=== PATIENT | female | born 1960 | race Caucasian/White ===

== ENCOUNTER 2020-07-13 11:40 | Outpatient (REF) | payer MEDICARE, MEDICAID, SELFPAY | END 2020-07-13 11:41 | disposition home or self-care (01) | LOC: HO.WFDLDS 11:40 | PROVIDERS: Visit Provider Internal Medicine | DX: Z20.828 Contact with and (suspected) exposure to other viral communicable diseases (principal) | CPT/HCPCS: C9803; U0003 ==

== ENCOUNTER → 2020-12-04 12:58 | Outpatient (BNVA) | payer MEDICARE, MEDICAID, SELFPAY | PROVIDERS: PCP Internal Medicine; Visit Provider Physician Assistant ==

== ENCOUNTER → 2020-12-05 08:09 | Outpatient (BNVA) | payer OTHER, SELFPAY | PROVIDERS: PCP Internal Medicine; Visit Provider Surgery | DX: K21.9 Gastro-esophageal reflux disease without esophagitis (principal); E03.9 Hypothyroidism, unspecified; E66.01 Morbid (severe) obesity due to excess calories; Z68.42 Body mass index [BMI] 45.0-49.9, adult; G47.30 Sleep apnea, unspecified; I10 Essential (primary) hypertension; Z71.3 Dietary counseling and surveillance; Z79.899 Other long term (current) drug therapy; Z87.891 Personal history of nicotine dependence | CPT/HCPCS: Q3014 ==

== ENCOUNTER 2020-12-07 08:09 | Outpatient (REF) | payer OTHER, SELFPAY ==
--- NOTE | ~2020-12-07 | XR_ITS ---
EXAMINATION: XR CHEST CLINICAL INFORMATION: Obesity COMPARISON: None TECHNIQUE: 2 views of the chest were obtained. FINDINGS: The cardiac and mediastinal contours are normal. The lungs are clear. There is no pleural effusion or pneumothorax. There are degenerative changes of the spine. XR/XR chest 2V IMPRESSION: No evidence for acute disease in the chest.
--- NOTE | 2020-12-07 08:37 | ECG_ITS ---
Test Reason : MORBID OBESITY Blood Pressure : / mmHG Vent. Rate : 079 BPM Atrial Rate : 079 BPM P-R Int : 164 ms QRS Dur : 082 ms QT Int : 396 ms P-R-T Axes : 053 034 065 degrees QTc Int : 454 ms Normal sinus rhythm Normal ECG No previous ECGs available Referred By: Syed Jane Electronically Signed By:NADEEN TORREZ
[2020-12-07 08:57] LABS: MANUAL DIFF FLAG NO
[2020-12-07 09:06] LABS: Basophils Percent Auto 0.4 % (0-2); Eosinophils Absolute Auto 0.4 X10*3/uL (0.0-0.4); Hematocrit 34.3 % (37-47); Hemoglobin 10.8 g/dl (12.0-16.0); Imm Gran Abs Auto 0.03 X10*3/uL (0.00-0.03); Imm Gran Pct Auto 0.3 % (0.0-0.4); Lymphocytes Absolute Auto 2.8 X10*3/uL (1.2-4.9); Lymphocytes Percent Auto 29.5 % (20-40); Mean Corpuscular HGB Conc 31.5 g/dl (31.0-35.0); Mean Corpuscular Hemoglobin 26.2 pg (27.0-33.0); Mean Corpuscular Volume 83.1 fL (80-98); Monocytes Absolute Auto 0.6 X10*3/uL (0.1-1.2); Monocytes Percent Auto 6.8 % (2-11); Neutrophils Absolute Auto 5.6 X10*3/uL (2.0-8.3); Platelet Count 621 X10*3/uL (160-400); Red Blood Count 4.13 X10*6/uL (4.20-5.50); Red Cell Distribution Width 15.1 % (11.0-16.0); White Blood Count 9.4 X10*3/uL (4.8-10.8)
[2020-12-07 09:32] LABS: Estimated Average Glucose 186 mg/dL; Hemoglobin A1c % 8.1 %
[2020-12-07 09:33] LABS: Alanine Aminotransferase 17 U/L (0-31); Alkaline Phosphatase 66 U/L (39-117); Anion Gap 16 (12-20); Aspartate Amino Transferase 19 U/L (5-31); Bilirubin Total < 0.2 mg/dL (0.0-1.0); Blood Urea Nitrogen 22 mg/dL (9-16); C Reactive Protein 2.03 mg/dL (< or = 0.50); Calcium 9.8 mg/dL (8.4-10.2); Carbon Dioxide 28 mmol/L (22-29); Chloride 100 mmol/L (96-108); Cholesterol 248 mg/dL; Estimated Glomerular Filt Rate 59; Glucose Random 244 mg/dL (60-115); HDL Cholesterol 44 mg/dL; LDL Cholesterol Calculated 162 mg/dl; Potassium 5.5 mmol/L (3.3-5.1); Sodium 138 mmol/L (135-145); Total Protein 7.4 g/dL (6.5-8.0); Triglycerides 210 mg/dL
[2020-12-07 09:55] LABS: Ferritin 69 ng/mL (10-250); Vitamin D 25-OH Total 15.6 ng/mL (>30)
[2020-12-07 10:11] LABS: Folate 18.9 ng/mL (> or = 4.0); Vitamin B12 656 pg/mL (200-900)
[2020-12-08 09:52] LABS: Insulin Level Total 15.3 uIU/mL
[2020-12-08 12:16] LABS: H Pylori Breath Test NOT DETECTED (NOT DETECTED)
[2020-12-10 13:43] LABS: Calcium (PTHI) 9.8 mg/dL (8.6-10.4); PTHI 32 pg/mL (14-64)
[2020-12-11 03:11] LABS: Zinc 72 mcg/dL (60-130)
[2020-12-11 09:56] LABS: Vitamin B1 19 nmol/L (8-30)
[2020-12-11 21:36] LABS: Vitamin A 64 mcg/dL (38-98)
== END 2020-12-07 08:10 | disposition home or self-care (01) ==
LOC: HO.LAB 08:09
PROVIDERS: Physician Assistant; Visit Provider Surgery
DX: E66.01 Morbid (severe) obesity due to excess calories (principal); E03.9 Hypothyroidism, unspecified; G47.30 Sleep apnea, unspecified; I10 Essential (primary) hypertension; K21.9 Gastro-esophageal reflux disease without esophagitis; E11.9 Type 2 diabetes mellitus without complications
CPT/HCPCS: 36415; 71046; 80053; 80061; 82306; 82607; 82728; 82746; 83013; 83036; 83525; 83970; 84425; 84443; 84590; 84630; 85025; 86140; 93005; 99211

== ENCOUNTER → 2020-12-11 09:58 | Outpatient (BNVA) | payer OTHER, SELFPAY | PROVIDERS: Visit Provider Physician Assistant ==

== ENCOUNTER 2020-12-24 08:02 | Outpatient (REF) | payer OTHER, SELFPAY ==
--- NOTE | ~2020-12-24 | FL_ITS ---
EXAMINATION: XR GI SERIES CLINICAL INFORMATION: Obesity. COMPARISON: None TECHNIQUE: Upper GI performed with air, thick and thin barium. FINDINGS: Normal esophageal motility and distention. No mass or mucosal lesions of the esophagus. There was quick transit of the barium through the stomach into the proximal bowel. The stomach is suboptimally distended, with associated limitation of evaluation. There is apparent rugal prominence in the fundus and body of the stomach, which could be related to lack of distention. No space-occupying mass lesion is identified. No reflux is seen. No evidence of hiatal hernia. The visualized proximal small bowel appears unremarkable. FLUOROSCOPY TIME: 1.3 minutes DOSE AREA PRODUCT: 48.9 uGy-m2 (microgray-meter squared) TOTAL IMAGES: 27 FL/FL upper GI series IMPRESSION: 1. Prompt passage of the barium and gas through the stomach to the proximal small bowel. There is suboptimal distention of the stomach, therefore limiting evaluation. Apparent rugal prominence of the stomach fundus/body, which could be related to lack of distention. A follow-up upper GI study could be attempted for further evaluation as clinically warranted. Endoscopy could be considered as clinically warranted. 2. No evidence of hiatal hernia. 3. No reflux is seen.
--- NOTE | ~2020-12-24 | US_ITS ---
EXAMINATION: US COMPLETE ABDOMEN WITH LIVER ELASTOGRAPHY CLINICAL INFORMATION: Obesity. COMPARISON: None. TECHNIQUE: Real-time imaging of the abdominal viscera. Noninvasive ultrasound liver fibrosis assessment is performed using Rashad ElastPQ point quantification shear wave elastography (pSWE) with a C5-2 MHz transducer. Multiple elastography samples are obtained. FINDINGS: PANCREAS: Normal. The visualized pancreatic head and body are normal in appearance. The remainder of the pancreas is obscured from visualization by the overlying bowel gas. ABDOMINAL AORTA: The proximal, middle, and distal aortic segments are normal in caliber. INFERIOR VENA CAVA: Visualized portions are normal. LIVER: Diffuse increased parenchymal echogenicity. No focal lesion or intrahepatic biliary duct dilatation. The right lobe measures 14.2 cm in length. The left lobe measures 14 cm in length. Portal flow is hepatopedal. Shear wave liver elastography median stiffness is 2.2 m/s (reference: normal median stiffness is 1.3 m/s or less). IQR/median stiffness to assess sampling precision is 0.24. (reference: good quality data set is IQR/median stiffness of 0.15 or less). GALLBLADDER: Normal. The gallbladder is physiologically distended without evidence of stones, sludge, polyps, wall thickening or pericholecystic fluid. COMMON BILE DUCT: Normal in caliber measuring 0.5 cm in diameter. RIGHT KIDNEY: Normal. No hydronephrosis. No renal calculi or focal parenchymal lesions. The kidney measures 12 cm in maximum dimension. LEFT KIDNEY: Normal. No hydronephrosis. No renal calculi or focal parenchymal lesions. The kidney measures 12.3 cm in maximum dimension. SPLEEN: Normal. The spleen measures 10.2 cm in maximum dimension. FREE FLUID: None. US/US abdomen comp w elastography IMPRESSION: 1. There is generalized increase in hepatic echotexture, consistent with fatty infiltration or hepatocellular disease. Please correlate clinically. No focal hepatic mass or intrahepatic biliary duct dilatation is seen. 2. Liver elastography: Median stiffness is 2.2 m/s. Please note, the sampling precision is suboptimal, as detailed above. Consider followup ultrasound for reassessment. Today's measurements, as per the attached guidelines, would be suggestive of compensated advanced chronic liver disease but need further test for confirmation. REFERENCE: Society of Radiologists in Ultrasound Liver Stiffness Thresholds (2020): LIVER STIFFNESS THRESHOLDS: *Liver Stiffness equal or less than 1.3 m/s: High probability of being normal. *Liver Stiffness less than 1.7 m/s: In the absence of other known clinical signs, rules out compensated advanced chronic liver disease. *Liver Stiffness 1.7-2.1 m/s: Suggestive of compensated advanced chronic liver disease but need further test for confirmation. *Liver Stiffness over 2.1 m/s: Rules in compensated advanced chronic liver disease. *Liver Stiffness over 2.4 m/s: Suggestive of clinically significant portal hypertension. QUALITY OF DATA SET: *IQR/Median value equal or less than 0.15 implies a quality data set. *IQR/Median value over 0.15 implies a poor quality data set. SIGNIFICANT CHANGE FROM PRIOR EXAM: Significant change if liver stiffness measurement is 10% or greater from prior exam. OTHER CONSIDERATIONS: The stage of liver fibrosis may be overestimated in the setting of acute hepatitis, liver inflammation, elevated liver function tests, hepatic vascular congestion, obstructive cholestasis, non-fasting state, and infiltrative diseases such as amyloidosis and lymphoma. In some patients with NAFLD, the liver stiffness thresholds for compensated advanced chronic liver disease may be lower. In causes other than viral hepatitis and NAFLD, liver stiffness thresholds are not well established.
== END 2020-12-24 08:03 | disposition home or self-care (01) ==
LOC: HO.US 08:02
PROVIDERS: Visit Provider Surgery
DX: Z01.818 Encounter for other preprocedural examination (principal); E66.01 Morbid (severe) obesity due to excess calories; K21.9 Gastro-esophageal reflux disease without esophagitis; E03.9 Hypothyroidism, unspecified; G47.30 Sleep apnea, unspecified; I10 Essential (primary) hypertension
CPT/HCPCS: 74240; 76705; 76981

== ENCOUNTER → 2020-12-26 08:39 | Outpatient (BNVA) | payer OTHER, SELFPAY | PROVIDERS: Visit Provider Surgery | DX: E66.01 Morbid (severe) obesity due to excess calories (principal); G47.30 Sleep apnea, unspecified; I10 Essential (primary) hypertension; Z68.42 Body mass index [BMI] 45.0-49.9, adult | CPT/HCPCS: Q3014 ==

== ENCOUNTER → 2021-01-02 08:17 | Outpatient (BNVA) | payer OTHER, SELFPAY | PROVIDERS: PCP Internal Medicine; Visit Provider Dietitian, Registered | DX: E66.01 Morbid (severe) obesity due to excess calories (principal); Z68.42 Body mass index [BMI] 45.0-49.9, adult | CPT/HCPCS: 97802 ==

== ENCOUNTER → 2021-01-10 09:57 | Outpatient (REF) | payer OTHER, SELFPAY ==
--- NOTE | ~2021-01-10 | NM_ITS ---
Myocardial perfusion study Indication: Abnormal EKG to evaluate for myocardial ischemia Technique: The patient was brought in for a Lexiscan perfusion study on 01/10/2021. Patient performed low-level exercise and was injected 0.4 mg of Lexiscan intravenously. Within a minute of injection, 45 mCi of sestamibi was given intravenously. Images were obtained using the SPECT gamma camera interlaced with the gating device. Images were obtained in supine position. Resting perfusion study was performed on 01/11/2021. Patient was administered 45 mCi of sestamibi intravenously at rest. Images were then obtained in supine position. Images obtained with and without CT attenuation. Total DLP 197 mGy-cm. Images were processed with the software and compared side to side in short axis, horizontal long axis and vertical long axis views. Findings: The stress perfusion study showed non attenuated images show severely reduced uptake in the anterior and anterolateral wall of the LV myocardium. Remainder of the LV myocardium normally perfused. Attenuation corrected images show mildly to moderately reduced uptake in the mid and distal anterior and apical of the LV myocardium. Is also mildly reduced uptake in the distal septum of the LV myocardium.. The gated study shows normal LV systolic function with calculated LVEF of 73%. LV cavity is normal in size. The gated study shows normal systolic wall thickening and contraction of segments. Resting study shows non attenuated images show minimal thinning of the distal anterior and apex of the LV myocardium. Attenuation corrected images show minimal thinning of the distal anterior wall of the LV myocardium.. Gating at rest reveals normal systolic wall motion with visually estimated ejection fraction at greater than 70 %. The findings are consistent with nontender images show large area of severe intensity reversible defect of the anterior anterolateral wall suggestive of malignancy territory ischemia. Attenuation corrected images show also reversible defect of mild to moderate intensity in the LAD territory. There is suggestion of possible breast attenuation artifact .. NM/NM george perf SPECT rest & str Impression: 1. Myocardial perfusion imaging study shows anterior wall ischemia in LAD territory 2. Gated LVEF is greater than 70% 3. Transient ischemic dilatation not present EKG is nondiagnostic for ischemia
--- NOTE | 2021-01-10 10:00 | CA_ITS ---
Acquisition Time: 2021-01-10 10:07:38 Total Exercise Time: 00:02:00 Test Indications: Abnormal ECG Medications: Protocol: LEXISCAN Max HR: 102 BPM 67% of Pred: 151 BPM Max BP: 132/084 mmHG Max Work Load: 1.0 METS Pharmacological stress test using Lexiscan while sitting and kicking her feet. Pt tolerated well, denies any anginal sx. EKG with no arrhythmias, non-diagnostic for ischemia. Nuclear images to follow, Normotensive response to test. Test reviewed with Dr. Covarrubias. Referred By: Syed Jane Overread By: Tahira Cordova NP
== END ==
LOC: HO.CARD 09:57
PROVIDERS: Visit Provider Surgery
DX: Z01.818 Encounter for other preprocedural examination (principal); I10 Essential (primary) hypertension; E66.01 Morbid (severe) obesity due to excess calories; G47.30 Sleep apnea, unspecified
CPT/HCPCS: 78452; 93016; 93017; 93018; A9500; J2785

== ENCOUNTER → 2021-01-18 07:53 | Outpatient (BNVA) | payer OTHER, SELFPAY | PROVIDERS: PCP Internal Medicine; Visit Provider Surgery | DX: E66.01 Morbid (severe) obesity due to excess calories (principal); Z68.42 Body mass index [BMI] 45.0-49.9, adult | CPT/HCPCS: 99212 ==

== ENCOUNTER → 2021-01-23 08:19 | Outpatient (BNVA) | payer OTHER, SELFPAY | PROVIDERS: PCP Internal Medicine; Visit Provider Internal Medicine Cardiovascular Disease | DX: Z01.810 Encounter for preprocedural cardiovascular examination (principal); I77.9 Disorder of arteries and arterioles, unspecified; R94.39 Abnormal result of other cardiovascular function study | CPT/HCPCS: 99202 ==

== ENCOUNTER 2021-01-25 14:57 | Outpatient (REF) | payer OTHER, SELFPAY ==
[2021-01-25 16:07] LABS: Anion Gap 18 (12-20); Blood Urea Nitrogen 23 mg/dL (9-16); Carbon Dioxide 25 mmol/L (22-29); Chloride 99 mmol/L (96-108); Cholesterol 242 mg/dL; Estimated Glomerular Filt Rate > 60; Glucose Random 102 mg/dL (60-115); HDL Cholesterol 44 mg/dL; LDL Cholesterol Calculated 160 mg/dl; Potassium 4.5 mmol/L (3.3-5.1); Sodium 137 mmol/L (135-145); Triglycerides 190 mg/dL
== END 2021-01-25 14:58 | disposition home or self-care (01) ==
LOC: HO.LAB 14:57
PROVIDERS: Absent Provider Internal Medicine Cardiovascular Disease; PCP Internal Medicine; Visit Provider Surgery
DX: R94.39 Abnormal result of other cardiovascular function study (principal); I25.10 Atherosclerotic heart disease of native coronary artery without angina pectoris; I77.9 Disorder of arteries and arterioles, unspecified
CPT/HCPCS: 36415; 80048; 80061

== ENCOUNTER → 2021-02-18 09:39 | Outpatient (REF) | payer OTHER, SELFPAY ==
--- NOTE | 2021-02-18 09:42 | CA_ITS ---
Transthoracic Echocardiogram Patient (Last, First, Middle): Helen hWeatley, Gender: Female Date of : 1960 Age: 60 Procedure Date: 02/18/2021 Procedure Type: Transthoracic Echocardiogram Location: OP Height: 162.56 cm Weight: 122.47 kg BSA: 2.22 m2 Heart Rate: bpm BP: 128 / 70 mmHg Collar Setter Overlock: Referring MD: Syed Jane MD Symptoms: E66.01 - Morbid (severe) obesity due to excess calories Study Quality: Fair ECG Rhythm: Sinus Conclusions: - The left ventricular systolic function is normal. The visually estimated ejection fraction is between 65-70%. - Evidence suggests grade I (mild) diastolic dysfunction. - There is mild aortic valve stenosis. - Mild to moderate mitral annular calcification. Findings Procedure Information Contrast agent, definity, is being given per protocol without apparent complications. Left Ventricle Normal left ventricular cavity size. There is mildly increased left ventricular wall thickness. The left ventricular systolic function is normal. The visually estimated ejection fraction is between 65-70%. There is no evidence of regional wall motion abnormalities. E/E prime ratio is between 8 and 15 consistent with indeterminate filling pressures. Evidence suggests grade I (mild) diastolic dysfunction. Right Ventricle Normal right ventricular cavity size and systolic function. Atria Both atria are normal in size. Aortic Valve There is mild calcification of the aortic valve. There is mild aortic valve stenosis. The peak aortic velocity is 2.51 m/s with a calculated peak gradient of 25 mmHg. The mean gradient is 15 mmHg. The aortic valve area is 1.55 cm2. There is no aortic valve regurgitation. Mitral Valve There is trace mitral valve regurgitation. There is no mitral valve stenosis. Mild to moderate mitral annular calcification. Pulmonic Valve The pulmonic valve was not well visualized. Tricuspid Valve There is trace tricuspid valve regurgitation. The pulmonary artery systolic pressure is normal. Great Vessels The aortic annulus, sinuses of valsalva, and asc aorta are normal in size. Venous The inferior vena cava is normal in size and collapses greater than 50% with inspiration. Pericardium/Pleural There is no evidence of pericardial effusion. Prior Study Comparison No prior study available for comparison. Measurements 2D Linear Measurements IVSd: 1.36 0.6-0.9/0.6-1.0 cm LVIDd: 4.51 3.9-5.3/4.2-5.9 cm LVIDd Index: 2.03 2.4-3.2/2.2-3.1 cm/m2 LVIDs: 2.80 2.0-3.6 cm LVPWd: 1.33 0.7-1.1 cm Ao Root: 3.10 2.1-3.5 cm LA Diam: 4.90 2.7-3.8/3.0-4.0 cm LAIDs Index: 2.21 1.5-2.3 cm/m2 LV Mass: 292.77 67-162/88-224 g LV Mass Index: 131.88 43-95/49-115 g/m2 LVOT Diam: 2.00 3.0+(-)1.3 cm Mitral Valve MV VTI: 0.36 MV Pk Raghu: 1.08 MV Mn Raghu: 0.71 MV Pk Grad: 5.00 MV Mn Grad: 2.00 MV Pk E: 0.64 MV PK A: 0.88 MV Decel Time: 244.00 E/A: 0.70 E'Lateral: 3.59 E'Medial: 4.90 E/E' Med: 13.10 E/E' Lat: 17.90 PHT: 71.00 MVA PHT: 3.10 MVA Continuity: 2.18 Decel [place]: 2.64 Aortic Valve AoV Pk Raghu: 2.51 AoV Mn Raghu: 1.81 AoV VTI: 0.50 AoV Pk Grad: 25.00 Aov Mn Grad: 15.00 RYLAN Cont.VTI: 1.55 LVOT LVOT Pk Raghu: 1.16 LVOT Mn Raghu: 0.84 LVOT VTI: 0.25 LVOT Pk Grad: 5.00 LVOT Mn Grad: 3.00 LVOT Diam: 2.00 LVOT Area: 3.14 Diastolic Function MV Pk E: 0.64 MV Pk A: 0.88 E/A: 0.70 E'Medial: 4.90 E/E' Med: 13.10 E' Laterial: 3.59 E/E' Lat: 17.90 Tricuspid Valve TR Pk Raghu: 2.10 TR Pk Grad: 18.00 RA Press: 3.00 RVSP: 21.00 Great Vessels Aorta Ao Root-2D: 3.10 2.0-3.7 cm Ao Asc: 3.50 2.1-3.4 cm Pulmonary Valve PV Pk Raghu: 1.13 Peak PV Grad: 5.00 Updated in Other Vendor System with Status of Final Jerod Covarrubias MD electronically signed on 02/18/2021 12:31:08 PM with status of Final
== END ==
LOC: HO.CARD 09:39
PROVIDERS: PCP Internal Medicine; Visit Provider Surgery
DX: Z01.818 Encounter for other preprocedural examination (principal); I10 Essential (primary) hypertension; E66.01 Morbid (severe) obesity due to excess calories; G47.30 Sleep apnea, unspecified
CPT/HCPCS: 93306; Q9957

== ENCOUNTER → 2021-02-22 11:34 | Outpatient (BNVA) | payer OTHER, SELFPAY | PROVIDERS: PCP Internal Medicine; Referring Provider Internal Medicine; Visit Provider Internal Medicine Cardiovascular Disease | DX: I25.10 Atherosclerotic heart disease of native coronary artery without angina pectoris (principal); I10 Essential (primary) hypertension | CPT/HCPCS: 99212 ==

== ENCOUNTER 2021-02-25 13:51 | Outpatient (REF) | payer OTHER, SELFPAY ==
[2021-02-25 14:50] LABS: Hematocrit 35.4 % (37-47); Mean Corpuscular HGB Conc 31.1 g/dl (31.0-35.0); Mean Corpuscular Hemoglobin 24.9 pg (27.0-33.0); Mean Corpuscular Volume 80.3 fL (80-98); Mean Platelet Volume 9.6 fL (9.4-12.3); Platelet Count 640 X10*3/uL (160-400); Red Blood Count 4.41 X10*6/uL (4.20-5.50); Red Cell Distribution Width 14.4 % (11.0-16.0); White Blood Count 13.4 X10*3/uL (4.8-10.8)
[2021-02-25 15:01] LABS: Prothrombin Time 11.6 SEC (10.8-13.0)
[2021-02-25 15:15] LABS: Anion Gap 13 (12-20); Blood Urea Nitrogen 27 mg/dL (9-16); Calcium 10.5 mg/dL (8.4-10.2); Carbon Dioxide 28 mmol/L (22-29); Chloride 96 mmol/L (96-108); Estimated Glomerular Filt Rate > 60; Glucose Random 160 mg/dL (60-115); Potassium 5.4 mmol/L (3.3-5.1); Sodium 132 mmol/L (135-145)
== END 2021-02-25 13:52 | disposition home or self-care (01) ==
LOC: HO.LAB 13:51
PROVIDERS: PCP Pediatrics Adolescent Medicine; Visit Provider Internal Medicine Cardiovascular Disease
DX: I25.10 Atherosclerotic heart disease of native coronary artery without angina pectoris (principal)
CPT/HCPCS: 36415; 80048; 85027; 85610

== ENCOUNTER → 2021-03-06 07:25 | Outpatient (BNVA) | payer OTHER, SELFPAY | PROVIDERS: PCP Pediatrics Adolescent Medicine; Visit Provider Surgery | DX: E66.01 Morbid (severe) obesity due to excess calories (principal); Z68.42 Body mass index [BMI] 45.0-49.9, adult | CPT/HCPCS: Q3014 ==

== ENCOUNTER → 2021-03-07 14:19 | Outpatient (BNVA) | payer OTHER, SELFPAY | PROVIDERS: PCP Pediatrics Adolescent Medicine; Visit Provider Nurse Practitioner Family | DX: Z01.810 Encounter for preprocedural cardiovascular examination (principal); I25.10 Atherosclerotic heart disease of native coronary artery without angina pectoris; I77.9 Disorder of arteries and arterioles, unspecified; I10 Essential (primary) hypertension; E66.01 Morbid (severe) obesity due to excess calories; Z98.890 Other specified postprocedural states | CPT/HCPCS: 99212 ==

== ENCOUNTER → 2021-03-29 07:02 | Outpatient (BNVA) | payer OTHER, SELFPAY | PROVIDERS: PCP Internal Medicine; Visit Provider Surgery | CPT/HCPCS: Q3014 ==

== ENCOUNTER → 2021-05-07 11:08 | Outpatient (BNVA) | payer OTHER, SELFPAY | PROVIDERS: PCP Internal Medicine; Visit Provider Physician Assistant ==

== ENCOUNTER → 2021-05-10 11:50 | Outpatient (BNVA) | payer OTHER, SELFPAY | PROVIDERS: PCP Internal Medicine; Visit Provider Surgery | DX: E66.01 Morbid (severe) obesity due to excess calories (principal); E03.9 Hypothyroidism, unspecified; E55.9 Vitamin D deficiency, unspecified; I10 Essential (primary) hypertension; K21.9 Gastro-esophageal reflux disease without esophagitis | CPT/HCPCS: 99212 ==

== ENCOUNTER → 2021-05-24 13:27 | Outpatient (BNVA) | payer OTHER, SELFPAY | PROVIDERS: PCP Pediatrics Adolescent Medicine; Visit Provider Physician Assistant ==

== ENCOUNTER 2021-05-28 08:29 | Inpatient (IN) | payer OTHER, SELFPAY ==
[2021-05-20 11:24] VITALS: BMI 44.2
[2021-05-21 12:52] LABS: MANUAL DIFF FLAG NO
[2021-05-21 12:56] LABS: Basophils Percent Auto 0.4 % (0-2); Eosinophils Absolute Auto 0.2 X10*3/uL (0.0-0.4); Eosinophils Percent Auto 2.5 % (0-4); Hematocrit 33.6 % (37-47); Hemoglobin 10.8 g/dl (12.0-16.0); Imm Gran Abs Auto 0.03 X10*3/uL (0.00-0.03); Imm Gran Pct Auto 0.3 % (0.0-0.4); Lymphocytes Absolute Auto 2.1 X10*3/uL (1.2-4.9); Lymphocytes Percent Auto 23.6 % (20-40); Mean Corpuscular HGB Conc 32.1 g/dl (31.0-35.0); Mean Corpuscular Hemoglobin 25.9 pg (27.0-33.0); Mean Corpuscular Volume 80.6 fL (80-98); Mean Platelet Volume 9.8 fL (9.4-12.3); Monocytes Absolute Auto 0.7 X10*3/uL (0.1-1.2); Monocytes Percent Auto 7.6 % (2-11); Neutrophils Absolute Auto 5.9 X10*3/uL (2.0-8.3); Neutrophils Percent Auto 65.6 % (45-73); Platelet Count 663 X10*3/uL (160-400); Red Blood Count 4.17 X10*6/uL (4.20-5.50); Red Cell Distribution Width 15.2 % (11.0-16.0); White Blood Count 9.1 X10*3/uL (4.8-10.8)
[2021-05-21 13:06] LABS: Estimated Average Glucose 177 mg/dL; Hemoglobin A1c % 7.8 %
[2021-05-21 13:07] LABS: Prothrombin Time 11.2 SEC (9.9-13.0)
[2021-05-21 13:09] LABS: Partial Thromboplastin Time 40.3 SEC (24.1-38.0)
[2021-05-21 13:25] LABS: Alanine Aminotransferase 13 U/L (0-31); Albumin Level 4.5 g/dL (3.5-5.0); Alkaline Phosphatase 65 U/L (39-117); Anion Gap 14 (12-20); Aspartate Amino Transferase 12 U/L (5-31); Bilirubin Total 0.4 mg/dL (0.0-1.0); Blood Urea Nitrogen 34 mg/dL (9-16); C Reactive Protein 1.73 mg/dL (< or = 0.50); Calcium 10.8 mg/dL (8.4-10.2); Carbon Dioxide 24 mmol/L (22-29); Chloride 104 mmol/L (96-108); Cholesterol 163 mg/dL; Creatinine Clr Calc Pharmacy 79.3; Estimated Glomerular Filt Rate 59; Glucose Random 186 mg/dL (60-115); HDL Cholesterol 45 mg/dL; LDL Cholesterol Calculated 95 mg/dl; Potassium 5.8 mmol/L (3.3-5.1); Sodium 136 mmol/L (135-145); Total Protein 7.8 g/dL (6.5-8.0); Triglycerides 116 mg/dL
[2021-05-21 13:49] LABS: TSH reflex Free T4 0.08 uIU/mL (0.32-4.0)
[2021-05-21 14:29] LABS: Free T4 (Free Thyroxine) 1.68 ng/dL (0.71-1.85)
[2021-05-23 09:37] LABS: Insulin Level Total 26.7 uIU/mL
[2021-05-24 14:29] LABS: Anion Gap 13 (12-20); Blood Urea Nitrogen 27 mg/dL (9-16); Calcium 10.9 mg/dL (8.4-10.2); Carbon Dioxide 26 mmol/L (22-29); Chloride 104 mmol/L (96-108); Cholesterol 176 mg/dL; Creatinine Clr Calc Pharmacy 84.6; Estimated Glomerular Filt Rate > 60; Glucose Random 167 mg/dL (60-115); HDL Cholesterol 50 mg/dL; LDL Cholesterol Calculated 97 mg/dl; Potassium 5.5 mmol/L (3.3-5.1); Sodium 137 mmol/L (135-145); Triglycerides 147 mg/dL
--- NOTE | 2021-05-26 20:58 | MHC.SHP ---
Pre-Procedural Eval Section A Date of Service: 05/26/21 The patient is an INPATIENT: Yes The History & Physical has been completed within 30 days and I have reviewed it.: Yes Section B Chief Complaint: morbid obesity Relevant Family History (Specify if Yes): No Relevant Social History: None Present Medications: see Short Stay Collaborative assessment Medical History: No relevant PMH History of Previous Operations: Relevant previous surgery/procedure and date(s) Allergies: Allergies Allergy/AdvReac Type Severity Reaction Status Date / Time codeine Allergy Severe nausea Verified 05/20/21 11:14 gabapentin Allergy Severe nausea and Verified 05/20/21 11:14 vomiting glyburide Allergy Severe headache Verified 05/20/21 11:14 ibuprofen Allergy Severe headache Verified 05/20/21 11:14 metformin Allergy Severe Anaphylaxis Verified 05/20/21 11:14 tramadol Allergy Severe nausea and Verified 05/20/21 11:14 vomiting Review of Systems Sugical H&P ROS: Negative: Constitution, Cardiovascular, Respiratory, Neurological, Psychiatric, Hem-Onc, Allergic/Immunologic, Gastrointestinal, Genitourinary, Musculoskeletal, Integumentary, Endocrine and Eyes/Ears/Nose/Throat Exam Surgical H&P Exam: Normal: HEENT, Normal: Heart, Normal: Lungs, Normal: Extremities, Normal: Abdomen, Normal: Skin and Normal: Neurological Plan Diagnosis/Plan: Unchanged I have reviewed the history and physical and performed a pertinent physical examination on my patient. No changes have occurred unless specified.
--- NOTE | 2021-05-27 08:41 | HO.ANESPROP2 ---
Documented by User: Rhoda Gale NP 05/27/21 08:47 HPI - Anesthesia Eval Consult details Narrative: 60yo F for Gastrectomy Sleeve,EGD,poss diaphragmatic hernia,poss ventral hernia,poss open Cardiac cleared at intermediate risk *Multiple med allergies* K=5.5, Reviewed with Dr Jackson. OK to proceed [facility] Active Problems Active Problems: All Active Problems (Updated 05/22/21 @ 12:51 by Syed Jane MD) Hyperkalemia (Acute) Vitamin D deficiency (Acute) Adjustment disorder, unspecified (Acute) Abnormal stress test (Acute) Preoperative cardiovascular examination (Acute) S/P cardiac cath (Acute) CAD (coronary artery disease) (Acute) Carotid artery disease (Acute) GERD (gastroesophageal reflux disease) (Acute) Hypertension (Acute) Back pain (Acute) Hypothyroidism (Acute) Insulin dependent diabetes mellitus (Acute) Sleep apnea (Acute) Morbid obesity (Acute) Past Medical History Medical History Back pain CAD (coronary artery disease) Carotid artery disease COVID-19 vaccine series completed Elevated cholesterol GERD (gastroesophageal reflux disease) Hx of difficult intubation Hypertension Hypothyroidism Insulin dependent diabetes mellitus Iron deficiency anemia Liver disease Morbid obesity On beta maranda at home Peripheral neuropathy Seasonal allergies Sleep apnea Stroke Family History Family History Mother No problems noted. Father No problems noted. Surgical History Surgical History History of appendectomy History of eye surgery History of tonsillectomy and adenoidectomy Hx of endarterectomy S/P cardiac cath Social History Social History Are you a primary neurocritical care physician to a significant other at home: No Do you presently have visiting nurse or other home services: Yes (Home Health Aid) Alcohol intake: current Alcohol intake frequency: holidays/special occasions only Patient Tobacco Use Status: Never used Tobacco Use of substances other than those prescribed or required for medical reasons: No Have you been hit, kicked, punched, or otherwise hurt by someone within the past year? If so, by whom?: No Are you DNR?: No Advance Directives: No Advance Directives Information Provided: No Advance Directives on File: No Recently lost weight without trying: No How much weight loss: 24-33 pounds Eating poorly because of decreased appetite: No Nutrition screen score: 3 Nutrition Risks: No Nutritional Risk Patient : No Meds Allergies Allergy/AdvReac Type Severity Reaction Status Date / Time codeine Allergy Severe nausea Verified 05/28/21 08:34 gabapentin Allergy Severe nausea and Verified 05/28/21 08:34 vomiting glyburide Allergy Severe headache Verified 05/28/21 08:34 ibuprofen Allergy Severe headache Verified 05/28/21 08:34 metformin Allergy Severe Anaphylaxis Verified 05/28/21 08:34 tramadol Allergy Severe nausea and Verified 05/28/21 08:34 vomiting metoprolol [From Toprol XL] AdvReac Severe Drop in Verified 05/28/21 08:34 blood pressure Home Medications Medication Instructions Recorded Confirmed Last Taken Type ammonium lactate 12 % lotion appl TOPICAL 12/05/20 05/10/21 Unknown History aspirin 81 mg tablet,delayed 81 mg PO DAILY 12/05/20 05/20/21 05/10/21 History release (Adult Low Dose Aspirin) biotin 5 mg capsule 5 mg PO DAILY 12/05/20 05/20/21 05/10/21 History blood sugar diagnostic #10 ea 12/05/20 05/10/21 Unknown History blood-glucose meter #1 ea 12/05/20 05/10/21 Unknown History insulin NPH isoph U-100 human 100 50 unit SUBCUT BID 12/05/20 05/20/21 Unknown History unit/mL subcutaneous suspension insulin syringe-needle U-100 1 mL #10 ea 12/05/20 05/10/21 Unknown History 31 gauge x 5/16 lancets 28 gauge #100 ea 12/05/20 05/10/21 Unknown History levothyroxine 175 mcg tablet 175 mcg PO DAILY 12/05/20 05/20/21 Unknown History lidocaine 5 % topical patch 0 patch TOPICAL 12/05/20 05/10/21 Unknown History lisinopril 5 mg tablet 5 mg PO DAILY 12/05/20 05/20/21 Unknown History loratadine 10 mg tablet 10 mg PO DAILY 12/05/20 05/20/21 Unknown History lorazepam 1 mg tablet 1 mg PO TID 12/05/20 05/20/21 Unknown History morphine 10 mg/5 mL oral solution mg PO 12/05/20 05/10/21 Unknown History mupirocin 2 % topical ointment 1 appl TOPICAL TID 12/05/20 05/20/21 Unknown History Exam Exam Date and Time: May 27, 2021 0841 Height,Weight and Vital Signs: Height 5 ft 4 in Weight 117.027 kg Pertinent Lab Results Pertinent Lab Results: Laboratory Tests 05/21/21 05/21/21 05/21/21 12:10 12:10 12:10 WBC 9.1 RBC 4.17 L Hgb 10.8 L Hct 33.6 L MCV 80.6 MCH 25.9 L MCHC 32.1 RDW 15.2 Plt Count 663 H MPV 9.8 Immature Gran % (Auto) 0.3 Neut % (Auto) 65.6 Lymph % (Auto) 23.6 [place] % (Auto) 7.6 Eos % (Auto) 2.5 Baso % (Auto) 0.4 Lymph # (Auto) 2.1 [place] # (Auto) 0.7 Eos # (Auto) 0.2 Baso # (Auto) 0.0 Abs Immat Gran (auto) 0.03 Absolute Neuts (auto) 5.9 Absolute Nucleated RBC 0.000 Nucleated RBC % (auto) 0.0 PT 11.2 INR 1.0 APTT 40.3 H Sodium 136 Potassium 5.8 H Chloride 104 Carbon Dioxide 24 Anion Gap 14 BUN 34 H Creatinine 0.96 Estim Creat Clear Calc 79.3 Estimated GFR 59 Random Glucose 186 H Estimat Average Glucose Hemoglobin A1c % Total Insulin Calcium 10.8 H Total Bilirubin 0.4 AST 12 ALT 13 Alkaline Phosphatase 65 C-Reactive Protein 1.73 H Total Protein 7.8 Albumin 4.5 Triglycerides 116 Cholesterol 163 D LDL Cholesterol, Calc 95 HDL Cholesterol 45 TSH 0.08 L Free T4 1.68 Blood Type Antibody Screen 05/21/21 05/21/21 05/21/21 12:10 12:10 12:10 WBC RBC Hgb Hct MCV MCH MCHC RDW Plt Count MPV Immature Gran % (Auto) Neut % (Auto) Lymph % (Auto) [place] % (Auto) Eos % (Auto) Baso % (Auto) Lymph # (Auto) [place] # (Auto) Eos # (Auto) Baso # (Auto) Abs Immat Gran (auto) Absolute Neuts (auto) Absolute Nucleated RBC Nucleated RBC % (auto) PT INR APTT Sodium Potassium Chloride Carbon Dioxide Anion Gap BUN Creatinine Estim Creat Clear Calc Estimated GFR Random Glucose Estimat Average Glucose 177 Hemoglobin A1c % 7.8 Total Insulin 26.7 H Calcium Total Bilirubin AST ALT Alkaline Phosphatase C-Reactive Protein Total Protein Albumin Triglycerides Cholesterol LDL Cholesterol, Calc HDL Cholesterol TSH Free T4 Blood Type A Positive Antibody Screen NEGATIVE 05/24/21 13:11 WBC RBC Hgb Hct MCV MCH MCHC RDW Plt Count MPV Immature Gran % (Auto) Neut % (Auto) Lymph % (Auto) [place] % (Auto) Eos % (Auto) Baso % (Auto) Lymph # (Auto) [place] # (Auto) Eos # (Auto) Baso # (Auto) Abs Immat Gran (auto) Absolute Neuts (auto) Absolute Nucleated RBC Nucleated RBC % (auto) PT INR APTT Sodium 137 Potassium 5.5 H Chloride 104 Carbon Dioxide 26 Anion Gap 13 BUN 27 H Creatinine 0.90 Estim Creat Clear Calc 84.6 Estimated GFR > 60 Random Glucose 167 H Estimat Average Glucose Hemoglobin A1c % Total Insulin Calcium 10.9 H Total Bilirubin AST ALT Alkaline Phosphatase C-Reactive Protein Total Protein Albumin Triglycerides 147 Cholesterol 176 LDL Cholesterol, Calc 97 HDL Cholesterol 50 TSH Free T4 Blood Type Antibody Screen Narrative Narrative: EKG 11/2020 Vent. Rate : 079 BPM ? ? Atrial Rate : 079 BPM ?? P-R Int : 164 ms? QRS Dur : 082 ms ? ? QT Int : 396 ms ? ? ? P-R-T Axes : 053 034 065 degrees ?? QTc Int : 454 ms ? Normal sinus rhythm Normal ECG No previous ECGs available ECHO 01/2021 Conclusions: - The left ventricular systolic function is normal.? The visually estimated ejection fraction is between 65-70%. ? - Evidence suggests grade I (mild) diastolic dysfunction.? - There is mild aortic valve stenosis. ? - Mild to moderate mitral annular calcification. ?? NM george perf SPECT rest & str 12/2020 Impression: ? 1.? Myocardial perfusion imaging study shows anterior wall ischemia in LAD territory 2.? Gated LVEF is greater than 70% 3. Transient ischemic dilatation not present ? EKG is nondiagnostic for ischemia Cardiac Cath 02/27/21 LM normal, LAD proximal and distal 70% stenosis, heavily calcified, RYLIE III flow, LCx is OM 60% stenosis, RCA with mild irregularities < 30% stenosis. Assessment and Plan Assessment Anesthesia Assessment: Chart Reviewed Documented by User: Denise Apple MD 05/28/21 13:31 [facility] Past Medical History Medical History Back pain CAD (coronary artery disease) Carotid artery disease COVID-19 vaccine series completed Elevated cholesterol GERD (gastroesophageal reflux disease) Hx of difficult intubation Hypertension Hypothyroidism Insulin dependent diabetes mellitus Iron deficiency anemia Liver disease Morbid obesity On beta maranda at home Peripheral neuropathy Seasonal allergies Sleep apnea Stroke Family History Family History Mother No problems noted. Father No problems noted. Family history of problems with anesthesia: No Surgical History Surgical History History of appendectomy History of eye surgery History of tonsillectomy and adenoidectomy Hx of endarterectomy S/P cardiac cath History of Problems with Anesthesia: Yes (H/o difficulty with awake fiberoptic intubation in 2016 for CEA.No difficulty with intubation prior. No surgeries since.) Social History Social History Are you a primary neurocritical care physician to a significant other at home: No Do you presently have visiting nurse or other home services: Yes (Home Health Aid) Alcohol intake: current Alcohol intake frequency: holidays/special occasions only Patient Tobacco Use Status: Never used Tobacco Use of substances other than those prescribed or required for medical reasons: No Have you been hit, kicked, punched, or otherwise hurt by someone within the past year? If so, by whom?: No Are you DNR?: No Advance Directives: No Advance Directives Information Provided: No Advance Directives on File: No Recently lost weight without trying: No How much weight loss: 24-33 pounds Eating poorly because of decreased appetite: No Nutrition screen score: 3 Nutrition Risks: No Nutritional Risk Patient : No Meds Allergies Allergy/AdvReac Type Severity Reaction Status Date / Time codeine Allergy Severe nausea Verified 05/28/21 08:34 gabapentin Allergy Severe nausea and Verified 05/28/21 08:34 vomiting glyburide Allergy Severe headache Verified 05/28/21 08:34 ibuprofen Allergy Severe headache Verified 05/28/21 08:34 metformin Allergy Severe Anaphylaxis Verified 05/28/21 08:34 tramadol Allergy Severe nausea and Verified 05/28/21 08:34 vomiting metoprolol [From Toprol XL] AdvReac Severe Drop in Verified 05/28/21 08:34 blood pressure Home Medications Medication Instructions Recorded Confirmed Last Taken Type ammonium lactate 12 % lotion appl TOPICAL 12/05/20 05/10/21 Unknown History aspirin 81 mg tablet,delayed 81 mg PO DAILY 12/05/20 05/20/21 05/10/21 History release (Adult Low Dose Aspirin) biotin 5 mg capsule 5 mg PO DAILY 12/05/20 05/20/21 05/10/21 History blood sugar diagnostic #10 ea 12/05/20 05/10/21 Unknown History blood-glucose meter #1 ea 12/05/20 05/10/21 Unknown History insulin NPH isoph U-100 human 100 50 unit SUBCUT BID 12/05/20 05/20/21 Unknown History unit/mL subcutaneous suspension insulin syringe-needle U-100 1 mL #10 ea 12/05/20 05/10/21 Unknown History 31 gauge x 5/16 lancets 28 gauge #100 ea 12/05/20 05/10/21 Unknown History levothyroxine 175 mcg tablet 175 mcg PO DAILY 12/05/20 05/20/21 Unknown History lidocaine 5 % topical patch 0 patch TOPICAL 12/05/20 05/10/21 Unknown History lisinopril 5 mg tablet 5 mg PO DAILY 12/05/20 05/20/21 Unknown History loratadine 10 mg tablet 10 mg PO DAILY 12/05/20 05/20/21 Unknown History lorazepam 1 mg tablet 1 mg PO TID 12/05/20 05/20/21 Unknown History morphine 10 mg/5 mL oral solution mg PO 12/05/20 05/10/21 Unknown History mupirocin 2 % topical ointment 1 appl TOPICAL TID 12/05/20 05/20/21 Unknown History Exam Height,Weight and Vital Signs: Height 5 ft 4 in Weight 117.027 kg Vital Signs Temp Pulse Resp BP Pulse Ox 05/28/21 08:43 98.0 F 83 18 153/74 H 99 Pertinent Lab Results Pertinent Lab Results: Laboratory Tests 05/21/21 05/21/21 05/21/21 12:10 12:10 12:10 WBC 9.1 RBC 4.17 L Hgb 10.8 L Hct 33.6 L MCV 80.6 MCH 25.9 L MCHC 32.1 RDW 15.2 Plt Count 663 H MPV 9.8 Immature Gran % (Auto) 0.3 Neut % (Auto) 65.6 Lymph % (Auto) 23.6 [place] % (Auto) 7.6 Eos % (Auto) 2.5 Baso % (Auto) 0.4 Lymph # (Auto) 2.1 [place] # (Auto) 0.7 Eos # (Auto) 0.2 Baso # (Auto) 0.0 Abs Immat Gran (auto) 0.03 Absolute Neuts (auto) 5.9 Absolute Nucleated RBC 0.000 Nucleated RBC % (auto) 0.0 PT 11.2 INR 1.0 APTT 40.3 H Sodium 136 Potassium 5.8 H Chloride 104 Carbon Dioxide 24 Anion Gap 14 BUN 34 H Creatinine 0.96 Estim Creat Clear Calc 79.3 Estimated GFR 59 Random Glucose 186 H Estimat Average Glucose Hemoglobin A1c % Total Insulin Calcium 10.8 H Total Bilirubin 0.4 AST 12 ALT 13 Alkaline Phosphatase 65 C-Reactive Protein 1.73 H Total Protein 7.8 Albumin 4.5 Triglycerides 116 Cholesterol 163 D LDL Cholesterol, Calc 95 HDL Cholesterol 45 TSH 0.08 L Free T4 1.68 Blood Type Antibody Screen 05/21/21 05/21/21 05/21/21 12:10 12:10 12:10 WBC RBC Hgb Hct MCV MCH MCHC RDW Plt Count MPV Immature Gran % (Auto) Neut % (Auto) Lymph % (Auto) [place] % (Auto) Eos % (Auto) Baso % (Auto) Lymph # (Auto) [place] # (Auto) Eos # (Auto) Baso # (Auto) Abs Immat Gran (auto) Absolute Neuts (auto) Absolute Nucleated RBC Nucleated RBC % (auto) PT INR APTT Sodium Potassium Chloride Carbon Dioxide Anion Gap BUN Creatinine Estim Creat Clear Calc Estimated GFR Random Glucose Estimat Average Glucose 177 Hemoglobin A1c % 7.8 Total Insulin 26.7 H Calcium Total Bilirubin AST ALT Alkaline Phosphatase C-Reactive Protein Total Protein Albumin Triglycerides Cholesterol LDL Cholesterol, Calc HDL Cholesterol TSH Free T4 Blood Type A Positive Antibody Screen NEGATIVE 05/24/21 13:11 WBC RBC Hgb Hct MCV MCH MCHC RDW Plt Count MPV Immature Gran % (Auto) Neut % (Auto) Lymph % (Auto) [place] % (Auto) Eos % (Auto) Baso % (Auto) Lymph # (Auto) [place] # (Auto) Eos # (Auto) Baso # (Auto) Abs Immat Gran (auto) Absolute Neuts (auto) Absolute Nucleated RBC Nucleated RBC % (auto) PT INR APTT Sodium 137 Potassium 5.5 H Chloride 104 Carbon Dioxide 26 Anion Gap 13 BUN 27 H Creatinine 0.90 Estim Creat Clear Calc 84.6 Estimated GFR > 60 Random Glucose 167 H Estimat Average Glucose Hemoglobin A1c % Total Insulin Calcium 10.9 H Total Bilirubin AST ALT Alkaline Phosphatase C-Reactive Protein Total Protein Albumin Triglycerides 147 Cholesterol 176 LDL Cholesterol, Calc 97 HDL Cholesterol 50 TSH Free T4 Blood Type Antibody Screen Laboratory Results - last 24 hr 05/28/21 05/28/21 05/28/21 08:40 08:46 08:50 POC Hgb (Calc) POC Hct POC Std Base Excess POC O2 Sat (Calc) POC ABG pO2 POC ABG Total CO2 POC Capillary pH POC Capillary pCO2 POC Cap HCO3 (Calc) POC Sodium POC Potassium Anion Gap Cancelled Estim Creat Clear Calc Cancelled Estimated GFR Cancelled POC Glucose 161 H Random Glucose Cancelled Calcium Cancelled COVID-19 ([place]) Negative COVID-19 Clin Com See Note 05/28/21 05/28/21 09:33 13:12 POC Hgb (Calc) 10.9 L 10.5 L POC Hct 32 L 31 L POC Std Base Excess 3 -2 POC O2 Sat (Calc) TNP 85 POC ABG pO2 57 L POC ABG Total CO2 29 26 POC Capillary pH 7.39 7.29 L POC Capillary pCO2 45 51 H POC Cap HCO3 (Calc) 28 H 24 POC Sodium 130 L 128 L POC Potassium 5.0 4.8 Anion Gap Estim Creat Clear Calc Estimated GFR POC Glucose 177 H 228 H Random Glucose Calcium COVID-19 ([place]) COVID-19 Clin Com Airway Mallampati Class: III TM Dist: >3cm Neck ROM: Full Heart: RRR Lungs: CTAB Assessment and Plan Assessment Anesthesia Assessment: Anesthesia Plan Discussed Final Anesthetic Review Family History of Problems with Anesthesia: No History of Problems with Anesthesia: Yes (H/o difficulty with awake fiberoptic intubation in 2016 for CEA.No difficulty with intubation prior. No surgeries since.) NPO: Yes ASA Class: III Final Preanesthetic Review: No Changes in Pt Med Stat, Meds/Allgs Chart Reviewed, Consent Obtained/Reviewed and Anes Risks/Benef Reviewed Patient Risk: Intermediate Procedure Risk: Intermediate Assessment/Block/Sedation in SS: Assess/Block/Sedation-SS Anesthetic Plan Anesthetic Plan: GA Disposition: Standard PACU and Inp. Admit - Standard Bed
[2021-05-27 11:02] LABS: Anion Gap 14 (12-20); Blood Urea Nitrogen 32 mg/dL (9-16); Calcium 10.1 mg/dL (8.4-10.2); Carbon Dioxide 23 mmol/L (22-29); Chloride 96 mmol/L (96-108); Cholesterol 151 mg/dL; Creatinine Clr Calc Pharmacy 74.6; Estimated Glomerular Filt Rate 55; Glucose Random 166 mg/dL (60-115); HDL Cholesterol 40 mg/dL; LDL Cholesterol Calculated 83 mg/dl; Sodium 128 mmol/L (135-145); Triglycerides 144 mg/dL
[2021-05-28] VITALS (12 sets, daily range): BP systolic 124–156; BP diastolic 37–74; PULSE 83–96; RESP 16–22; TEMP 36.1–36.7; O2SAT 94–100
[2021-05-28] MEDS: 0.9 % Sodium Chloride 500 ML IV ×2 (08:00→09:45)
[2021-05-28 08:58] LABS: Glucose, Whole Blood 161 mg/dL (60-115)
[2021-05-28 09:22] LABS: COVID-19 Test Negative (Negative)
[2021-05-28 12:20] LABS: Base Excess Bedside Calculated 3 mmol/L (-3-3); Glucose, i-STAT 177 mg/dL (60-115); HCO3 Bedside Calculated 28 mmol/L (22-26); Hematocrit Bedside 32 %PCV (37-47); Hemoglobin Bedside 10.9 g/dL (12.0-16.0); Sodium Bedside 130 mmol/L (135-145); TCO2 Bedside 29 mmol/L (24-29); pCO2 Bedside 45 mmhg (35-48); pH Bedside 7.39 (7.35-7.45)
[2021-05-28 13:16] LABS: Base Excess Bedside Calculated -2 mmol/L (-3-3); Glucose, i-STAT 228 mg/dL (60-115); HCO3 Bedside Calculated 24 mmol/L (22-26); Hematocrit Bedside 31 %PCV (37-47); Hemoglobin Bedside 10.5 g/dL (12.0-16.0); Potassium Bedside 4.8 mmol/L (3.3-5.1); SO2 Bedside Calculated 85 %; Sodium Bedside 128 mmol/L (135-145); TCO2 Bedside 26 mmol/L (24-29); pCO2 Bedside 51 mmhg (35-48); pH Bedside 7.29 (7.35-7.45); pO2 Bedside 57 mmhg (83-108)
--- NOTE | 2021-05-28 13:58 | P.BOP_ITS ---
Brief Operative Note Date of Service: 05/28/21 Pre-op diagnosis: Morbid obesity with comorbidities (see below) Post-op diagnosis: same (severe hepatomegaly) Procedure: INITIAL PATIENT BMI ON PRESENTATION AT OUR OFFICE: 49.8 kg/m2 LAST BMI BEFORE SURGERY: 43.8 kg/m2 COMORBIDITIES: insulin dependent diabetes, severe hepatomegaly, hypothyroidism, hypertension, GERD, anxiety, liver steatosis, liver fibrosis, aortic valve stenosis, diastolic dysfunction grade I, back pain The patient participated in an intensive weekly lifestyle ?intervention and exercise program during which the patient ?has lost between the initial office visit and the last preoperative visit 35 lbs, or 12.06% of initial actual body weight. The patient met the BMI-criteria for bariatric surgery based on the BMI on initial presentation. The patient should not be penalized for achieving such weight loss because ?it is not sustainable long-term without surgical intervention and it was achieved in preparation for bariatric surgery ?under my direction and based on my published research ([email or web address] and? [email or web address] ) ?that a 10% preoperative weight loss improves long-term weight loss after surgery and reduces perioperative complications.? Insurance carriers such as [facility] have endorsed my recommendations ?and have included in their policies criteria to include a 10% preoperative weight loss requirement. PROCEDURE: Esophago-gastroscopy, laparoscopic sleeve gastrectomy and laparoscopic gastropexy INDICATIONS: This is a 60 year-old female who was electively scheduled for laparoscopic, possibly open sleeve gastrectomy. The risks and complications of the procedure were discussed with the patient in advance, particularly the possibility of ; pulmonary embolism; staple line leak; bleeding; GERD; cardiac, pulmonary, or renal complications; as well as long-term problems such as insufficient weight loss, vitamin deficiency, strictures, or ulcers. The patient understood all the risks, and was in agreement to proceed with surgery. DESCRIPTION OF PROCEDURE: After informed consent was obtained from the patient, the patient was given pr eoperative antibiotics, and was transferred to the operating room. After successful induction of general anesthesia, pneumatic compressive devices were placed on both lower extremities. An upper endoscopy was performed next. The oropharynx and esophagus appeared to be within normal limits. There was a diaphragmatic hernia present of moderate size consistent with the findings of the preoperative upper GI. The stomach was entered. Then after all fluid and air were suctioned and the stomach was fully decompressed, the scope was withdrawn and secured in the mid esophagus. The patient was then prepped and draped in the usual sterile manner, and abdominal access was established at the right upper quadrant with the Henrique technique. A 12 mm blunt port was inserted, and the abdomen was insufflated with CO2 to a pressure of 15 mmHg. Under direct visualization, additional ports were placed, specifically two 5 mm Versi-step ports to the left upper quadrant, and a 5 mm Versi-Step port to the right upper quadrant. 1% lidocaine plain was used to infiltrate all port sites as well as all fascia defects. Following that, the patient was placed in a steep reverse Trendelenburg position. An additional 5 mm port was placed to the right flank for the Mediflex retractor that was used to retract the left lobe of the liver. There was severe hepatomegaly which made exposure at the hiatal area as well as manipulation of our instruments very challenging prolonging the time of surgery significantly. The gastro-esophageal fat pad was opened with the ultrasonic device (Thunderbeat, Olympus) and the anterior esophagus and hiatus were exposed. The angle of His was opened with the ultrasonic device the fundus of the stomach from any diaphragmatic and splenic attachments. I then opened the gastrocolic ligament between the transverse colon and the greater curvature of the stomach with the ultrasonic device to enter the lesser sac and facilitate the ligation of the short gastric vessels. I started at a mid-point along the greater curvature and using the Thunderbeat, all short gastric vessels were divided all the way to the angle of His until the left cornelius was completely dissected at its entirety. I then divided the gastro-colic ligament distally to a distance of about 3-4 cm proximal to the esophagus. The stomach was then divided transversely with one Endo LANDON-45 purple, two LANDON- 60 purple loads, two 45-LANDON orange loads and two LANDON-60 articulating orange loads. Every effort was made that the gastric sleeve had a tubular shape and an even caliber throughout. Once the sleeve resection was completed, the staple line of the gastric sleeve was reinforced with Hemoclips. The resected stomach was retrieved without difficulty from the Henrique port. A gastropexy was then performed in order to prevent postoperative GERD and partial gastric volvulus. Several interrupted 2.0 Surgidac sutures were placed between the sleeve's staple line and the previously divided greater omentum and gastro-colic ligament using the Endo-Stitch device. ?An upper endoscopy was performed. There was no narrowing at the GE junction. The scope was easily advanced all the way to the pylorus which was clearly visualized. There was no narrowing anywhere and the sleeve's caliber was even throughout. The sleeve's staple line was inspected and there was no evidence of ischemia, bleeding or dehiscence. At that point the gastroscope was withdrawn from the patient?s mouth while we were decompressing the bowel and the stomach from any remaining air. I looked into the lesser sac to see how the sleeve was situating and it was situating well. There was no bleeding from the staple line, spleen, or short gastric vessels. The Mediflex retractor was removed, and the undersurface of the liver was inspected and there was no bleeding. The patient was placed in supine position. I closed the fascial defect of the 12 mm port site with a figure of eight #1 Polysorb suture. Then 100 cc 0.25 % Marcaine plain with 10 mg of Dexamethasone were used to infiltrate the fascial closure as well as all skin incisions. At this point, the abdomen was deflated, all ports were removed under direct vision, and no bleeding was noted from any of the port sites. The skin incisions were irrigated with saline and were closed with 4-0 absorbable monofilament sutures. Steri-Strips and OpSites were used to cover all incisions. The patient was extubated and was transferred in stable condition to the recovery room for further care. I was present and performed all jacinto parts of the procedure. Joel was the assistant education director. There were no residents to assist with this case. Aman Jane MD, PhD, FACS Surgeon: Syed Jane MD Anesthesia: GETA, local and other (TAP block) Was an Trade [employer] Official used for this Procedure?: No Trade Union Official: Raeann Maldonado Estimated blood loss (mL): 10 IV fluids (mL): 2,200 Urine output (mL): 0 (No Faith to record) Pathology: other (Stomach) Condition: stable Disposition: PACU
--- NOTE | 2021-05-28 14:02 | P.DS_ITS ---
DS: Providers Provider Date of Service: 05/29/21 Date of admission: 05/28/21 08:29 Primary care physician: Claudette Samayoa MD DS: Summary Hospital Course Hospital Course: ADMITTING DIAGNOSIS: morbid obesity, CAD, HTN,GERD, Hypoth,IDDM, NEAL, CVA history DISCHARGE DIAGNOSIS: same, s/p laparoscopic sleeve gastrectomy PAST SURGICAL HISTORY: appendectomy, cardiac cathetization, endarterectomy PROCEDURE: upper endoscopy, laparoscopic sleeve gastrectomy DISCHARGE SUMMARY: History of Present Illness: The patient is a 60 year-old woman with a BMI of 49.8 kg/m2 and associated co- morbidities as described above. The patient had extensive work-up,lost 29.5 lbs preoperatively and was electively scheduled for laparoscopic, possible open sleeve gastrectomy and gastropexy. Risks and complications of the surgery were discussed with the patient in advance, particularly the possibility of , pulmonary embolism, anastomotic leak, bleeding, bowel injury, GERD, cardiac, renal or pulmonary complications. The patient understood all the risks and was in agreement with the surgical plan. Hospital Course: The patient underwent an uneventful laparoscopic sleeve gastrectomy with gastropexy on the day of admission. Postoperatively, the patient was transferred to the surgical floor. The patient received IV Acetaminophen and IV dilaudid for pain control. Patient was started on bariatric phase 1 diet POD #0. On postoperative day one, the patient was feeling well without nausea, vomiting, fevers, or tachycardia. The patient had some mild incisional pain and the abdomen was soft. On the morning of postoperative day one, the patient was continued on 1 ounce of water or ice every half hour. During the day, the patient did fairly well, having some incisional pain, but able to ambulate adequately and to tolerate liquids well. Since the patient is doing well, we decided that the patient was ready to be discharged. The patient was given instructions to follow-up with me next week and to call my office for any fever over 101, persistent abdominal pain, nausea, vomiting, GERD, symptoms of DVT such as calf tenderness, or leg swelling, or pulmonary embolism such as chest pain or shortness of breath. The patient was also instructed to drink 40-60 ounces of liquids per day using the 1-ounce cups. The patient had been given prescriptions for Tylenol for pain, Zofran prn for nausea, and pantoprazole and carafate previously. The patient was encouraged to ambulate and use the incentive spirometer. The patient was allowed to shower, but no baths, and encouraged to stay active at home. All of these instructions were given to the patient personally. All questions were answered and the patient understood all instructions, the instructions were also given to the patient in print. Time Spent with Patient Time attestation: Total time spent providing and/or coordinating discharge services: Discharge coordination time: Less than 30 minutes Quality: Stroke Does the patient have a stroke diagnosis?: No Physical Exam Vital Signs: Vital Signs: Last Vital Signs Temp 97.5 F 05/28/21 13:50 Pulse 92 05/28/21 14:00 Resp 19 05/28/21 14:00 BP 143/59 H 05/28/21 14:00 Pulse Ox 100 05/28/21 14:00 Body Mass Index 44.2 DS: Data Data Completed and Pending Pending studies at discharge: Pending at discharge 05/28/21 13:01 Surgical [PTH] Routine Labs on day of discharge: Laboratory Results - last 24 hr 05/28/21 05/28/21 05/28/21 08:40 08:46 08:50 POC Hgb (Calc) POC Hct POC Std Base Excess POC O2 Sat (Calc) POC ABG pO2 POC ABG Total CO2 POC Capillary pH POC Capillary pCO2 POC Cap HCO3 (Calc) POC Sodium Sodium Cancelled POC Potassium Potassium Cancelled Chloride Cancelled Carbon Dioxide Cancelled Anion Gap Cancelled BUN Cancelled Creatinine Cancelled Estim Creat Clear Calc Cancelled Estimated GFR Cancelled POC Glucose 161 H Random Glucose Cancelled Calcium Cancelled COVID-19 ([place]) Negative COVID-19 Clin Com See Note 05/28/21 05/28/21 09:33 13:12 POC Hgb (Calc) 10.9 L 10.5 L POC Hct 32 L 31 L POC Std Base Excess 3 -2 POC O2 Sat (Calc) TNP 85 POC ABG pO2 57 L POC ABG Total CO2 29 26 POC Capillary pH 7.39 7.29 L POC Capillary pCO2 45 51 H POC Cap HCO3 (Calc) 28 H 24 POC Sodium 130 L 128 L Sodium POC Potassium 5.0 4.8 Potassium Chloride Carbon Dioxide Anion Gap BUN Creatinine Estim Creat Clear Calc Estimated GFR POC Glucose 177 H 228 H Random Glucose Calcium COVID-19 ([place]) COVID-19 Clin Com Discharge Plan Discharge Anticipated Discharge Date/Time: 05/28/21 12:57 Patient Disposition: Home Health Service Discharge Diagnosis: s/p sleeve gastrectomy Referrals: Claudette Samayoa MD [Primary Care Provider] - 1 Week Discharge Medications: Continued pantoprazole 40 mg tablet,delayed release (DR/EC) 40 mg PO DAILY Qty: 30 RF: 2 sucralfate 100 mg/mL suspension 10 ml PO BID Qty: 400 RF: 2 ondansetron HCl [Zofran] 4 mg tablet 4 mg PO Q12H Qty: 20 RF: 0 (DME) insulin syringe-needle U-100 1 mL 31 gauge x 5/16 syringe See Rx Instructions ea .ROUTE .MEDSUPPLY Qty: 10 RF: 0 (DME) lancets 28 gauge misc See Rx Instructions ea topical .MEDSUPPLY Qty: 100 RF: 0 (DME) blood-glucose meter Kit See Rx Instructions ea .ROUTE .MEDSUPPLY Qty: 1 RF: 0 (DME) blood sugar diagnostic Strip See Rx Instructions ea Not Applicable .MEDSUPPLY Qty: 10 RF: 0 lidocaine 5 % adhesive patch,medicated 0 patch topical RF: 0 ammonium lactate 12 % lotion topical RF: 0 lorazepam 1 mg tablet 1 mg PO TID RF: 0 loratadine 10 mg tablet 10 mg PO DAILY RF: 0 mupirocin 2 % ointment 1 appl topical TID RF: 0 Held insulin NPH isoph U-100 human 100 unit/mL suspension 50 unit subcut BID RF: 0 Hold Instructions: Discuss dosing with Dr Jane morphine 10 mg/5 mL solution PO RF: 0 Hold Instructions: Discuss restart with Dr Jane coenzyme Q10 100 mg capsule 100 mg PO DAILY Qty: 30 RF: 5 Hold Instructions: Resume on 06/06/21. rosuvastatin [Crestor] 20 mg tablet 20 mg PO DAILY Qty: 30 RF: 5 Hold Instructions: Resume on 06/06/21. Discontinued cholecalciferol (vitamin D3) 125 mcg (5,000 unit) capsule 125 mcg PO DAILY Qty: 30 RF: 2 hydrochlorothiazide 25 mg tablet 25 mg PO DAILY Qty: 30 RF: 0 polyethylene glycol 3350 [Miralax] 17 gram powder in packet 17 g PO DAILY Qty: 14 RF: 0 levothyroxine 175 mcg tablet 175 mcg PO DAILY RF: 0 lisinopril 5 mg tablet 5 mg PO DAILY RF: 0 biotin 5 mg capsule 5 mg PO DAILY RF: 0 aspirin [Adult Low Dose Aspirin] 81 mg tablet,delayed release (DR/EC) 81 mg PO DAILY RF: 0 No Action levothyroxine 150 mcg capsule 150 mcg PO DAILY Qty: 30 RF: 2 Discharge Orders: Discharge Order (Routine); Ordered 05/29/21 Ordered By: Syed Jane Diet: other Activity on Discharge: No heavy lifting Stand Alone Forms: Patient Portal Discharge page Care Plan Goals: weight loss Health Concerns: morbid obesity Plan of Treatment: No tub baths, sex or returning to work until discussed at first post op appointment. No exercise, alcohol, tobacco or illegal drug use. Continue to use incentive spirometer hourly while awake. Walk in home for 5- 10 minutes every 2 hours during the first week. Continue phase 1 diet today and start phase 2 diet tomorrow morning. Follow all instructions in the bariatric handbook and call with any questions. 1. Please call your doctor or come back to the emergency room should any new symptoms arise. 2. You will receive a courtesy call from [facility] [place] 24-48 hours after discharge. 3. Activity: abstain from alcohol, practice limited stair climbing, no bending, no driving, no exercise, no illicit substances, no lifting, no sex, no tub bath, no work. 4. Diet: continue as discussed with Dr. Jane. 5. Dressing Change/Wound Care: Your incision is covered by surgical glue. If the area is tender, you may apply an ice pack for short intervals (no more than 20 minutes on, followed by at least 20 minutes off). Do not apply heat. Do not use creams, lotions, or topical antibiotics unless instructed to do so by your surgeon. These can cause infection or allergic reaction. 6. Call your doctor if: - Your temperature exceeds 101.5 F - You experience excessive pain or swelling - You have an unexpected reaction to medication - You have excessive bleeding - You experience continued vomiting/nausea - Your incision begins to separate - Your incision shows signs of infection such as increased redness, swelling, excessive pain, heat, or drainage (light blood or clear fluid is normal) 7. General instructions: No lifting greater than 5 lbs for the next 4 weeks[address] driving within 24 hours of taking narcotic pain medications. If you do not move your bowels in the next 2 days, please take milk of magnesia over the counter. Please follow the post op diet and do not advance your diet until you are seen in the office in about 2 weeks. Please walk around your home every hour or two to prevent blood clots from forming in your legs. You do not need to wake from sleeping to walk. Please sleep in a bed or couch to prevent kinking at the hips and knees. Please take your incentive spirometer (your lung auctioneer art) home with you and use it for the next few days to prevent pneumonias. You may shower, no hot tubs, baths or swimming pools. Please call the office with any questions or concerns such as increasing abdominal pain, fever, chills, shortness of breath, chest pain, leg pain or swelling, or redness or drainage from your incisions. Please stay on stage 3 diet which includes sugar free clear liquids such as ice pops and jello and broth and crystal light. Avoid all carbonation. Please drink 3 protein shakes with at least 25-30 grams of protein daily or 3 of the Celebrate 4:1 shakes which can be purchased in our office. The Celebrate shakes have all of the bariatric vitamins you need if you consume these shakes. If you are drinking other protein shakes, you will need to purchase the Celebrate multivitamins and calcium that we provide in the office (they will provide all the vitamins you need). Please make sure you are consuming at least 40-60 ounces of water in addition to your 3 protein shakes daily. Do not hesitate to contact the office with any questions at . The patient's medical history has been reviewed and they are considered low risk for post op DVT and therefore DVT prophylaxis is not considered necessary. Travel after surgery was reviewed. The patient has not disclosed any travel plans during the first 30 days after surgery and they have been advised that within the first 30 days after surgery any bus, plane, train or car travel over 2 hours in duration is contraindicated due to the possibility of developing blood clots from immobility. Any travel, needs to include periods of ambulation of 10 minutes in duration every 2 hours. The patient was instructed to discuss any plans for travel during this period with their bariatric surgeon. Assessment: stable post op sleeve gastectomy
--- NOTE | 2021-05-28 14:05 | P.PNGS_ITS ---
Subjective Subjective Date of Service: 05/29/21 Interval history: Patient has mild incisional pain, but was able to ambulate and use the incentive spirometer. She is tolerating phase 1 bariatric diet Physical Exam Vital Signs: Vital Signs: Last Vital Signs Temp 97.5 F 05/28/21 13:50 Pulse 92 05/28/21 14:00 Resp 19 05/28/21 14:00 BP 143/59 H 05/28/21 14:00 Pulse Ox 100 05/28/21 14:00 Body Mass Index 44.2 GI: Inspection: Yes normal to inspection and Yes incision (clean, dry and intact) Extrem: Right lower extremity: normal to inspection (no calf tenderness) Left lower extremity: normal to inspection (no calf tenderness) Procedures Date of Service Date of Service: 05/29/21 Progress Note: A&P Assessment and plan (1) S/P laparoscopic sleeve gastrectomy: Status: Acute Assessment and Plan: s/p laparoscopic sleeve gastrectomy and gastropexy Doing well Check am labs. If OK, will discharge home? (2) Morbid obesity: Status: Acute (3) Sleep apnea: Status: Acute (4) Insulin dependent diabetes mellitus: Status: Acute (5) Hypothyroidism: Status: Acute (6) Back pain: Status: Acute (7) Hypertension: Status: Acute (8) GERD (gastroesophageal reflux disease): Status: Acute (9) Carotid artery disease: Status: Acute (10) CAD (coronary artery disease): Status: Acute (11) Diastolic dysfunction: Status: Acute (12) Aortic stenosis: Status: Acute (13) Hepatomegaly: Status: Acute (14) Steatosis, liver: Status: Acute (15) Liver fibrosis: Status: Acute Fall Risk Details Current Medications: Current Medications Fentanyl (Fentanyl Citrate/Pf 100 Mcg/2 Ml Vial) 25 mcg IVPUSH Q5M PRN; Protocol PRN Reason: Pain, Moderate (Pain Scale 4-6 Hydromorphone HCl (Hydromorphone Hcl 0.5 Mg/0.5 Ml Syringe) 0.25 mg IVPUSH Q5M PRN; Protocol PRN Reason: Pain, Severe (Pain Scale 7-10) Lactated Ringer's (Lr) 1,000 mls @ 100 mls/hr IVCONT .Q10H NICK Promethazine HCl 6.25 mg/ (Sodium Chloride) 50.25 mls @ 201 mls/hr IV ONCE PRN PRN Reason: Nausea and Vomiting Insulin Human Lispro (Insulin Lispro 100 Unit/Ml 3 Ml Vial) 0 unit SUBCUT Q4H NICK; Protocol Ondansetron HCl (Ondansetron Hcl 4 Mg/2 Ml Vial) 4 mg IVPUSH ONCE PRN PRN Reason: Nausea and Vomiting Time Spent With Patient Time: Total time spent is greater than 50% in coordination of care (as doc umented) at patient's floor/unit and/or counseling patient: Time with patient: less than 15 minutes Quality Stroke Does the patient have a stroke diagnosis?: No VTE Prior VTE?: No VTE Risk Level:: Surgical - moderate VTE Device Contraindication: N/A - Device Ordered VTE Drug Contraindication: Treatment Not Indicated
[2021-05-28 14:31] LABS: Hematocrit 35.6 % (37-47); Hemoglobin 11.7 g/dl (12.0-16.0)
[2021-05-28 14:43] LABS: Anion Gap 18 (12-20); Blood Urea Nitrogen 18 mg/dL (9-16); Calcium 9.5 mg/dL (8.4-10.2); Carbon Dioxide 15 mmol/L (22-29); Chloride 99 mmol/L (96-108); Creatinine Clr Calc Pharmacy 71.8; Estimated Glomerular Filt Rate 53; Glucose Random 251 mg/dL (60-115); Sodium 127 mmol/L (135-145)
[2021-05-28] MEDS: Famotidine/PF 20 MG/2 ML VIAL IVPUSH ×2 (14:46→19:41)
[2021-05-28 16:31] LABS: Glucose, Whole Blood 255 mg/dL (60-115)
[2021-05-28] MEDS: Insulin Lispro 100 UNIT/ML 3 ML VIAL SUBCUT ×3 (16:39→22:00)
[2021-05-28] MEDS: lisinopriL 5 MG TABLET PO (16:39)
[2021-05-28] MEDS: 0.9 % Sodium Chloride 1,000 ML 100 ML IV (16:40)
[2021-05-28] MEDS: ceFAZolin Sodium/Dextrose,Iso 2 GM/50 ML PIGGYBACK IV (17:26)
[2021-05-28 18:24] LABS: Glucose, Whole Blood 300 mg/dL (60-115)
[2021-05-28] MEDS: LORazepam 1 MG TABLET PO (19:41)
[2021-05-28 20:32] LABS: Anion Gap 16 (12-20); Blood Urea Nitrogen 17 mg/dL (9-16); Calcium 9.2 mg/dL (8.4-10.2); Carbon Dioxide 20 mmol/L (22-29); Chloride 96 mmol/L (96-108); Creatinine Clr Calc Pharmacy 69.2; Estimated Glomerular Filt Rate 51; Glucose Random 305 mg/dL (60-115); Potassium 4.6 mmol/L (3.3-5.1); Sodium 127 mmol/L (135-145)
[2021-05-28] MEDS: ondansetron HCL 4 MG/2 ML VIAL IVPUSH (21:24)
[2021-05-28 21:31] LABS: Glucose, Whole Blood 270 mg/dL (60-115)
[2021-05-29 00:58] LABS: Glucose, Whole Blood 208 mg/dL (60-115)
[2021-05-29] MEDS: 0.9 % Sodium Chloride 1,000 ML 100 ML IV (01:27)
[2021-05-29] MEDS: Insulin Lispro 100 UNIT/ML 3 ML VIAL SUBCUT ×2 (03:07→06:53)
[2021-05-29 04:00] VITALS: BP 114/58; PULSE 89; RESP 17; TEMP 36; O2SAT 96
[2021-05-29 05:05] LABS: Glucose, Whole Blood 216 mg/dL (60-115)
[2021-05-29 05:51] LABS: Basophils Percent Auto 0.1 % (0-2); Eosinophils Percent Auto 0.1 % (0-4); Hematocrit 32.1 % (37-47); Hemoglobin 10.6 g/dl (12.0-16.0); Imm Gran Abs Auto 0.08 X10*3/uL (0.00-0.03); Imm Gran Pct Auto 0.5 % (0.0-0.4); Lymphocytes Absolute Auto 0.7 X10*3/uL (1.2-4.9); Lymphocytes Percent Auto 4.3 % (20-40); MANUAL DIFF FLAG SCAN; Mean Corpuscular Hemoglobin 25.4 pg (27.0-33.0); Mean Corpuscular Volume 76.8 fL (80-98); Mean Platelet Volume 9.4 fL (9.4-12.3); Monocytes Absolute Auto 0.6 X10*3/uL (0.1-1.2); Monocytes Percent Auto 3.9 % (2-11); Neutrophils Absolute Auto 14.4 X10*3/uL (2.0-8.3); Neutrophils Percent Auto 91.1 % (45-73); Platelet Count 583 X10*3/uL (160-400); Red Blood Count 4.18 X10*6/uL (4.20-5.50); Red Cell Distribution Width 14.6 % (11.0-16.0); SCAN SMEAR FLAG 1; White Blood Count 15.7 X10*3/uL (4.8-10.8)
[2021-05-29 06:06] LABS: Anion Gap 15 (12-20); Blood Urea Nitrogen 15 mg/dL (9-16); Calcium 9.4 mg/dL (8.4-10.2); Carbon Dioxide 20 mmol/L (22-29); Chloride 99 mmol/L (96-108); Creatinine Clr Calc Pharmacy 81.9; Estimated Glomerular Filt Rate > 60; Glucose Random 227 mg/dL (60-115); Potassium 4.8 mmol/L (3.3-5.1); Sodium 129 mmol/L (135-145)
[2021-05-29 06:11] LABS: SLIDE REVIEW VERIFIED
[2021-05-29] MEDS: ondansetron HCL 4 MG/2 ML VIAL IVPUSH (06:54)
[2021-05-29 07:06] VITALS: BP 149/71; PULSE 84; RESP 18; TEMP 36.6; O2SAT 98
[2021-05-29 07:39] LABS: Glucose, Whole Blood 228 mg/dL (60-115)
[2021-05-29] MEDS: Famotidine/PF 20 MG/2 ML VIAL IVPUSH (07:55)
[2021-05-29] MEDS: lisinopriL 5 MG TABLET PO (07:56)
[2021-05-29] MEDS: LORazepam 1 MG TABLET PO (07:56)
--- NOTE | 2021-05-29 10:09 | MHC.CM.PN ---
Addendum entered by Janee Babin RN 05/30/21 12:19: 25 ADDITIONAL REFERRALS PLACED D/T PT LIVING IN [facility] AND [facility] COMFORT PLUS'S COVERED AREA. 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. Original Note: IMM 05/29/21, PT ADMITTED S/P LAP SLEEVE GASTRECTOMY, PT REPORTS SHE LIVES W/ROOMMATE, PT USES WALKING STICKS WHEN WALKING LONG DISTANCES AND OTHERWISE NO DME AND NO HOME SERVICES, PT VERIFIES PCP MAYRA CURTIS AND REPORTS SHE HAS A HCP WHICH IS HER ROOMMATE ANA ROSA MALAVE [phone], CELL [phone]. D/C PLAN: HOME TODAY SELF-CARE, ROOMMATE FOR TRANSPORT
--- NOTE | 2021-05-29 11:18 | HO.POSTANES ---
Post Anesthesia Evaluation Post Anesthesia Evaluation Vital Signs: Vital Signs Temp Pulse Resp BP Pulse Ox 05/29/21 07:06 97.9 F 84 18 149/71 H 98 05/29/21 04:00 96.8 F 89 17 114/58 L 96 05/28/21 23:25 97.0 F 88 17 124/37 L 97 Anesthesia: General Endotracheal-GETA Mental Status: Awake Pain Control: Satisfactory Nausea/Vomiting: None Hydration: Adequate Anesthesia-Related Issues: No Anes. Related Issues
--- NOTE | 2021-05-30 15:06 | MHC.CM.PN ---
CM CONTACTED CM DIRECTOR D/T HAVING OVER 25 REFERRALS DECLINE PT DUE TO FULL CAPACITY, STAFFING SHORTAGES, NOT COVERING [facility], NOT BEING CONTRACTED W/INSURANCE OR NOT BEING ABLE TO CONTRACT OUT. PER CM DIRECTOR SHE WILL CONTACT SENIOR WINDOWS ADMINISTRATOR AT DR SUMMERS'S OFFICE.
--- NOTE | 2021-05-31 13:12 | MHC.CM.PN ---
Addendum entered by Janee Babin RN 05/31/21 15:30: CM received message from Stanislav Mejia that pt does not need a VNA and it was an error on D/C summary/plan. [facility] [employer]. Addendum entered by Janee Babin RN 05/31/21 13:17: CM CONTACTED DR SUMMERS'S OFFICE TO LET THEM KNOW PT STILL DOES NOT HAVE A FACE TO FACE FOR SKILLED NSG, CM SPOKE W/CHANEL BUTT WHO REPORTS SHE WILL TALK TO PA WHO IS ON TODAY. Original Note: CM RECEIVED MESSAGE FROM [facility] AT 12:43PM TODAY, THEY REPORT THEY CAN PROVIDE JAIL FOR PT.
== END 2021-05-29 11:31 | disposition home health service (06) | DRG 621 ==
LOC: HO.SSSA 08:34 → HO.S3 14:01
PROVIDERS: Physician Assistant; Admitting Provider Surgery; PCP Pediatrics Adolescent Medicine; Visit Provider Surgery
PROC: 0DB64Z3 Excision of Stomach, Percutaneous Endoscopic Approach, Vertical (ICD-10-PCS; CPT 43845; principal; 2021-05-28 10:20)
DX: E66.01 Morbid (severe) obesity due to excess calories (principal); I25.10 Atherosclerotic heart disease of native coronary artery without angina pectoris; K21.9 Gastro-esophageal reflux disease without esophagitis; R06.81 Apnea, not elsewhere classified; E03.9 Hypothyroidism, unspecified; I11.9 Hypertensive heart disease without heart failure; Z68.41 Body mass index [BMI] 40.0-44.9, adult; E11.9 Type 2 diabetes mellitus without complications; F41.9 Anxiety disorder, unspecified; K76.0 Fatty (change of) liver, not elsewhere classified; G47.33 Obstructive sleep apnea (adult) (pediatric); Z86.73 Personal history of transient ischemic attack (TIA), and cerebral infarction without residual deficits; Z20.822 Contact with and (suspected) exposure to COVID-19; Z88.5 Allergy status to narcotic agent; Z88.6 Allergy status to analgesic agent; Z79.4 Long term (current) use of insulin; Z79.899 Other long term (current) drug therapy
CPT/HCPCS: 36415; 80048; 80053; 80061; 82947; 83036; 83525; 84439; 84443; 85014; 85018; 85025; 85610; 85730; 86140; 86850; 86900; 86901; 87635; 88307; 88342; 99024; A4649; J0131; J0690; J1100; J1170; J1200; J2250; J2370; J2405; J3010

== ENCOUNTER → 2021-06-03 08:55 | Outpatient (BNVA) | payer OTHER, SELFPAY | PROVIDERS: PCP Internal Medicine; Visit Provider Surgery | DX: E66.01 Morbid (severe) obesity due to excess calories (principal); Z68.41 Body mass index [BMI] 40.0-44.9, adult | CPT/HCPCS: 99212 ==

== ENCOUNTER → 2021-06-11 13:10 | Outpatient (BNVA) | payer OTHER, SELFPAY | PROVIDERS: PCP Internal Medicine; Visit Provider Physician Assistant Surgical ==

== ENCOUNTER → 2021-06-18 09:27 | Outpatient (BNVA) | payer OTHER, SELFPAY | PROVIDERS: Referring Provider Surgery; Visit Provider Dietitian, Registered | DX: E66.01 Morbid (severe) obesity due to excess calories (principal) | CPT/HCPCS: 97803 ==

== ENCOUNTER → 2021-06-28 08:58 | Outpatient (BNVA) | payer OTHER, SELFPAY | PROVIDERS: Visit Provider Physician Assistant | DX: E66.01 Morbid (severe) obesity due to excess calories (principal); Z98.84 Bariatric surgery status; Z68.41 Body mass index [BMI] 40.0-44.9, adult | CPT/HCPCS: 99212 ==

== ENCOUNTER → 2021-07-08 13:08 | Outpatient (BNVA) | payer OTHER, SELFPAY | PROVIDERS: Visit Provider Physician Assistant | DX: I25.10 Atherosclerotic heart disease of native coronary artery without angina pectoris (principal); I35.0 Nonrheumatic aortic (valve) stenosis; Z98.84 Bariatric surgery status; Z79.4 Long term (current) use of insulin | CPT/HCPCS: 99212 ==

== ENCOUNTER → 2021-07-15 15:53 | Outpatient (BNVA) | payer OTHER, SELFPAY | PROVIDERS: Visit Provider Dietitian, Registered | DX: E66.01 Morbid (severe) obesity due to excess calories (principal); Z68.41 Body mass index [BMI] 40.0-44.9, adult | CPT/HCPCS: 97803 ==

== ENCOUNTER → 2021-08-05 08:27 | Outpatient (BNVA) | payer OTHER, SELFPAY | PROVIDERS: PCP Internal Medicine; Visit Provider Physician Assistant | DX: E66.01 Morbid (severe) obesity due to excess calories (principal); G47.30 Sleep apnea, unspecified; Z98.84 Bariatric surgery status; Z68.41 Body mass index [BMI] 40.0-44.9, adult | CPT/HCPCS: 99212 ==

== ENCOUNTER → 2021-08-09 09:33 | Outpatient (BNVA) | payer OTHER, SELFPAY | PROVIDERS: PCP Internal Medicine; Visit Provider Physician Assistant | DX: Z98.84 Bariatric surgery status (principal); E11.9 Type 2 diabetes mellitus without complications | CPT/HCPCS: 99212 ==

== ENCOUNTER → 2021-08-16 15:08 | Outpatient (BNVA) | payer OTHER, SELFPAY | PROVIDERS: PCP Internal Medicine; Visit Provider Physician Assistant | DX: E66.01 Morbid (severe) obesity due to excess calories (principal); I35.0 Nonrheumatic aortic (valve) stenosis; I51.89 Other ill-defined heart diseases; Z98.84 Bariatric surgery status; Z68.41 Body mass index [BMI] 40.0-44.9, adult | CPT/HCPCS: 99212 ==

== ENCOUNTER → 2021-08-26 11:23 | Outpatient (BNVA) | payer OTHER, SELFPAY | PROVIDERS: PCP Internal Medicine; Visit Provider Physician Assistant ==

== ENCOUNTER → 2021-09-03 09:35 | Outpatient (BNVA) | payer OTHER, SELFPAY | PROVIDERS: PCP Internal Medicine; Visit Provider Physician Assistant ==

== ENCOUNTER → 2021-09-06 08:06 | Outpatient (BNVA) | payer OTHER, SELFPAY | PROVIDERS: PCP Internal Medicine; Visit Provider Physician Assistant | DX: Z98.84 Bariatric surgery status (principal); E66.01 Morbid (severe) obesity due to excess calories | CPT/HCPCS: Q3014 ==

== ENCOUNTER → 2021-09-12 09:37 | Outpatient (BNVA) | payer OTHER, SELFPAY | PROVIDERS: Visit Provider Physician Assistant Surgical ==

== ENCOUNTER → 2021-09-17 09:14 | Outpatient (BNVA) | payer OTHER, SELFPAY | PROVIDERS: Visit Provider Physician Assistant Surgical ==

== ENCOUNTER → 2021-09-30 10:15 | Outpatient (BNVA) | payer OTHER, SELFPAY | PROVIDERS: PCP Internal Medicine; Visit Provider Physician Assistant ==

== ENCOUNTER → 2021-10-07 10:03 | Outpatient (BNVA) | payer OTHER, SELFPAY | PROVIDERS: PCP Internal Medicine; Visit Provider Physician Assistant Surgical | DX: Z13.89 Encounter for screening for other disorder (principal) ==

== ENCOUNTER → 2021-10-14 10:35 | Outpatient (BNVA) | payer OTHER, SELFPAY | PROVIDERS: PCP Internal Medicine; Visit Provider Physician Assistant | DX: E66.01 Morbid (severe) obesity due to excess calories (principal); E11.9 Type 2 diabetes mellitus without complications; Z98.84 Bariatric surgery status; Z68.41 Body mass index [BMI] 40.0-44.9, adult; Z79.4 Long term (current) use of insulin | CPT/HCPCS: 99212 ==

== ENCOUNTER → 2021-10-28 11:50 | Outpatient (BNVA) | payer OTHER, SELFPAY | PROVIDERS: PCP Internal Medicine; Visit Provider Physician Assistant | DX: Z13.89 Encounter for screening for other disorder (principal) ==

== ENCOUNTER 2021-11-18 09:14 | Outpatient (REF) | payer OTHER, SELFPAY ==
[2021-11-18 10:51] LABS: MANUAL DIFF FLAG NO
[2021-11-18 11:52] LABS: Basophils Percent Auto 0.4 % (0-2); Eosinophils Absolute Auto 0.3 X10*3/uL (0.0-0.4); Eosinophils Percent Auto 4.5 % (0-4); Hematocrit 36.2 % (37.0-47.0); Hemoglobin 11.1 g/dl (12.0-16.0); Imm Gran Abs Auto 0.01 X10*3/uL (0.00-0.03); Imm Gran Pct Auto 0.1 % (0.0-0.4); Lymphocytes Absolute Auto 2.4 X10*3/uL (1.2-4.9); Lymphocytes Percent Auto 31.7 % (20-40); Mean Corpuscular HGB Conc 30.7 g/dl (31.0-35.0); Mean Corpuscular Hemoglobin 25.3 pg (27.0-33.0); Mean Corpuscular Volume 82.5 fL (80.0-98.0); Mean Platelet Volume 9.7 fL (9.4-12.3); Monocytes Absolute Auto 0.6 X10*3/uL (0.1-1.2); Monocytes Percent Auto 8.4 % (2-11); Neutrophils Absolute Auto 4.1 x10*3/uL (2.0-8.3); Neutrophils Percent Auto 54.9 % (45-73); Platelet Count 544 X10*3/uL (160-400); Red Blood Count 4.39 X10*6/uL (4.20-5.50); Red Cell Distribution Width 15.1 % (11.0-16.0); White Blood Count 7.5 X10*3/uL (4.8-10.8)
[2021-11-18 12:20] LABS: Estimated Average Glucose 180 mg/dL; Hemoglobin A1c % 7.9 %
[2021-11-18 12:39] LABS: Alanine Aminotransferase 57 U/L (0-31); Albumin Level 4.1 g/dL (3.5-5.0); Alkaline Phosphatase 74 U/L (39-117); Anion Gap 13 (12-20); Aspartate Amino Transferase 33 U/L (5-31); Bilirubin Total 0.3 mg/dL (0.0-1.0); Blood Urea Nitrogen 30 mg/dL (9-16); C Reactive Protein 0.44 mg/dL (< or = 0.50); Calcium 9.8 mg/dL (8.4-10.2); Carbon Dioxide 30 mmol/L (22-29); Chloride 100 mmol/L (96-108); Cholesterol 202 mg/dL; Estimated Glomerular Filt Rate > 60; Glucose Random 130 mg/dL (60-115); HDL Cholesterol 68 mg/dL; Iron 30 mcg/dL (30-160); LDL Cholesterol Calculated 116 mg/dl; Percent Iron Saturation 7 % (15-50); Potassium 4.8 mmol/L (3.3-5.1); Sodium 138 mmol/L (135-145); Total Iron Binding Capacity 407 mcg/dL (228-428); Total Protein 7.2 g/dL (6.5-8.0); Triglycerides 91 mg/dL; Unsaturated Iron Binding 377 ug/dL
[2021-11-18 12:46] LABS: Insulin 214 uU/mL (2-29); TSH reflex Free T4 3.21 uIU/mL (0.32-4.0); Vitamin D 25-OH Total 39.6 ng/mL (>30)
[2021-11-18 13:16] LABS: Folate > 20.0 ng/mL (> or = 4.0); Vitamin B12 1212 pg/mL (200-900)
[2021-11-18 13:19] LABS: Ferritin 62 ng/mL (10-250)
[2021-11-19 15:41] LABS: Calcium (PTHI) 9.7 mg/dL (8.6-10.4); PTHI 41 pg/mL (16-77)
[2021-11-22 06:27] LABS: Zinc 92 mcg/dL (60-130)
[2021-11-22 11:31] LABS: Vitamin B1 32 nmol/L (8-30)
[2021-11-26 12:23] LABS: Vitamin A 77 mcg/dL (38-98)
== END 2021-11-18 09:15 | disposition home or self-care (01) ==
LOC: HO.LAB 09:14
PROVIDERS: PCP Internal Medicine; Visit Provider Physician Assistant
DX: E66.01 Morbid (severe) obesity due to excess calories (principal); Z68.41 Body mass index [BMI] 40.0-44.9, adult; I77.9 Disorder of arteries and arterioles, unspecified; E03.9 Hypothyroidism, unspecified; E11.9 Type 2 diabetes mellitus without complications; Z79.4 Long term (current) use of insulin; Z98.84 Bariatric surgery status
CPT/HCPCS: 36415; 80053; 80061; 82306; 82607; 82728; 82746; 83036; 83525; 83540; 83970; 84425; 84443; 84590; 84630; 85025; 86140; 99212

== ENCOUNTER → 2022-01-20 10:14 | Outpatient (REF) | payer OTHER, SELFPAY ==
--- NOTE | 2022-01-20 10:17 | CA_ITS ---
Transthoracic Echocardiogram Patient (Last, First, Middle): Helen Wheatley, Gender: Female Date of : 1960 Age: 61 Procedure Date: 01/20/2022 Procedure Type: Transthoracic Echocardiogram Location: OP Height: 162.56 cm Weight: 113.4 kg BSA: 2.15 m2 Heart Rate: bpm BP: 130 / 82 mmHg Rotary Kiln Operator: FRANCISCO Referring MD: Bud Hong MD Symptoms: I35.0 - Nonrheumatic aortic (valve) stenosis Study Quality: Fair ECG Rhythm: Sinus Conclusions: - The left ventricular systolic function is normal. The calculated ejection fraction is 64% by biplane method. - Evidence suggests grade II (moderate) diastolic dysfunction. - Mildly increased right ventricular cavity size. - The left atrium is moderately dilated. - There is mild aortic valve stenosis. Cannot differentiate if trileaflet or bicuspid. - There is mild mitral valve regurgitation. Mean gradient across the mitral valve 5 mm Hg at 84/Min. Cannot exclude mild mitral stenosis. - Mild pulmonary hypertension is present. - Peak gradient of 18 mm Hg in the proximal descending thoracic aorta. Uncertain etiology. Cannot exclude mild coarctation. Findings Left Ventricle Normal left ventricular cavity size. There is mildly increased left ventricular wall thickness. The left ventricular systolic function is normal. The calculated ejection fraction is 64% by biplane method. There is no evidence of regional wall motion abnormalities. E/E prime ratio is >15, consistent with elevated filling pressures. Evidence suggests grade II (moderate) diastolic dysfunction. Right Ventricle Mildly increased right ventricular cavity size. There is normal right ventricular systolic function. Atria The left atrium is moderately dilated. The right atrium is normal in size. Aortic Valve There is moderate calcification of the aortic valve. There is mild aortic valve stenosis. The mean gradient is 18 mmHg. The aortic valve area is 1.42 cm2. There is no aortic valve regurgitation. Cannot differentiate if trileaflet or bicuspid. Dimensionless index 0.45. Mitral Valve There is mild mitral annular calcification. There is mild mitral valve regurgitation. Mean gradient across the mitral valve 5 mm Hg at 84/Min. Cannot exclude mild mitral stenosis. Pulmonic Valve The pulmonic valve is likely normal. Tricuspid Valve There is trace tricuspid valve regurgitation. The right ventricular systolic pressure is 43 mmHg. Mild pulmonary hypertension is present. Great Vessels The asc aorta and aortic arch are normal in size. Peak gradient of 18 mm Hg in the proximal descending thoracic aorta. Uncertain etiology. Cannot exclude mild coarctation. Venous The inferior vena cava is mildly dilated and collapses greater than 50% with inspiration. Pericardium/Pleural There is no evidence of pericardial effusion. Prior Study Comparison Changes noted compared to prior study dated: 02/18/2021. See comments on aorta. Measurements 2D Linear Measurements IVSd: 1.22 0.6-0.9/0.6-1.0 cm LVIDd: 5.15 3.9-5.3/4.2-5.9 cm LVIDd Index: 2.40 2.4-3.2/2.2-3.1 cm/m2 LVIDs: 3.65 2.0-3.6 cm LVPWd: 1.20 0.7-1.1 cm LA Diam: 5.00 2.7-3.8/3.0-4.0 cm LAIDs Index: 2.33 1.5-2.3 cm/m2 LV Mass: 309.10 67-162/88-224 g LV Mass Index: 143.77 43-95/49-115 g/m2 LVOT Diam: 2.00 3.0+(-)1.3 cm 2D Systolic Function EF 4C: 67.30 >55% EF 2C: 63.40 >55% EF BiP: 63.60 >55% Mitral Valve MV VTI: 0.41 MV Pk Raghu: 1.79 MV Mn Raghu: 1.05 MV Pk Grad: 13.00 MV Mn Grad: 5.00 MV Pk E: 1.69 MV PK A: 1.04 MV Decel Time: 244.00 E/A: 1.60 E'Lateral: 7.18 E'Medial: 7.07 E/E' Med: 23.90 E/E' Lat: 23.50 PHT: 84.00 MVA PHT: 2.62 MVA Continuity: 2.23 Decel [place]: 6.12 Aortic Valve AoV Pk Raghu: 2.74 AoV Mn Raghu: 2.04 AoV VTI: 0.64 AoV Pk Grad: 30.00 Aov Mn Grad: 18.00 RYLAN Cont.VTI: 1.42 LVOT LVOT Pk Raghu: 1.24 LVOT Mn Raghu: 0.94 LVOT VTI: 0.29 LVOT Pk Grad: 6.00 LVOT Mn Grad: 4.00 LVOT Diam: 2.00 LVOT Area: 3.14 Diastolic Function MV Pk E: 1.69 MV Pk A: 1.04 E/A: 1.60 E'Medial: 7.07 E/E' Med: 23.90 E' Laterial: 7.18 E/E' Lat: 23.50 Right Ventricle TAPSE (mm): 20.90 TVS' Raghu: 8.59 Tricuspid Valve TR Pk Raghu: 2.97 TR Pk Grad: 35.00 RA Press: 8.00 RVSP: 43.00 Great Vessels Aorta Sinus of Valsalva: 3.27 2.0-3.5 cm Ao Asc: 3.10 2.1-3.4 cm Ao Arch: 3.00 Updated in Other Vendor System with Status of Final Jerod Covarrubias MD electronically signed on 01/20/2022 1:41:22 PM with status of Final
== END ==
LOC: HO.CARD 10:14
PROVIDERS: Visit Provider Internal Medicine Cardiovascular Disease
DX: I35.0 Nonrheumatic aortic (valve) stenosis (principal); E66.01 Morbid (severe) obesity due to excess calories; Z98.84 Bariatric surgery status
CPT/HCPCS: 93306; 99212

== ENCOUNTER → 2022-02-04 09:14 | Outpatient (BNVA) | payer OTHER, SELFPAY | PROVIDERS: PCP Internal Medicine; Visit Provider Dietitian, Registered | DX: E66.01 Morbid (severe) obesity due to excess calories (principal); Z68.41 Body mass index [BMI] 40.0-44.9, adult; E11.9 Type 2 diabetes mellitus without complications; Z79.4 Long term (current) use of insulin; Z98.84 Bariatric surgery status; Z71.3 Dietary counseling and surveillance | CPT/HCPCS: 97803 ==

== ENCOUNTER → 2022-02-10 08:47 | Outpatient (BNVA) | payer OTHER, SELFPAY | PROVIDERS: PCP Internal Medicine; Visit Provider Internal Medicine Cardiovascular Disease | DX: I35.0 Nonrheumatic aortic (valve) stenosis (principal); I25.10 Atherosclerotic heart disease of native coronary artery without angina pectoris | CPT/HCPCS: 99212 ==

== ENCOUNTER → 2022-03-25 09:56 | Outpatient (BNVA) | payer OTHER, SELFPAY | PROVIDERS: PCP Internal Medicine; Visit Provider Physician Assistant | DX: E66.01 Morbid (severe) obesity due to excess calories (principal); I48.91 Unspecified atrial fibrillation; I35.0 Nonrheumatic aortic (valve) stenosis; I25.10 Atherosclerotic heart disease of native coronary artery without angina pectoris; I10 Essential (primary) hypertension; E03.9 Hypothyroidism, unspecified; G47.30 Sleep apnea, unspecified; Z98.84 Bariatric surgery status; Z68.41 Body mass index [BMI] 40.0-44.9, adult | CPT/HCPCS: 99212 ==

== ENCOUNTER → 2022-03-26 13:02 | Outpatient (BNVA) | payer OTHER, SELFPAY | PROVIDERS: PCP Internal Medicine; Visit Provider Internal Medicine Cardiovascular Disease | DX: I48.91 Unspecified atrial fibrillation (principal); Z79.01 Long term (current) use of anticoagulants | CPT/HCPCS: 93005; 99212 ==

== ENCOUNTER 2022-04-16 13:15 | Day surgery (SDC) | payer OTHER, SELFPAY ==
[2022-04-11 10:09] VITALS: BMI 45.3
--- NOTE | 2022-04-15 09:43 | P.CONAN_ITS ---
Documented by User: Rhoda Gale NP 04/29/22 08:15 HPI - Anesthesia Eval Consult details Narrative: 61yo F for Cardioversion Eliquis for new afib s/p gastric sleeve 05/2021 [facility] Active Problems Active Problems: All Active Problems (Updated 03/25/22 @ 10:36 by Raeann Maldonado PA-C) A-fib (Acute) S/P laparoscopic sleeve gastrectomy (Acute) Liver fibrosis (Acute) Steatosis, liver (Acute) Hepatomegaly (Acute) Aortic stenosis (Acute) Diastolic dysfunction (Acute) Hyponatremia (Acute) Hyperkalemia (Acute) Vitamin D deficiency (Acute) Adjustment disorder, unspecified (Acute) Abnormal stress test (Acute) Preoperative cardiovascular examination (Acute) S/P cardiac cath (Acute) CAD (coronary artery disease) (Acute) Carotid artery disease (Acute) GERD (gastroesophageal reflux disease) (Acute) Hypertension (Acute) Back pain (Acute) Hypothyroidism (Acute) Insulin dependent diabetes mellitus (Acute) Sleep apnea (Acute) Morbid obesity (Acute) Past Medical History Medical History Anemia PUD (peptic ulcer disease) Abnormal findings on cardiac catheterization Paroxysmal atrial fibrillation A-fib Liver fibrosis Steatosis, liver Hepatomegaly Aortic stenosis Diastolic dysfunction COVID-19 vaccine series completed Hx of difficult intubation Peripheral neuropathy Iron deficiency anemia Elevated cholesterol On beta maranda at home Liver disease Seasonal allergies CAD (coronary artery disease) Carotid artery disease GERD (gastroesophageal reflux disease) Hypertension Back pain Hypothyroidism Stroke Insulin dependent diabetes mellitus Sleep apnea Morbid obesity Family History Family History Mother No problems noted. Father No problems noted. Family history of problems with anesthesia: No Surgical History Surgical History S/P laparoscopic sleeve gastrectomy History of eye surgery S/P cardiac cath History of appendectomy Hx of endarterectomy History of tonsillectomy and adenoidectomy History of Problems with Anesthesia: Yes Social History Are you a primary daycare assistant to a significant other at home: No Do you presently have visiting nurse or other home services: Yes (Home Health Aid) Alcohol intake: former Patient Tobacco Use Status: Never used Tobacco service: No Current occupational status: disabled Meds Allergies Allergy/AdvReac Type Severity Reaction Status Date / Time codeine Allergy Severe nausea Verified 05/19/23 14:48 gabapentin Allergy Severe nausea and Verified 05/19/23 14:48 vomiting glyburide Allergy Severe headache Verified 05/19/23 14:48 ibuprofen Allergy Severe headache Verified 05/19/23 14:48 metformin Allergy Severe Anaphylaxis Verified 05/19/23 14:48 tramadol Allergy Severe nausea and Verified 05/19/23 14:48 vomiting metoprolol [From Toprol XL] AdvReac Severe Drop in Verified 05/19/23 14:48 blood pressure lactose AdvReac Intermediate Diarrhea Uncoded 05/19/23 14:48 Home Medications Medication Instructions Recorded Confirmed Last Taken Type lidocaine 5 % topical patch 0 patch topical 12/05/20 07/09/23 Unknown History loratadine 10 mg tablet 10 mg PO DAILY 12/05/20 07/09/23 Unknown History insulin regular human 100 unit/mL 1 sliding scale dose subcut 11/18/21 04/13/23 Unknown History (3 mL) subcutaneous pen USEASDIRECTD lorazepam 1 mg tablet 1 mg PO TID PRN 07/30/22 07/09/23 Unknown History insulin degludec 100 unit/mL 80 unit subcut BEDTIME 09/29/22 07/09/23 Unknown History subcutaneous solution (Tresiba U-100 Insulin) [id number] 45 mg-folic cap PO 04/13/23 07/09/23 Unknown History acid 800 mcg-vit K 120 mcg capsule (Bariatric Multivitamins) sucralfate 100 mg/mL oral 10 ml PO Q6H 05/19/23 07/09/23 Unknown History suspension clopidogrel 75 mg tablet (Plavix) 75 mg PO DAILY 07/17/23 Unknown History Exam Exam Date and Time: April 15, 2022 0943 Height,Weight and Vital Signs: Height 5 ft 4 in Weight 119.748 kg Pertinent Lab Results Pertinent Lab Results: Laboratory Tests 11/18/21 11/18/21 10:48 10:48 WBC 7.5 Hgb 11.1 L Hct 36.2 L Plt Count 544 H Sodium 138 Potassium 4.8 Chloride 100 Carbon Dioxide 30 H BUN 30 H Creatinine 0.83 Narrative Narrative: EKG 02/2022 atrial fibrillation at 80 beats per minute ECHO 12/2021 Conclusions: - The left ventricular systolic function is normal.? The ? calculated ejection fraction is 64% by biplane method. ? - Evidence suggests grade II (moderate) diastolic dysfunction. ? - Mildly increased right ventricular cavity size.? - The left atrium is moderately dilated. ? - There is mild aortic valve stenosis. ? Cannot differentiate if trileaflet or bicuspid.? - There is mild mitral valve regurgitation.? Mean gradient across the mitral valve 5 mm Hg at 84/Min.? Cannot exclude mild mitral? stenosis.? - Mild pulmonary hypertension is present.? - Peak gradient of 18 mm Hg in the proximal descending thoracic? aorta.? Uncertain etiology.? Cannot exclude mild coarctation.? ? Assessment and Plan Assessment Anesthesia Assessment: Chart Reviewed Final Anesthetic Review Family History of Problems with Anesthesia: No History of Problems with Anesthesia: Yes Documented by User: Lopez Duffy MD 07/23/23 23:51 [facility] Past Medical History Medical History Anemia PUD (peptic ulcer disease) Abnormal findings on cardiac catheterization Paroxysmal atrial fibrillation A-fib Liver fibrosis Steatosis, liver Hepatomegaly Aortic stenosis Diastolic dysfunction COVID-19 vaccine series completed Hx of difficult intubation Peripheral neuropathy Iron deficiency anemia Elevated cholesterol On beta maranda at home Liver disease Seasonal allergies CAD (coronary artery disease) Carotid artery disease GERD (gastroesophageal reflux disease) Hypertension Back pain Hypothyroidism Stroke Insulin dependent diabetes mellitus Sleep apnea Morbid obesity Functional capacity: independent ambulation Family History Family History Mother No problems noted. Father No problems noted. Surgical History Surgical History S/P laparoscopic sleeve gastrectomy History of eye surgery S/P cardiac cath History of appendectomy Hx of endarterectomy History of tonsillectomy and adenoidectomy Social History Are you a primary daycare assistant to a significant other at home: No Do you presently have visiting nurse or other home services: Yes (Home Health Aid) Alcohol intake: former Patient Tobacco Use Status: Never used Tobacco service: No Current occupational status: disabled Meds Allergies Allergy/AdvReac Type Severity Reaction Status Date / Time codeine Allergy Severe nausea Verified 05/19/23 14:48 gabapentin Allergy Severe nausea and Verified 05/19/23 14:48 vomiting glyburide Allergy Severe headache Verified 05/19/23 14:48 ibuprofen Allergy Severe headache Verified 05/19/23 14:48 metformin Allergy Severe Anaphylaxis Verified 05/19/23 14:48 tramadol Allergy Severe nausea and Verified 05/19/23 14:48 vomiting metoprolol [From Toprol XL] AdvReac Severe Drop in Verified 05/19/23 14:48 blood pressure lactose AdvReac Intermediate Diarrhea Uncoded 05/19/23 14:48 Home Medications Medication Instructions Recorded Confirmed Last Taken Type lidocaine 5 % topical patch 0 patch topical 12/05/20 07/09/23 Unknown History loratadine 10 mg tablet 10 mg PO DAILY 12/05/20 07/09/23 Unknown History insulin regular human 100 unit/mL 1 sliding scale dose subcut 11/18/21 04/13/23 Unknown History (3 mL) subcutaneous pen USEASDIRECTD lorazepam 1 mg tablet 1 mg PO TID PRN 07/30/22 07/09/23 Unknown History insulin degludec 100 unit/mL 80 unit subcut BEDTIME 09/29/22 07/09/23 Unknown History subcutaneous solution (Tresiba U-100 Insulin) [id number]-[id number] 45 mg-folic cap PO 04/13/23 07/09/23 Unknown History acid 800 mcg-vit K 120 mcg capsule (Bariatric Multivitamins) sucralfate 100 mg/mL oral 10 ml PO Q6H 05/19/23 07/09/23 Unknown History suspension clopidogrel 75 mg tablet (Plavix) 75 mg PO DAILY 07/17/23 Unknown History Exam Airway Mallampati Class: III Neck ROM: Full Loose/Missing/Broken Teeth: Yes (Multiple chipped ) Assessment and Plan Assessment Anesthesia Assessment: Anesthesia Plan Discussed Final Anesthetic Review NPO: Yes ASA Class: III (urgent) Final Preanesthetic Review: Meds/Allgs Chart Reviewed, Consent Obtained/Reviewed and Anes Risks/Benef Reviewed Patient Risk: High Procedure Risk: Intermediate Anesthetic Plan Anesthetic Plan: MAC: Disposition: Standard PACU
[2022-04-16] MEDS: Lactated Ringers 1,000 ML 100 ML IVCONT (13:10)
[2022-04-16 13:33] LABS: Glucose, Whole Blood 106 mg/dL (60-115)
[2022-04-16 13:43] VITALS: BP 130/61; PULSE 87; RESP 20; TEMP 36.6; O2SAT 98
--- NOTE | 2022-04-16 14:13 | PC.NURSE ---
dr moore and anesthesia aware of patient nose bleed lasted 2-4mins pressure applied no bleeding now. pt awaking procedure aware careplan ls clear pwd
--- NOTE | 2022-04-16 14:41 | PC.NURSE ---
report to leslie gage pacu
--- NOTE | 2022-04-16 15:04 | MHC.SHP ---
Pre-Procedural Eval Section A Date of Service: 04/16/22 The patient is an INPATIENT: No Changes since office visit: Yes Patient answered all questions; No Cold of Flu in the past 2 weeks, No New Medical Problems and No Changes in Medication The History & Physical has been completed within 30 days and I have reviewed it.: Yes Section B Chief Complaint: Other persistent atrial fibrillation Allergies: Allergies Allergy/AdvReac Type Severity Reaction Status Date / Time codeine Allergy Severe nausea Verified 03/25/22 09:59 gabapentin Allergy Severe nausea and Verified 03/25/22 09:59 vomiting glyburide Allergy Severe headache Verified 03/25/22 09:59 ibuprofen Allergy Severe headache Verified 03/25/22 09:59 metformin Allergy Severe Anaphylaxis Verified 03/25/22 09:59 tramadol Allergy Severe nausea and Verified 03/25/22 09:59 vomiting metoprolol [From Toprol XL] AdvReac Severe Drop in Verified 03/25/22 09:59 blood pressure Plan I have reviewed the history and physical and performed a pertinent physical examination on my patient. No changes have occurred unless specified.
--- NOTE | 2022-04-16 15:39 | ECG_ITS ---
Test Reason : s/p cardioversion Blood Pressure : / mmHG Vent. Rate : 075 BPM Atrial Rate : 075 BPM P-R Int : 166 ms QRS Dur : 082 ms QT Int : 402 ms P-R-T Axes : 040 016 042 degrees QTc Int : 448 ms Normal sinus rhythm Possible Left atrial enlargement Borderline ECG When compared with ECG of 07-DEC-2020 08:52, No significant change was found Referred By: Bud Hong Electronically Signed By:JADEN SELLERS
--- NOTE | 2022-04-16 15:39 | HO.CARDIVERS ---
Cardioversion Procedure Note Cardioversion Date of Procedure: Today Ordering Provider: Myself Performing Provider: Myself Indication for Procedure: Symptomatic persistent atrial fibrillation Pre-Op Diagnosis: Same Post-Op Diagnosis: Normal sinus rhythm Performed with Transesophageal Echo: No History: See my office note Consent: Verbal and Written consent was obtained from the patient before starting and after confirming oral anticoagulation use. The patient was made aware of the risk of synchronized cardioversion including benefits and alternatives Procedure: After consent obtained, cardioversion pads were attached in anteroposterior configuration and the patient was sedated by the anesthesia team. Once adequate sedation achieved, patient was delivered 200 joules of biphasic synchronized energy in anteroposterior configuration Complications: None Impression: Successful conversion to normal sinus rhythm Recommendations: 1. 12 lead EKG 2. Continue full oral anticoagulation Eliquis and Multaq 3. Follow up in the office after Holter monitor
[2022-04-16 15:43] VITALS: BP 127/69; PULSE 78; RESP 16; TEMP 36.7; O2SAT 98
[2022-04-16 15:48] VITALS: BP 131/58; PULSE 74; RESP 16; O2SAT 100
[2022-04-16 15:53] VITALS: BP 129/77; PULSE 76; RESP 16; O2SAT 100
[2022-04-16 15:58] VITALS: BP 106/48; PULSE 75; RESP 16; TEMP 36.3; O2SAT 94
[2022-04-16 16:13] VITALS: BP 131/53; PULSE 76; RESP 16; O2SAT 95
== END 2022-04-16 16:42 | disposition home or self-care (01) ==
PROVIDERS: PCP Internal Medicine; Visit Provider Internal Medicine Cardiovascular Disease
PROC: 5A2204Z Restoration of Cardiac Rhythm, Single (ICD-10-PCS; principal; 2022-04-16 15:00)
DX: I48.19 Other persistent atrial fibrillation (principal); Z79.01 Long term (current) use of anticoagulants; I10 Essential (primary) hypertension; E66.01 Morbid (severe) obesity due to excess calories; Z68.42 Body mass index [BMI] 45.0-49.9, adult; G47.33 Obstructive sleep apnea (adult) (pediatric); E11.9 Type 2 diabetes mellitus without complications; Z79.4 Long term (current) use of insulin; Z79.899 Other long term (current) drug therapy; Z88.8 Allergy status to other drugs, medicaments and biological substances; Z86.73 Personal history of transient ischemic attack (TIA), and cerebral infarction without residual deficits; Z98.84 Bariatric surgery status
CPT/HCPCS: 82947; 92960; 93005

== ENCOUNTER → 2022-04-23 09:05 | Outpatient (BNVA) | payer OTHER, SELFPAY | PROVIDERS: PCP Internal Medicine; Visit Provider Nurse Practitioner Family | DX: G47.33 Obstructive sleep apnea (adult) (pediatric) (principal); E66.01 Morbid (severe) obesity due to excess calories; Z68.42 Body mass index [BMI] 45.0-49.9, adult; I48.91 Unspecified atrial fibrillation | CPT/HCPCS: 99202 ==

== ENCOUNTER → 2022-04-25 10:55 | Outpatient (REF) | payer OTHER, SELFPAY ==
--- NOTE | 2022-04-25 10:58 | HM_ITS ---
* Total monitoring time 2 days and 22 hours. * Underlying rhythm is sinus. Average rate 67/Min. Range 58 to 90/Min. * About 19% of the time, in atrial fibrillation. Longest episode 13 hours. * While in atrial fibrillation, rate less than 100/Min. * Occasional PVCs with minimal burden. * Palpitations in patient diary correlates with rather sinus rhythm/PAC. MTDD
== END ==
LOC: HO.CARD 10:55
PROVIDERS: PCP Internal Medicine; Visit Provider Internal Medicine Cardiovascular Disease
DX: I48.91 Unspecified atrial fibrillation (principal)
CPT/HCPCS: 93242

== ENCOUNTER → 2022-04-28 09:24 | Outpatient (BNVA) | payer OTHER, SELFPAY | PROVIDERS: PCP Internal Medicine; Visit Provider Physician Assistant | DX: E66.01 Morbid (severe) obesity due to excess calories (principal); Z98.84 Bariatric surgery status; Z68.41 Body mass index [BMI] 40.0-44.9, adult; Z98.890 Other specified postprocedural states | CPT/HCPCS: 99212 ==

== ENCOUNTER → 2022-05-27 12:31 | Outpatient (BNVA) | payer OTHER, SELFPAY | PROVIDERS: PCP Internal Medicine; Visit Provider Internal Medicine Cardiovascular Disease | DX: I48.0 Paroxysmal atrial fibrillation (principal); I35.0 Nonrheumatic aortic (valve) stenosis; Z79.01 Long term (current) use of anticoagulants | CPT/HCPCS: 93005; 99212 ==

== ENCOUNTER → 2022-05-30 15:26 | Outpatient (BNVA) | payer OTHER, SELFPAY | PROVIDERS: PCP Internal Medicine; Visit Provider Physician Assistant Surgical | DX: E66.01 Morbid (severe) obesity due to excess calories (principal); Z68.41 Body mass index [BMI] 40.0-44.9, adult; Z98.84 Bariatric surgery status | CPT/HCPCS: 99212 ==

== ENCOUNTER 2022-06-04 11:20 | Outpatient (REF) | payer OTHER, SELFPAY ==
[2022-06-04 11:36] LABS: MANUAL DIFF FLAG NO
[2022-06-04 12:09] LABS: Basophils Percent Auto 0.5 % (0-2); Eosinophils Absolute Auto 0.4 X10*3/uL (0.0-0.4); Eosinophils Percent Auto 4.3 % (0-4); Hematocrit 37.6 % (37.0-47.0); Hemoglobin 11.8 g/dl (12.0-16.0); Imm Gran Abs Auto 0.02 X10*3/uL (0.00-0.03); Imm Gran Pct Auto 0.2 % (0.0-0.4); Lymphocytes Absolute Auto 1.9 X10*3/uL (1.2-4.9); Lymphocytes Percent Auto 23.1 % (20-40); Mean Corpuscular HGB Conc 31.4 g/dl (31.0-35.0); Mean Corpuscular Hemoglobin 25.4 pg (27.0-33.0); Mean Corpuscular Volume 80.9 fL (80.0-98.0); Mean Platelet Volume 9.8 fL (9.4-12.3); Monocytes Absolute Auto 0.7 X10*3/uL (0.1-1.2); Monocytes Percent Auto 8.6 % (2-11); Neutrophils Absolute Auto 5.3 x10*3/uL (2.0-8.3); Neutrophils Percent Auto 63.3 % (45-73); Platelet Count 487 X10*3/uL (160-400); Red Blood Count 4.65 X10*6/uL (4.20-5.50); Red Cell Distribution Width 14.8 % (11.0-16.0); White Blood Count 8.4 X10*3/uL (4.8-10.8)
[2022-06-04 12:31] LABS: Alanine Aminotransferase 25 U/L (0-31); Albumin Level 4.1 g/dL (3.5-5.0); Alkaline Phosphatase 77 U/L (39-117); Anion Gap 16 (12-20); Aspartate Amino Transferase 30 U/L (5-31); Bilirubin Total 0.3 mg/dL (0.0-1.0); Blood Urea Nitrogen 18 mg/dL (9-16); C Reactive Protein 0.75 mg/dL (< or = 0.50); Calcium 9.8 mg/dL (8.4-10.2); Carbon Dioxide 29 mmol/L (22-29); Chloride 104 mmol/L (96-108); Cholesterol 160 mg/dL; Estimated Glomerular Filt Rate > 60; Glucose Random 87 mg/dL (60-115); HDL Cholesterol 56 mg/dL; Iron 33 mcg/dL (30-160); LDL Cholesterol Calculated 87 mg/dl; Percent Iron Saturation 9 % (15-50); Potassium 4.9 mmol/L (3.3-5.1); Sodium 144 mmol/L (135-145); Total Iron Binding Capacity 381 mcg/dL (228-428); Total Protein 7.3 g/dL (6.5-8.0); Triglycerides 86 mg/dL; Unsaturated Iron Binding 348 ug/dL
[2022-06-04 12:48] LABS: Estimated Average Glucose 206 mg/dL; Hemoglobin A1c % 8.8 %
[2022-06-04 12:52] LABS: Ferritin 63 ng/mL (10-250); TSH reflex Free T4 0.58 uIU/mL (0.32-4.0); Vitamin D 25-OH Total 42.3 ng/mL (>30)
[2022-06-04 13:11] LABS: Folate > 20.0 ng/mL (> or = 4.0); Vitamin B12 1280 pg/mL (200-900)
[2022-06-04 13:25] LABS: Insulin 455 uU/mL (2-29)
[2022-06-06 13:22] LABS: Calcium (PTHI) 9.7 mg/dL (8.6-10.4); PTHI 63 pg/mL (16-77)
[2022-06-06 19:52] LABS: Zinc 66 mcg/dL (60-130)
[2022-06-07 20:21] LABS: Vitamin A 61 mcg/dL (38-98)
[2022-06-09 09:07] LABS: Vitamin B1 29 nmol/L (8-30)
== END 2022-06-04 11:21 | disposition home or self-care (01) ==
LOC: HO.LAB 11:20
PROVIDERS: PCP Internal Medicine; Visit Provider Physician Assistant Surgical
DX: E66.01 Morbid (severe) obesity due to excess calories (principal); Z98.84 Bariatric surgery status
CPT/HCPCS: 36415; 80053; 80061; 82306; 82607; 82728; 82746; 83036; 83525; 83540; 83970; 84425; 84443; 84590; 84630; 85025; 86140

== ENCOUNTER → 2022-06-15 20:44 | Outpatient (REF) | payer OTHER, SELFPAY | LOC: HO.SL 20:44 | PROVIDERS: Visit Provider Nurse Practitioner Family | DX: G47.30 Sleep apnea, unspecified (principal); I48.91 Unspecified atrial fibrillation; I35.0 Nonrheumatic aortic (valve) stenosis; I25.10 Atherosclerotic heart disease of native coronary artery without angina pectoris; I51.89 Other ill-defined heart diseases; I77.9 Disorder of arteries and arterioles, unspecified; E66.01 Morbid (severe) obesity due to excess calories | CPT/HCPCS: 95810 ==

== ENCOUNTER → 2022-06-27 10:24 | Outpatient (BNVA) | payer OTHER, SELFPAY | PROVIDERS: PCP Internal Medicine; Visit Provider Physician Assistant Surgical | DX: E66.01 Morbid (severe) obesity due to excess calories (principal); Z98.84 Bariatric surgery status; Z68.42 Body mass index [BMI] 45.0-49.9, adult | CPT/HCPCS: 99212 ==

== ENCOUNTER → 2022-07-28 09:48 | Outpatient (BNVA) | payer OTHER, SELFPAY | PROVIDERS: PCP Internal Medicine; Visit Provider Physician Assistant Surgical | DX: E66.01 Morbid (severe) obesity due to excess calories (principal); Z98.84 Bariatric surgery status; Z68.42 Body mass index [BMI] 45.0-49.9, adult | CPT/HCPCS: 99212 ==

== ENCOUNTER → 2022-07-30 10:57 | Outpatient (BNVA) | payer OTHER, SELFPAY | PROVIDERS: PCP Internal Medicine; Visit Provider Nurse Practitioner Family | DX: G47.30 Sleep apnea, unspecified (principal); E66.01 Morbid (severe) obesity due to excess calories; Z68.42 Body mass index [BMI] 45.0-49.9, adult | CPT/HCPCS: 99212 ==

== ENCOUNTER → 2022-08-27 09:30 | Outpatient (BNVA) | payer OTHER, SELFPAY | PROVIDERS: PCP Internal Medicine; Visit Provider Physician Assistant Surgical | DX: E66.01 Morbid (severe) obesity due to excess calories (principal); Z98.84 Bariatric surgery status; Z68.42 Body mass index [BMI] 45.0-49.9, adult | CPT/HCPCS: 99212 ==

== ENCOUNTER → 2022-08-28 15:03 | Outpatient (BNVA) | payer OTHER, SELFPAY | PROVIDERS: PCP Internal Medicine; Visit Provider Internal Medicine Cardiovascular Disease | DX: Z13.89 Encounter for screening for other disorder (principal) | CPT/HCPCS: 93005 ==

== ENCOUNTER → 2022-09-29 08:29 | Outpatient (BNVA) | payer OTHER, SELFPAY | PROVIDERS: PCP Internal Medicine; Visit Provider Physician Assistant Surgical | DX: E66.01 Morbid (severe) obesity due to excess calories (principal); Z68.42 Body mass index [BMI] 45.0-49.9, adult; Z98.84 Bariatric surgery status | CPT/HCPCS: 99212 ==

== ENCOUNTER → 2022-10-14 21:43 | Outpatient (REF) | payer OTHER, SELFPAY | LOC: HO.SL 21:43 | PROVIDERS: PCP Internal Medicine; Visit Provider Nurse Practitioner Family | DX: G47.30 Sleep apnea, unspecified (principal); R09.02 Hypoxemia | CPT/HCPCS: 95810 ==

== ENCOUNTER 2022-11-18 08:38 | Outpatient (REF) | payer OTHER, SELFPAY ==
[2022-11-18 10:10] LABS: ABG Refer to POC result
[2022-11-18 10:11] LABS: ABG pH TC 7.45 (7.35-7.45)
[2022-11-18 10:11] LABS: MANUAL DIFF FLAG NO
[2022-11-18 10:12] LABS: ABG Base Excess 0.9 mmol/L; ABG HCO3 24 mmol/L (22-26); ABG pCO2 34 mmHg (32-45); ABG pH 7.45 (7.35-7.45); ABG pO2 92 mmHg (83-108)
[2022-11-18 10:35] LABS: Basophils Percent Auto 0.3 % (0-2); Eosinophils Absolute Auto 0.2 X10*3/uL (0.0-0.4); Eosinophils Percent Auto 1.8 % (0-4); Hematocrit 39.2 % (37.0-47.0); Hemoglobin 12.2 g/dl (12.0-16.0); Imm Gran Abs Auto 0.03 X10*3/uL (0.00-0.03); Imm Gran Pct Auto 0.3 % (0.0-0.4); Lymphocytes Absolute Auto 2.4 X10*3/uL (1.2-4.9); Lymphocytes Percent Auto 25.8 % (20-40); Mean Corpuscular HGB Conc 31.1 g/dl (31.0-35.0); Mean Corpuscular Hemoglobin 25.3 pg (27.0-33.0); Mean Corpuscular Volume 81.2 fL (80.0-98.0); Mean Platelet Volume 9.2 fL (9.4-12.3); Monocytes Absolute Auto 0.7 X10*3/uL (0.1-1.2); Monocytes Percent Auto 7.5 % (2-11); Neutrophils Absolute Auto 5.9 x10*3/uL (2.0-8.3); Neutrophils Percent Auto 64.3 % (45-73); Platelet Count 468 X10*3/uL (160-400); Red Blood Count 4.83 X10*6/uL (4.20-5.50); Red Cell Distribution Width 15.1 % (11.0-16.0); White Blood Count 9.3 X10*3/uL (4.8-10.8)
[2022-11-18 11:25] LABS: Estimated Average Glucose 283 mg/dL; Hemoglobin A1c % 11.5 %
[2022-11-18 11:45] LABS: Alanine Aminotransferase 52 U/L (0-31); Albumin Level 3.9 g/dL (3.5-5.0); Alkaline Phosphatase 81 U/L (39-117); Anion Gap 15 (12-20); Aspartate Amino Transferase 32 U/L (5-31); Bilirubin Total 0.4 mg/dL (0.0-1.0); Blood Urea Nitrogen 18 mg/dL (9-16); C Reactive Protein 0.33 mg/dL (< or = 0.50); Calcium 9.5 mg/dL (8.4-10.2); Carbon Dioxide 28 mmol/L (22-29); Chloride 103 mmol/L (96-108); Cholesterol 173 mg/dL; Estimated Glomerular Filt Rate > 60; Glucose Random 129 mg/dL (60-115); HDL Cholesterol 76 mg/dL; Iron 45 mcg/dL (30-160); LDL Cholesterol Calculated 84 mg/dl; Magnesium 1.8 mg/dL (1.6-2.6); Percent Iron Saturation 14 % (15-50); Potassium 5.2 mmol/L (3.3-5.1); Sodium 141 mmol/L (135-145); Total Iron Binding Capacity 330 mcg/dL (228-428); Total Protein 6.8 g/dL (6.5-8.0); Triglycerides 68 mg/dL; Unsaturated Iron Binding 285 ug/dL
[2022-11-18 12:15] LABS: Ferritin 91 ng/mL (10-250); Folate 11.2 ng/mL (> or = 4.0); Insulin 276 uU/mL (2-29); TSH reflex Free T4 2.88 uIU/mL (0.32-4.0); Vitamin B12 846 pg/mL (200-900)
[2022-11-18 13:02] LABS: Vitamin D 25-OH Total 31.4 ng/mL (>30)
[2022-11-19 14:24] LABS: Calcium (PTHI) 10.1 mg/dL (8.6-10.4); PTHI 63 pg/mL (16-77)
[2022-11-22 01:18] LABS: Zinc 56 mcg/dL (60-130)
[2022-11-23 14:57] LABS: Vitamin B1 14 nmol/L (8-30)
[2022-11-26 22:14] LABS: Vitamin A 76 mcg/dL (38-98)
== END 2022-11-18 08:39 | disposition home or self-care (01) ==
LOC: HO.LAB 08:38
PROVIDERS: Nurse Practitioner Family; PCP Internal Medicine; Visit Provider Physician Assistant Surgical
DX: E66.01 Morbid (severe) obesity due to excess calories (principal); G47.36 Sleep related hypoventilation in conditions classified elsewhere; Z71.3 Dietary counseling and surveillance; Z68.42 Body mass index [BMI] 45.0-49.9, adult; Z98.84 Bariatric surgery status; Z79.899 Other long term (current) drug therapy; Z86.2 Personal history of diseases of the blood and blood-forming organs and certain disorders involving the immune mechanism
CPT/HCPCS: 36415; 80053; 80061; 82306; 82607; 82728; 82746; 82803; 83036; 83525; 83540; 83735; 83970; 84425; 84443; 84590; 84630; 85025; 86140; 99212

== ENCOUNTER → 2022-11-27 13:07 | Outpatient (BNVA) | payer OTHER, SELFPAY | PROVIDERS: PCP Internal Medicine; Referring Provider Internal Medicine; Visit Provider Internal Medicine Cardiovascular Disease | DX: I48.0 Paroxysmal atrial fibrillation (principal); I25.10 Atherosclerotic heart disease of native coronary artery without angina pectoris; I35.0 Nonrheumatic aortic (valve) stenosis | CPT/HCPCS: 93005; 99212 ==

== ENCOUNTER → 2022-12-22 08:31 | Outpatient (BNVA) | payer OTHER, SELFPAY | PROVIDERS: PCP Internal Medicine; Visit Provider Physician Assistant Surgical | DX: E66.01 Morbid (severe) obesity due to excess calories (principal); Z98.84 Bariatric surgery status; Z68.42 Body mass index [BMI] 45.0-49.9, adult | CPT/HCPCS: 99212 ==

== ENCOUNTER → 2022-12-23 11:03 | Outpatient (BNVA) | payer OTHER, SELFPAY | PROVIDERS: PCP Internal Medicine; Visit Provider Nurse Practitioner Family | DX: E66.01 Morbid (severe) obesity due to excess calories (principal); G47.36 Sleep related hypoventilation in conditions classified elsewhere; E11.9 Type 2 diabetes mellitus without complications; Z99.81 Dependence on supplemental oxygen | CPT/HCPCS: 99212 ==

== ENCOUNTER → 2023-01-20 08:35 | Outpatient (BNVA) | payer OTHER, SELFPAY | PROVIDERS: PCP Internal Medicine; Visit Provider Physician Assistant Surgical | DX: E66.01 Morbid (severe) obesity due to excess calories (principal); Z68.42 Body mass index [BMI] 45.0-49.9, adult; Z98.84 Bariatric surgery status | CPT/HCPCS: 99212 ==

== ENCOUNTER → 2023-02-02 11:02 | Outpatient (REF) | payer OTHER, SELFPAY ==
--- NOTE | 2023-02-02 11:06 | CA_ITS ---
Transthoracic Echocardiogram Patient (Last, First, Middle): Helen Wheatley, Gender: Female Date of : 1960 Age: 62 Procedure Date: 02/02/2023 Procedure Type: Transthoracic Echocardiogram Location: OP Height: 162.56 cm Weight: 122.47 kg BSA: 2.22 m2 Heart Rate: bpm BP: 110 / 60 mmHg Transportation Consultant: HAWA Referring MD: Bud Hong MD Symptoms: I35.0 - Nonrheumatic aortic (valve) stenosis Study Quality: Fair with contrast ECG Rhythm: Sinus Conclusions: - The left ventricular systolic function is hyperdynamic. The calculated ejection fraction is 71% by biplane method. - Evidence suggests grade II (moderate) diastolic dysfunction. - The left atrium is severely dilated. - There is mild to moderate aortic valve stenosis. - There is moderate mitral annular calcification. - Peak gradient of 16mmHg in the proximal descending thoracic aorta. Uncertain etiology. High stroke volume may play a role. If clinically indicated, consider CTA. Findings Procedure Information Contrast agent, definity, is being given per protocol without apparent complications. Left Ventricle Normal left ventricular cavity size. There is moderately increased left ventricular wall thickness. The left ventricular systolic function is hyperdynamic. The calculated ejection fraction is 71% by biplane method. There is no evidence of regional wall motion abnormalities. E/E prime ratio is >15, consistent with elevated filling pressures. Evidence suggests grade II (moderate) diastolic dysfunction. Right Ventricle Normal right ventricular cavity size and systolic function. Atria The left atrium is severely dilated. The right atrium is normal in size. Aortic Valve There is moderate calcification of the aortic valve. There is mild to moderate aortic valve stenosis. The peak aortic velocity is 2.99 m/s with a calculated peak gradient of 36 mmHg. The mean gradient is 21 mmHg. The aortic valve area is 1.44 cm2. There is no aortic valve regurgitation. Dimensionless index 0.38. Mitral Valve There is moderate mitral annular calcification. There is mild mitral valve regurgitation. Mean gradient across the mitral valve 4mmHg at 80/min. Doubt any significant mitral stenosis. Pulmonic Valve The pulmonic valve is likely normal. Tricuspid Valve There is mild tricuspid valve regurgitation. Mild pulmonary hypertension is present. Great Vessels The asc aorta is normal in size. Venous The inferior vena cava is normal in size and collapses greater than 50% with inspiration. Pericardium/Pleural There is no evidence of pericardial effusion. Prior Study Comparison No significant change compared to prior study dated: 01/20/2022. Measurements 2D Linear Measurements IVSd: 1.38 0.6-0.9/0.6-1.0 cm LVIDd: 4.45 3.9-5.3/4.2-5.9 cm LVIDd Index: 2.00 2.4-3.2/2.2-3.1 cm/m2 LVIDs: 2.83 2.0-3.6 cm LVPWd: 1.28 0.7-1.1 cm LA Diam: 4.80 2.7-3.8/3.0-4.0 cm LAIDs Index: 2.16 1.5-2.3 cm/m2 LV Mass: 282.16 67-162/88-224 g LV Mass Index: 127.10 43-95/49-115 g/m2 LVOT Diam: 2.10 3.0+(-)1.3 cm 2D Systolic Function EF 4C: 70.90 >55% EF 2C: 71.80 >55% EF BiP: 70.60 >55% Mitral Valve MV VTI: 0.42 MV Pk Raghu: 1.40 MV Mn Raghu: 0.97 MV Pk Grad: 8.00 MV Mn Grad: 4.00 MV Pk E: 1.18 MV PK A: 0.90 MV Decel Time: 273.00 E/A: 1.30 E'Lateral: 7.72 E'Medial: 5.98 E/E' Med: 19.70 E/E' Lat: 15.30 PHT: 80.00 MVA PHT: 2.75 MVA Continuity: 2.46 Decel Crosby: 4.30 Aortic Valve AoV Pk Raghu: 2.99 AoV Mn Raghu: 2.14 AoV VTI: 0.73 AoV Pk Grad: 36.00 Aov Mn Grad: 21.00 RYLAN Cont.VTI: 1.44 LVOT LVOT Pk Raghu: 1.15 LVOT Mn Raghu: 0.89 LVOT VTI: 0.30 LVOT Pk Grad: 5.00 LVOT Mn Grad: 3.00 LVOT Diam: 2.10 LVOT Area: 3.46 Diastolic Function MV Pk E: 1.18 MV Pk A: 0.90 E/A: 1.30 E'Medial: 5.98 E/E' Med: 19.70 E' Laterial: 7.72 E/E' Lat: 15.30 Right Ventricle TAPSE (mm): 28.70 TVS' Raghu: 16.60 Tricuspid Valve TR Pk Raghu: 3.03 TR Pk Grad: 37.00 RA Press: 3.00 RVSP: 40.00 Great Vessels Aorta Sinus of Valsalva: 3.18 2.0-3.5 cm Ao Asc: 3.50 2.1-3.4 cm Updated in Other Vendor System with Status of Final Jerod Covarrubias MD electronically signed on 02/03/2023 1:01:57 PM with status of Final
== END ==
LOC: HO.CARD 11:02
PROVIDERS: PCP Internal Medicine; Visit Provider Internal Medicine Cardiovascular Disease
DX: I35.0 Nonrheumatic aortic (valve) stenosis (principal)
CPT/HCPCS: 93306; Q9957

== ENCOUNTER → 2023-02-18 09:55 | Outpatient (BNVA) | payer OTHER, SELFPAY | PROVIDERS: PCP Internal Medicine; Referring Provider Internal Medicine; Visit Provider Internal Medicine Cardiovascular Disease | DX: I48.91 Unspecified atrial fibrillation (principal); Z79.01 Long term (current) use of anticoagulants | CPT/HCPCS: 93005; 99211 ==

== ENCOUNTER → 2023-03-05 10:33 | Outpatient (BNVA) | payer OTHER, SELFPAY | PROVIDERS: PCP Internal Medicine; Visit Provider Physician Assistant Surgical | DX: E66.01 Morbid (severe) obesity due to excess calories (principal); E11.9 Type 2 diabetes mellitus without complications; Z68.42 Body mass index [BMI] 45.0-49.9, adult; Z90.3 Acquired absence of stomach [part of]; Z98.890 Other specified postprocedural states; Z99.81 Dependence on supplemental oxygen | CPT/HCPCS: 99212 ==

== ENCOUNTER 2023-03-27 09:35 | Outpatient (AMB) | payer OTHER, SELFPAY ==
--- NOTE | 2023-03-27 09:36 | MHC.OFFVIS ---
Intake Vital Signs 03/27/23 09:37 Height 5 ft 4 in Weight 266 lb 12.149 oz BMI 45.8 BP 122/50 L Blood Pressure Location Lt brachial Position Sitting Intake Visit Reasons: [facility] follow up Intake Note: ED f/u [place] Required: No Allergies codeine Allergy (Severe, Verified 03/27/23 09:48) nausea gabapentin Allergy (Severe, Verified 03/27/23 09:48) nausea and vomiting glyburide Allergy (Severe, Verified 03/27/23 09:48) headache ibuprofen Allergy (Severe, Verified 03/27/23 09:48) headache metformin Allergy (Severe, Verified 03/27/23 09:48) Anaphylaxis tramadol Allergy (Severe, Verified 03/27/23 09:48) nausea and vomiting metoprolol [From Toprol XL] Adverse Reaction (Severe, Verified 03/27/23 09:48) Drop in blood pressure Medication List - Last Reconciled 03/27/23 by Brittany Bautista, INTELLECTUAL PROPERTY COUNSEL-C apixaban (Eliquis) 5 mg PO BID calcium citrate-vitamin D3 315 mg-5 mcg (200 unit) 1 tab PO ONCE coenzyme Q10 100 mg PO DAILY dronedarone (Multaq) 400 mg PO Q12H ezetimibe (Zetia) 10 mg PO DAILY 90 days insulin degludec (Tresiba U-100 Insulin) 80 units subcut BEDTIME insulin regular human 1 sliding scale dose subcut USEASDIRECTD levothyroxine 150 mcg PO DAILY lidocaine 5% 0 patches topical loratadine 10 mg PO DAILY lorazepam 1 mg PO TID PRN morphine mg PO Oxygen Home Use 2L supplement O2 via nasal cannula at night rosuvastatin 40 mg PO DAILY zinc gluconate 10 mg PO DAILY HPI [facility] follow up HPI Details Helen is a 62-year-old female past medical history of hypertension, hyperlipidemia, diabetes, morbid obesity, carotid stenosis with left carotid endarterectomy, nonobstructive coronary artery disease, aortic stenosis, paroxysmal atrial fibrillation who had recent ER/hospital evaluation for dizziness. There was initial concern for TIA however imaging ruled that out. She was noted to have moderate right carotid stenosis and instructed to follow with her vascular surgeon Today she reports she has been doing well since her hospital discharge. She does have some mild dizziness at times. She now feels that some of this may be related to anxiety. She tells me that a few weeks prior to this event she was having abdominal bloating and discomfort and found out she has a uterine mass. She tells me she has a history of fibroid tumors and she is hopeful that it is a fibroid and not cancer. She has been experiencing much stress and anxiety over this. She has a telephone visit with her therapist respiratory provider next week. She anticipates the need for a hysterectomy in the near future. She has not felt any heart palpitations suggested of atrial fibrillation. No anginal sounding chest discomfort. No changes to her breathing. No PND, orthopnea or edema. No presyncope, syncope, falls. Taking all meds as directed. No recent med changes had been made. She did see Dr. Merritt since her hospital visit and she will be followed by them again in 6 months.. [facility] Medical History A-fib Aortic stenosis Back pain CAD (coronary artery disease) Carotid artery disease COVID-19 vaccine series completed Diastolic dysfunction Elevated cholesterol GERD (gastroesophageal reflux disease) Hepatomegaly Hx of difficult intubation Hypertension Hypothyroidism Insulin dependent diabetes mellitus Iron deficiency anemia Liver disease Liver fibrosis Morbid obesity On beta maranda at home Paroxysmal atrial fibrillation Peripheral neuropathy Seasonal allergies Sleep apnea Steatosis, liver Stroke Surgical History History of appendectomy History of eye surgery History of tonsillectomy and adenoidectomy Hx of endarterectomy S/P cardiac cath S/P laparoscopic sleeve gastrectomy Family History Mother No problems noted. Father No problems noted. Social History Are you a primary care specialist to a significant other at home: No Do you presently have visiting nurse or other home services: Yes (Home Health Aid) Alcohol intake: former Patient Tobacco Use Status: Never used Tobacco service: No Current occupational status: disabled Review of Systems ENT Reports dizziness Card Denies chest pain, Denies chest pain at rest, Denies chest pain with activity, Denies rapid heart rate, Denies pedal edema, Denies edema, Denies leg edema, Denies lightheadedness, Denies palpitations, Denies dyspnea, Denies dyspnea on exertion and Denies orthopnea Resp Denies cough, Denies dyspnea and Denies dyspnea on exertion GI Denies hematochezia and Denies change in stool character Musc Denies abnormal gait, Reports limited range of motion, Reports muscle cramps, Denies muscle weakness, Denies numbness, Denies radiating pain into limb, Denies stiffness and Denies tingling Neuro Denies abnormal gait, Reports dizziness, Denies numbness and Denies tingling Endo Denies palpitations Physical Exam Vital Signs: Last Vital Signs BP 122/50 L 03/27/23 09:37 BMI result Body Mass Index 45.8 Const General: cooperative, healthy appearing, comfortable and no acute distress Orientation/consciousness: patient oriented x3 Neck Neck: Yes normal visual inspection Resp Effort & Inspection: normal respiratory effort Auscultation: clear to auscultation bilaterally, no crackles, no rales, no rhonchi and no wheezes Cardio Jugular venous distension: no JVD Rate: regular rate Rhythm: regular rhythm Heart sounds: S1 normal heart sound present, S2 normal heart sound present, no murmurs and no rubs Neuro General: patient oriented x3 Extrem General: Yes normal to inspection Psych Appearance: grossly normal Mental Status: mental status grossly normal Speech and movement: Normal speech and movement present Assessment & Plan Assessment & Plan (1) Dizziness: Code(s): R42 - Dizziness and giddiness Plan: ER/hospital evaluation for dizziness, [place]. Initial concern for possible TIA as she has paroxysmal AFib and is on anticoagulation. Head CT and MRI of the brain showed no acute findings. A CTA of the neck did show moderate stenosis the right ICA, 60%. She has been taking her anticoagulation on interrupted. EKG on admission showed normal sinus rhythm with no acute ST or T-wave abnormalities, rate 78. An echocardiogram done on 03/11/2023 shows EF 65-70%, left atrium moderately dilated, mild aortic stenosis, peak gradient 27 mmHg and mean gradient 15 mmHg, mild MR no regional wall motion abnormalities, grade 1 diastolic dysfunction. She had no medication changes made. She has since followed with vascular surgery, Dr. Merritt and they plan for a six-month follow-up on her carotid stenosis. Her symptom of dizziness is reported as mild and intermittent. She now believes that anxiety may contribute to this symptom as she recently found out she has a uterine mass, which will need further evaluation and possible surgery. Vital signs normal range today. No med changes made at this visit. (2) Paroxysmal atrial fibrillation: Code(s): I48.0 - Paroxysmal atrial fibrillation Plan: History of paroxysmal atrial fibrillation. Currently suppressed with Multaq. EKG done on 03/10/2023 shows normal sinus rhythm, QTC 465 milliseconds. No clinical reports of heart palpitations/atrial fibrillation. Pulse is regular on examination today. Will continue Multaq and plan for office EKG in 3 months. She is on Eliquis for anticoagulation. She may require upcoming surgery at which time Eliquis can be held as required. No bleeding issues reported. (3) Aortic stenosis: Code(s): I35.0 - Nonrheumatic aortic (valve) stenosis Plan: History of aortic stenosis, previously described as mild to moderate. Echocardiogram just completed on 03/11/23 shows aortic valve moderately calcified, mild aortic stenosis with peak gradient 27 mmHg and mean gradient 15 mmHg, no evidence of aortic regurgitation. We will continue to follow with periodic echoes (4) Carotid artery disease: Code(s): I77.9 - Disorder of arteries and arterioles, unspecified Plan: Follows with Dr. Merritt for vascular surgery (5) Uterine mass: Code(s): N85.8 - Other specified noninflammatory disorders of uterus Plan: Newer finding of uterine mass that requires further evaluation and probable hysterectomy in the near future. She has no reports of anginal sounding symptoms. She has a known history of coronary artery disease. Recent echo with normal EF and no reported wall motion abnormalities. Recent EKG nonischemic. Will check with her primary pipe smoking machine operator to see if stress testing is warranted prior to surgical clearance (6) Morbid obesity: Code(s): E66.01 - Morbid (severe) obesity due to excess calories (7) S/P cardiac cath: Comment: 02/27/21 LM normal, LAD proximal and distal 70% stenosis, heavily calcified, RYLIE III flow, LCx is OM 60% stenosis, RCA with mild irregularities < 30% stenosis. Code(s): Z98.890 - Other specified postprocedural states (8) CAD (coronary artery disease): Comment: Cleared by [facility] Code(s): I25.10 - Atherosclerotic heart disease of creek coronary artery without angina pectoris Plan: No reports of anginal sounding symptoms. Continue medical management for stable CAD. She is not on aspirin as she is on Eliquis. Continue high-dose rosuvastatin and Zetia with LDL goal less than 70. Labs done 11/18/2022 showed LDL 84. She reports med compliance. Benefits of weight loss, increasing physical activity as tolerated discussed. Will plan recheck prior to her next visit. If LDL remains greater than 70 than PCSK9 inhibitor will be indicated. (9) Sleep apnea: Comment: Can not tolerate CPAP Code(s): G47.30 - Sleep apnea, unspecified (10) Hospital discharge follow-up: Code(s): Z09 - Encounter for follow-up examination after completed treatment for conditions other than malignant neoplasm Plan: ED in-hospital evaluation on 03/11/2023 for dizziness Coding Level of Care Code Est Pt Level 4 (53957) Diagnoses Dizziness R42 Paroxysmal atrial fibrillation I48.0 Aortic stenosis I35.0 Carotid artery disease I77.9 Uterine mass N85.8 Morbid obesity E66.01 S/P cardiac cath Z98.890 CAD (coronary artery disease) I25.10 Sleep apnea G47.30 Hospital discharge follow-up Z09 Time Spent (min) 30 Comment Chart review, documentation, interview, assessment
[2023-03-27 09:37] VITALS: BP 122/50; BMI 45.8
== END 2023-03-27 10:16 | disposition home or self-care (01) ==
PROVIDERS: PCP Internal Medicine; Visit Provider Nurse Practitioner Family
DX: R42 Dizziness and giddiness (principal); I48.0 Paroxysmal atrial fibrillation; I35.0 Nonrheumatic aortic (valve) stenosis; I77.9 Disorder of arteries and arterioles, unspecified; N85.8 Other specified noninflammatory disorders of uterus; E66.01 Morbid (severe) obesity due to excess calories; Z98.890 Other specified postprocedural states; I25.10 Atherosclerotic heart disease of native coronary artery without angina pectoris; G47.30 Sleep apnea, unspecified; Z09 Encounter for follow-up examination after completed treatment for conditions other than malignant neoplasm
CPT/HCPCS: 99214

== ENCOUNTER → 2023-03-27 09:35 | Outpatient (BNVA) | payer OTHER, SELFPAY | PROVIDERS: PCP Internal Medicine; Visit Provider Nurse Practitioner Family | DX: Z09 Encounter for follow-up examination after completed treatment for conditions other than malignant neoplasm (principal); R42 Dizziness and giddiness; I48.0 Paroxysmal atrial fibrillation; I35.0 Nonrheumatic aortic (valve) stenosis; I77.9 Disorder of arteries and arterioles, unspecified; I25.10 Atherosclerotic heart disease of native coronary artery without angina pectoris; N85.8 Other specified noninflammatory disorders of uterus; E66.01 Morbid (severe) obesity due to excess calories; G47.30 Sleep apnea, unspecified; Z98.890 Other specified postprocedural states; Z68.42 Body mass index [BMI] 45.0-49.9, adult | CPT/HCPCS: 99212 ==

== ENCOUNTER 2023-04-13 09:31 | Outpatient (AMB) | payer OTHER, SELFPAY ==
--- NOTE | 2023-04-13 09:35 | A.OFFVIS_ITS ---
Intake VS Expanded 04/13/23 09:44 Height 5 ft 4 in Weight 264 lb 9.6 oz BMI 45.4 BP 118/59 L Blood Pressure Location Rt brachial Blood Pressure Position Sitting Pulse 78 Pulse Source Pulse Oximeter Temp 96.1 F L Temperature Source Tympanic Pulse Oximetry 97 Oxygen Delivery Method Room Air Body Fat 118.8 Body Fat Percentage 44.9 Free Fat Mass 145.8 Muscle Mass 138.4 Visceral Mass 16.0 Water Mass 103.4 BMR 2,038 Intake Visit Reasons: OV PO LSG 05/28/21 Allergies codeine Allergy (Severe, Verified 04/13/23 09:38) nausea gabapentin Allergy (Severe, Verified 04/13/23 09:38) nausea and vomiting glyburide Allergy (Severe, Verified 04/13/23 09:38) headache ibuprofen Allergy (Severe, Verified 04/13/23 09:38) headache metformin Allergy (Severe, Verified 04/13/23 09:38) Anaphylaxis tramadol Allergy (Severe, Verified 04/13/23 09:38) nausea and vomiting metoprolol [From Toprol XL] Adverse Reaction (Severe, Verified 04/13/23 09:38) Drop in blood pressure lactose Adverse Reaction (Intermediate, Uncoded 04/13/23 09:39) Diarrhea Medication List - Last Reconciled 04/13/23 by Raeann Maldonado PA-C apixaban (Eliquis) 5 mg PO BID coenzyme Q10 100 mg PO DAILY dronedarone (Multaq) 400 mg PO Q12H ezetimibe (Zetia) 10 mg PO DAILY 90 days insulin degludec (Tresiba U-100 Insulin) 80 units subcut BEDTIME insulin regular human 1 sliding scale dose subcut USEASDIRECTD levothyroxine 150 mcg PO DAILY lidocaine 5% 0 patches topical loratadine 10 mg PO DAILY lorazepam 1 mg PO TID PRN morphine mg PO zglktamijwze-fir-sswj-FA-vit K 45 mg iron- 800 mcg-120 mcg (Bariatric Multivitamins) caps PO rosuvastatin 40 mg PO DAILY zinc gluconate 10 mg PO DAILY HPI HPI Comments History of Present Illness Details Pt is now 23 months s/p LSG. MANAGER OF INTERNAL weight of 290 lbs, TBWL is 26 lbs. She is vegan and has always had a hard time finding protein sources. She last saw January 2022. She saw cardiology recently for pre op clearance for dietetic technician registered surgery due to uterine mass. Will have open DARWIN. Post op labs done November 20 - all normal except Hgb Aic - 11.5 up form 8.8, mildy elevated LFT's. 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 [place] have colon[place] and [place] [facility] Post op complications: none NEAL: insurance will not cover DM: still on insulin HTN: never Hyperlipidemia: still on meds GERD: 2 BS fasting today 115, goes up 200- 250 - no matter what she eats, shake or vegetables. How bad is the heartburn ? 0 Heartburn while lying down ? 1 Heartburn when standing up ? 0 Heartburn after meals ? 1 Does heartburn change your diet ? 0 Does heartburn wake you up from sleep ? 0 Do you have difficulty swallowing ? 0 Do you have pain with swallowing -? 0 If you take medicine for your reflux, does this affect your daily life ? 0 Satisfaction with present condition - satisfied Meal plan - 2 Rebuild shakes with soy milk and water. May have a third at night if hungry. 1 meal per day of soft vegetables - 8 oz only. Somedays will have seitan with it. Has one serving of fruit per day. Walks 30 minutes with dogs twice per day. Had a fall recently with subsequent cramps. [facility] Medical History A-fib Aortic stenosis Back pain CAD (coronary artery disease) Carotid artery disease COVID-19 vaccine series completed Diastolic dysfunction Elevated cholesterol GERD (gastroesophageal reflux disease) Hepatomegaly Hx of difficult intubation Hypertension Hypothyroidism Insulin dependent diabetes mellitus Iron deficiency anemia Liver disease Liver fibrosis Morbid obesity On beta maranda at home Paroxysmal atrial fibrillation Peripheral neuropathy Seasonal allergies Sleep apnea Steatosis, liver Stroke Surgical History History of appendectomy History of eye surgery History of tonsillectomy and adenoidectomy Hx of endarterectomy S/P cardiac cath S/P laparoscopic sleeve gastrectomy Family History Mother No problems noted. Father No problems noted. Social History Are you a primary healthcare corporate account director to a significant other at home: No Do you presently have visiting nurse or other home services: Yes (Home Health Aid) Alcohol intake: former Patient Tobacco Use Status: Never used Tobacco service: No Current occupational status: disabled Assessment & Plan Assessment & Plan (1) S/P laparoscopic sleeve gastrectomy: Code(s): Z98.84 - Bariatric surgery status Plan: Pt is 2 years s/p LSG with minimal weight loss and severe insulin resistance. She has never been able to find a good meal plan that resulted in weight loss and has many food intolerances. She will be having DARWIN soon for large uterine mass. MEal plan - I suggested that she stop soy milk - due to excess estrogen and change to UAM or water in shakes She should have 30 gram shake equivalent 2 tiem sper day if has meal with vegetables an seitan. If no protien at dinner meal - thant have 3 shakes per day. She can not increase her exercise. Post op labs done in October. Next appt with Jody in 6 months - should be recovered from gym surgery at that time. Me for 3 year post op appt- May 2024. Patient is morbidly obese and is not considered stable at this time. I spent 30 minutes in total with patient reviewing/updating records, examining the patient and counseling the patient on weight management as detailed above. (2) Morbid obesity: Code(s): E66.01 - Morbid (severe) obesity due to excess calories Coding Level of Care Code Est Pt Level 4 (83055) Diagnoses S/P laparoscopic sleeve gastrectomy Z98.84 Morbid obesity E66.01
[2023-04-13 09:44] VITALS: BP 118/59; PULSE 78; TEMP 35.6; O2SAT 97; BMI 45.4
== END 2023-04-13 10:14 | disposition home or self-care (01) ==
PROVIDERS: PCP Internal Medicine; Visit Provider Physician Assistant
DX: E66.01 Morbid (severe) obesity due to excess calories (principal); Z68.42 Body mass index [BMI] 45.0-49.9, adult; Z90.3 Acquired absence of stomach [part of]; Z98.84 Bariatric surgery status
CPT/HCPCS: 99214

== ENCOUNTER → 2023-04-13 09:31 | Outpatient (BNVA) | payer OTHER, SELFPAY | PROVIDERS: PCP Internal Medicine; Visit Provider Physician Assistant | DX: E66.01 Morbid (severe) obesity due to excess calories (principal); E78.5 Hyperlipidemia, unspecified; Z68.42 Body mass index [BMI] 45.0-49.9, adult; Z90.3 Acquired absence of stomach [part of]; Z79.4 Long term (current) use of insulin | CPT/HCPCS: 99212 ==

== ENCOUNTER 2023-05-19 14:30 | Outpatient (AMB) | payer OTHER, SELFPAY ==
--- NOTE | 2023-05-19 14:44 | MHC.OFFVIS ---
Intake Vital Signs 05/19/23 14:48 Height 5 ft 4 in Weight 257 lb 15.053 oz BMI 44.3 BP 110/56 L Blood Pressure Location Lt brachial Position Sitting Respiration 18 Pulse 66 Pulse Source Pulse Oximeter Pulse Oximetry (%) 96 Oxygen Delivery Method Room Air Intake Visit Reasons: [facility] fu (NS) Intake Note: [place] [facility] [place] Required: No Accompanied by: Self / Same As Patient Allergies codeine Allergy (Severe, Verified 05/19/23 14:48) nausea gabapentin Allergy (Severe, Verified 05/19/23 14:48) nausea and vomiting glyburide Allergy (Severe, Verified 05/19/23 14:48) headache ibuprofen Allergy (Severe, Verified 05/19/23 14:48) headache metformin Allergy (Severe, Verified 05/19/23 14:48) Anaphylaxis tramadol Allergy (Severe, Verified 05/19/23 14:48) nausea and vomiting metoprolol [From Toprol XL] Adverse Reaction (Severe, Verified 05/19/23 14:48) Drop in blood pressure lactose Adverse Reaction (Intermediate, Uncoded 05/19/23 14:48) Diarrhea Medication List - Last Reconciled 05/19/23 by Tania Rivera, VENU apixaban (Eliquis) 5 mg PO BID coenzyme Q10 100 mg PO DAILY dronedarone (Multaq) 400 mg PO Q12H ezetimibe (Zetia) 10 mg PO DAILY 90 days insulin degludec (Tresiba U-100 Insulin) 80 units subcut BEDTIME insulin regular human 1 sliding scale dose subcut USEASDIRECTD levothyroxine 150 mcg PO DAILY lidocaine 5% 0 patches topical loratadine 10 mg PO DAILY lorazepam 1 mg PO TID PRN dchuajuypnmd-hro-eexw-FA-vit K 45 mg iron- 800 mcg-120 mcg (Bariatric Multivitamins) caps PO Oxygen Home Use As directed, 2 L at betime via nasal cannual phentermine 30 mg PO QAM rosuvastatin 40 mg PO DAILY sucralfate 10 mL PO Q6H zinc gluconate 10 mg PO DAILY HPI HPI Comments History of Present Illness Details 62-year-old here [place] [facility] [place]. She was [place] [facility] [place] x1 and severe iron deficiency anemia. HGB as low as 6.7, HCT 26.9 and Iron 4 and got multiple iron and PRBCs transfusions. She reports on being very fatigued but much improved since discharge. She has no chest pain, dizziness, or palpations. Breathing has improved and is using oxygen at night as ordered. She was holding eliquis for a colonoscopy on 05/20/23 but as since resumed as she now has a capsule endoscopy 05/21/23 at [facility] to investigate GI bleeding as she had a colonscopy and endoscopy a few weeks ago [place] [facility] [place] endorses dark stools, no fresh blood. Otherwise doing well and exercising often. Due for a Lexiscan stress test 06/16/23 at [facility] [place]. Overall doing well with no concerns other than GI and fatigue. [facility] Medical History Anemia PUD (peptic ulcer disease) Abnormal findings on cardiac catheterization Paroxysmal atrial fibrillation A-fib Liver fibrosis Steatosis, liver Hepatomegaly Aortic stenosis Diastolic dysfunction COVID-19 vaccine series completed Hx of difficult intubation Peripheral neuropathy Iron deficiency anemia Elevated cholesterol On beta maranda at home Liver disease Seasonal allergies CAD (coronary artery disease) Carotid artery disease GERD (gastroesophageal reflux disease) Hypertension Back pain Hypothyroidism Stroke Insulin dependent diabetes mellitus Sleep apnea Morbid obesity Surgical History S/P laparoscopic sleeve gastrectomy History of eye surgery S/P cardiac cath History of appendectomy Hx of endarterectomy History of tonsillectomy and adenoidectomy Family History Mother No problems noted. Father No problems noted. Social History Are you a primary manager respiratory care to a significant other at home: No Do you presently have visiting nurse or other home services: Yes (Home Health Aid) Alcohol intake: former Patient Tobacco Use Status: Never used Tobacco service: No Current occupational status: disabled Review of Systems Const Denies chills, Denies fatigue, Denies fever(s), Denies frequent falls, Denies weakness, Denies weight gain and Denies weight loss ENT Denies dizziness Card Denies chest pain, Denies chest pain with activity, Denies syncope, Denies rapid heart rate, Denies pedal edema, Denies irregular heart rhythm, Denies leg edema, Denies lightheadedness, Denies palpitations, Denies dyspnea, Denies dyspnea on exertion, Denies orthopnea and Denies other (LOC) Resp Denies cough, Denies dyspnea and Denies dyspnea on exertion GI Reports melena, Denies hematochezia and Denies change in bowel habits Musc Denies abnormal gait, Denies arthralgias, Denies muscle weakness, Denies numbness, Denies radiating pain into limb and Denies tingling Neuro Denies abnormal gait, Denies dizziness, Denies syncope, Denies frequent falls, Denies numbness, Denies tingling and Denies weakness Endo Denies fatigue and Denies palpitations Physical Exam Vital Signs: Last Vital Signs Pulse 66 05/19/23 14:48 Resp 18 05/19/23 14:48 BP 110/56 L 05/19/23 14:48 Pulse Ox 96 05/19/23 14:48 Oxygen Delivery Method Room Air 05/19/23 14:48 BMI result Body Mass Index 44.3 Const General: healthy appearing and no acute distress Orientation/consciousness: patient oriented x3 HEENT Head: Yes normal to inspection Eyes General: appearance normal, both eyes and all related structures Neck Neck: Yes normal visual inspection Chest Chest palpation & inspection: normal inspection of the chest Resp Effort & Inspection: normal respiratory effort Auscultation: clear to auscultation bilaterally Cardio Jugular venous distension: no JVD Palpation: normal PMI Rate: regular rate Rhythm: regular rhythm Heart sounds: S1 normal heart sound present, S2 normal heart sound present, no click, no gallops, no murmurs and no rubs GI Inspection: Yes normal to inspection Palpation (GI): Soft to palpation Skin General skin exam: no rashes or lesions noted Neuro General: patient oriented x3 Extrem General: Yes normal to inspection Psych Appearance: grossly normal Assessment & Plan Assessment & Plan (1) Paroxysmal atrial fibrillation: Code(s): I48.0 - Paroxysmal atrial fibrillation (2) Anemia: Code(s): D64.9 - Anemia, unspecified (3) Hospital discharge follow-up: Code(s): Z09 - Encounter for follow-up examination after completed treatment for conditions other than malignant neoplasm Plan Pharmacological stress test on 06/16/23. Repeat CBC to check blood counts. Continue medications. Orders: Orders Complete Blood Count Auto Diff 05/19/23 D64.9 - Anemia, unspecified, I48.0 - Paroxysmal atrial fibrillation, Z09 - Encounter for follow-up examination after completed treatment for conditions other than malignant neoplasm Coding Level of Care Code Est Pt Level 3 (20264) Diagnoses Paroxysmal atrial fibrillation I48.0 Anemia D64.9 Hospital discharge follow-up Z09
[2023-05-19 14:48] VITALS: BP 110/56; PULSE 66; RESP 18; O2SAT 96; BMI 44.3
== END 2023-05-19 15:25 | disposition home or self-care (01) ==
PROVIDERS: PCP Internal Medicine; Visit Provider Nurse Practitioner
DX: I48.0 Paroxysmal atrial fibrillation (principal); D64.9 Anemia, unspecified; Z09 Encounter for follow-up examination after completed treatment for conditions other than malignant neoplasm
CPT/HCPCS: 99213

== ENCOUNTER 2023-05-19 14:30 | Outpatient (REF) | payer OTHER, SELFPAY ==
[2023-05-19 16:06] LABS: MANUAL DIFF FLAG NO
[2023-05-19 16:21] LABS: Basophils Percent Auto 0.4 % (0-2); Eosinophils Absolute Auto 0.3 X10*3/uL (0.0-0.4); Hematocrit 31.3 % (37.0-47.0); Hemoglobin 9.5 g/dl (12.0-16.0); Imm Gran Abs Auto 0.02 X10*3/uL (0.00-0.03); Imm Gran Pct Auto 0.2 % (0.0-0.4); Lymphocytes Absolute Auto 2.8 X10*3/uL (1.2-4.9); Lymphocytes Percent Auto 27.2 % (20-40); Mean Corpuscular HGB Conc 30.4 g/dl (31.0-35.0); Mean Corpuscular Volume 85.5 fL (80.0-98.0); Mean Platelet Volume 9.5 fL (9.4-12.3); Monocytes Absolute Auto 0.8 X10*3/uL (0.1-1.2); Monocytes Percent Auto 7.4 % (2-11); Neutrophils Absolute Auto 6.2 x10*3/uL (2.0-8.3); Neutrophils Percent Auto 61.8 % (45-73); Platelet Count 583 X10*3/uL (160-400); Red Blood Count 3.66 X10*6/uL (4.20-5.50); Red Cell Distribution Width 15.8 % (11.0-16.0); White Blood Count 10.1 X10*3/uL (4.8-10.8)
== END 2023-05-19 14:31 | disposition home or self-care (01) ==
LOC: HO.LAB 14:30
PROVIDERS: PCP Internal Medicine; Visit Provider Nurse Practitioner
DX: Z09 Encounter for follow-up examination after completed treatment for conditions other than malignant neoplasm (principal); I48.0 Paroxysmal atrial fibrillation; D50.9 Iron deficiency anemia, unspecified; Z79.899 Other long term (current) drug therapy
CPT/HCPCS: 36415; 85025; 99212

== ENCOUNTER 2023-06-15 10:41 | Outpatient (REF) | payer OTHER, SELFPAY ==
[2023-06-15 11:19] LABS: MANUAL DIFF FLAG NO
[2023-06-15 11:44] LABS: Basophils Percent Auto 0.4 % (0-2); Eosinophils Absolute Auto 0.3 X10*3/uL (0.0-0.4); Eosinophils Percent Auto 3.7 % (0-4); Hemoglobin 9.7 g/dl (12.0-16.0); Imm Gran Abs Auto 0.03 X10*3/uL (0.00-0.03); Imm Gran Pct Auto 0.4 % (0.0-0.4); Lymphocytes Absolute Auto 1.4 X10*3/uL (1.2-4.9); Mean Corpuscular HGB Conc 30.3 g/dl (31.0-35.0); Mean Corpuscular Hemoglobin 24.7 pg (27.0-33.0); Mean Corpuscular Volume 81.6 fL (80.0-98.0); Mean Platelet Volume 9.4 fL (9.4-12.3); Monocytes Absolute Auto 0.8 X10*3/uL (0.1-1.2); Monocytes Percent Auto 9.1 % (2-11); Neutrophils Absolute Auto 5.8 x10*3/uL (2.0-8.3); Neutrophils Percent Auto 69.4 % (45-73); Platelet Count 454 X10*3/uL (160-400); Red Blood Count 3.92 X10*6/uL (4.20-5.50); Red Cell Distribution Width 15.1 % (11.0-16.0); White Blood Count 8.3 X10*3/uL (4.8-10.8)
== END 2023-06-15 10:42 | disposition home or self-care (01) ==
LOC: HO.LAB 10:41
PROVIDERS: PCP Internal Medicine; Visit Provider Nurse Practitioner
DX: I25.10 Atherosclerotic heart disease of native coronary artery without angina pectoris (principal); D64.9 Anemia, unspecified
CPT/HCPCS: 36415; 85025

== ENCOUNTER → 2023-06-16 08:04 | Outpatient (REF) | payer OTHER, SELFPAY ==
--- NOTE | ~2023-06-16 | NM_ITS ---
Lexiscan Myocardial perfusion study Indication: Atrial fibrillation, assess for coronary disease and ischemia Technique: The patient was brought in for a Lexiscan perfusion study on 06/16/2023 and was injected 0.4 mg of Lexiscan intravenously. Within a minute of this injection 40 mCi of sestamibi was given intravenously. Images were obtained using the SPECT gamma camera interlaced with the gating device. Images were obtained in supine position. Resting perfusion study was performed on 06/17/2023. Patient was administered 40 mCi of sestamibi intravenously at rest. Images were then obtained in supine position. Images were processed with the software and compared side to side in short axis, horizontal long axis and vertical long axis views. Total DLP 157mGy-cm. Findings: Raw acquisition reviewed. The stress perfusion study showed markedly reduced tracer uptake along the anterior wall as well as apex. There is partial improvement with CT attenuation correction in the basal to mid portions. The gated study shows normal LV systolic function with calculated LVEF of 44%. LV cavity is normal in size. The gated study shows markedly reduced wall thickening or contractility of the anterior wall. Resting study shows moderately reduced tracer uptake in the anterior wall including apex. Gating at rest reveals reduced anterior wall thickening with an ejection fraction of 63%. The findings are consistent with severe perfusion defect in the anterior wall and apex with reversible as well as some fixed components. NM/NM george perf SPECT rest & str Impression: 1. Myocardial perfusion imaging study shows mixed ischemia/infarct pattern in the anterior wall and apex. 2. Gated LVEF is 44% during stress and 60% during rest. 3. Transient ischemic dilatation not present. EKG component of the test reported separately.
--- NOTE | 2023-06-16 08:06 | CA_ITS ---
Acquisition Time: 2023-06-16 08:09:49 Total Exercise Time: 00:02:00 Test Indications: Syncope Medications: SEE H Protocol: LEXISCAN Max HR: 088 BPM 55% of Pred: 159 BPM Max BP: 122/060 mmHG Max Work Load: 1.0 METS Pharmacoligcal stress test with Lexiscan injection while sitting and kicking her legs, without anginal symptoms, without arrytmias, with normotensive response to injection, with nondiagnoisitic EKGs. Aminophylline 75mg IVP given to reverse Lexiscan. Nuclear images pending. Referred By: Bud Hong Overread By: Tania Rivera
== END ==
LOC: HO.CARD 08:04
PROVIDERS: PCP Internal Medicine; Visit Provider Internal Medicine Cardiovascular Disease
DX: R06.02 Shortness of breath (principal); R55 Syncope and collapse; R93.1 Abnormal findings on diagnostic imaging of heart and coronary circulation; I77.9 Disorder of arteries and arterioles, unspecified
CPT/HCPCS: 78452; 93017; A9500; J0280; J2785

== ENCOUNTER → 2023-06-16 08:06 | Outpatient (BNV) | payer OTHER, SELFPAY | PROVIDERS: PCP Internal Medicine; Visit Provider Nurse Practitioner | DX: I25.10 Atherosclerotic heart disease of native coronary artery without angina pectoris (principal); R93.1 Abnormal findings on diagnostic imaging of heart and coronary circulation | CPT/HCPCS: 78452; 93016; 93018 ==

== ENCOUNTER 2023-06-30 13:09 | Outpatient (REF) | payer OTHER, SELFPAY ==
[2023-06-30 13:32] LABS: MANUAL DIFF FLAG NO
[2023-06-30 14:16] LABS: Basophils Percent Auto 0.4 % (0-2); Eosinophils Absolute Auto 0.4 X10*3/uL (0.0-0.4); Eosinophils Percent Auto 3.8 % (0-4); Hematocrit 31.9 % (37.0-47.0); Hemoglobin 9.8 g/dl (12.0-16.0); Imm Gran Abs Auto 0.04 X10*3/uL (0.00-0.03); Imm Gran Pct Auto 0.4 % (0.0-0.4); Lymphocytes Absolute Auto 2.1 X10*3/uL (1.2-4.9); Lymphocytes Percent Auto 19.8 % (20-40); Mean Corpuscular HGB Conc 30.7 g/dl (31.0-35.0); Mean Corpuscular Hemoglobin 24.9 pg (27.0-33.0); Mean Corpuscular Volume 81.2 fL (80.0-98.0); Mean Platelet Volume 10.1 fL (9.4-12.3); Monocytes Absolute Auto 0.9 X10*3/uL (0.1-1.2); Monocytes Percent Auto 8.3 % (2-11); Neutrophils Percent Auto 67.3 % (45-73); Platelet Count 529 X10*3/uL (160-400); Red Blood Count 3.93 X10*6/uL (4.20-5.50); Red Cell Distribution Width 15.2 % (11.0-16.0); White Blood Count 10.4 X10*3/uL (4.8-10.8)
[2023-06-30 14:47] LABS: Anion Gap 16 (12-20); Blood Urea Nitrogen 22 mg/dL (9-16); Calcium 9.8 mg/dL (8.4-10.2); Carbon Dioxide 25 mmol/L (22-29); Chloride 102 mmol/L (96-108); Estimated Glomerular Filt Rate > 60; Glucose Random 133 mg/dL (60-115); Potassium 5.1 mmol/L (3.3-5.1); Sodium 138 mmol/L (135-145)
== END 2023-06-30 13:10 | disposition home or self-care (01) ==
LOC: HO.LAB 13:09
PROVIDERS: Absent Provider Internal Medicine Cardiovascular Disease; Visit Provider Nurse Practitioner
DX: D64.9 Anemia, unspecified (principal); I25.10 Atherosclerotic heart disease of native coronary artery without angina pectoris
CPT/HCPCS: 36415; 80048; 85025

== ENCOUNTER 2023-07-09 14:53 | Outpatient (AMB) | payer OTHER, SELFPAY ==
[2023-07-09 14:57] VITALS: BP 128/80; PULSE 82; BMI 45.4
--- NOTE | 2023-07-09 14:57 | MHC.OFFVIS ---
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 Required: No Allergies codeine Allergy (Severe, Verified 05/19/23 14:48) nausea gabapentin Allergy (Severe, Verified 05/19/23 14:48) nausea and vomiting glyburide Allergy (Severe, Verified 05/19/23 14:48) headache ibuprofen Allergy (Severe, Verified 05/19/23 14:48) headache metformin Allergy (Severe, Verified 05/19/23 14:48) Anaphylaxis tramadol Allergy (Severe, Verified 05/19/23 14:48) nausea and vomiting metoprolol [From Toprol XL] Adverse Reaction (Severe, Verified 05/19/23 14:48) Drop in blood pressure lactose Adverse Reaction (Intermediate, Uncoded 05/19/23 14:48) Diarrhea Medication List - Last Reconciled 07/09/23 by Bud Hong MD apixaban (Eliquis) 5 mg PO BID coenzyme Q10 100 mg PO DAILY dronedarone (Multaq) 400 mg PO Q12H ezetimibe (Zetia) 10 mg PO DAILY 90 days insulin degludec (Tresiba U-100 Insulin) 80 units subcut BEDTIME insulin regular human 1 sliding scale dose subcut USEASDIRECTD levothyroxine 150 mcg PO DAILY lidocaine 5% 0 patches topical loratadine 10 mg PO DAILY lorazepam 1 mg PO TID PRN [id number]-FA-vit K 45 mg iron- 800 mcg-120 mcg (Bariatric Multivitamins) caps PO Oxygen Home Use As directed, 2 L at betime via nasal cannual rosuvastatin 40 mg PO DAILY sucralfate 10 mL PO Q6H zinc gluconate 10 mg PO DAILY HPI HPI Comments History of Present Illness Details Helen comes for follow-up. She can not planes of symptoms of fatigue and shortness of breath although fatigue is improved improving anemia. She was admitted to [facility] at which time she had significant anemia. She said she had extensive workup in the hospital and received 4 packed unit of RBCs as well as multiple iron infusion. Since then her anemia has remained controlled. She is currently on oral iron therapy. There is no overt bleeding noted. Patient has not noticed any overt bleeding. Cause of her iron deficiency anemia is not clear and is suspecting nutritional deficiency. Since then she has been oral anticoagulation therapy. She has had no recurrent episodes of atrial fibrillation or heart failure. With recent hospitalization she had elevated troponins and subsequently also had low shown reduction LV EF. She subsequent and went a myocardial perfusion imaging which shows large territory of anterior and apical ischemia with reduced LV EF during stress suggestive of significant LAD territory ischemia. [facility] Medical History Anemia PUD (peptic ulcer disease) Abnormal findings on cardiac catheterization Paroxysmal atrial fibrillation A-fib Liver fibrosis Steatosis, liver Hepatomegaly Aortic stenosis Diastolic dysfunction COVID-19 vaccine series completed Hx of difficult intubation Peripheral neuropathy Iron deficiency anemia Elevated cholesterol On beta maranda at home Liver disease Seasonal allergies CAD (coronary artery disease) Carotid artery disease GERD (gastroesophageal reflux disease) Hypertension Back pain Hypothyroidism Stroke Insulin dependent diabetes mellitus Sleep apnea Morbid obesity Surgical History S/P laparoscopic sleeve gastrectomy History of eye surgery S/P cardiac cath History of appendectomy Hx of endarterectomy History of tonsillectomy and adenoidectomy Family History Mother No problems noted. Father No problems noted. Social History Are you a primary urgent care physician assistant to a significant other at home: No Do you presently have visiting nurse or other home services: Yes (Home Health Aid) Alcohol intake: former Patient Tobacco Use Status: Never used Tobacco service: No Current occupational status: disabled Review of Systems Const Denies chills, Denies fatigue, Denies fever(s), Denies frequent falls, Denies weakness, Denies weight gain and Denies weight loss ENT Denies dizziness Card Denies chest pain, Denies leg edema, Denies lightheadedness, Denies palpitations, Denies dyspnea, Denies dyspnea on exertion, Denies orthopnea and Denies other (loss of consciousness) Resp Denies cough, Denies dyspnea and Denies dyspnea on exertion GI Denies hematochezia and Denies change in stool character Musc Denies abnormal gait, Denies muscle weakness, Denies numbness, Denies radiating pain into limb and Denies tingling Neuro Denies abnormal gait, Denies dizziness, Denies frequent falls, Denies numbness, Denies tingling and Denies weakness Endo Denies fatigue and Denies palpitations Physical Exam Vital Signs: Last Vital Signs Pulse 82 07/09/23 14:57 BP 128/80 07/09/23 14:57 BMI result Body Mass Index 45.4 Const General: cooperative, comfortable, no acute distress, alert and awake Nutritional Appearance: obese Orientation/consciousness: patient oriented x3 Limitations: no limitations Neck Neck: Yes trachea midline, Yes supple and Yes no JVD Resp Effort & Inspection: normal respiratory effort Auscultation: clear to auscultation bilaterally Cardio Jugular venous distension: no JVD Rate: regular rate Rhythm: regular rhythm Heart sounds: S1 normal heart sound present, S2 normal heart sound present and Murmur heart sound present systolic mid, soft and II/ GI Inspection: Yes obesity Auscultation: normal bowel sounds Skin General skin exam: no rashes or lesions noted Neuro General: patient oriented x3 and no focal motor deficits Extrem General: Yes no clubbing, cyanosis or edema Assessment & Plan Assessment & Plan (1) CAD (coronary artery disease): Comment: Cleared by [facility] Code(s): I25.10 - Atherosclerotic heart disease of [place] coronary artery without angina pectoris Plan: Patient with recent NSTEMI, due to medical issues but subsequently low EF and subsequent myocardial perfusion imaging shows significant LAD territory ischemia with reduced EF during stress suggestive of progression in LAD disease that may require revascularization. Her main issue currently is on deficient anemia although with no obvious cause. We discussed about cardiac catheterization which she is scheduled for near future. Need for cardiac catheterization discussed in details. She did have a right radial cardiac catheterization the past and has poor radial pulse. I would consider pursuing cardiac catheterization through the right common femoral artery. Will discuss this with Dr. Lomax. Will avoid triple therapy. If she requires stenting will continue dual therapy with Plavix and Eliquis. High risk of bleeding was discussed with her. She understands and agrees. Continue aggressive risk factor modification with high-intensity statin therapy with target goal LDL closer to 60 mg/dL. Continue aggressive management of hypertension which is well optimized at this point time as well as diabetes goal hemoglobin A1c less than 7%. (2) Paroxysmal atrial fibrillation: Code(s): I48.0 - Paroxysmal atrial fibrillation Plan: Paroxysmal atrial fibrillation which has remained suppressed. She has done well with rhythm control approach will continue pursue rhythm control approach. Continue Multaq 400 mg b.i.d.. Currently on full oral anticoagulation Eliquis at 5 mg b.i.d.. Will follow up in the clinic after cardiac catheterization. Thank you for allowing me to partake in the care Coding Level of Care Code Est Pt Level 4 (89896) Diagnoses CAD (coronary artery disease) I25.10 Paroxysmal atrial fibrillation I48.0
== END 2023-07-09 15:27 | disposition home or self-care (01) ==
PROVIDERS: PCP Internal Medicine; Visit Provider Internal Medicine Cardiovascular Disease
DX: I25.10 Atherosclerotic heart disease of native coronary artery without angina pectoris (principal); I48.0 Paroxysmal atrial fibrillation
CPT/HCPCS: 99214

== ENCOUNTER 2023-07-09 14:53 | Outpatient (REF) | payer OTHER, SELFPAY ==
[2023-07-09 15:54] LABS: INTERNATIONAL NORM RATIO 1.1 (0.9-1.1); Prothrombin Time 13.6 SEC (11.1-13.3)
== END 2023-07-09 14:54 | disposition home or self-care (01) ==
LOC: HO.LAB 14:53
PROVIDERS: Nurse Practitioner; PCP Internal Medicine; Visit Provider Internal Medicine Cardiovascular Disease
DX: I25.10 Atherosclerotic heart disease of native coronary artery without angina pectoris (principal); I48.0 Paroxysmal atrial fibrillation; I77.9 Disorder of arteries and arterioles, unspecified
CPT/HCPCS: 36415; 85610; 99212

== ENCOUNTER → 2023-07-16 23:59 | Outpatient (BNV) | payer OTHER, SELFPAY | PROVIDERS: PCP Internal Medicine; Visit Provider Internal Medicine Cardiovascular Disease | DX: I20.89 Other forms of angina pectoris (principal); I25.118 Atherosclerotic heart disease of native coronary artery with other forms of angina pectoris | CPT/HCPCS: 0715T; 92928; 93458; 99152 ==

== ENCOUNTER 2023-07-30 13:25 | Outpatient (AMB) | payer OTHER, SELFPAY ==
[2023-07-30 13:33] VITALS: BP 120/64; PULSE 78; BMI 46.1
--- NOTE | 2023-07-30 13:33 | A.OFFVIS_ITS ---
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 Required: No Allergies codeine Allergy (Severe, Verified 07/30/23 13:36) nausea gabapentin Allergy (Severe, Verified 07/30/23 13:36) nausea and vomiting glyburide Allergy (Severe, Verified 07/30/23 13:36) headache ibuprofen Allergy (Severe, Verified 07/30/23 13:36) headache metformin Allergy (Severe, Verified 07/30/23 13:36) Anaphylaxis tramadol Allergy (Severe, Verified 07/30/23 13:36) nausea and vomiting metoprolol [From Toprol XL] Adverse Reaction (Severe, Verified 07/30/23 13:36) Drop in blood pressure lactose Adverse Reaction (Intermediate, Uncoded 05/19/23 14:48) Diarrhea Medication List - Last Reconciled 07/30/23 by Brittany Bautista NP-C apixaban (Eliquis) 5 mg PO BID clopidogrel (Plavix) 75 mg PO DAILY coenzyme Q10 100 mg PO DAILY dronedarone (Multaq) 400 mg PO Q12H ezetimibe (Zetia) 10 mg PO DAILY 90 days insulin degludec (Tresiba U-100 Insulin) 80 units subcut BEDTIME insulin regular human 1 sliding scale dose subcut USEASDIRECTD levothyroxine 150 mcg PO DAILY lidocaine 5% 0 patches topical loratadine 10 mg PO DAILY lorazepam 1 mg PO TID PRN [id number]-[id number]-[id number]-FA-vit K 45 mg iron- 800 mcg-120 mcg (Bariatric Multivitamins) caps PO Oxygen Home Use As directed, 2 L at betime via nasal cannual rosuvastatin 40 mg PO DAILY sucralfate 10 mL PO Q6H zinc gluconate 10 mg PO DAILY HPI Follow up post cardiac cath HPI Details Rashid is a 62-year-old female with past medical history of morbid obesity, hypertension, diabetes, paroxysmal atrial fibrillation, Congestive heart failure, NSTEMI, abnormal stress test, recently underwent cardiac catheterization and now presents for follow-up. Today she reports that she is currently being treated for pneumonia. She is wearing a mask and coughing during this visit. She tells me she has been on Augmentin and prednisone for a few days now. She reports being afebrile. Some shortness of breath with exertion. No chest discomfort brought on by exertion. She does have a pain in her chest when she coughs or takes a deep breath. No palpitations, presyncope, syncope, falls. No PND, orthopnea or edema. Right groin cath site is feeling well. Taking meds as directed. She says she has black stools but does take an iron supplement. She did have a nose bleed recently which is not unusual for her to have.. [facility] Medical History Anemia PUD (peptic ulcer disease) Abnormal findings on cardiac catheterization Paroxysmal atrial fibrillation A-fib Liver fibrosis Steatosis, liver Hepatomegaly Aortic stenosis Diastolic dysfunction COVID-19 vaccine series completed Hx of difficult intubation Peripheral neuropathy Iron deficiency anemia Elevated cholesterol On beta maranda at home Liver disease Seasonal allergies CAD (coronary artery disease) Carotid artery disease GERD (gastroesophageal reflux disease) Hypertension Back pain Hypothyroidism Stroke Insulin dependent diabetes mellitus Sleep apnea Morbid obesity Surgical History S/P laparoscopic sleeve gastrectomy History of eye surgery S/P cardiac cath History of appendectomy Hx of endarterectomy History of tonsillectomy and adenoidectomy Family History Mother No problems noted. Father No problems noted. Social History Are you a primary childcare teacher to a significant other at home: No Do you presently have visiting nurse or other home services: Yes (Home Health Aid) Alcohol intake: former Patient Tobacco Use Status: Never used Tobacco service: No Current occupational status: disabled Review of Systems Const All systems reviewed & are unremarkable except as noted in HPI and below ENT Denies dizziness Card Details: Coughing, being treated for PNA Reports chest pain, Denies chest pain at rest, Denies chest pain with activity, Denies rapid heart rate, Denies pedal edema, Denies edema, Denies leg edema, Denies lightheadedness, Denies palpitations, Reports dyspnea, Reports dyspnea on exertion and Denies orthopnea Resp Denies cough, Reports dyspnea and Reports dyspnea on exertion GI Denies hematochezia and Denies change in stool character Musc Denies abnormal gait, Denies limited range of motion, Denies muscle cramps, Denies muscle weakness, Denies numbness, Denies radiating pain into limb, Denies stiffness and Denies tingling Neuro Denies abnormal gait, Denies dizziness, Denies numbness and Denies tingling Endo Denies palpitations Physical Exam Vital Signs: Last Vital Signs Pulse 78 07/30/23 13:33 BP 120/64 07/30/23 13:33 BMI result Body Mass Index 46.1 Const General: cooperative, healthy appearing, comfortable and no acute distress Orientation/consciousness: patient oriented x3 Neck Neck: Yes normal visual inspection Resp Other: dry cough during visit Effort & Inspection: normal respiratory effort Auscultation: clear to auscultation bilaterally, no crackles, no rales, no rhonchi and no wheezes Cardio Jugular venous distension: no JVD Rate: regular rate Rhythm: regular rhythm Heart sounds: S1 normal heart sound present, S2 normal heart sound present, no murmurs and no rubs Neuro General: patient oriented x3 Extrem General: Yes normal to inspection Psych Appearance: grossly normal Mental Status: mental status grossly normal Speech and movement: Normal speech and movement present Office Procedures EKG Details: Today, read by me, normal sinus rhythm, nonspecific T-wave abnormality, QTC 485 milliseconds, rate 78 [id number], Complete Assessment & Plan Assessment & Plan (1) CAD (coronary artery disease): Comment: Cleared by [facility] Code(s): I25.10 - Atherosclerotic heart disease of [place] coronary artery without angina pectoris Plan: History of significant anemia. [place] [facility] transfusion of 4 units of pack cells, extensive workup. She did have elevated troponins thought to be rate related to secondary NSTEMI. She had an echocardiogram which showed preserved EF, akinetic apex and regional wall motion abnormality. A nuclear stress test was done on 06/16/2023 showing mixed ischemia/infarct in the anterior wall and apex, EF 44 with stress and 60% with rest. She then underwent cardiac catheterization on 07/16/2023 showing proximal LAD stenosis, PCI and ELISHA placed, residual 1st OM stenosis, 70%. Today she reports that she is actively being treated for pneumonia. She does not appear in acute distress at this visit however does have a dry cough and is wearing a mask. She has had some shortness of breath, no exertional chest discomfort. Right groin site healing well. She declines cardiac rehab as she lives in [place] there was no site that is convenient for her. She has been taking her meds as directed. She has had a nose bleed recently. Her stools are dark but she does admit to taking iron tablets. She has history of chronic anemia. Most recent hemoglobin 9.8 on 06/30/2023. Will check labs today including CBC, BMP. She would like labs forwarded to her hematology Dr. Rodarte. She is not on aspirin as she is on Eliquis. Continue rosuvastatin with ideal LDL goal less than 70. Continue Zetia. She is not on beta-maranda, she is currently on metoprolol. Signs and symptoms of angina reviewed. Cardiology follow-up in 3 months, sooner if needed. (2) Shortness of breath: Code(s): R06.02 - Shortness of breath Plan: Report of shortness of breath with activity. Currently being treated for pneumonia. Does not appear to have respiratory distress at this time. She does have a dry cough. Lungs are clear on exam. Continue current management as ordered by a different provider. (3) Abnormal stress test: Code(s): R94.39 - Abnormal result of other cardiovascular function study Plan: As above (4) S/P cardiac cath: Comment: 07/16/2023 left main normal, lad proximal 80% stenosis, PCI and ELISHA placed, left circumflex 1st OM mid 70% stenosis, RCA minimal luminal irregularities Code(s): Z98.890 - Other specified postprocedural states Plan: As above (5) S/P cardiac cath: Comment: 02/27/21 LM normal, LAD proximal and distal 70% stenosis, heavily calcified, RYLIE III flow, LCx is OM 60% stenosis, RCA with mild irregularities < 30% stenosis. Code(s): Z98.890 - Other specified postprocedural states Plan: As above Plan Time spent with chart review, documentation, interview, assessment Orders: Orders Complete Blood Count Auto Diff Today I25.10 - Atherosclerotic heart disease of [place] coronary artery without angina pectoris Basic Metabolic Panel Today I25.10 - Atherosclerotic heart disease of [place] coronary artery without angina pectoris Coding Level of Care Code Est Pt Level 4 (27588) Diagnoses CAD (coronary artery disease) I25.10 Shortness of breath R06.02 Abnormal stress test R94.39 S/P cardiac cath Z98.890 CPT Codes EKG - CPT: 11003-[id number], Complete ([id number]) Time Spent (min) 28
== END 2023-07-30 14:11 | disposition home or self-care (01) ==
PROVIDERS: PCP Internal Medicine; Visit Provider Nurse Practitioner Family
DX: I25.10 Atherosclerotic heart disease of native coronary artery without angina pectoris (principal); R06.02 Shortness of breath; R94.39 Abnormal result of other cardiovascular function study; Z98.890 Other specified postprocedural states
CPT/HCPCS: 93010; 99214

== ENCOUNTER 2023-07-30 13:25 | Outpatient (REF) | payer OTHER, SELFPAY ==
[2023-07-30 14:40] LABS: MANUAL DIFF FLAG NO
[2023-07-30 14:57] LABS: Basophils Absolute Auto 0.1 X10*3/uL (0.0-0.2); Basophils Percent Auto 0.3 % (0-2); Eosinophils Absolute Auto 0.1 X10*3/uL (0.0-0.4); Eosinophils Percent Auto 0.5 % (0-4); Hematocrit 28.2 % (37.0-47.0); Hemoglobin 8.5 g/dl (12.0-16.0); Imm Gran Abs Auto 0.21 X10*3/uL (0.00-0.03); Imm Gran Pct Auto 1.2 % (0.0-0.4); Lymphocytes Absolute Auto 1.1 X10*3/uL (1.2-4.9); Lymphocytes Percent Auto 6.1 % (20-40); Mean Corpuscular HGB Conc 30.1 g/dl (31.0-35.0); Mean Corpuscular Hemoglobin 24.1 pg (27.0-33.0); Mean Corpuscular Volume 80.1 fL (80.0-98.0); Mean Platelet Volume 8.9 fL (9.4-12.3); Monocytes Absolute Auto 0.6 X10*3/uL (0.1-1.2); Monocytes Percent Auto 3.3 % (2-11); Neutrophils Absolute Auto 15.6 x10*3/uL (2.0-8.3); Neutrophils Percent Auto 88.6 % (45-73); Platelet Count 652 X10*3/uL (160-400); Red Blood Count 3.52 X10*6/uL (4.20-5.50); Red Cell Distribution Width 16.1 % (11.0-16.0); White Blood Count 17.6 X10*3/uL (4.8-10.8)
[2023-07-30 15:28] LABS: Anion Gap 14 (12-20); Blood Urea Nitrogen 21 mg/dL (9-16); Calcium 9.3 mg/dL (8.4-10.2); Carbon Dioxide 25 mmol/L (22-29); Chloride 100 mmol/L (96-108); Estimated Glomerular Filt Rate > 60; Glucose Random 244 mg/dL (60-115); Potassium 4.7 mmol/L (3.3-5.1); Sodium 134 mmol/L (135-145)
== END 2023-07-30 13:26 | disposition home or self-care (01) ==
LOC: HO.LAB 13:25
PROVIDERS: PCP Internal Medicine; Visit Provider Nurse Practitioner Family
DX: I25.10 Atherosclerotic heart disease of native coronary artery without angina pectoris (principal); R06.02 Shortness of breath; R94.39 Abnormal result of other cardiovascular function study; Z98.890 Other specified postprocedural states
CPT/HCPCS: 36415; 80048; 85025; 93005; 99212

== ENCOUNTER 2023-10-12 08:51 | Outpatient (AMB) | payer OTHER, SELFPAY ==
--- NOTE | 2023-10-12 08:54 | MHC.AMNUTRGE ---
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: No Allergies codeine Allergy (Severe, Verified 07/30/23 13:36) nausea gabapentin Allergy (Severe, Verified 07/30/23 13:36) nausea and vomiting glyburide Allergy (Severe, Verified 07/30/23 13:36) headache ibuprofen Allergy (Severe, Verified 07/30/23 13:36) headache metformin Allergy (Severe, Verified 07/30/23 13:36) Anaphylaxis tramadol Allergy (Severe, Verified 07/30/23 13:36) nausea and vomiting metoprolol [From Toprol XL] Adverse Reaction (Severe, Verified 07/30/23 13:36) Drop in blood pressure lactose Adverse Reaction (Intermediate, Uncoded 05/19/23 14:48) Diarrhea HPI Nutrition Presentation Details DOS 05/28/21 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 and got egg sandwich with hash browns but normally eats 1/2c cottage cheese with 1/2c berries salad with plant protein nuts or apple salad , vegetable soup last night Pt reports she is plant based, whole foods but will eat dairy and processed foods. She is requesting ensure shakes through her insurance Pt reports most recent A1c 7.9 Aug 19 and had iron infusions, had a cardiac stent and also completed cardiac rehab Dietary counseling reduction Diagnosis Nutrition problem #1 altered nutrition labs As related to (etiology) #1 altered metabolism nutri As evidenced by (sign/symptom) #1 abnormal lab values Monitoring/Goals Nutrition problem monitoring total energy intake, level of knowledge/skill, total PRO intake, total CHO intake and weight Learning/Education Readiness to learn fair Most Recent Diabetes Results: Creatinine 0.87 mg/dL (0.5-1.4) 07/30/23 Blood Urea Nitrogen 21 mg/dL (9-16) H 07/30/23 Sodium 134 mmol/L (135-145) L 07/30/23 Potassium 4.7 mmol/L (3.3-5.1) 07/30/23 Chloride 100 mmol/L (96-108) 07/30/23 Carbon Dioxide 25 mmol/L (22-29) 07/30/23 Calcium 9.3 mg/dL (8.4-10.2) 07/30/23 [facility] Medical History Anemia PUD (peptic ulcer disease) Abnormal findings on cardiac catheterization Paroxysmal atrial fibrillation A-fib Liver fibrosis Steatosis, liver Hepatomegaly Aortic stenosis Diastolic dysfunction COVID-19 vaccine series completed Hx of difficult intubation Peripheral neuropathy Iron deficiency anemia Elevated cholesterol On beta maranda at home Liver disease Seasonal allergies CAD (coronary artery disease) Carotid artery disease GERD (gastroesophageal reflux disease) Hypertension Back pain Hypothyroidism Stroke Insulin dependent diabetes mellitus Sleep apnea Morbid obesity Surgical History S/P laparoscopic sleeve gastrectomy History of eye surgery S/P cardiac cath History of appendectomy Hx of endarterectomy History of tonsillectomy and adenoidectomy Family History Mother No problems noted. Father No problems noted. Social History Are you a primary care process manager to a significant other at home: No Do you presently have visiting nurse or other home services: Yes (Home Health Aid) Alcohol intake: former Patient Tobacco Use Status: Never used Tobacco service: No Current occupational status: disabled Assessment & Plan Assessment & Plan (1) Morbid obesity: Code(s): E66.01 - Morbid (severe) obesity due to excess calories Plan Encouraged getting more protein by having a shake midafternoon as desired. We also discussed some plant based alternatives for protein. continue to exercise as tolerated. f/u with PA as previously scheduled. Coding Level of Care Code Nutr Indiv Subseq ([id number]) Diagnoses Morbid obesity E66.01 Time Spent (min) 35
[2023-10-12 13:38] VITALS: BMI 44.1
== END 2023-10-12 09:54 | disposition home or self-care (01) ==
PROVIDERS: PCP Internal Medicine; Visit Provider Dietitian, Registered
DX: E66.01 Morbid (severe) obesity due to excess calories (principal)

== ENCOUNTER → 2023-10-12 08:51 | Outpatient (BNVA) | payer OTHER, SELFPAY | PROVIDERS: PCP Internal Medicine; Visit Provider Dietitian, Registered | DX: E66.01 Morbid (severe) obesity due to excess calories (principal); Z68.41 Body mass index [BMI] 40.0-44.9, adult | CPT/HCPCS: 97803 ==

== ENCOUNTER 2023-10-13 12:53 | Outpatient (AMB) | payer OTHER, SELFPAY ==
[2023-10-13 13:05] VITALS: BP 114/62; PULSE 85; BMI 44.5
--- NOTE | 2023-10-13 13:05 | A.OFFVIS_ITS ---
Intake Vital Signs 10/13/23 13:05 Height 5 ft 4 in Weight 259 lb 4.218 oz BMI 44.5 BP 114/62 Blood Pressure Location Lt brachial Position Sitting Pulse 85 Pulse Source Monitor Intake Visit Reasons: 6 month f/u rs NS Collections Clerk Required: No Allergies codeine Allergy (Severe, Verified 10/13/23 13:08) nausea gabapentin Allergy (Severe, Verified 10/13/23 13:08) nausea and vomiting glyburide Allergy (Severe, Verified 10/13/23 13:08) headache ibuprofen Allergy (Severe, Verified 10/13/23 13:08) headache metformin Allergy (Severe, Verified 10/13/23 13:08) Anaphylaxis tramadol Allergy (Severe, Verified 10/13/23 13:08) nausea and vomiting metoprolol [From Toprol XL] Adverse Reaction (Severe, Verified 10/13/23 13:08) Drop in blood pressure lactose Adverse Reaction (Intermediate, Uncoded 10/13/23 13:08) Diarrhea Medication List - Last Reconciled 10/13/23 by Tania Rivera NP apixaban (Eliquis) 5 mg PO BID clopidogrel (Plavix) 75 mg PO DAILY coenzyme Q10 100 mg PO DAILY dronedarone (Multaq) 400 mg PO Q12H ezetimibe (Zetia) 10 mg PO DAILY 90 days insulin degludec (Tresiba U-100 Insulin) 80 units subcut BEDTIME insulin regular human 1 sliding scale dose subcut USEASDIRECTD levothyroxine 150 mcg PO DAILY lidocaine 5% 0 patches topical loratadine 10 mg PO DAILY lorazepam 1 mg PO TID PRN uvrbfnhedllb-wjm-[id number]-FA-vit K 45 mg iron- 800 mcg-120 mcg (Bariatric Multivitamins) caps PO Oxygen Home Use As directed, 2 L at betime via nasal cannual rosuvastatin 40 mg PO DAILY sucralfate 10 mL PO Q6H zinc gluconate 10 mg PO DAILY HPI HPI Comments History of Present Illness Details 63-year-old female presents today for a follow-up. She has a past medical history of obesity, diabetes, hypertension, paroxysmal atrial fibrillation, sleep apnea using oxygen suplementation, and cardiac catheterization. She reports she has been doing very well and that her breathing has improved significantly. She has been doing cardiac rehab and feels a big improvement in her stamina. She is up to 2.5 METs. She walks her dog often with no concerning symptoms. She also uses her exercise bike at home. 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 Her nose bleeds have have less frequent and are less severe. She denies shortness of breath, chest pains, syncope, falls, edema, orthopnea, or uncontrolled bleeding. [facility] Medical History Anemia PUD (peptic ulcer disease) Abnormal findings on cardiac catheterization Paroxysmal atrial fibrillation A-fib Liver fibrosis Steatosis, liver Hepatomegaly Aortic stenosis Diastolic dysfunction COVID-19 vaccine series completed Hx of difficult intubation Peripheral neuropathy Iron deficiency anemia Elevated cholesterol On beta maranda at home Liver disease Seasonal allergies CAD (coronary artery disease) Carotid artery disease GERD (gastroesophageal reflux disease) Hypertension Back pain Hypothyroidism Stroke Insulin dependent diabetes mellitus Sleep apnea Morbid obesity Surgical History S/P laparoscopic sleeve gastrectomy History of eye surgery S/P cardiac cath History of appendectomy Hx of endarterectomy History of tonsillectomy and adenoidectomy Family History Mother No problems noted. Father No problems noted. Social History Are you a primary foster care therapist to a significant other at home: No Do you presently have visiting nurse or other home services: Yes (Home Health Aid) Alcohol intake: former Patient Tobacco Use Status: Never used Tobacco service: No Current occupational status: disabled Review of Systems Const Denies chills, Denies fatigue, Denies fever(s), Denies frequent falls, Denies weakness, Denies weight gain and Denies weight loss ENT Denies dizziness Card Denies chest pain, Denies chest pain with activity, Denies syncope, Denies rapid heart rate, Denies pedal edema, Denies irregular heart rhythm, Denies leg edema, Denies lightheadedness, Denies palpitations, Denies dyspnea, Denies dyspnea on exertion, Denies orthopnea and Denies other (LOC) Resp Denies cough, Denies dyspnea and Denies dyspnea on exertion GI Denies hematochezia and Denies change in bowel habits Musc Denies abnormal gait, Denies arthralgias, Denies muscle weakness, Denies numbness, Denies radiating pain into limb and Denies tingling Neuro Denies abnormal gait, Denies dizziness, Denies syncope, Denies frequent falls, Denies numbness, Denies tingling and Denies weakness Endo Denies fatigue and Denies palpitations Physical Exam Vital Signs: Last Vital Signs Pulse 85 10/13/23 13:05 BP 114/62 10/13/23 13:05 BMI result Body Mass Index 44.5 Const General: cooperative, healthy appearing, comfortable and no acute distress Orientation/consciousness: patient oriented x3 HEENT Head: Yes normal to inspection Eyes General: appearance normal, both eyes and all related structures Neck Neck: Yes normal visual inspection Chest Chest palpation & inspection: normal inspection of the chest Resp Effort & Inspection: normal respiratory effort Auscultation: clear to auscultation bilaterally Cardio Jugular venous distension: no JVD Palpation: normal PMI Rate: regular rate Rhythm: regular rhythm Heart sounds: S1 normal heart sound present, S2 normal heart sound present, no click, no gallops, no murmurs and no rubs GI Inspection: Yes normal to inspection Palpation (GI): Soft to palpation Skin General skin exam: no rashes or lesions noted Neuro General: patient oriented x3 Extrem General: Yes normal to inspection Psych Appearance: grossly normal Office Procedures EKG Details: EKG today Normal Sinus Rhythm/ Rate 86 bpm. Cannot rule out anterior infarct, age undetermined. QRS 84ms. QTc 483ms. [id number], Complete Assessment & Plan Assessment & Plan (1) S/P cardiac cath: Comment: 07/16/2023 left main normal, lad proximal 80% stenosis, PCI and ELISHA placed, left circumflex 1st OM mid 70% stenosis, RCA minimal luminal irregularities Code(s): Z98.890 - Other specified postprocedural states Plan: Abnormal nuclear stress test on 06/16/23 which showed mixed ischemia/infarct in the anterior wall and apex. She then had a cardiac catheterization performed which lead to proximal to mid LAD with a ELISHA. She is on plavix 75mg QD. She is continuing cardiac rehab with good efforts. Continues on dual therapy of eliquis 5mg BID and Plavix 75mg QD. Signs and symptoms of bleeding reviewed. Can use nasal saline spray to help moisten nares. (2) Shortness of breath: Code(s): R06.02 - Shortness of breath Plan: Significantly improved since cardiac cathetization and pneumonia recovery. Lungs are clear throughout. (3) Aortic stenosis: Code(s): I35.0 - Nonrheumatic aortic (valve) stenosis Plan: Echo 02/02/2023 showed mild to moderate aortic stenosis. (4) Paroxysmal atrial fibrillation: Code(s): I48.0 - Paroxysmal atrial fibrillation Plan: On eliquis 5mg BID and Multaq 400mg BID. (5) CAD (coronary artery disease): Comment: Cleared by [facility] Code(s): I25.10 - Atherosclerotic heart disease of [place] coronary artery without angina pectoris Plan: Continue with cardiac rehab, exercise as tolerated. On duel therapy for anticoagulation. Continue tight diabetes control - she reports endocrinology told her her last A1C was 7.9% - goal less than 7%. Last LDL 84 on 11/18/22. Will have her repeat fasting lipid panel - goal LDL 60 mg/dL. Tight blood pressure control - blood pressure today optimal./ Orders: Orders Lipid Panel Today I25.10 - Atherosclerotic heart disease of [place] coronary artery without angina pectoris Basic Metabolic Panel Today I25.10 - Atherosclerotic heart disease of [place] coronary artery without angina pectoris Coding Level of Care Code Est Pt Level 4 (89971) Diagnoses S/P cardiac cath Z98.890 Shortness of breath R06.02 Aortic stenosis I35.0 Paroxysmal atrial fibrillation I48.0 CAD (coronary artery disease) I25.10 CPT Codes EKG - CPT: 97042-[id number], Complete ([id number])
== END 2023-10-13 13:41 | disposition home or self-care (01) ==
PROVIDERS: PCP Internal Medicine; Visit Provider Nurse Practitioner
DX: Z98.890 Other specified postprocedural states (principal); R06.02 Shortness of breath; I35.0 Nonrheumatic aortic (valve) stenosis; I48.0 Paroxysmal atrial fibrillation; I25.10 Atherosclerotic heart disease of native coronary artery without angina pectoris
CPT/HCPCS: 93010; 99214

== ENCOUNTER → 2023-10-13 12:53 | Outpatient (BNVA) | payer OTHER, SELFPAY | PROVIDERS: PCP Internal Medicine; Visit Provider Nurse Practitioner | DX: I35.0 Nonrheumatic aortic (valve) stenosis (principal); I48.0 Paroxysmal atrial fibrillation; I25.10 Atherosclerotic heart disease of native coronary artery without angina pectoris; R06.02 Shortness of breath; Z98.890 Other specified postprocedural states | CPT/HCPCS: 93005; 99212 ==

== ENCOUNTER 2023-12-22 11:01 | Outpatient (AMB) | payer OTHER, SELFPAY ==
--- NOTE | 2023-12-22 11:02 | MHC.OFFVIS ---
Vital Signs 12/22/23 11:03 Height 5 ft 4 in Weight 269 lb BMI 46.2 BP 116/72 Blood Pressure Location Rt brachial Position Sitting Pulse 80 Pulse Source Pulse Oximeter Pulse Oximetry (%) 98 Oxygen Delivery Method Room Air Intake Visit Reasons: Follow up - CONF Intake Note: Patient presents for follow up.Patient has no issues today Allergies codeine Allergy (Severe, Verified 12/22/23 11:05) nausea gabapentin Allergy (Severe, Verified 12/22/23 11:05) nausea and vomiting glyburide Allergy (Severe, Verified 12/22/23 11:05) headache ibuprofen Allergy (Severe, Verified 12/22/23 11:05) headache metformin Allergy (Severe, Verified 12/22/23 11:05) Anaphylaxis tramadol Allergy (Severe, Verified 12/22/23 11:05) nausea and vomiting metoprolol [From Toprol XL] Adverse Reaction (Severe, Verified 12/22/23 11:05) Drop in blood pressure lactose Adverse Reaction (Intermediate, Uncoded 12/22/23 11:05) Diarrhea HPI Comments Details: 63 y/o female patient presents for follow up of hypoxemia. The PSG result did not meet the criteria for sleep apnea. The AHI was 1/hr, REM AHI was 6/hr, and oxygen quan was 87%. The oxygen saturation was below 88% for more than 5 min and patient was started on supplement oxygen at 2LPM. [employer] is her home care company. She started using supplement oxygen for sleep. She sleeps well, and daytime fatigue has improved. She wanted portable oxygen for travel, but her insurance did not cover it. Humidifier has approved but she did not get it yet. Pt reports she has severe anemia, and will get iron infusion next week. She is followed by hematology. [facility] Medical History Anemia PUD (peptic ulcer disease) Abnormal findings on cardiac catheterization Paroxysmal atrial fibrillation A-fib Liver fibrosis Steatosis, liver Hepatomegaly Aortic stenosis Diastolic dysfunction COVID-19 vaccine series completed Hx of difficult intubation Peripheral neuropathy Iron deficiency anemia Elevated cholesterol On beta maranda at home Liver disease Seasonal allergies CAD (coronary artery disease) Carotid artery disease GERD (gastroesophageal reflux disease) Hypertension Back pain Hypothyroidism Stroke Insulin dependent diabetes mellitus Sleep apnea Morbid obesity Surgical History S/P laparoscopic sleeve gastrectomy History of eye surgery S/P cardiac cath History of appendectomy Hx of endarterectomy History of tonsillectomy and adenoidectomy Family History Mother No problems noted. Father No problems noted. Social History Are you a primary occasional caregiver to a significant other at home: No Do you presently have visiting nurse or other home services: Yes (Home Health Aid) Alcohol intake: former Patient Tobacco Use Status: Never used Tobacco service: No Current occupational status: disabled Review of Systems Const All systems reviewed & are unremarkable except as noted in HPI and below ENT Reports Normal hearing present Neuro Reports Normal hearing present Physical Exam Vital Signs: Last Vital Signs Pulse 80 12/22/23 11:03 BP 116/72 12/22/23 11:03 Pulse Ox 98 12/22/23 11:03 Oxygen Delivery Method Room Air 12/22/23 11:03 BMI result Body Mass Index 46.2 Const General: cooperative and no acute distress Nutritional Appearance: obese Orientation/consciousness: patient oriented x3 Neck Neck: Yes full ROM and Yes supple Resp Effort & Inspection: normal respiratory effort and able to speak in complete sentences Neuro General: patient oriented x3 and gait normal Cranial nerves: Yes Bilaterally intact EOM present, Yes Normal facial strength present, Yes Midline tongue present, Yes Normal hearing present, Yes Ability to bilaterally rotate head present and Yes Ability to bilaterally elevate shoulders present Cognition (Neuro): normal cognition Psych Appearance: grossly normal Mental Status: mental status grossly normal Speech and movement: Normal speech and movement present Assessment & Plan Assessment & Plan (1) Hypoxemia associated with sleep: Code(s): G47.36 - Sleep related hypoventilation in conditions classified elsewhere Category: Medical Plan Advised patient to continue to use 2L supplemet O2 via nasal cannula at night to prevent hypoxemia. Wt reduction advised. Continue to follow hematology to manage anemia. Coding Level of Care Code Est Pt Level 3 (90242) Diagnoses Hypoxemia associated with sleep G47.36
[2023-12-22 11:03] VITALS: BP 116/72; PULSE 80; O2SAT 98; BMI 46.2
== END 2023-12-22 11:21 | disposition home or self-care (01) ==
PROVIDERS: PCP Internal Medicine; Visit Provider Nurse Practitioner Family
DX: G47.33 Obstructive sleep apnea (adult) (pediatric) (principal)
CPT/HCPCS: 99213

== ENCOUNTER → 2023-12-22 11:01 | Outpatient (BNVA) | payer OTHER, SELFPAY | PROVIDERS: PCP Internal Medicine; Visit Provider Nurse Practitioner Family | DX: E66.01 Morbid (severe) obesity due to excess calories (principal); G47.36 Sleep related hypoventilation in conditions classified elsewhere; Z68.42 Body mass index [BMI] 45.0-49.9, adult; Z99.81 Dependence on supplemental oxygen | CPT/HCPCS: 99212 ==

== ENCOUNTER 2024-01-12 13:00 | Outpatient (AMB) | payer OTHER, SELFPAY ==
--- NOTE | 2024-01-12 13:07 | MHC.OFFVIS ---
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 not sure of the date yet Mobile Pet Groomer Required: No Allergies codeine Allergy (Severe, Verified 12/22/23 11:05) nausea gabapentin Allergy (Severe, Verified 12/22/23 11:05) nausea and vomiting glyburide Allergy (Severe, Verified 12/22/23 11:05) headache ibuprofen Allergy (Severe, Verified 12/22/23 11:05) headache metformin Allergy (Severe, Verified 12/22/23 11:05) Anaphylaxis tramadol Allergy (Severe, Verified 12/22/23 11:05) nausea and vomiting metoprolol [From Toprol XL] Adverse Reaction (Severe, Verified 12/22/23 11:05) Drop in blood pressure lactose Adverse Reaction (Intermediate, Uncoded 12/22/23 11:05) Diarrhea Medication List - Last Reconciled 01/12/24 by Bud Hong MD apixaban (Eliquis) 5 mg PO BID clopidogrel (Plavix) 75 mg PO DAILY coenzyme Q10 100 mg PO DAILY dronedarone (Multaq) 400 mg PO Q12H ezetimibe (Zetia) 10 mg PO DAILY 90 days food supplemt, lactose-reduced (Ensure MAX Protein oral liquid) 1 ea PO BID 3 months insulin degludec (Tresiba U-100 Insulin) 80 units subcut BEDTIME insulin regular human 1 sliding scale dose subcut USEASDIRECTD levothyroxine 150 mcg PO DAILY lidocaine 5% 0 patches topical loratadine 10 mg PO DAILY lorazepam 1 mg PO TID PRN kelimxsdktaj-fnr-nvdl-FA-vit K 45 mg iron- 800 mcg-120 mcg (Bariatric Multivitamins) caps PO Oxygen Home Use As directed, 2 L at betime via nasal cannual rosuvastatin 40 mg PO DAILY sucralfate 10 mL PO Q6H HPI Comments Details: Helen comes for follow-up. She has to bleeding issues 1 is uterine bleeding which is abnormal and has been told by her retail sales associate bilingual that she has a growth in the uterus which has grown in the last few months. She needs to undergo D and C and may be hysterectomy in the future. She also has issues with epistaxis which happens almost on a daily basis. She thinks this is related to oxygen therapy but she has had epistaxis in the past treated by ENT. She has not been able to see ENT. She had stopped Eliquis for a day on a recommendation and this had kind of stopped her bleeding but a week later she started having bleeding again. She is taking clopidogrel for stenting in July. She is also on Eliquis therapy. She says since his stenting or shortness of breath is improved. She is currently participating in phase 2 cardiac rehabilitation and has been breathing better. She denies any orthopnea, PND, leg edema. No prolonged palpitations irregular heartbeat. No lightheadedness, syncope. [facility] Medical History Anemia PUD (peptic ulcer disease) Abnormal findings on cardiac catheterization Paroxysmal atrial fibrillation A-fib Liver fibrosis Steatosis, liver Hepatomegaly Aortic stenosis Diastolic dysfunction COVID-19 vaccine series completed Hx of difficult intubation Peripheral neuropathy Iron deficiency anemia Elevated cholesterol On beta maranda at home Liver disease Seasonal allergies CAD (coronary artery disease) Carotid artery disease GERD (gastroesophageal reflux disease) Hypertension Back pain Hypothyroidism Stroke Insulin dependent diabetes mellitus Sleep apnea Morbid obesity Surgical History S/P cardiac cath S/P cardiac cath Stented coronary artery S/P laparoscopic sleeve gastrectomy History of eye surgery History of appendectomy Hx of endarterectomy History of tonsillectomy and adenoidectomy Family History Mother No problems noted. Father No problems noted. Social History Are you a primary wound care rn to a significant other at home: No Do you presently have visiting nurse or other home services: Yes (Home Health Aid) Alcohol intake: former Patient Tobacco Use Status: Never used Tobacco service: No Current occupational status: disabled Review of Systems Const Denies chills, Denies fatigue, Denies fever(s), Denies frequent falls, Denies weakness, Denies weight gain and Denies weight loss ENT Denies dizziness Card Denies chest pain, Denies leg edema, Denies lightheadedness, Denies palpitations, Denies dyspnea, Denies dyspnea on exertion, Denies orthopnea and Denies other (loss of consciousness) Resp Denies cough, Denies dyspnea and Denies dyspnea on exertion GI Denies hematochezia and Denies change in stool character Musc Denies abnormal gait, Denies muscle weakness, Denies numbness, Denies radiating pain into limb and Denies tingling Neuro Denies abnormal gait, Denies dizziness, Denies frequent falls, Denies numbness, Denies tingling and Denies weakness Endo Denies fatigue and Denies palpitations Physical Exam Vital Signs: Last Vital Signs Pulse 78 01/12/24 13:08 BP 120/72 01/12/24 13:08 BMI result Body Mass Index 46.5 Const General: cooperative, healthy appearing, comfortable and no acute distress Orientation/consciousness: patient oriented x3 Neck Neck: Yes normal visual inspection Resp Other: dry cough during visit Effort & Inspection: normal respiratory effort Auscultation: clear to auscultation bilaterally, no crackles, no rales, no rhonchi and no wheezes Cardio Jugular venous distension: no JVD Rate: regular rate Rhythm: regular rhythm Heart sounds: S1 normal heart sound present, S2 normal heart sound present, Murmur heart sound present systolic mid, decrescendo and crescendo and no rubs Neuro General: patient oriented x3 Extrem General: Yes normal to inspection Psych Appearance: grossly normal Mental Status: mental status grossly normal Speech and movement: Normal speech and movement present Office Procedures EKG Details: EKG shows normal sinus rhythm with poor R-wave progression most likely lead placement without acute ST T wave changes. [id number], Complete Assessment & Plan Assessment & Plan (1) Preoperative cardiovascular examination: Code(s): Z01.810 - Encounter for preprocedural cardiovascular examination Category: Medical Plan: Preoperative cardiovascular risk stratification for D and C for uterine mass and bleeding. She is only 6 months out of a drug-eluting stent to the LAD. With the newer generation drug-eluting stent which have better endothelialization rates there is low risk of stent thrombosis although current recommendations for ongoing antiplatelet therapy is 1 year. If she absolutely requires this procedure she is optimized to undergo this procedure and holding her oral anticoagulation as well as Plavix as prescribed by the surgeon with increase risk for stent thrombosis as well as thromboembolic complication related to atrial fibrillation. Continue all her medications including dronedarone and statins in the perioperative time. (2) CAD (coronary artery disease): Comment: Cleared by [facility] Code(s): I25.10 - Atherosclerotic heart disease of [place] coronary artery without angina pectoris Category: Medical Plan: CAD status post drug-eluting stent to LAD for symptoms exertional shortness of breath and abnormal stress test. Since then she is says her symptoms of shortness of breath have improved. Continue uninterrupted Plavix except for as above for required non cardiac surgery reasons for possible cancer the uterus as directed by the retail sales associate bilingual for 1 year. Continue high-intensity statin therapy. Target goal LDL less than 70 mg/dL. Blood pressure is currently well optimized. Encouraged to continue to participate in regular physical activity and weight loss program. (3) Paroxysmal atrial fibrillation: Code(s): I48.0 - Paroxysmal atrial fibrillation Category: Medical Plan: Paroxysmal atrial fibrillation which has remained suppressed on Multaq therapy. Continue monitor EKGs every 3 months. Follow up in the clinic in 6 months time. Continue full oral anticoagulation, currently on Eliquis 5 mg b.i.d.. She is recommended to follow-up with ENT to see if she can get local therapy for her epistaxis. If despite stopping stopping clopidogrel therapy eventually and ENT intervention she continues to have recurrent epistaxis may require Watchman device conversation. Discussed with her. She understands agrees. (4) Aortic stenosis: Code(s): I35.0 - Nonrheumatic aortic (valve) stenosis Category: Medical Plan: Aortic stenosis which clinically appears to be [id number]. Continue aggressive medical therapy. Continue Eliquis therapy. Continue aggressive vascular risk factor modification as above. Will follow up in the clinic in 3 months for EKG in 6 months with me. Thank you for allowing me to partake in the care Orders: Orders CA echo transthoracic complete 1 Month I35.0 - Nonrheumatic aortic (valve) stenosis Coding Level of Care Code Est Pt Level 4 (02314) Diagnoses Preoperative cardiovascular examination Z01.810 CAD (coronary artery disease) I25.10 Paroxysmal atrial fibrillation I48.0 Aortic stenosis I35.0 CPT Codes EKG - CPT: [id number], Complete ([id number])
[2024-01-12 13:08] VITALS: BP 120/72; PULSE 78; BMI 46.5
== END 2024-01-12 13:37 | disposition home or self-care (01) ==
PROVIDERS: PCP Internal Medicine; Visit Provider Internal Medicine Cardiovascular Disease
DX: Z01.810 Encounter for preprocedural cardiovascular examination (principal); I25.10 Atherosclerotic heart disease of native coronary artery without angina pectoris; I48.0 Paroxysmal atrial fibrillation; I35.0 Nonrheumatic aortic (valve) stenosis
CPT/HCPCS: 93010; 99214

== ENCOUNTER → 2024-01-12 13:00 | Outpatient (BNVA) | payer OTHER, SELFPAY | PROVIDERS: PCP Internal Medicine; Visit Provider Internal Medicine Cardiovascular Disease | DX: Z01.810 Encounter for preprocedural cardiovascular examination (principal); I25.10 Atherosclerotic heart disease of native coronary artery without angina pectoris; I48.0 Paroxysmal atrial fibrillation; I35.0 Nonrheumatic aortic (valve) stenosis; Z79.01 Long term (current) use of anticoagulants; Z79.899 Other long term (current) drug therapy | CPT/HCPCS: 93005; 99212 ==

== ENCOUNTER → 2024-03-04 10:56 | Outpatient (REF) | payer OTHER, SELFPAY ==
--- NOTE | 2024-03-04 11:01 | CA_ITS ---
Transthoracic Echocardiogram Patient (Last, First, Middle): Helen Wheatley, Gender: Female Date of : 1960 Age: 63 Procedure Date: 03/04/2024 Procedure Type: Transthoracic Echocardiogram Location: OP Height: 162.56 cm Weight: 122.47 kg BSA: 2.22 m2 Heart Rate: bpm BP: 92 / 60 mmHg Shirt Folder: TO Referring MD: Bud Hong MD Symptoms: I35.0 - Nonrheumatic aortic (valve) stenosis Study Quality: Fair ECG Rhythm: Sinus Conclusions: - The left ventricular systolic function is normal. The calculated ejection fraction is 66% by biplane method. - Evidence suggests grade II (moderate) diastolic dysfunction. - The left atrium is moderately dilated. - There is moderate aortic valve stenosis. - There is moderate mitral annular calcification. There is mild to moderate mitral valve regurgitation. - Moderate pulmonary hypertension is present. Findings Left Ventricle Normal left ventricular cavity size. The left ventricular systolic function is normal. The calculated ejection fraction is 66% by biplane method. There is no evidence of regional wall motion abnormalities. Evidence suggests grade II (moderate) diastolic dysfunction. There is moderate septal asymmetric hypertrophy. Right Ventricle Mildly increased right ventricular cavity size. There is normal right ventricular systolic function. Atria The left atrium is moderately dilated. The right atrium is normal in size. Aortic Valve There is severe calcification of the aortic valve. There is moderate aortic valve stenosis. The peak aortic velocity is 2.71 m/s with a calculated peak gradient of 29 mmHg. The mean gradient is 18 mmHg. The aortic valve area is 1.10 cm2. There is no aortic valve regurgitation. Dimensionless index 0.32. Stroke volume index 31ml/m2. Mitral Valve There is moderate mitral annular calcification. There is mild to moderate mitral valve regurgitation. There is no mitral valve stenosis. Pulmonic Valve The pulmonic valve is likely normal. Tricuspid Valve There is mild tricuspid valve regurgitation. Moderate pulmonary hypertension is present. Great Vessels The asc aorta is normal in size. Venous The inferior vena cava is mildly dilated and collapses greater than 50% with inspiration. Pericardium/Pleural There is a trivial pericardial effusion. Prior Study Comparison Changes noted compared to prior study dated: 02/02/2023. Progression of aortic valve stenosis. Measurements 2D Linear Measurements IVSd: 1.46 0.6-0.9/0.6-1.0 cm LVIDd: 5.09 3.9-5.3/4.2-5.9 cm LVIDd Index: 2.29 2.4-3.2/2.2-3.1 cm/m2 LVIDs: 3.31 2.0-3.6 cm LVPWd: 1.07 0.7-1.1 cm LA Diam: 5.10 2.7-3.8/3.0-4.0 cm LAIDs Index: 2.30 1.5-2.3 cm/m2 LV Mass: 323.00 67-162/88-224 g LV Mass Index: 145.50 43-95/49-115 g/m2 LVOT Diam: 2.10 3.0+(-)1.3 cm 2D Systolic Function EF 4C: 66.80 >55% EF 2C: 64.00 >55% EF BiP: 65.50 >55% Mitral Valve MV VTI: 0.41 MV Pk Raghu: 1.72 MV Mn Raghu: 0.92 MV Pk Grad: 12.00 MV Mn Grad: 4.00 MV Pk E: 1.60 MV PK A: 0.67 MV Decel Time: 196.00 E/A: 2.40 E'Lateral: 6.31 E'Medial: 6.96 E/E' Med: 23.00 E/E' Lat: 25.40 PHT: 57.00 MVA PHT: 3.86 MVA Continuity: 1.68 Decel Mccracken: 8.19 MR Vol - PW Dopp: 83.13 MR VTI: 1.63 MR ERO: 51.00 MR Alias Raghu: 0.35 MR RAD: 1.10 Aortic Valve AoV Pk Raghu: 2.71 AoV Mn Raghu: 2.05 AoV VTI: 0.62 AoV Pk Grad: 29.00 Aov Mn Grad: 18.00 RYLAN Cont.VTI: 1.10 LVOT LVOT Pk Raghu: 0.86 LVOT Mn Raghu: 0.63 LVOT VTI: 0.20 LVOT Pk Grad: 3.00 LVOT Mn Grad: 2.00 LVOT Diam: 2.10 LVOT Area: 3.46 Diastolic Function MV Pk E: 1.60 MV Pk A: 0.67 E/A: 2.40 E'Medial: 6.96 E/E' Med: 23.00 E' Laterial: 6.31 E/E' Lat: 25.40 Right Ventricle TAPSE (mm): 19.50 TVS' Raghu: 10.10 Tricuspid Valve TR Pk Raghu: 3.57 TR Pk Grad: 51.00 RA Press: 8.00 RVSP: 59.00 Great Vessels Aorta Sinus of Valsalva: 3.31 2.0-3.[address] [place]: 2.20 1.7-3.4 cm Ao Asc: 3.50 2.1-3.4 cm Updated in Other Vendor System with Status of Final Jerod Covarrubias MD electronically signed on 03/05/2024 1:18:44 PM with status of Final
== END ==
LOC: HO.CARD 10:56
PROVIDERS: Visit Provider Internal Medicine Cardiovascular Disease
DX: I35.0 Nonrheumatic aortic (valve) stenosis (principal)
CPT/HCPCS: 93306

== ENCOUNTER → 2024-03-04 11:01 | Outpatient (BNV) | payer OTHER, SELFPAY | PROVIDERS: Visit Provider Internal Medicine | DX: I35.0 Nonrheumatic aortic (valve) stenosis (principal); I34.0 Nonrheumatic mitral (valve) insufficiency; I36.1 Nonrheumatic tricuspid (valve) insufficiency | CPT/HCPCS: 93306 ==

== ENCOUNTER 2024-05-05 10:01 | Outpatient (AMB) | payer OTHER, SELFPAY ==
--- NOTE | 2024-05-05 10:04 | AM.OFFVISNUR ---
Intake Visit Reasons: r/s 04/12/24 3 mos ekg Allergies codeine Allergy (Severe, Verified 12/22/23 11:05) nausea gabapentin Allergy (Severe, Verified 12/22/23 11:05) nausea and vomiting glyburide Allergy (Severe, Verified 12/22/23 11:05) headache ibuprofen Allergy (Severe, Verified 12/22/23 11:05) headache metformin Allergy (Severe, Verified 12/22/23 11:05) Anaphylaxis tramadol Allergy (Severe, Verified 12/22/23 11:05) nausea and vomiting metoprolol [From Toprol XL] Adverse Reaction (Severe, Verified 12/22/23 11:05) Drop in blood pressure lactose Adverse Reaction (Intermediate, Uncoded 12/22/23 11:05) Diarrhea Nursing Note pt is here for nurse visit with ekg pt is on dronedarone 400mg Office Procedures EKG [id number], Complete
== END 2024-05-05 10:33 | disposition home or self-care (01) ==
PROVIDERS: PCP Internal Medicine; Visit Provider Internal Medicine Cardiovascular Disease
DX: R94.31 Abnormal electrocardiogram [ECG] [EKG] (principal)
CPT/HCPCS: 93010

== ENCOUNTER → 2024-05-05 10:01 | Outpatient (BNVA) | payer OTHER, SELFPAY | PROVIDERS: Visit Provider Internal Medicine Cardiovascular Disease | DX: R94.31 Abnormal electrocardiogram [ECG] [EKG] (principal) | CPT/HCPCS: 93005 ==

== ENCOUNTER 2024-06-14 08:58 | Outpatient (AMB) | payer OTHER, SELFPAY ==
--- NOTE | 2024-06-14 09:34 | MHC.OFFVISWM ---
VS Expanded 06/14/24 09:45 BP 130/57 L Blood Pressure Location Rt brachial Blood Pressure Position Sitting Pulse 82 Pulse Source Pulse Oximeter Temp 96.4 F L Temperature Source Temporal Artery Scan Pulse Oximetry 99 Oxygen Delivery Method Room Air Height 5 ft 4 in Weight 262 lb 3.2 oz BMI 45.0 Body Fat % 45.3 Body Fat Mass 118.8 Fat Free Mass 143.4 Visceral Fat Rating 16.0 Body Water % 38.8 Body Water Mass 101.6 Muscle Mass/Score 136.0 Basal Metabolic Rate/Score 2,006 Neck Circumference 5 ft 4 in Intake Visit Reasons: OV PO LSG 05/28/21 Allergies codeine Allergy (Severe, Verified 06/14/24 09:40) nausea gabapentin Allergy (Severe, Verified 06/14/24 09:40) nausea and vomiting glyburide Allergy (Severe, Verified 06/14/24 09:40) headache ibuprofen Allergy (Severe, Verified 06/14/24 09:40) headache metformin Allergy (Severe, Verified 06/14/24 09:40) Anaphylaxis tramadol Allergy (Severe, Verified 06/14/24 09:40) nausea and vomiting metoprolol [From Toprol XL] Adverse Reaction (Severe, Verified 06/14/24 09:40) Drop in blood pressure lactose Adverse Reaction (Intermediate, Uncoded 12/22/23 11:05) Diarrhea Medication List - Last Reconciled 06/14/24 by DANITA Fernandez apixaban (Eliquis) 5 mg PO BID clopidogrel (Plavix) 75 mg PO DAILY coenzyme Q10 100 mg PO DAILY dronedarone (Multaq) 400 mg PO Q12H ezetimibe (Zetia) 10 mg PO DAILY 90 days food supplemt, lactose-reduced (Ensure MAX Protein oral liquid) 1 ea PO BID 3 months insulin degludec (Tresiba U-100 Insulin) 80 units subcut BEDTIME insulin regular human 1 sliding scale dose subcut USEASDIRECTD levothyroxine 150 mcg PO DAILY lidocaine 5% 0 patches topical loratadine 10 mg PO DAILY lorazepam 0.5 mg PO TID PRN tniwmqcoghjf-tfd-mfai-FA-vit K 45 mg iron- 800 mcg-120 mcg (Bariatric Multivitamins) caps PO Oxygen Home Use As directed, 2 L at betime via nasal cannual rosuvastatin 40 mg PO DAILY sucralfate 10 mL PO Q6H HPI Comments Details: This?is a?63?yo female who is s/p LSG 05/28/2021. Presents for 3 year post op visit. Weight at last visit on 10/12/2023 was 257 pounds with a BMI of 44.1, weight today is 262.2 pounds, representing a 5.2 pound weight gain with a BMI today of 45.? No complaints of nausea, emesis, abdominal pain or reflux, or constipation. Having surgery next week, planned for hysterectomy for question of cancer. Was hospitalized at [facility] over the summer for symptomatic anemia. Thinks part of her weight gain is due to the mass. Has discomfort, pressure from this. Present meal plan includes: Ensure shakes- 2 a day, was limited in supply has used Rebuild in the past Exercise routine includes: bike, but is being encouraged to walk by provider after upcoming surgery PFSH Medical History Anemia PUD (peptic ulcer disease) Abnormal findings on cardiac catheterization Paroxysmal atrial fibrillation A-fib Liver fibrosis Steatosis, liver Hepatomegaly Aortic stenosis Diastolic dysfunction COVID-19 vaccine series completed Hx of difficult intubation Peripheral neuropathy Iron deficiency anemia Elevated cholesterol On beta maranda at home Liver disease Seasonal allergies CAD (coronary artery disease) Carotid artery disease GERD (gastroesophageal reflux disease) Hypertension Back pain Hypothyroidism Stroke Insulin dependent diabetes mellitus Sleep apnea Morbid obesity Surgical History (Updated 06/14/24 @ 09:43 by Dede Yeh CMA) History of endoscopy S/P cardiac cath S/P cardiac cath Stented coronary artery S/P laparoscopic sleeve gastrectomy History of eye surgery History of appendectomy Hx of endarterectomy History of tonsillectomy and adenoidectomy Family History Mother No problems noted. Father No problems noted. Social History Are you a primary healthcare interpreter to a significant other at home: No Do you presently have visiting nurse or other home services: Yes (Home Health Aid) Alcohol intake: former Patient Tobacco Use Status: Never used Tobacco service: No Current occupational status: disabled Physical Exam Vital Signs: Last Vital Signs Temp 96.4 F L 06/14/24 09:45 Pulse 82 06/14/24 09:45 BP 130/57 L 06/14/24 09:45 Pulse Ox 99 06/14/24 09:45 Oxygen Delivery Method Room Air 06/14/24 09:45 BMI result Body Mass Index 45.0 Assessment & Plan Assessment & Plan (1) Morbid obesity: Code(s): E66.01 - Morbid (severe) obesity due to excess calories Category: Medical (2) S/P laparoscopic sleeve gastrectomy: Code(s): Z98.84 - Bariatric surgery status Category: Surgical (3) Uterine mass: Code(s): N85.8 - Other specified noninflammatory disorders of uterus Category: Medical Plan Provided pt with a case of shakes in anticipation of upcoming surgery. Encouraged her to ensure adequate protein to help with postop healing as well as recovery. Goal 100g/day, should incorporate 2 shakes/day. RTC 6 months. I spent a total of 30 minutes reviewing/updating records, examining the patient and counseling the patient on weight management as detailed above. Medications: Refilled food supplemt, lactose-reduced (Ensure MAX Protein oral liquid) 1 ea PO BID 3 months 3,960 mL 2RF
[2024-06-14 09:45] VITALS: BP 130/57; PULSE 82; TEMP 35.8; O2SAT 99; BMI 45.0
== END 2024-06-14 10:43 | disposition home or self-care (01) ==
PROVIDERS: Visit Provider Physician Assistant Surgical
DX: E66.01 Morbid (severe) obesity due to excess calories (principal); Z98.84 Bariatric surgery status; N85.8 Other specified noninflammatory disorders of uterus
CPT/HCPCS: 99214

== ENCOUNTER → 2024-06-14 08:58 | Outpatient (BNVA) | payer OTHER, SELFPAY | PROVIDERS: Visit Provider Physician Assistant Surgical | DX: E66.01 Morbid (severe) obesity due to excess calories (principal); N85.8 Other specified noninflammatory disorders of uterus; Z98.84 Bariatric surgery status; Z68.42 Body mass index [BMI] 45.0-49.9, adult | CPT/HCPCS: 99212 ==

== ENCOUNTER 2024-07-19 13:43 | Outpatient (AMB) | payer OTHER, SELFPAY ==
--- NOTE | 2024-07-19 13:45 | MHC.OFFVIS ---
Vital Signs 07/19/24 14:18 Height 5 ft 4 in Weight 257 lb 15.053 oz BMI 44.3 BP 122/74 Blood Pressure Location Lt brachial Position Sitting Pulse 81 Intake Visit Reasons: 6m followup/ echo Intake Note: 6 month follow-up with ekg after echo feeling good ? seeing its been year since her stent ? if plavic can be stopped Family Literacy Coordinator Required: No Allergies codeine Allergy (Severe, Verified 06/14/24 09:40) nausea gabapentin Allergy (Severe, Verified 06/14/24 09:40) nausea and vomiting glyburide Allergy (Severe, Verified 06/14/24 09:40) headache ibuprofen Allergy (Severe, Verified 06/14/24 09:40) headache metformin Allergy (Severe, Verified 06/14/24 09:40) Anaphylaxis tramadol Allergy (Severe, Verified 06/14/24 09:40) nausea and vomiting metoprolol [From Toprol XL] Adverse Reaction (Severe, Verified 06/14/24 09:40) Drop in blood pressure lactose Adverse Reaction (Intermediate, Uncoded 12/22/23 11:05) Diarrhea Medication List - Last Reconciled 07/19/24 by Bud Hong MD apixaban (Eliquis) 5 mg PO BID clopidogrel (Plavix) 75 mg PO DAILY coenzyme Q10 100 mg PO DAILY dronedarone (Multaq) 400 mg PO Q12H ezetimibe (Zetia) 10 mg PO DAILY 90 days ferrous gluconate 324 mg PO DAILY food supplemt, lactose-reduced (Ensure MAX Protein oral liquid) 1 ea PO BID 3 months insulin degludec (Tresiba U-100 Insulin) 80 units subcut BEDTIME insulin regular human 1 sliding scale dose subcut USEASDIRECTD levothyroxine 150 mcg PO DAILY lidocaine 5% 0 patches topical loratadine 10 mg PO DAILY lorazepam 0.5 mg PO TID PRN eltqiuwyvayv-ogq-egyz-FA-vit K 45 mg iron- 800 mcg-120 mcg (Bariatric Multivitamins) caps PO Oxygen Home Use As directed, 2 L at betime via nasal cannual rosuvastatin 40 mg PO DAILY sucralfate 10 mL PO Q6H HPI Comments Details: Helen comes for follow-up. She recently underwent hysterectomy for large fibroid and suspicion for cancer however was felt that this was not the cause of her anemia. She was subsequently noted to have GI bleeding and upper endoscopy and had some cauterization as per her. Since then she says she has not had any significant bleeding. She is feeling better. She is currently on iron therapy. Hemoglobin has gradually improved to upper 90s. She says she feels a lot better. She is not lightheaded. Her shortness of breath has improved. She denies any orthopnea, PND, leg edema. No syncopal episodes. No exertional chest pain. She is taking all her medications. She says she has started to exercise more regularly and walking and feels better. She is also trying to lose weight. Her recent echocardiogram shows normal LV ejection fraction with grade 2 diastolic dysfunction along with moderate aortic stenosis with moderate mitral calcification with [id number] mitral regurgitation moderately elevated right ventricular systolic pressure. [facility] Medical History Anemia PUD (peptic ulcer disease) Abnormal findings on cardiac catheterization Paroxysmal atrial fibrillation A-fib Liver fibrosis Steatosis, liver Hepatomegaly Aortic stenosis Diastolic dysfunction COVID-19 vaccine series completed Hx of difficult intubation Peripheral neuropathy Iron deficiency anemia Elevated cholesterol On beta maranda at home Liver disease Seasonal allergies CAD (coronary artery disease) Carotid artery disease GERD (gastroesophageal reflux disease) Hypertension Back pain Hypothyroidism Stroke Insulin dependent diabetes mellitus Sleep apnea Morbid obesity Surgical History History of endoscopy S/P cardiac cath S/P cardiac cath Stented coronary artery S/P laparoscopic sleeve gastrectomy History of eye surgery History of appendectomy Hx of endarterectomy History of tonsillectomy and adenoidectomy Family History Mother No problems noted. Father No problems noted. Social History Are you a primary care specialist to a significant other at home: No Do you presently have visiting nurse or other home services: Yes (Home Health Aid) Alcohol intake: former Patient Tobacco Use Status: Never used Tobacco service: No Current occupational status: disabled Review of Systems Const Denies chills, Denies fatigue, Denies fever(s), Denies frequent falls, Denies weakness, Denies weight gain and Denies weight loss ENT Denies dizziness Card Denies chest pain, Denies leg edema, Denies lightheadedness, Denies palpitations, Denies dyspnea, Denies dyspnea on exertion, Denies orthopnea and Denies other (loss of consciousness) Resp Denies cough, Denies dyspnea and Denies dyspnea on exertion GI Denies hematochezia and Denies change in stool character Musc Denies abnormal gait, Denies muscle weakness, Denies numbness, Denies radiating pain into limb and Denies tingling Neuro Denies abnormal gait, Denies dizziness, Denies frequent falls, Denies numbness, Denies tingling and Denies weakness Endo Denies fatigue and Denies palpitations Physical Exam Vital Signs: Last Vital Signs Pulse 81 07/19/24 14:18 BP 122/74 07/19/24 14:18 BMI result Body Mass Index 44.3 Const General: cooperative, healthy appearing, comfortable and no acute distress Orientation/consciousness: patient oriented x3 Neck Neck: Yes normal visual inspection Resp Other: dry cough during visit Effort & Inspection: normal respiratory effort Auscultation: clear to auscultation bilaterally, no crackles, no rales, no rhonchi and no wheezes Cardio Jugular venous distension: no JVD Rate: regular rate Rhythm: regular rhythm Heart sounds: S1 normal heart sound present, S2 normal heart sound present, Murmur heart sound present systolic mid, decrescendo and crescendo and no rubs Neuro General: patient oriented x3 Extrem General: Yes normal to inspection Psych Appearance: grossly normal Mental Status: mental status grossly normal Speech and movement: Normal speech and movement present Office Procedures EKG Details: EKG shows normal sinus rhythm nonspecific ST T wave changes at 81 beats per minute [id number], Complete Assessment & Plan Assessment & Plan (1) Paroxysmal atrial fibrillation: Code(s): I48.0 - Paroxysmal atrial fibrillation Category: Medical Plan: Highly symptomatic paroxysmal atrial fibrillation has done very well with rhythm control approach with no significant progressive heart failure syndrome. Given her diastolic dysfunction multiple risk factors she is at high risk for development of heart failure with atrial fibrillation. Continue rhythm control approach. Currently tolerating Multaq therapy well. Continue the same. Will need EKGs every 3 months. Avoidance of stimulants was discussed. Stress mitigation strategies were discussed. Advised to continue full oral anticoagulation with Eliquis. If she continues to have recurrent anemia and GI bleed issues that can not be controlled untreated consider Watchman device. (2) CAD (coronary artery disease): Comment: Cleared by [facility] Code(s): I25.10 - Atherosclerotic heart disease of [place] coronary artery without angina pectoris Category: Medical Plan: CAD with drug-eluting stent to LAD last year. Can stop Plavix therapy at this point time to reduce bleeding risk. Continue aggressive risk factor modification. Currently on ezetimibe and high-intensity statin therapy. Advised lipid panel in near future. Target goal LDL closer to 50 mg/dL. Continue full oral anticoagulation with Eliquis and given her recurrent bleeding risk. Antiplatelet agent. Continue aggressive blood pressure control which is currently well optimized. Continue aggressive diabetes management goal hemoglobin A1c less than 7%. Consider addition of SGLT2 inhibitor therapy to her regimen. (3) Aortic stenosis: Code(s): I35.0 - Nonrheumatic aortic (valve) stenosis Category: Medical Plan: Aortic stenosis which is moderate. No interventions required. Discussed with her about gradually progressive nature of aortic stenosis. Discussed briefly about transcatheter aortic valve replacement. Continue aggressive vascular risk factor modifications above. Follow-up echocardiogram in 1 year's time. Will follow up in the clinic in 3 months for EKG in 6 months with me. Thank you for allowing me to partake in her care Orders: Orders Lipid Panel Today I25.10 - Atherosclerotic heart disease of [place] coronary artery without angina pectoris Coding Level of Care Code Est Pt Level 4 (74566) Complex EM visit Add On G2211 Diagnoses Paroxysmal atrial fibrillation I48.0 CAD (coronary artery disease) I25.10 Aortic stenosis I35.0 CPT Codes EKG - CPT: 93266-[id number], Complete ([id number])
[2024-07-19 14:18] VITALS: BP 122/74; PULSE 81; BMI 44.3
== END 2024-07-19 14:50 | disposition home or self-care (01) ==
PROVIDERS: PCP Internal Medicine; Visit Provider Internal Medicine Cardiovascular Disease
DX: I48.0 Paroxysmal atrial fibrillation (principal); I25.10 Atherosclerotic heart disease of native coronary artery without angina pectoris; I35.0 Nonrheumatic aortic (valve) stenosis
CPT/HCPCS: 93010; 99214; G2211

== ENCOUNTER → 2024-07-19 13:43 | Outpatient (BNVA) | payer OTHER, SELFPAY | PROVIDERS: PCP Internal Medicine; Visit Provider Internal Medicine Cardiovascular Disease | DX: I48.0 Paroxysmal atrial fibrillation (principal); I25.10 Atherosclerotic heart disease of native coronary artery without angina pectoris; I35.0 Nonrheumatic aortic (valve) stenosis | CPT/HCPCS: 93005; 99212 ==

== ENCOUNTER 2024-08-23 09:22 | Outpatient (AMB) | payer OTHER, SELFPAY ==
--- OUTSIDE RECORDS SUMMARY | 2024-08-23 09:25 | XMS_ITS | Continuity of Care Document ---
Author Organization [facility] Address [address] [place] [id number] Care Team Providers Care Degreasing Solution Reclaimer Name Role Phone Johanna Valdez MD Primary Care Physician [id number] Date(s): 05/20/24 - 08/04/24 [facility] [address] [place] [id number] Attending Physician: Nichole Mensah MD Admitting Physician: Nichole Mensah MD Referring Physician: Johanna Valdez MD Encounter Type: Pre-OutPatient One Time Allergies, Adverse Reactions, Alerts Substance Criticality Severity Reaction Reaction Severity Status ibuprofen disorientation Activ e glyBURIDE Active codeine sulfate nausea Acti ve gabapentin Active Glucophage Active metFORMIN Active Immunizations Given and Recorded Vaccine Date Status Refusal Reason tetanus/diphtheria/pertussis, acel(Tdap) 12/20/18 Given Medications apixaban 5 mg oral tablet 1 tablet = 5 mg, By Mouth, 2 times a day, # 60 tablet, 0 Refills, Maintenance, 04/13/24 10:40:00 AM EDT, Tablet, Partial fill upon patient request if the prescription is for a schedule II opioid drug. Start Date: 04/13/24 Status: Ordered Quantity: 60.0 Unit: tablet Repeat number: 1 Claritin 10 mg oral tablet 10 mg, 1, tablet, By Mouth, Daily, # 7 tablet, Refills 0, Maintenance, 01/26/24 3:56:00 PM EDT, Partial fill upon patient request if the prescription is for a schedule II opioid drug. Start Date: 01/26/24 Stop Date: 02/02/24 Status: Ordered Quantity: 7.0 Unit: tablet Repeat number: 1 clopidogrel 75 mg oral tablet 75 mg, By Mouth, Daily, # 30 tablet, Refills 11, Tot. Refills 11, Maintenance, 07/16/23 1:20:00 PM EST, Route to Pharmacy Electronically, [facility] - [place], [place], Partial fill upon patient request if the prescription is for a schedule II opioid drug., 163, cm, 07/16/23 12:25:00 EST, Height, 120.7, kg, 07/16/23 12:25:00 EST, Dry Weight Start Date: 07/16/23 Status: Ordered Quantity: 30.0 Unit: tablet Repeat number: 12 Crestor 20 mg oral tablet 2 tablet = 40 mg, By Mouth, Daily at bedtime, # 30 tablet, 0 Refills, Maintenance, 02/27/21 7:22:00 AM EDT, Tablet, Partial fill upon patient request if the prescription is for a schedule II opioid drug. Start Date: 02/27/21 Status: Ordered Quantity: 30.0 Unit: tablet Repeat number: 1 ferrous sulfate 325 mg oral enteric coated tablet 325 mg, By Mouth, Daily, Refills 0, Maintenance, 04/13/24 9:17:00 AM EDT, Partial fill upon patient request if the prescription is for a schedule II opioid drug. Start Date: 04/13/24 Status: Ordered Repeat number: 1 levothyroxine 150 mcg (0.15 mg) oral capsule 1 capsule = 150 mcg, By Mouth, Daily, # 30 capsule, 0 Refills, Maintenance, 03/10/23 3:25:00 PM EDT,Capsule, Partial fill upon patient request if the prescription is for a schedule II opioid drug. Start Date: 03/10/23 Status: Ordered Quantity: 30.0 Unit: capsule Repeat number: 1 Lidoderm 5% film 1 patch, Topically, Daily, remove patches after 12 hours, # 30 patch, 0 Refills, Maintenance, 01/26/24 3:55:00 PM EDT, Film, Partial fill upon patient request if the prescription is for a schedule II opioid drug. Start Date: 01/26/24 Status: Ordered Quantity: 30.0 Unit: patch Repeat number: 1 LORazepam 0.5 mg oral tablet 1 tablet = 0.5 mg, By Mouth, 2 times a day, PRN as needed for anxiety, 0 Refills, Maintenance, 04/09/24 3:46:00 PM EDT, Tablet, Partial fill upon patient request if the prescription is for a schedule II opioid drug. Start Date: 04/09/24 Status: Ordered Repeat number: 1 MiraLax oral powder for reconstitution = 17 Gm, By Mouth, Daily, dissolve in water or juice, # 255 Gm, 0 Refills, Maintenance, 06/24/24 6:16:00 AM EDT, REC Powder, [facility] - [place], [place], Partial fill upon patient request if the prescription is for a schedule II opioid drug., 17 Gm By Mouth Daily,Instr:dissolve inwater or juice, 163, cm, 06/23/24 23:53:00 EDT, Height, 119.7, kg, 06/20/24 17:19:00 EDT, Dry Weight Start Date: 06/24/24 Status: Ordered Quantity: 255.0 Unit: g Repeat number: 1 Multaq 400 mg oral tablet 1 tablet = 400 mg, By Mouth, 2 times a day, # 60 tablet, 0 Refills, Maintenance, 03/10/23 3:28:00 PMEDT, Tablet, Partial fill upon patient request if the prescription is for a schedule II opioid drug. Start Date: 03/10/23 Status: Ordered Quantity: 60.0 Unit: tablet Repeat number: 1 Multivitamin 1 tablet, By Mouth, Daily, 0 Refills, Maintenance, 03/17/24 11:27:00 AM EDT, Partial fill upon patient request if the prescription is for a schedule II opioid drug. Start Date: 03/17/24 Status: Ordered Repeat number: 1 NovoLOG FlexPen 100 units/mL injectable solution On a sliding scale 70-100-12U 101-150-14U 151-200-16U 201-250-18U 251-300-20U 301-350-22U 351-400-24U 401-450-26U 451-500-28U Start Date: 04/09/24 Status: Ordered Repeat number: 1 oxyCODONE 5 mg oral tablet 5 mg, 1, tablet, By Mouth, Every 6 hours, PRN, # 7 tablet, Refills 0, Tot. Refills 0, Maintenance, for pain, 06/24/24 6:15:00 AM EDT, Route to Pharmacy Electronically, [facility] [address] [place] [address], Partial fill upon patient request if the prescription is for a schedule II opioid drug., 163, cm, 06/23/24 23:53:00 EDT, Height, 119.7, kg, 06/20/24 17:19:00 EDT, Dry Weight Start Date: 06/24/24 Status: Ordered Quantity: 7.0 Unit: tablet Repeat number: 1 senna - oral tablet 2 tablet, By Mouth, Daily at bedtime, PRN for constipation, # 60 tablet, 0 Refills, Maintenance, 06/24/24 6:16:00 AM EDT, Tablet, [facility] [place] [address], Partial fill upon patient request if the prescription is for a schedule II opioid drug., 163, cm, 06/23/24 23:53:00 EDT, Height, 119.7, kg, 06/20/24 17:19:00 EDT, Dry Weight Start Date: 06/24/24 Status: Ordered Quantity: 60.0 Unit: tablet Repeat number: 1 simethicone 80 mg oral tablet, chewable 80 mg, 1, tablet, Chew, 4 times a day, PRN, # 12 tablet, Refills 0, Tot. Refills 0, Maintenance, asneeded for gas, 06/24/24 6:16:00 AM EDT, Route to Pharmacy Electronically, [facility] [address] [place] [address], Partial fill upon patient request if the prescription is for a schedule II opioid drug., 163, cm, 06/23/24 23:53:00 EDT, Height, 119.7, kg, 06/20/24 17:19:00 EDT, Dry Weight Start Date: 06/24/24 Status: Ordered Quantity: 12.0 Unit: tablet Repeat number: 1 sucralfate 1 gm/10 ml oral suspension Take 10 mL (1 g) by mouth every 6 (six) hours. Start Date: 04/09/24 Status: Ordered Repeat number: 1 Tresiba FlexTouch 100 units/mL subcutaneous solution = 40 units, Inject 80 Units under the skin nightly at bedtime. Start Date: 04/09/24 Status: Ordered Repeat number: 1 Tylenol 325 mg oral tablet 650 mg, 2, tablet, By Mouth, Every 4 hours, PRN, # 50 tablet, Refills 0, Tot. Refills 0, Maintenance, for pain, 06/24/24 6:16:00 AM EDT, Route to Pharmacy Electronically, [facility] - [place], [place], Partial fill upon patient request if the prescription is for a schedule II opioiddrug., 163, cm, 06/23/24 23:53:00 EDT, Height, 119.7, kg, 06/20/24 17:19:00 EDT, Dry Weight Start Date: 06/24/24 Status: Ordered Quantity: 50.0 Unit: tablet Repeat number: 1 Zetia 10 mg oral tablet 1 tablet = 10 mg, By Mouth, Daily before breakfast, # 90 tablet, 0 Refills, Maintenance, 03/10/23 3:33:00 PM EDT, Tablet, Partial fill upon patient request if the prescription is for a schedule II opioid drug. Start Date: 03/10/23 Status: Ordered Quantity: 90.0 Unit: tablet Repeat number: 1 Problem List Condition Confirmation Course Effective Dates Status Health Status Informant Arthritis Confirmed Active Epistaxis Confirmed Active Carotid stenosis Confirmed Active Cystitis Confirmed Active Diabetes mellitus type 2 Confirmed Active GI bleed Confirmed Active Hypercholesterolemia Confirmed Active HTN (hypertension) Confirmed Active Anemia, iron deficiency Confirmed Active Uterine mass Confirmed Active Morbid obesity Confirmed Active Paroxysmal A-fib Confirmed Active Pneumonia Confirmed Active Severe obesity Confirmed Active Follow-up examination after gynecological surgery Confirmed Active TGA (transient global amnesia) Confirmed Active TIA due to embolism Confirmed Active Incontinence of urine in female Confirmed Active Social History Social History Type Response Smoking Status Never (less than 100 in lifetime); Use: Pt denies entered on: 05/03/23 Sex Sex Representation Female (finding) Patient Care team information Care Team Personnel Name: Johanna Valdez MD Position: [facility] Physician - Pediatrics Member Role: PCP Address: [address] [place] [address] Telecom: Name: Kimber Jackman RN Position: S RN Member Role: Primary Care Nurse Name: Jessica Neville RN Position: S RN Member Role: Primary Care Nurse Name: Chad Armando LPN Position: S RN Member Role: Primary Care Nurse Name: Leonela Woods RN Position: S RN Member Role: Primary Care Nurse Name: Alli Donahue RN Position: [facility] RN Supv Member Role: Primary Care Nurse Name: Latisha Smith MA Position: [facility] Office Staff Member Role: Lifetime Consulting Physician Name: Michi Lewis RN Position: [facility] RN Member Role: Primary Care Nurse Name: Hawa Hammer RN Position: [facility] RN Member Role: Primary Care Nurse Name: Darius Rogers RN Position: [facility] RN Member Role: Primary Care Nurse Care Team Related Persons Name: ANA ROSA [place] Name: JANESSA BERRY Insurance Providers Guarantor name: ABEL BERRY [facility] Plan Information #: 1 Payer: [facility] [employer] Member Number: [id number] Policy Number: NA Group Number: [facility] [employer] Plan Information #: 2 Payer: [facility] [employer] [employer] Member Number: [id number] Policy Number: NA Group Number: NA
--- OUTSIDE RECORDS SUMMARY | 2024-08-23 09:25 | XMS_ITS ---
Author Organization [facility] Address [address] [facility] [facility] [place] [address] Care Team Providers Care Customer Success Associate Name Role Phone José Miguel SUE, Johanna Primary Care Provider UnavailRosalba Tai Unavailable [phone] Allergies Allergen (clinical drug ingredient) Drug/Non Drug Allergy documented on EMR Reaction Allergy Type Onset Date Status ibuprofen Advil Unknown Drug Allergy Active aspirin Aspirin Unknown Drug Allergy Active sulfamethoxazole / trimethoprim Bactrim Unknown Drug Allergy Active REASON FOR VISIT At Risk Footcare, Skin Problem Medications Medication SIG (Take, Route, Frequency, Duration) Notes Start Date End Date Status LORazepam Active Tresiba Active Lidoderm Active NovoLOG Active Ciclopirox Olamine 0.77 % 1 application Externally Twice a day to feet including between the toes for 30 days Active Plavix Not-Taking Ferrous Gluconate Ac tive Morphine Active Zetia Active Crestor Active Multivitamin Active Levothyroxine Sodium Active Eliquis Active Social History Tobacco Use: Social History Observation Description Date Details (start date - stop date) Never Smoker NA - NA Tobacco Use/Smoking Question Answer Notes Are you a: nonsmoker Additional Findings: Tobacco Non-User Current no n-smoker Tobacco use other than smoking: Question Answer Notes Are you an other tobacco user? No AUDIT-C (Standard) Question Answer Notes Did you have a drink containing alcohol in the p ast year? No Points 0 Interpretation Negative Vital Signs Height 5ft 4in in 08/08/2024 Weight 264 lbs 08/08/2024 BMI 45.31 kg/m2 08/08/2024 Procedures Procedure Date Ordered Date Performed Result Body Sit e 01295-MTXDGQS NAIL, 6 OR MORE 08/08/2024 N/A 16391-TRVX SKIN LESIONS, 2 TO 4 08/08/2024 N/A Encounters Encounter Location Date Provider Diagnosis [facility] [address] [place] [address] 08/08/2024 Rosalba Hernández Type 1 diabetes mellitus with diabetic polyneuropathy E10.42 ; Tinea unguium B35.1 and Tinea pedis of both feet B35.3 Assessments Encounter Date Diagnosis (ICD Code) Assessment Notes Treatment Notes Treatment Clinical Notes Section Notes 08/08/2024 Type 1 diabetes mellitus with diabetic polyneuropathy (ICD-10 - E10.42) 08/08/2024 Tinea unguium (ICD-10 - B35.1) 08/08/2024 Tinea pedis of both feet (ICD-10 - B35.3) 08/08/2024 Other Plan Of Treatment Pending Test Test Name Order Date [id number] NAIL, 6 OR MORE 08/08/2024 [id number] SKIN LESIONS, 2 TO 4 08/08/20 24 Next Appt Details Follow Up: prn, Reason: Provider Name:Rosalba Hernández , 11/10/2024 11:30:00 AM, [address] [place] [address], [id number], Procedure Notes * Category Sub-Category Detail Notes Debride Nail 6-10 Nail debridement Due to the cl inical pathology outlined in the exam findings, performance of this nail treatment is medically necessary as its management by an unskilled/untrained nonprofessional would put this patients foot and overall health at risk. Therefore, debridement to affected nail(s), as described in exam, was performed extensively to reduce/remove overall nail length, girth, thickness, subungual debris, and necrotic tissue, by manual and/or electrical means through the use of a nail nipper and/or dremel-type needle grinder, to a more viable healthy nail plate or bed tissue 6-10 nails in total. Silver nitrate was used for any petechial bleeding as necessary. Definitive antifungal treatment options, both pharmaceutical and surgical, have been reviewed and discussed with the patient. The patient solely prefers the use of intermittent/as needed professional debridement services for their nail condition and understands the need for additional periodic treatments to maintain effectiveness in symptomatic relief - 82490 Keratoma Treatment Parring or Cutting o f Benign Hyperkeratotic Lesion(s) (-56) 2-4 Lesions - Due to the at risk nature of the patients medical condition as documented in the exam findings, performance of this keratoderma treatment is medically necessary as its management by an unskilled/untrained nonprofessional would put this patients foot and overall health at risk. Therefore, the benign hyperkeratotic lesions, ( 2 ) in total, locations as stated and described in the exam, were pared, and/or cut utilizing a sterile 15 blade, tissue nippers, and/or power Nanameue instrumentation - 74681 Progress Notes * Dominique WHEATLEYOB:[birth year] (63 yo F)Acc No.[id number]:08/08/2024 Progress Note Patient:?Helen WHEATLEY Provider:?Rosalba Hernández DPM :1960???Age:63 Y???Sex:Female D ate:08/08/2024 Address:[address] [place] [address], [facility], [id number] Pcp:Johanna Valdez MD Subjective: * Chief Complaints: * ???At Risk FootcareSkin Prob dipak * HPI: ???At Risk footcare:?Pt States Last PCP Visit:?Date?07/13/2024 ???Skin problems:?Nature:?scaling , redness.?Location:?B/L .?Duration:?, several months.?Course:?, improved, at 70%.?Treatments:?Medication (Ciclopirox Olamine 0.77 Cream), states adherence to recommended treatment application.? * ROS:?General/Constitutional:?Nausea?denies.?Vomiting?denies.?Hunger Thirst?denies.?Loss appetite?denies.?Chills?denies.?Fatigue?denies.?Fever?denies.?Night Sweats?denies.?Unexplained weight loss?denies.?Unexplained weight gain?denies.?HEENTM:?Dentures?denies.?Dizziness?denies.?Glasses/contacts?admits.?Retinopathy?den ies.?Blurred/double vision?denies.?TMJ?denies.?Discharge/drainage?denies.?Implants?denies.?Sore throat?denies.?Dental implants?denies.?Hard of hearing ?admits.?Difficulty chewing/swallowing/speaking?admits.?Nose bleeds?admits.?Sore mouth?denies.?Respiratory:?On O xygen?admits.?Pneumonia/pleurisy?denies.?Bronchitis?denies.?Emphysema?denies.?Co ughing?denies.?Cough blood?denies.?Shortness of breath?denies.?Wheezing?denies.?Cardiovascular:?Pacemaker?denies.?MVP?denies.?WPW?denies.?CHF?denies.?Heart attack?denies.?Septal defect?denies.?Rapid beat?denies.?Chest pain ?denies.?Atrial Fib.?admits.?Murmur/Palpitations?admits.?Gastrointestinal:?Hemorrhoids?denies.?Stomach/Abdominal pain?denies.?Dark blood stool?admits.?Irritable bowel ?denies.?Constipation?denies.?Diarrhea?denies.?Hematology:?Swelling?denies.?Clots?denies.?Varicose Veins?denies.?Bruising?denies.?Bleeding problem?admits.?Genitourinary:?Blood urine?denies.?Frequent/Painfu/urination/bladder control?admits.?Kidney stones?denies.?Infection (UTI)?denies.?Nephropathy?denies.?sex trans dis (STD)?denies.?Prostate?denies.?Musculoskeletal:?Hammertoes?denies.?Bunions?denies.?Back Pain?denies.?Muscle Cramps/ Resting?denies.?Muscle cramps / walking?denies.?Generalized aches and pains?admits.?Weakness?admits.?Integ.:?Fu?denies.?Scars?denies.?Corns/calluses?, admits.?Ingrown nails?denies.?Painful nails?admits.?Open Sores?denies.?Rashes?denies.?Neurologic:?Difficulty sleeping?admits.?Brain disorder?denies.?Numbness?admits.?Balance t rouble?admits.?Confusion?denies.?Fainting/blackouts?denies.?Tingling?admits.?Jim mors?denies.? * Medical History:? * Surgical History:?gastrectom y carotid endarterectomy Stent ardio hysterectomy surgery 07/2024 * Hospitalization/Major Diagno stic Procedure:?[facility]- blood transfusions, iron transfusions 05/10/24 * Family History:?Mother: dece ased, diabetes, arthritis, stroke.?Father: , cancer.?Maternal Grand Mother: diabetes, arthritis, stroke.? * Social History:?Tobacco Use:?Tobacco Use/Smoking?Are you a:?nonsmoker ?Additional Findings: Tobacco Non-User?Current non-smoker ?Tobacco use other than smoking?Are you an other tobacco user??No ???Drugs/Alcohol:?Drugs?Have you used drugs other than those for medical reasons in the past 12 months??No ???Miscellaneous:?Caffeine: yes, frequency:, 2-3 cups per day. ?Children: no. ?Exercise: yes, walking. ?Marital status: single. ?Occupation: Retired. ???Drug/Alcohol:?AUDIT-C (Standard)?Did you have a drink containing alcohol in the past year??No ?Points?0 ?Interpretation?Negative * Medications:?TakingTresiba N ovoLOG Levothyroxine Sodium Eliquis Multivitamin Ferrous Gluconate Zetia Crestor Morphine LORazepam Lidoderm Ciclopirox Olamine 0.77 % Cream 1 application Externally Twice a day to feet including between the toes Taking Tresiba Taking NovoLOG Taking Levothyroxine Sodium Taking Eliquis Taking Multivitamin Taking Ferrous Gluconate Taking Zetia Taking Crestor Taking Morphine Taking LORazepam Taking Lidoderm Taking Ciclopirox Olamine 0.77 % Cream 1 application Externally Twice a day to feet including between the toes Not-Taking/PRNPlavix Medication List reviewed and reconciled with the patientNot-Taking/PRN Plavix Medication List reviewed and reconciled with the patient * Allergies:?BactrimAspirinAdv ilyes[Allergies Verified] Objective: * Vitals:?Ht: 5ft 4in, Wt:264, BMI:45.31, Shoe size: 9-11, BS: 120, Ht-cm: 162.56 cm, Wt-k.75 kg. * ???Past Orders: ???Lab:HEMOGLOBIN A1C (GLYCO HEMOGLOBIN) (Order Date - 05/02/2024) (Collection Date & Time - 05/02/2024 08:36 AM) ? Value Reference Range ?TOTAL HEMOGLOBIN (HGBA1C) 9.1 * Examination: ???Ophthalmology Referral: ?DIABETES EYE EXAM?General Examination: ?GENERAL APPEARANCE:?Reveals a pleasant, alert, well nourished, well- developed, well hydrated individual, who demonstrates proper attention to hygiene/body habitus, and is in no acute distress, Pt serves as own historian for office visit today.?ORIENTED:?person, place, and time.?Neurological: ?SENSORY:?Neurological exam demonstrates reduced sharp/dull pin prick discrimination reduced light touch sensation reduced vibration sensation reduced proprioception sensation in a stocking fashion 5.07 monofilament test performed at plantar aspects of 5 varied sites per foot shows sensation plantar aspects absent at Forefoot B/L.?Nails: ?NAILS are:?Elongated, overgrown, dystrophic, lytic, greater than 3mm thick, discolored and friable with crumbly malodorous subungual debris , , with dull to no pain on palpation due to neuropathy , 1-5 B/L.?Dermatologic: ?SKIN FINDINGS:?Skin exam reveals Keratotic lesion(s) located atPlantar Heel(s), , B/L, , Skin shows sign(s) of, erythema, scaling, in a moccasin fashion, no fissure(s) present, B/L, approximately _70 percent LESS.?Vascular: ?DP PULSES(B):?2/4, B/L.?PT PULSES(B):?2/4, B/L.?CAPILLARY FILL TIME:?immediate, all digits, B/L.?TROPHIC CONDITION-TEXTURE/ELASTICITY/TURGOR/HAIR GROWTH(B):?normal, B/L.?TEMPERTURE GRADIENT(C):?normal, warm to cool, proximal to distal, B/L, B/L.?PIGMENTATION:?normal, B/L.?EDEMA(C):?absent, B/L.? Assessment: * Assessment: 1.?Type 1 diabetes mellitus with diabetic polyneuropathy - E10.42 (Primary)???2.?Tinea unguium - B35.1???3.?Tinea pedis of both feet - B35.3???Specify :Response to treatment - Improvement??? Plan: * Treatment: 2.?Tinea unguium?Procedure: 80977-LLRUUZE NAIL, 6 OR MORE * Procedures:?Debride Nail 6-10:?Nail debridement?Due to the clinical pathology outlined in the exam findings, performance of this nail treatment is medically necessary as its management by an unskilled/untrained nonprofessional would put this patients foot and overall health at risk. Therefore, debridement to affected nail(s), as described in exam, was performed extensively to reduce/remove overall nail length, girth, thickness, subungual debris, and necrotic tissue, by manual and/or electrical means through the use of a nail nipper and/or dremel-type needle grinder, to a more viable healthy nail plate or bed tissue 6-10 nails in total. Silver nitrate was used for any petechial bleeding as necessary. Definitive antifungal treatment options, both pharmaceutical and surgical, have been reviewed and discussed with the patient. The patient solely prefers the use of intermittent/as needed professional debridement services for their nail condition and understands the need for additional periodic treatments to maintain effectiveness in symptomatic relief - 96964.?Keratoma Treatment:?Parring or Cutting of Benign Hyperkeratotic Lesion(s)?(-56) 2-4 Lesions - Due to the at risk nature of the patients medical condition as documented in the exam findings, performance of this keratoderma treatment is medically necessary as its management by an unskilled/untrained nonprofessional would put this patients foot and overall health at risk. Therefore, the benign hyperkeratotic lesions, ( 2 ) in total, locations as stated and described in the exam, were pared, and/or cut utilizing a sterile 15 blade, tissue nippers, and/or power dremel instrumentation - 59440.? * Procedure Codes:?26404 DEBRI DE NAIL, 6 OR MORE, Modifiers: XS 50066 TRIM SKIN LESIONS, 2 TO 4, Modifiers: XS * Preventive Medicine:? ??Counseling:?Discussion:?-12: Office or other outpatient visit for the evaluation and management of an established patient, which required a medically appropriate history and/or examination and STRAIGHTFORWARD level of MEDICAL DECISION MAKING, 1 SELF-LIMITED OR MINOR PROBLEM, MINIMAL- NO AMOUNT/COMPLEXITY OF DATA TO BE REVIEWED/ANALYZED, AND MINIMAL RISK OF COMPLICATION/MORBIDITY. The visit on the day of the encounter encompassed interpreting the data and educating the patient as to the nature of their condition, treatment options available according to their individual PMH, meds, allergies, and overall health/living conditions, as well as any potential risks or complications that may occur from a failure to adhere to, and participate in, the recommended course of therapy. The discussion included a complete verbal, and/or written explanation of the examination results, any x-rays taken, the proposed diagnosis, and outline of the treatment plan. A schedule for future care needs was also explained. The patient verbalized an understanding of the instructions at this time and agreed to be an active participant in their treatment. If the patient should think of any questions or concerns after the visit, I have encouraged the patient to call the office.?Tinea Pedis:?Given recent successful results to treatment, The patient is to cont the rx cream as directed, PREVENTIVE STRATEGIES were reviewed with the patient to avoid recurrent issues ..? * Follow Up:?prn * Images: * Sign off status: Completed true * Provider:?Rosalba Hernández DPM Date:?2023 Generated for Amelie garzon/Quentin/Dieter on:?08/23/2024 09:25 AM EST History and Physical Notes * HPI (History of Present Illness) Category Sub-Category Detail Notes Category Not es Skin problems Nature: scaling , redness Location: B/L Duration: , several months Course: , improved, at 70% Treatments: Medication (Ciclopir ox Olamine 0.77 Cream), states adherence to recommended treatment application At Risk footcare Pt States Last PCP Visit: Date: 4 Examination Category Sub-Category Detail Notes Category Not es Neurological SENSORY: Neurological exa m demonstrates reduced sharp/dull pin prick discrimination reduced light touch sensation reduced vibration sensation reduced proprioception sensation in a stocking fashion 5.07 monofilament test performed at plantar aspects of 5 varied sites per foot shows sensation plantar aspects absent at Forefoot B/L Dermatologic SKIN FINDINGS: Skin exam reveal s Keratotic lesion(s) located atPlantar Heel(s), , B/L, , Skin shows sign(s) of, erythema, scaling, in a moccasin fashion, no fissure(s) present, B/L, approximately _70 percent LESS General Examination GENERAL APPEARANCE: Reveals a pleasant, alert, well nourished, well-developed, well hydrated individual, who demonstrates proper attention to hygiene/body habitus, and is in no acute distress, Pt serves as own historian for office visit today ORIENTED: person, place, and t maureen Ophthalmology Referral DIABETES EYE EXAM Procedure Perform ed:: Yes ?Date of Exam Performed: 03/23/2024 Findings of Diabetic Eye Exam:: retinopa thy both Vascular DP PULSES (B): 2/4, B/L PT PULSES (B): 2/4, B/L CAPILLARY FILL TIME: immediate, all digi ts, B/L TEMPERTURE GRADIENT (C): normal, warm to cool, proximal to distal, B/L, B/L TROPHIC CONDITION-TEXTURE/ELASTICITY/TURGOR/HAIR GROWTH (B): normal, B/L EDEMA (C): absent, B/L PIGMENTATION: normal, B/L Nails NAILS are: Elongated, overg rown, dystrophic, lytic, greater than 3mm thick, discolored and friable with crumbly malodorous subungual debris , , with dull to no pain on palpation due to neuropathy , 1-5 B/L
--- OUTSIDE RECORDS SUMMARY | 2024-08-23 09:26 | XMS_ITS | Data Portability ---
Author Organization [place] - [facility], Allergy Address [address] [place] [phone] Care Team Providers Care Auricular Acupuncturist Name Role Phone ZHOU CURTIS Primary Care Provider Assessment No assessment recorded. Plan of Treatment Reminders Order Date Submit Date Provider Last Modified By Organization Details Last Modified Time Details Appointments None record ed. Lab None record ed. Referral None record ed. Procedures None record ed. Surgeries None record ed. Imaging None record ed. Medication Orders None record ed. Patient TargetsNo targets recorded. Patient InstructionsNo instructions recorded. Reason for Referral None Reported. Problems Name Problem SNOMED Code Status Onset Date Resolution Date Notes Provider Name and Address Organization Details Recorded Time Bleeding from nose 722610408 Active 019 Epista xis; Note: Date Diagno sed: 019 12:42 PM (R04.0 ) Not Available [facility] 4 03:31:16 Anterior epistaxis 648993929 Active 024 JADNE BUNDY MD [address] [address], [place], [phone] , [place] - [facility] 4 09:50:13 Problem Notes None recorded. Procedures Surgical History Date Name Laterality Status Provider Name and Address Organization Details Recorded Time endoscopic sleeve gastroplasty completed Marcello Keller [place] - [facility] 05/12/2024 09:30:40 Imaging Results None recorded. Procedure Notes None recorded. Medical Equipment None Reported. Allergies Allergen ID Allergen Name Allergen Category Reaction Reaction Severity Criticality Documentation Date Start Date Code Code System Note Provider Name and Address Organization Details Recorded Time 861420 ibuprofen medicatio n other Not available Not available 01/12/2024 5640 RxNorm React ion: unkno wn, unspe cifie d;; Not Available [facility] 4 01:23:58 [id number] Motrin medicatio n other Not available Not available 01/12/202448645 8 RxNorm React ion: belinda reyes, ophelia leger d;; Not Available [facility] 4 01:23:59 Medications Name Sig Start Date Stop Date Status Note LastModified by Organization Details LastModified Time amoxicilli n 500 mg capsule Take 1 capsule (500 mg) by mouth every 8 (eight) hours for 5 days. active Not Available Not Available No t Available levothyrox ine 175 mcg tablet active Medicatio n ID: [id number] Du ration Value: 30 Brand Name: levothyro xine Send Method: E-Prescri bed Subs Allowed: subs OK Medica tionGener icName: levothyro xine Not Available Not Available Not Available clindamyci n HCl 300 mg capsule TAKE 1 CAPSULE BY MOUTH 4 TIMES DAILY FOR 5 DAYS active Not Available Not Available No t Available sucralfate 100 mg/mL oral suspension Take 10 mL (1 g) by mouth every 6 (six) hours. active Not Available Not Available No t Available prednisone 20 mg tablet TAKE 1 TABLET BY MOUTH DAILY FOR 5 DAYS active Not Available Not Available No t Available clopidogre l 75 mg tablet TAKE 1 TABLET BY MOUTH ONCE DAILY active Not Available Not Available No t Available lorazepam 0.5 mg tablet Take 1 tablet (0.5 mg) by mouth if needed in the morning and at bedtime for anxiety. active Not Available Not Available No t Available pravastati n 10 mg tablet active Medicatio n ID: [id number] Du ration Value: 30 Brand Name: pravastat in Send Method: E-Prescri bed Subs Allowed: subs OK Medica tionGener icName: pravastat in Not Available Not Available Not Available pantoprazo le 40 mg tablet,del ayed release TAKE 1 TABLET BY MOUTH DAILY active Not Available Not Available No t Available lidocaine 5 % topical patch apply 3 patches TO intact SKIN LEAVE ON FOR 12 hours, REMOVE FOR 12 hours Once a day Externall y active Not Available Not Available No t Available levothyrox ine 150 mcg tablet TAKE 1 TABLET Orally EVERY MORNING ON EMPTY STOMACH AND TAKE AN EXTRA 1/2 TABLET ONCE ON THURSDAY AND THURSDAY active Not Available Not Available No t Available morphine 10 mg/5 mL oral solution Take 7.5 mL (15 mg) by mouth if needed in the morning, at noon, and at bedtime for severe pain for up to 7 days. active Not Available Not Available No t Available lisinopril 5 mg tablet active Medicatio n ID: [id number] Du ration Value: 30 Brand Name: lisinopri l Send Method: E-Prescri bed Subs Allowed: subs ID [facility] icName: lisinopri l Not Available Not Available Not Available furosemide 20 mg tablet take 1 tablet By Mouth Daily active Not Available Not Available No t Available lorazepam 1 mg tablet TAKE 1/2 TO 1 tablet BY MOUTH THREE TIMES DAILY NEEDED for 28 days active Not Available Not Available No t Available ibuprofen 600 mg tablet TAKE 1 TABLET BY MOUTH every 4 TO 6 hours NEEDED WITH food active Not Available Not Available No t Available loratadine 10 mg tablet TAKE 1 TABLET BY MOUTH ONCE DAILY active Not Available Not Available No t Available amoxicilli n 875 mg-[facility] clavulanat e 125 mg tablet Take 1 tablet by mouth 2 times daily for 3 days. active Not Available Not Available No t Available ezetimibe 10 mg tablet TAKE 1 TABLET BY MOUTH ONCE DAILY active Not Available Not Available No t Available coenzyme Q10 100 mg capsule TAKE 1 CAPSULE BY MOUTH ONCE DAILY active Not Available Not Available No t Available Novolog FlexPen U-100 Insulin aspart 100 unit/mL (3 mL) subcutaneo us Inject 30 Units under the skin 3 times daily. On a sliding scale active Not Available Not Available No t Available rosuvastat in 40 mg tablet TAKE 1 TABLET BY MOUTH DAILY active Not Available Not Available No t Available BD Ultra-Fine Mini Pen Needle 31 gauge x /16 USE 1 needle 5 TIMES A DAY active Not Available Not Available No t Available aspirin active Medicatio n ID: [id number] Br and Name: aspirin S end Method: E-Prescri bed Subs Allowed: subs [facility]: [facility] Not Available Not Available Not Available ferrous gluconate 324 mg (38 mg iron) tablet Take 1 tablet (324 mg) by mouth with breakfast . active Not Available Not Available No t Available FreeStyle Lite Strips USE TO TEST BLOOD SUGAR FOUR TO SIX TIMES A DAY active Not Available Not Available No t Available Multaq 400 mg tablet TAKE 1 TABLET BY MOUTH every 12 hours active Not Available Not Available No t Available Eliquis 5 mg tablet TAKE 1 TABLET BY MOUTH TWICE DAILY active Not Available Not Available No t Available Tresiba FlexTouch U-100 insulin 100 unit/mL (3 mL) subcutaneo us pen Inject 85 Units under the skin nightly at bedtime. active Not Available Not Available No t Available FreeStyle Iris 3 Sensor device USE 1 sensor AND CHANGE every 14 DAYS active Not Available Not Available No t Available FreeStyle Iris 3 [place] USE 1 Device continuou sly. active Not Available Not Available No t Available Vitals Date Recorded Body height Body mass index (BMI) Body weight Provider Name and Address Organization Details Last Updated DateTime 05/12/2024 162.56 cm 45.5 kg/m2 425834.98 g Marcello Keller [place] - [facility] 05/12/2024 09:48:20 Social History None recorded. Functional Status None recorded. Mental Status None recorded. Family History Nothing Reported. Medical History No medical history recorded. Gynecological HistoryNo gynecological history recorded. Obstetrics History GPAL:G 0 P 0 0 0 0 Past Encounters Encounter ID Performer Location Encounter Start Date Encounter Closed Date Diagnosis/Indication Diagnosis SNOMED-CT Code Diagnosis ICD10 Code [id number] JADEN BUNDY MD [facility] on [address] [place] [phone] 05/12/2024 09:01:16 05/12/2024 10:10:32 Anterior epistaxis 386011646 R04.0 History of cerebrovascular accident 520370069 Z86.73 History of placement of stent for coronary artery disease 373770211 Z95.5 Health Concerns Section Related Observation LastModified by Organization Detai ls LastModified Time None Recorded Concern Status LastModified by Organization Details LastModified Time None Recorded Advance Directives Directive None Recorded Payers Encounter Date Sequence Insurance Name Policy Number Policy Esposito Covered Member ID Esposito Member ID Guarantor Name 05/12/2024 1 [place] [employer] Helen Wheatley [id number] Helen Wheatley 05/12/2024 1 [facility] - DOS ON OR AFTER 2022 - MEDICARE [place]ANTAGE [place]MED[place]ACEMENT/AD VANTAGE - PPO) Helen Wheatley [id number] Helen Wheatley Notes Date Note Type Note Provider Name and Address Organization Details Recorded Time 05/12/2024 text/html Hx of epistaxis mostly on the right about 2 times per week. She uses saline and ointment in her nose. She is on plavix and eliquis. Hx of a CVA and cardiac stents. JDAEN BUNDY MD [address] [place] [address], [phone], [facility] - [facility] 05/12/2024 09:57:38 OBGyn Episode No OBEpisode recorded.
--- OUTSIDE RECORDS SUMMARY | 2024-08-23 09:26 | XMS_ITS ---
Author Organization [facility] Address [address] [facility] [place] [address] Care Team Providers Care Dramatic Critic Name Role Phone Johanna Valdez MD Primary Care Provider Unavailab Rosalba Alexis Unavailable [phone] Allergies Allergen (clinical drug ingredient) Drug/Non Drug Allergy documented on EMR Reaction Allergy Type Onset Date Status ibuprofen Advil Unknown Drug Allergy Active aspirin Aspirin Unknown Drug Allergy Active sulfamethoxazole / trimethoprim Bactrim Unknown Drug Allergy Active REASON FOR VISIT Pcp-05/02/24, At Risk Footcare, Skin Problem, Toe Irritation Medications Medication SIG (Take, Route, Frequency, Duration) Notes Start Date End Date Status Eliquis Active Multivitamin Active Plavix Active NovoLOG Active Levothyroxine Sodium Active Crestor Active Morphine Active LORazepam Active Tresiba Active Lidoderm Active Ferrous Gluconate Ac tive Zetia Active Ciclopirox Olamine 0.77 % 1 application Externally Twice a day to feet including between the toes for 30 days Active Social History Tobacco Use: Social History Observation Description Date Details (start date - stop date) Never Smoker NA - NA Tobacco Use/Smoking Question Answer Notes Are you a: nonsmoker Additional Findings: Tobacco Non-User Current no n-smoker Tobacco use other than smoking: Question Answer Notes Are you an other tobacco user? No Problems Problem Type SNOMED Code ICD Code Onset Dates Problem Status W/U Status Risk Notes Problem Polyneuropathy due to diabetes mellitus type I (448697696) Type 1 diabetes mellitus with diabetic polyneuropathy (E10.42) Active confirmed Problem Acquired hammer toe of right foot (5845594717779604 ) Other hammer toe(s) (acquired), right foot (M20.41) Active confirmed Problem Acquired hammer toe of left foot (0908622654482442 ) Other hammer toe(s) (acquired), left foot (M20.42) Active confirmed Vital Signs Blood pressure systolic 120 mm Hg 05/23/20 24 Blood pressure diastolic 40 mm Hg 024 Height 5 ft 4 in in 05/23/2024 Weight 265 lbs 05/23/2024 BMI 45.48 kg/m2 05/23/2024 Procedures Procedure Date Ordered Date Performed Result Body Sit e 57523-WZWDMDE NAIL, 6 OR MORE 05/23/2024 N/A 00958-FHRL SKIN LESIONS, 2 TO 4 05/23/2024 N/A Encounters Encounter Location Date Provider Diagnosis [facility] [place] [address] [place] [address] 05/23/2024 Rosalba Black Type 1 diabetes mellitus with diabetic polyneuropathy E10.42 ; Tinea unguium B35.1 ; Tinea pedis of both feet B35.3 ; Other hammer toe(s) (acquired), right foot M20.41 and Other hammer toe(s) (acquired), left foot M20.42 Assessments Encounter Date Diagnosis (ICD Code) Assessment Notes Treatment Notes Treatment Clinical Notes Section Notes 05/23/2024 Type 1 diabetes mellitus with diabetic polyneuropathy (ICD-10 - E10.42) 05/23/2024 Tinea unguium (ICD-10 - B35.1) 05/23/2024 Tinea pedis of both feet (ICD-10 - B35.3) 05/23/2024 Other hammer toe(s) (acquired), right foot (ICD-10 - M20.41) Patient Educated with: DIABETIC FOOT CARE INSTRUCTIONS. pdf (DIABETIC FOOT CARE INSTRUCTIONS. pdf) 05/23/2024 Other hammer toe(s) (acquired), left foot (ICD-10 - M20.42) Plan Of Treatment Medication Medication Name Sig Start Date Stop Date Notes Ciclopirox Olamine 0.77 % 1 application Externally Twice a day to feet including between the toes for 30 days Treatment Notes Assessment Notes Other hammer toe(s) (acquired), right fo ot Patient Educated with: DIABETIC FOOT CARE INSTRUCTIONS.pdf (DIABETIC FOOT CARE INSTRUCTIONS.pdf) Pending Test Test Name Order Date 78856-ZGLVVSD NAIL, 6 OR MORE 05/23/2024 91043-OHIE SKIN LESIONS, 2 TO 4 05/23/20 24 Next Appt Details Follow Up: prn, Reason: Provider Name:Rosalba Hernández , 11/10/2024 11:30:00 AM, [address] [place] [address], [phone], Procedure Notes * Category Sub-Category Detail Notes Debride Nail 6-10 Nail debridement Performance o f this nail treatment by a nonprofessional would put this patients foot and overall health at risk. Therefore, nail debridement was performed extensively to reduce/remove overall nail length, girth, thickness, subungual debris, and necrotic tissue, by manual and/or electrical means through the use of a nail nipper and/or dremel-type double end production grinder, to a more viable healthy nail plate or bed tissue 6-10. Silver nitrate used for any petechial bleeding as necessary. Definitive antifungal treatment options have been reviewed and discussed with the patient. The patient chooses, no pharmaceutical tx - 16908 Keratoma Treatment Parring or Cutting o f Benign Hyperkeratotic Lesion(s) (-56) 2-4 Lesions - The Benign hyperkeratotic lesions, as described above were pared, and/or cut utilizing a sterile 15 blade, tissue nippers, and/or dremel - 14808, Progress Notes * Julienne WHEATLEYraDOB:[birth year] (63 yo F)Acc No.[id number]:05/23/2024 Progress Notes Patient:Helen Rees Provider:?Rosalba Hernández DPM :1960???Age:63 Y???Sex:Female D ate:05/23/2024 Address: [address], [id number] Pcp:Johanna Valdez MD Subjective: * Chief Complaints: * ???Pcp-05/02/24At Risk Footc areSkin ProblemToe Irritation * HPI: ???At Risk footcare:?Pt States Last PCP Visit:?Date?05/02/2024 ???Skin problems:?Nature:?scaling , redness.?Location:?B/L .?Duration:?several days.?Course:?worse.?Toe pain:?Location:?B/L feet.?Duration:?several years.?Course:?worse.?Aggravated by:?shoes, any pressure.?Treatments:?change in shoes.? * ROS:?General/Constitutional:?Nausea?denies.?Vomiting?denies.?Hunger Thirst?denies.?Loss appetite?denies.?Chills?denies.?Fatigue?denies.?Fever?denies.?Night Sweats?denies.?Unexplained weight loss?denies.?Unexplained weight gain?denies.?HEENTM:?Dentures?denies.?Dizziness?denies.?Glasses/contacts?admits.?Retinopathy?de nies.?Blurred/double vision?denies.?TMJ?denies.?Discharge/drainage?denies.?Implants?denies.?Sore throat?denies.?Dental implants?denies.?Hard of hearing ?admits.?Difficulty chewing/swallowing/speaking?admits.?Nose bleeds?admits.?Sore mouth?denies.?Respiratory:?On Oxygen?admits.?Pneumonia/pleurisy?denies.?Bronchitis?denies.?Emphysema?denies.?C oughing?denies.?Cough blood?denies.?Shortness of breath?denies.?Wheezing?denies.?Cardiovascular:?Pacemaker?denies.?MVP?denies.?WPW?denies.?CHF?denies.?Heart attack?denies.?Septal defect?denies.?Rapid beat?denies.?Chest pain ?denies.?Atrial Fib.?admits.?Murmur/Palpitations?admits.?Gastrointestinal:?Hemorrhoids?denies.?Stomach/Abdominal pain?denies.?Dark blood stool?admits.?Irritable bowel ?denies.?Constipation?denies.?Diarrhea?denies.?Hematology:?Swelling?denies.?Clots?denies.?Varicose Veins?denies.?Bruising?denies.?Bleeding problem?admits.?Genitourinary:?Blood urine?denies.?Frequent/Painfu/urination/bladder control?admits.?Kidney stones?denies.?Infection (UTI)?denies.?Nephropathy?denies.?sex trans dis (STD)?denies.?Prostate?denies.?Musculoskeletal:?Hammertoes?denies.?Bunions?denies.?Back Pain?denies.?Muscle Cramps/ Resting?denies.?Muscle cramps / walking?denies.?Generalized aches and pains?admits.?Weakness?admits.?Integ.:?Fu?denies.?Scars?denies.?Corns/calluses?denies.?Ingrown nails?denies.?Painful nails?admits.?Open Sores?denies.?Rashes?denies.?Neurologic:?Difficulty sleeping?admits.?Brain disorder?denies.?Numbness?admits.?Balance trouble?admits.?Confusion?denies.?Fainting/blackouts?denies.?Tingling?admits.?Tr emors?denies.? * Medical History:? * Surgical History:?gastrectom y carotid endarterectomy Stent 5cardio * Hospitalization/Major Diagno stic Procedure:?[facility]- blood [...] in the past 12 months??No ???Miscellaneous:?Caffeine: yes, 3-4 cups. ?no Children. ?Exercise: writing, art, gardening. ?Marital status: single. * Medications:?TakingTresiba N ovoLOG Levothyroxine Sodium Eliquis Multivitamin Plavix Ferrous Gluconate Zetia Crestor Morphine LORazepam Lidoderm Medication List reviewed and reconciled with the patientTaking Tresiba Taking NovoLOG Taking Levothyroxine Sodium Taking Eliquis Taking Multivitamin Taking Plavix Taking Ferrous Gluconate Taking Zetia Taking Crestor Taking Morphine Taking LORazepam Taking Lidoderm Medication List reviewed and reconciled with the patient * Allergies:?BactrimAspirinAdv ilchris[Allergies Verified] Objective: * Vitals:?Ht: 5 ft 4 in, Wt:26 5, BMI:45.48, Shoe size: 9- 11, BP:120/40 mm Hg, BS: 92, Ht-cm: 162.56 cm, Wt-k.2 kg. * ???Past Orders: ???Lab:HEMOGLOBIN A1C (GLYCO HEMOGLOBIN) (Order Date - 05/02/2024) (Collection Date - 05/02/2024) ? Value Reference Range ?TOTAL HEMOGLOBIN (HGBA1C) 9.1 * Examination: ???Ophthalmology Referral: ?DIABETES EYE EXAM?General Examination: ?GENERAL APPEARANCE:?Reveals a pleasant, alert, well nourished, well- developed, well hydrated individual, who demonstrates proper attention to hygiene/body habitus, and is in no acute distress, Pt serves as own historian for office visit today.?ORIENTED:?person, place, and time.?FOOT EXAM:?Footwear Evaluation?Neurological: ?SENSORY:?Neurological exam demonstrates reduced sharp/dull pin prick [...] ?SKIN FINDINGS:?Skin exam reveals Keratotic lesion(s) located at Heel(s), B/L, , Skin shows sign(s) of, erythema, scaling, in a moccasin fashion, no fissure(s) present, B/L.?Vascular: ?DP PULSES(B):?2/4, B/L.?PT PULSES(B):?2/4, B/L.?CAPILLARY FILL TIME:?immediate, all digits, B/L.?TROPHIC CONDITION-TEXTURE/ELASTICITY/TURGOR/HAIR GROWTH(B):?normal, B/L.?TEMPERTURE GRADIENT(C):?normal, warm to cool, proximal to distal, B/L, B/L.?PIGMENTATION:?normal, B/L.?EDEMA(C):?absent, B/L.?Orthopedic: ?MUSCLE STRENGTH:?5/5 all groups in a symmetrical fashion, B/L.?DIGITAL DEFORMITIES:?Digital contracture, PIPJ, 2-5 B/L, incompl-reducible to push-up test, no over, nor underlapping,?there is?evidence of shoe producing skin irritation.?FOOTWEAR:?worn, non-supportive, shoe gear properties exacerbate patient's foot/toe deformity.? Assessment: * Assessment: 1.?Type 1 diabetes mellitus with diabetic polyneuropathy - E10.42?2.?Tinea unguium - B35.1?3.?Tinea pedis of both feet - B35.3, Acute problem, Uncomplicated (3),Rx drug management (4)?4.?Other hammer toe(s) (acquired), right foot - M20.41 (Primary), Chronic problem, Worse (4),Rx Management (4)?5.?Other hammer toe(s) (acquired), left foot - M20.42, Chronic problem, Worse (4),Rx Management (4)? Plan: * Treatment: 2.?Type 1 diabetes mellitus with diabetic polyneuropathy?Procedure: 82112-GUHB SKIN LESIONS, 2 TO 4 3.?Tinea unguium?Procedure: 29977-ELZLPSV NAIL, 6 OR MORE 4.?Tinea pedis of both feet? Start Ciclopirox Olamine Cream, 0.77 %, 1 application, Externally, Twice a day to feet including between the toes, 30 days, 90, Refills 2.?? * Procedures:?Debride Nail 6-10:?Nail debridement?Performance of this nail treatment by a nonprofessional would put this patients foot and overall health at risk. Therefore, nail debridement was performed extensively to reduce/remove overall nail length, girth, thickness, subungual debris, and necrotic tissue, by manual and/or electrical means through the use of a nail nipper and/or dremel-type double end production grinder, to a more viable healthy nail plate or bed tissue 6-10. Silver nitrate used for any petechial bleeding as necessary. Definitive antifungal treatment options have been reviewed and discussed with the patient. The patient chooses, no pharmaceutical tx - 60739.?Keratoma Treatment:?Parring or Cutting of Benign Hyperkeratotic Lesion(s)?(-56) 2-4 Lesions - The Benign hyperkeratotic lesions, as described above were pared, and/or cut utilizing a sterile 15 blade, tissue nippers, and/or dremel - 52869, ?.? * Procedure Codes:?85330 DEBRI DE NAIL, 6 OR MORE, Modifiers: XS 54601 TRIM SKIN LESIONS, 2 TO 4, Modifiers: XS * Preventive Medicine:? ??Counseling:?Discussion:?-04: Office or other outpatient visit for the evaluation and management of a new patient, which required a medically appropriate history and/or examination and MODERATE level of DECISION MAKING for: 1 OR MORE CHRONIC PROBLEM(S) THATS WORSENING, 2 STABLE CHRONIC PROBLEMS, A NEWLY DIAGNOSED PROBLEM WITH UNCERTAIN PROGNOSIS, AN ACUTE COMPLICATED INJURY WITH MULTIPLE TREATMENT OPTIONS, OR AN ACUTE PROBLEM WITH ACCOMPANYING SYSTEMIC SYMPTOMS, THAT POSE(S) A MODERATE RISK OF MORBIDITY. THIS CONDITION MAY ALSO INCLUDE RX DRUG MANAGEMENT, OR A DECISON FOR MINOR SURGERY. The visit on the day of the [...] have encouraged the patient to call the office.?Digital Treatment:?HT- I explained to the patient the possible etiologies of Hammertoes, including genetics/foot type/shoegear/activity level/exercise routine and the risks/benefits of all the different treatment options for their pain including: No treatment at all, Rest, Ice, New/supportive/wider/deeper Shoegear, Digital Padding/Strapping/Taping/Bracing/Gel protective sleeves, Foot/Ankle AFO Bracing, Stretching exercises, Deep Tissue Massage, Arch support/shoe inserts with splay metatarsal padding, and Custom orthoses. I insisted that any digital devices be removed daily and not worn overnight for safety. The patient is to carefully examine the toes daily for any skin irritation while using any splinting or padding device. The advantages and disadvantages of each option were discussed and the patients questions re: shoegear, padding, custom vs prefabricated inserts, activity level, and consistency in home treatment regimens for optimal success were answered to their verbally confirmed satisfaction, Recomm, rest, ice, proper shoegear, padding, orthotics, anti-inflammatories or tylenol as tolerated, topical analgesics, cortisone injections.?Shoe Gear Counseling:?The patient deferred recommended diabetic shoes with heat moled inserts.?Tinea Pedis:?The patient was counseled on the diagnosis, potential etiologies, and treatment options for their skin condition. We discussed the risks and benefits of each option from performing no treatment, to utilizing OTC topical skin creams, prescription topical creams, customized compounded topical medications, and, if necessary, to utilize oral antifungal therapy. We discussed the advantages and disadvantages of each possible treatment and importance for adherence to all the recommended therapies for optimum success and avoid potential complications such as open sore/infection/possible hospitalization. We discussed the potential effectiveness of each topical preparation as well as each ones possible side effects and/or patient medication interactions if oral therapy is selected. Patient questions re: the advantages and disadvantages of each treatment choice, medication use/dosage, successful outcomes, and application consistency were reviewed and the patient verbalized that all answers were clearly understood. The patient was told they can help alleviate symptoms by utilizing moisture absorbant innersoles with activated charcoal and baking soda, applying antifungal sprays daily, aerating toe web spaces at night by putting cotton or lambs wool between the toes, alternating shoe gear daily if possible so they can dry out, changing socks at least once during the day, wearing well-ventilated shoes or sandals. The patient has decided to apply antifungal skin creams to their feet as directed. Rx was sent to their pharmacy at the time of visit.? * Follow Up:?prn * Images: * Sign off status: Completed true * Provider:?Rosalba Hernández DPM Date:?2023 Generated for Noyi ryann/Quentin/eTransmitting on:?08/23/2024 09:25 AM EST History and Physical Notes * HPI (History of Present Illness) Category Sub-Category Detail Notes Category Not es Toe pain Location: B/L feet Duration: several years Course: worse Aggravated by: shoes, any pressure Treatments: change in shoes Skin problems Nature: scaling , redness Location: B/L Duration: several days Course: worse At Risk footcare Pt States Last PCP [...] Skin exam reveal s Keratotic lesion(s) located at Heel(s), B/L, , Skin shows sign(s) of, erythema, scaling, in a moccasin fashion, no fissure(s) present, B/L Orthopedic FOOTWEAR: worn, non-suppor tive, shoe gear properties exacerbate patient's foot/toe deformity DIGITAL DEFORMITIES: Digital contracture , PIPJ, 2-5 B/L, incompl-reducible to push-up test, no over, nor underlapping, there is evidence of shoe producing skin irritation MUSCLE STRENGTH: 5/5 all groups in a symmetrical fashion, B/L General Examination GENERAL APPEARANCE: Reveals a pleasant, alert, well nourished, well-developed, well hydrated individual, who demonstrates proper attention to hygiene/body habitus, and is in no acute distress, Pt serves as own historian for office visit today FOOT EXAM: Lower Extremity Neurological Exa m performed:: Yes ORIENTED: person, place, and t maureen Footwear Evaluation Footwear Evaluation performe d:: Yes Ophthalmology Referral DIABETES EYE EXAM Diabetic Retinopa thy Screening:: Yes Findings of Diabetic Eye Exam:: retinopa thy Vascular DP PULSES (B): 2/4, B/L PT [...]
--- OUTSIDE RECORDS SUMMARY | 2024-08-23 09:26 | XMS_ITS ---
Author Organization [facility] Address [address] [place] [address] Care Team Providers Care Blockmason Name Role Phone Johanna Valdez MD Primary Care Provider Unavailab Rosalba Alexis Unavailable [phone] REASON FOR VISIT SECURITY MESSENGER PPWK Entered Encounters Encounter Location Date Provider Diagnosis [address] [address] 04/06/2024 Rosalba Edgar Plan Of Treatment Next Appt Details Provider Name:Rosalba Hernández , 11/10/2024 11:30:00 AM, [address] [place] [address], [phone], Progress Notes * Dominique WHEATLEYOB:[birth year] (63 yo F)Acc No.[id number]:04/06/2024 Patient:?Abi Wheatleyndra :1960???Age:63 Y???Sex:Female [address] [place] [address] * true * Date:? Generated for Printi ng/Farandellg/eTransmitting on:?08/23/2024 09:26 AM EST
--- OUTSIDE RECORDS SUMMARY | 2024-08-23 09:26 | XMS_ITS | Patient Health Record ---
Author Organization [facility] Address [address] [facility] [place] [address] Care Team Providers Care Historic Sites Registrar Name Role Phone José Miguel SUE, Johanna Primary Care Provider Rosalba Oliver Unavailable [phone] Allergies Allergen (clinical drug ingredient) Drug/Non Drug Allergy documented on EMR Reaction Allergy Type Onset Date Status ibuprofen Advil Unknown Drug Allergy Active aspirin Aspirin Unknown Drug Allergy Active sulfamethoxazole / trimethoprim Bactrim Unknown Drug Allergy Active Results Component Value Reference Range Notes HEMOGLOBIN A1C (GLYCOHEMOGLO BIN) Reviewed date:05/23/2024 08:36:37 AM Interpretation: Performing Lab: Notes/Report: TOTAL HEMOGLOBIN (HGBA1C) 9.1 HEMOGLOBIN A1C (GLYCOHEMOGLO BIN) Reviewed date:08/08/2024 09:17:32 AM Interpretation: Performing Lab: Notes/Report: TOTAL HEMOGLOBIN (HGBA1C) 7.8 Reason For Referral No Information Medications Medication SIG (Take, Route, Frequency, Duration) Notes Start Date End Date Status Ferrous Gluconate Ac tive Morphine Active LORazepam Active Zetia Active Crestor Active Levothyroxine Sodium Active Eliquis Active Tresiba Active Lidoderm Active NovoLOG Active Ciclopirox Olamine 0.77 % 1 application Externally Twice a day to feet including between the toes for 30 days Active Multivitamin Active Plavix Not-Taking Social History Tobacco Use: Social History Observation [...] ast year? No Points 0 Interpretation Negative Problems Problem Type SNOMED Code ICD Code Onset Dates Problem Status W/U Status Risk Notes Problem Acquired hammer toe of right foot (5644330150715597 ) Other hammer toe(s) (acquired), right foot (M20.41) Active confirmed Problem Acquired hammer toe of left foot (3930135434108379 ) Other hammer toe(s) (acquired), left foot (M20.42) Active confirmed Problem Polyneuropathy due to diabetes mellitus type I (087450139) Type 1 diabetes mellitus with diabetic polyneuropathy (E10.42) Active confirmed Vital Signs Blood pressure diastolic 40 mm Hg 05/23/2024 Height 5ft 4in in 08/08/2024 Blood pressure systolic 120 mm Hg 05/23/2024 Weight 264 lbs 08/08/2024 BMI 45.31 kg/m2 08/08/2024 Procedures Procedure Date Ordered Date Performed Result Body Sit e 02309-PWEGFGO NAIL, 6 OR MORE 05/23/2024 N/A 54165-YYGB SKIN LESIONS, 2 TO 4 05/23/2024 N/A 94529-IVJHQHL NAIL, 6 OR MORE 08/08/2024 N/A 80605-ZQWE SKIN LESIONS, 2 TO 4 08/08/2024 N/A Encounters Encounter Location Date Provider Diagnosis [address] [address] 05/23/2024 Rosalba Black Type 1 diabetes mellitus with diabetic polyneuropathy E10.42 ; Tinea unguium B35.1 ; Tinea pedis of both feet B35.3 ; Other hammer toe(s) (acquired), right foot M20.41 and Other hammer toe(s) (acquired), left foot M20.[address] [address] 08/08/2024 Rosalba Black Type 1 diabetes mellitus with diabetic polyneuropathy E10.42 ; Tinea unguium B35.1 and Tinea pedis of both feet B35.3 [address] [place] [address] 03/10/2024 Rosalba Hernández [facility] [address] [address] 04/06/2024 Rosalba Hernández Assessments Encounter Date Diagnosis (ICD Code) Assessment Notes Treatment Notes Treatment Clinical Notes Section Notes 05/23/2024 Type 1 diabetes mellitus with diabetic polyneuropathy (ICD-10 - E10.42) 08/08/2024 Type 1 diabetes mellitus with diabetic polyneuropathy (ICD-10 - E10.42) 08/08/2024 Tinea unguium (ICD-10 - B35.1) 08/08/2024 Tinea pedis of both feet (ICD-10 - B35.3) 05/23/2024 Tinea unguium (ICD-10 - B35.1) 05/23/2024 Tinea pedis of both feet (ICD-10 - B35.3) 05/23/2024 Other hammer toe(s) (acquired), right foot (ICD-10 - M20.41) Patient Educated with: DIABETIC FOOT CARE INSTRUCTIONS. pdf (DIABETIC FOOT CARE INSTRUCTIONS. pdf) 05/23/2024 Other hammer toe(s) (acquired), left foot (ICD-10 - M20.42) 08/08/2024 Other Plan Of Treatment Pending Test Test Name Order Date [id number]-SVJVRUW NAIL, 6 OR MORE 05/23/2024 12135-FRBVJYM NAIL, 6 OR MORE 08/08/2024 30508-AEOY SKIN LESIONS, 2 TO 4 05/23/20 82266-LVXJ SKIN LESIONS, 2 TO 4 08/08/20 Next Appt Details Provider Name:Rosalba Hernández , 11/10/2024 11:30:00 AM, [address] [place] [address], [phone], Insurance Providers Payer Name Payer Address Payer Phone Subscriber Number Group Number Insured Name Patient Relationship to Insured Coverage Start Date Coverage End Date [facility] Adv [address] [place] [id number] Helen Wheatley Self - patient is the insured Medical (General) History Medical History History ICD Code Anemia Arthritis Back,Hip,and Knee pain Broken bones Depression Diabetic Fibromyalgia Heart disease Liver disease Numbness Reflux ( GERD) Sciatica sinusitis Stomach ulcer Stroke thyroid Mumps Vascular grafts Surgical History Surgery Date(Month/Year) gastrectomy carotid endarterectomy Stent 07/2024 cardio hysterectomy surgery 07/2024 Hospitalization History Reason Date(Month/Year) [facility]- blood transfusions, iron trans fusions 05/10/24
--- OUTSIDE RECORDS SUMMARY | 2024-08-23 09:27 | XMS_ITS ---
Author Organization [facility] Address [address] [place] [address] Care Team Providers Care Horticulture Superintendent Name Role Phone Johanna Valdez Primary Care Provider Alli White [phone] Encounters Encounter Location Date Provider Diagnosis [facility] [address] [place] [address] 06/23/2023 Alli Vee PLAN OF TREATMENT No Information
--- OUTSIDE RECORDS SUMMARY | 2024-08-23 09:27 | XMS_ITS ---
Author Organization [facility] Address [address] [place] [address] Care Team Providers Care Banner Painter Name Role Phone Johanna Valdez Primary Care Provider Alli White [phone] REASON FOR VISIT colon cancelled Encounters Encounter Location Date Provider Diagnosis [facility] [address] [place] [address] 05/19/2023 Alli Vee PLAN OF TREATMENT No Information
--- OUTSIDE RECORDS SUMMARY | 2024-08-23 09:27 | XMS_ITS | Patient Health Record ---
Author Organization [facility] Address [address] [place] [id number] Care Team Providers Care Customer Service Supervisor Name Role Phone Johanna Valdez Primary Care Provider Alli White [phone] ALLERGIES Allergen (clinical drug ingredient) Drug/Non Drug Allergy documented on EMR Reaction Allergy Type Onset Date Status Substance with sulfonamide structure and antibacterial mechanism of action (substance) Sulfa Antibiotics Unknown Drug Allergy Active gabapentin Neurontin Unknown Drug Allergy Active Glucophage Unknown Drug Allergy Active glyburide gliberide (uncoded) Unknown Allergy Active oral diabetic meds (uncoded) Unknown Allergy Active REASON FOR REFERRAL No Information MEDICATIONS Medication SIG (Take, Route, Frequency, Duration) Notes Start Date End Date Status Dulcolax (colon prep) 5 MG take at 3:00 p.m and 7:00p.m. Orally two tablets twice a day for one day for 1 day 03/29/2023 Active MiraLax (colon prep) 17 GM/SCOOP 1 238Gm bottle mixed with Gatorade or Crystal Light Orally begin at 5:00 p.m. the day before the procedure for 1 day 03/29/2023 Active Levothyroxine Sodium 150 MCG 1 tablet in the morning on an empty stomach Orally Once a day for 30 day(s) Active Eliquis 5 MG 1 tablet Orally Twic e a day for 30 day(s) Active NovoLOG FlexPen 100 UNIT/ML USE 3 TIMES A DAY WITH MEALS based ON THE correction scale attached Diagnosis Unavailable Subcutaneous for 71 Active Lidocaine 5 % External for 90 Active CoQ10 100 MG TAKE 1 CAPSULE BY [facility] DAILY Oral for 30 Active Ezetimibe 10 MG TAKE 1 TABLET BY ONCE DAILY Oral for 90 Active Phentermine HCl 15 MG Take 1 capsule (15 mg) by mouth before breakfast. Oral for 30 Active Tresiba 100 UNIT/ML as directed Subcutaneous Active Sucralfate 1 GM/10ML Oral for 30 Active Rosuvastatin Calcium 40 MG Oral for 30 Active Zinc 30 MG 1 tablet Orally Once a day for 30 day(s) Active Multaq 400 MG 1 tablet with meals Orally Twice a day for 30 day(s) Active IMMUNIZATIONS Vaccine Route Administration Date Status Comme nts Influenza Unknown 07/22/2022 Administered SOCIAL HISTORY Tobacco Use: Social History Observation Description Date Details (start date - stop date) Never Smoker NA - NA Sex Assigned At : Social History Observation Description Sex Assigned At Unknown Tobacco Use/Smoking Question Answer Notes Patient is a nonsmoker Alcohol Screen Question Answer Notes Did you have a drink containing alcohol in the p ast year? No Points 0 Interpretation Negative PROBLEMS Problem Type ICD Code Onset Dates Problem Status W/U Status Risk SNOMED Code Notes Problem History of colon polyps (Z86.010) Active confirmed 959109838 Problem Anticoagulant long-term use (Z79.01) Active confirmed 264858166 Problem Colon cancer screening (Z12.11) Active confirmed 427743672 Problem Gastroesophageal reflux disease, unspecified whether esophagitis present (K21.9) Active confirmed [id number] PLAN OF TREATMENT Future Test Test Name Order Date UPPER GI ENDOSCOPY 02/19/2023 COLONOSCOPY 02/19/2023 Insurance Providers Payer Name Payer Address Payer Phone Subscriber Number Group Number Insured Name Patient Relationship to Insured Coverage Start Date Coverage End Date [facility] [address] Attn Claims DANITA Belle [id number] ABEL BERRY Self - patient is the insured MEDICAID OF [employer] [facility] [address] [place] [address] [phone] [id number] ABEL BERRY Self - patient is the insured MEDICAL (GENERAL) HISTORY Medical History History ICD Code CVA > 5 years ago IDDM NAFLD Hyperlipidemia Afib Hyperthyroidism, s/p treatment Previous colonoscopies with removal of polyps with Dr. Meier at [facility], most recently in 2016 GERD History of PUD Anemia from uterine fibroid bleeding Denies DC,Lung disease,renal disease Surgical History Surgery Date(Month/Year) Appy 1972 Left carotid 2009 Sleeve Gastrectomy 2018
--- OUTSIDE RECORDS SUMMARY | 2024-08-23 09:27 | XMS_ITS ---
Author Organization [facility] Address [address] [place] [phone] Care Team Providers Care Director Process Improvement Name Role Phone ValdezJohanna baez Primary Care Provider Alli White [phone] REASON FOR VISIT screening,hx polyps,gerd Encounters Encounter Location Date Provider Diagnosis [facility] [address] [place] [id number] 05/20/2023 Alli Vee PLAN OF TREATMENT No Information
[2024-08-23 09:28] VITALS: BMI 44.1
--- NOTE | 2024-08-23 09:28 | A.OFFVIS_ITS ---
Vital Signs 08/23/24 09:28 Height 5 ft 4 in Weight 257 lb BMI 44.1 Intake Visit Reasons: Follow up Intake Note: Patient presents for follow up Allergies codeine Allergy (Severe, Verified 08/23/24 09:29) nausea gabapentin Allergy (Severe, Verified 08/23/24 09:29) nausea and vomiting glyburide Allergy (Severe, Verified 08/23/24 09:29) headache ibuprofen Allergy (Severe, Verified 08/23/24 09:29) headache metformin Allergy (Severe, Verified 08/23/24 09:29) Anaphylaxis tramadol Allergy (Severe, Verified 08/23/24 09:29) nausea and vomiting metoprolol [From Toprol XL] Adverse Reaction (Severe, Verified 08/23/24 09:29) Drop in blood pressure lactose Adverse Reaction (Intermediate, Uncoded 08/23/24 09:29) Diarrhea Medication List - Last Reconciled 08/23/24 by Tarsha Alonso PA-C apixaban (Eliquis) 5 mg PO BID ciclopirox 0.77% appl topical coenzyme Q10 100 mg PO DAILY dronedarone (Multaq) 400 mg PO Q12H ezetimibe (Zetia) 10 mg PO DAILY 90 days ferrous gluconate 324 mg PO DAILY food supplemt, lactose-reduced (Ensure MAX Protein oral liquid) 1 ea PO BID 3 months insulin degludec (Tresiba U-100 Insulin) 80 units subcut BEDTIME insulin regular human 1 sliding scale dose subcut USEASDIRECTD levothyroxine 150 mcg PO DAILY lidocaine 5% 0 patches topical loratadine 10 mg PO DAILY lorazepam 0.5 mg PO TID PRN morphine mg PO hzucmvuxdvhg-vxj-amtp-FA-vit K 45 mg iron- 800 mcg-120 mcg (Bariatric Multivitamins) caps PO Oxygen Home Use As directed, 2 L at betime via nasal cannual rosuvastatin 40 mg PO DAILY sucralfate 10 mL PO Q6H HPI Comments Details: 63 y/o female patient presents for follow up of hypoxemia. The PSG result did not meet the criteria for sleep apnea. 2022 The AHI was 1/hr, REM AHI was 6/hr, and oxygen quan was 87%. The oxygen saturation was below 88% for more than 5 min and patient was started on supplement oxygen at 2LPM. [employer] is her home care company. She started using supplement oxygen for sleep. She sleeps well, and daytime fatigue continues as the dogs continue sleep with her in bed. She goes to bed at midnight, takes melatonin 150mg. to help her sleep, gets up for the bathroom once and wakes up at 8am. She has Aortic Stenosis with LAD stent Jul 2023, was severely anemic, received infusions, cardiac rehab completed in November 2023, on Eliquis. She recently had GI Bleed and hysterectomy for fibroids May 2024, and anemic po st surgery. She is followed by [facility] in [place] for gastrectomy. She is followed by Dr Bud Euceda [place] [facility] [place] three months and Dr. Calles heme/onc PRN. Now on O2NC- 2Liters at bedtime for desaturation. Will follow up with Pulmonology for evaluation with PFT and assessment of O2 desaturation as patient would like to discontinue night time oxygen use, if possible. [facility] Medical History Anemia PUD (peptic ulcer disease) Abnormal findings on cardiac catheterization Paroxysmal atrial fibrillation A-fib Liver fibrosis Steatosis, liver Hepatomegaly Aortic stenosis Diastolic dysfunction COVID-19 vaccine series completed Hx of difficult intubation Peripheral neuropathy Iron deficiency anemia Elevated cholesterol On beta maranda at home Liver disease Seasonal allergies CAD (coronary artery disease) Carotid artery disease GERD (gastroesophageal reflux disease) Hypertension Back pain Hypothyroidism Stroke Insulin dependent diabetes mellitus Sleep apnea Morbid obesity Surgical History History of endoscopy S/P cardiac cath S/P cardiac cath Stented coronary artery S/P laparoscopic sleeve gastrectomy History of eye surgery History of appendectomy Hx of endarterectomy History of tonsillectomy and adenoidectomy Family History Mother No problems noted. Father No problems noted. Social History Are you a primary acute care clinical nurse specialist to a significant other at home: No Do you presently have visiting nurse or other home services: Yes (Home Health Aid) Alcohol intake: former Patient Tobacco Use Status: Never used Tobacco service: No Current occupational status: disabled Review of Systems Const All systems reviewed & are unremarkable except as noted in HPI and below Physical Exam Vital Signs: BMI result Body Mass Index 44.1 Const General: cooperative, comfortable, no acute distress and other (BMI is 44.) Orientation/consciousness: patient oriented x3 HEENT Face and sinus: Yes face symmetric Eyes Pupils: Equal, round and reactive pupils present Neck Neck: Yes full ROM Resp Effort & Inspection: normal respiratory effort and able to speak in complete sentences Neuro General: patient oriented x3 Cranial nerves: Yes CN's II-XII intact bilaterally, Yes Equal, round and reactive pupils present, Yes Normal accommodation reflex present, Yes Bilate rally intact EOM present, Yes Nystagmus not present, Yes Normal facial strength present, Yes Midline tongue present, Yes Ability to bilaterally rotate head present and Yes Ability to bilaterally elevate shoulders present Motor exam (neuro): 5/5 motor strength present throughout and Normal motor muscle tone present throughout Deep tendon reflexes (DTR's): Right triceps reflex intensity grade: 2+, Left triceps reflex intensity grade: 2+, Rt Biceps (C5, C6): 2+, Left biceps reflex intensity grade: 2+, Right brachioradialis reflex intensity grade: 2+, Left brachioradialis reflex intensity grade: 2+, Right patellar reflex intensity grade: 2+ and Left patellar reflex intensity grade: 2+ Coordination: [id number] test normal Psych Appearance: well kempt Affect: normal affect Attitude: cooperative Thought process: Normal thought process present Thought content: Normal thought content present Insight: Good insight present (Psych) Judgement: Good judgement present (Psych) Results Reviewed Results Reviewed: Sleep Study November 2022 Polysomnograph Assessment & Plan Assessment & Plan (1) Hypoxemia associated with sleep: Code(s): G47.36 - Sleep related hypoventilation in conditions classified elsewhere Category: Medical (2) Shortness of breath: Code(s): R06.02 - Shortness of breath Category: Medical (3) Morbid obesity: Code(s): E66.01 - Morbid (severe) obesity due to excess calories Category: Medical Plan Hypoxemia Will continue her on 2 liters of O2 Nasal Canula for desaturation at night. Will Refer to Pulmonology for evaluation of (PFT) and need for oxygen at night. Will complete Labs as patient is post op- Hysterectomy, GI bleed, dt/ PUD and Infusions with history of anemia. Will follow up in 4 months to asses need for Polysomnograph. Patient is being followed by [facility] post Gastrectomy. Call or send message on portal as needed. Orders: Orders Comprehensive Met. Panel Today G47.36 - Sleep related hypoventilation in conditions classified elsewhere, R06.02 - Shortness of breath Ferritin Today G47.36 - Sleep related hypoventilation in conditions classified elsewhere, R06.02 - Shortness of breath Vitamin B12 and Folate Today G47.36 - Sleep related hypoventilation in conditions classified elsewhere, R06.02 - Shortness of breath IRON PROFILE Today G47.36 - Sleep related hypoventilation in conditions classified elsewhere, R06.02 - Shortness of breath Complete Blood Count no Diff Today D64.9 - Anemia, unspecified, G47.36 - Sleep related hypoventilation in conditions classified elsewhere, R06.02 - Shortness of breath Hemoglobin A1c Today G47.36 - Sleep related hypoventilation in conditions classified elsewhere, R06.02 - Shortness of breath Homocysteine Today G47.36 - Sleep related hypoventilation in conditions classified elsewhere, R06.02 - Shortness of breath Methylmalonic Acid Today G47.36 - Sleep related hypoventilation in conditions classified elsewhere, R06.02 - Shortness of breath Referrals Pulmonology Referral G47.36 - Sleep related hypoventilation in conditions classified elsewhere Coding Level of Care Code Est Pt Level 4 (89872) Diagnoses Hypoxemia associated with sleep G47.36 Shortness of breath R06.02 Morbid obesity E66.01 Time Spent (min) 40 Comment baseline
== END 2024-08-23 10:34 | disposition home or self-care (01) ==
PROVIDERS: PCP Internal Medicine; Visit Provider Nurse Practitioner Family
DX: E66.01 Morbid (severe) obesity due to excess calories (principal); Z68.41 Body mass index [BMI] 40.0-44.9, adult; G47.36 Sleep related hypoventilation in conditions classified elsewhere; R06.02 Shortness of breath
CPT/HCPCS: 99214

== ENCOUNTER → 2024-08-23 09:22 | Outpatient (BNVA) | payer OTHER, SELFPAY | PROVIDERS: PCP Internal Medicine; Visit Provider Nurse Practitioner Family | DX: R06.02 Shortness of breath (principal); G47.36 Sleep related hypoventilation in conditions classified elsewhere; E66.01 Morbid (severe) obesity due to excess calories; Z68.41 Body mass index [BMI] 40.0-44.9, adult | CPT/HCPCS: 99212 ==

== ENCOUNTER 2024-09-22 13:55 | Outpatient (AMB) | payer OTHER, SELFPAY ==
[2024-09-22 14:12] VITALS: BP 110/60; PULSE 76; O2SAT 99; BMI 46.0
--- NOTE | 2024-09-22 14:12 | MHC.OFFVIS ---
Vital Signs 09/22/24 14:12 Height 5 ft 4 in Weight 267 lb 13.786 oz BMI 46.0 BP 110/60 Blood Pressure Location Lt brachial Position Sitting Pulse 76 Pulse Source Pulse Oximeter Pulse Oximetry (%) 99 Oxygen Delivery Method Room Air Intake Visit Reasons: sleep apnea Intake Note: pt is here as a new patient here for NEAL, she cannot tolerate cpap. She would like oxygen concentrator taken out of the house, last used about 2 months ago. had anemia, which caused a lot issues. Radio Interference Expert Required: No Allergies codeine Allergy (Severe, Verified 09/22/24 16:01) nausea gabapentin Allergy (Severe, Verified 09/22/24 16:01) nausea and vomiting glyburide Allergy (Severe, Verified 09/22/24 16:01) headache ibuprofen Allergy (Severe, Verified 09/22/24 16:01) headache metformin Allergy (Severe, Verified 09/22/24 16:01) Anaphylaxis tramadol Allergy (Severe, Verified 09/22/24 16:01) nausea and vomiting metoprolol [From Toprol XL] Adverse Reaction (Severe, Verified 09/22/24 16:01) Drop in blood pressure lactose Adverse Reaction (Intermediate, Uncoded 09/22/24 16:01) Diarrhea Medication List - Last Reconciled 09/22/24 by Joss Ambrose MD apixaban (Eliquis) 5 mg PO BID ciclopirox 0.77% appl topical coenzyme Q10 100 mg PO DAILY dronedarone (Multaq) 400 mg PO Q12H ezetimibe (Zetia) 10 mg PO DAILY 90 days ferrous gluconate 324 mg PO DAILY food supplemt, lactose-reduced (Ensure MAX Protein oral liquid) 1 ea PO BID 3 months insulin degludec (Tresiba U-100 Insulin) 80 units subcut BEDTIME insulin regular human 1 sliding scale dose subcut USEASDIRECTD levothyroxine 150 mcg PO DAILY lidocaine 5% 0 patches topical loratadine 10 mg PO DAILY lorazepam 0.5 mg PO TID PRN morphine mg PO ljzucwjhnahy-ghc-wsie-FA-vit K 45 mg iron- 800 mcg-120 mcg (Bariatric Multivitamins) caps PO Oxygen Home Use As directed, 2 L at betime via nasal cannual rosuvastatin 40 mg PO DAILY sucralfate 10 mL PO Q6H Do you need a note to return to daycare/school/sports/work: No HPI HPI sleep apnea: Details: THIS 64 YEARS OLD FEMALE IS HERE TO SEE ME FOR THE 1ST TIME, IN RELATION TO HER HISTORY OF OBSTRUCTIVE SLEEP APNEA AND NOCTURNAL HYPOXEMIA. THIS PATIENT HAS BEEN GROSSLY OBESE FOR THE PAST MANY YEARS, ABOUT 3 YEARS AGO SHE HAD BARIATRIC SURGERY, WHICH DID NOT SUCCEED IN REDUCING HER WEIGHT. SHE HAS BEEN IN WEIGHT MANAGEMENT. PROGRAMS WITHOUT MUCH SUCCESS PATIENT HAS HAD SLEEP STUDY A FEW YEARS GO AT [facility], SHOWING OBSTRUCTIVE SLEEP APNEA, BUT SHE DID NOT TOLERATE THE CPAP. SUBSEQUENTLY SHE HAD LAB BASED SLEEP STUDY AT [facility] IN OCTOBER 2022 WHICH SHOWED ONLY BORDERLINE NEAL BUT NOCTURNAL HYPOXEMIA WITH O2 SAT BELOW 88% ONLY FOR 5 MINUTES. SHE WAS STARTED ON O2 2 L/MINUTE AT NIGHT, WHICH SHE HAS BEEN USING UP UNTIL ABOUT 2 MONTHS AGO. THIS PATIENT HAS MULTIPLE COMORBIDITIES INCLUDING HISTORY OF EMBOLIC STROKE IN SETTING OF PAROXYSMAL ATRIAL FIBRILLATION, LEFT CAROTID ENDARTERECTOMY IN 2014, CORONARY ARTERY DISEASE STATUS POST PCI AND ANGIOPLASTY, SHE HAS BEEN ON ELIQUIS AND PLAVIX. SHE HAS BEEN CHRONICALLY ANEMIC DUE TO RN DEFICIENCY. SHE HAD EXTENSIVE GI WORKUP AT [facility] AND [facility], UPPER ENDOSCOPY WELL LOWER ENDOSCOPY WERE NEGATIVE. SHE HAD CAPSULE ENDOSCOPY AND SHE TELLS ME SHE WAS FOUND TO HAVE SOME AVMS THE SOURCE OF HER BLEEDING. LAST MARCH, IN 2023 PATIENT HAD TREATMENT IN THE HOSPITAL WITH A FEW BLOOD TRANSFUSIONS AND THEN FOLLOWED BY IRON SUPPLEMENTS . ORALLY HER HEMOGLOBIN HAD DIPPED DOWN TO 6.7 G, AND AFTER TREATMENT SINCE THEN THE CURRENT HEMOGLOBIN IS AT 10 G. SHE FEELS BETTER. AND STRONGER SHE STOPPED USING OXYGEN ABOUT 2 MONTHS AGO. SHE WANTS TO DISCONTINUE THE OXYGEN AND REMOVED FROM THE HOUSE. HE CLAIMS THAT SHE SLEEPS OKAY FOR AT LEAST 6-7 HOURS PER NIGHT. DURING THE DAYTIME SHE REMAINS ACTIVE BUT DOES GET SHORT OF BREATH ON EXERTION. SHOULD BE NOTED THAT SHE DOES NOT HAVE HISTORY OF BRONCHIAL ASTHMA OR COPD. PATIENT IS NONSMOKER. [facility] Medical History (Updated 09/22/24 @ 16:46 by Joss Ambrose MD) Nocturnal hypoxemia Anemia PUD (peptic ulcer disease) Abnormal findings on cardiac catheterization Paroxysmal atrial fibrillation A-fib Liver fibrosis Steatosis, liver Hepatomegaly Aortic stenosis Diastolic dysfunction COVID-19 vaccine series completed Hx of difficult intubation Peripheral neuropathy Iron deficiency anemia Elevated cholesterol On beta maranda at home Liver disease Seasonal allergies CAD (coronary artery disease) Carotid artery disease GERD (gastroesophageal reflux disease) Hypertension Back pain Hypothyroidism Stroke Insulin dependent diabetes mellitus Sleep apnea Morbid obesity Surgical History History of endoscopy S/P cardiac cath S/P cardiac cath Stented coronary artery S/P laparoscopic sleeve gastrectomy History of eye surgery History of appendectomy Hx of endarterectomy History of tonsillectomy and adenoidectomy Family History Mother No problems noted. Father No problems noted. Social History Are you a primary primary care nurse practitioner to a significant other at home: No Do you presently have visiting nurse or other home services: Yes (Home Health Aid) Alcohol intake: former Patient Tobacco Use Status: Never used Tobacco service: No Current occupational status: disabled Review of Systems Const All systems reviewed & are unremarkable except as noted in HPI and below Denies snoring Eyes Reports no additional complaints ENT Reports no additional complaints Card Denies chest pain, Reports irregular heart rhythm (PERIODIC ( PAF )) and Reports dyspnea on exertion (MILD ) Resp Reports dyspnea on exertion (MILD ), Denies snoring and Denies wheezing GI Reports dyspepsia (MILD ) Reports no additional complaints Musc Reports no additional complaints Skin/Breast Reports system reviewed and no additional complaints, except as documented Neuro Reports no additional complaints Psych Reports no additional complaints Endo Reports other (HYPOTHYROIDISM CONTROLLED) Naveed/Lymph Reports no additional complaints Aller/Immun Denies wheezing Physical Exam Vital Signs: Last Vital Signs Pulse 76 09/22/24 14:12 BP 110/60 09/22/24 14:12 Pulse Ox 99 09/22/24 14:12 Oxygen Delivery Method Room Air 09/22/24 14:12 BMI result Body Mass Index 46.0 Const Other: GROSSLY OBESE. General: comfortable, no acute distress, alert and awake Orientation/consciousness: patient oriented x3 HEENT Head: Yes normal to inspection General nose exam: No nasal polyps present and No nasal discharge present Face and sinus: Yes sinuses nontender Mouth: oropharynx normal Throat: Yes posterior oropharynx normal Eyes General: appearance normal, both eyes and all related structures Neck Neck: Yes normal visual inspection, Yes no lymphadenopathy, Yes trachea midline and Yes no JVD Thyroid: Thyroid normal Chest Chest palpation & inspection: normal inspection of the chest, normal palpation of entire chest wall and no tenderness Resp Effort & Inspection: normal respiratory effort Auscultation: clear to auscultation bilaterally, no crackles and no wheezes Cardio Palpation: normal PMI Rate: regular rate Rhythm: regular rhythm Heart sounds: no gallops and no murmurs GI Palpation (GI): Soft to palpation, nontender, No hepatosplenomegaly present and no masses Auscultation: normal bowel sounds Back/Spine/Pelvis Thoracic/Lumbar Spine: thoracic and lumbar spine normal to inspection and thoraco-lumbar ROM limited Skin General skin exam: no rashes or lesions noted Neuro General: patient oriented x3 and no focal motor deficits Cranial nerves: Yes CN's II-XII intact bilaterally Extrem General: Yes normal to inspection, Yes no clubbing, cyanosis or edema and Yes no calf tenderness Psych Appearance: grossly normal and well kempt Speech and movement: Normal speech and movement present Results Reviewed Results Reviewed: PREVIOUS SLEEP STUDY REPORTS ARE REVIEWED. COPY OF NOTES FROM [facility] FOR HER HOSPITALIZATION IN MARCH 2024 ARE REVIEWED Assessment & Plan Assessment & Plan (1) Morbid obesity: Comment: THIS PATIENT IS MORBIDLY OBESE WITH BMI OF 46.0. SURPRISINGLY SHE HAS HAD BARIATRIC SURGERY WITHOUT ANY IMPROVEMENT. Code(s): E66.01 - Morbid (severe) obesity due to excess calories Category: Medical Plan: ADVISE THAT SHE SHOULD GET ACTIVE WITH WEIGHT MANAGEMENT PROGRAM. AND TRY TO LOSE WEIGHT. (2) Sleep apnea: Comment: THIS PATIENT DOES HAVE PAST HISTORY OF OBSTRUCTIVE SLEEP APNEA BUT SHE WAS NOT ABLE TO TOLERATE THE CPAP. LOST IN-LAB SLEEP STUDY ON 10/21/2022 AT [facility] WAS REPORTED TO BE NEGATIVE FOR NEAL. BUT HAD MINIMAL NOCTURNAL HYPOXEMIA. Code(s): G47.30 - Sleep apnea, unspecified Category: Medical Plan: I TOLD THE PATIENT THAT LOOKING AT HER WEIGHT AND BODY FEATURES I THINK SHE DEFINITELY HAS OBSTRUCTIVE SLEEP APNEA, AND IF SHE BECOMES SYMPTOMATIC SHE MAY NEED TO HAVE A REPEAT SLEEP STUDY AGAIN. (3) Nocturnal hypoxemia: Comment: THE DEGREE OF NOCTURNAL HYPOXEMIA WAS MINIMAL. NOTED TO HAVE O2 SAT BELOW 88% FOR ONLY 5 MINUTES. THIS WAS DEFINITELY DUE TO SLEEP-RELATED HYPOVENTILATION . SHE HAS NOT USED O2 FOR THE LAST 2 MONTHS, AND WANTS TO GET RID OF HER O2 CONCENTRATOR. Code(s): G47.34 - Idiopathic sleep related nonobstructive alveolar hypoventilation Category: Medical Plan: I TOLD HER THAT BEFORE WE COULD ORDERED TO HAVE HER O2 CONCENTRATOR REMOVED FROM THE HOUSE, SHE NEEDS TO HAVE OVERNIGHT OXIMETRY RECORDING ON ROOM AIR. SHE HAS AGREED AND I WILL SEND ORDER TO HAVE OVERNIGHT OXIMETRY RECORDING. (4) Anemia: Comment: NOTED ABOVE IN THE HISTORY SHE HAS CHRONIC IRON-DEFICIENCY ANEMIA, NO SITE FOR ACTIVE GI BLEEDING WAS IDENTIFIED, IT IS POSSIBLE THAT SHE HAS AVM ABNORMALITIES, AND ALSO SHE IS ON CONTINUED ANTICOAGULATION . HER HEMOGLOBIN HAS IMPROVED WITH TREATMENT CURRENTLY ON IRON SUPPLEMENT. Code(s): D64.9 - Anemia, unspecified Category: Medical Plan: DISCUSSED WITH HER ABOUT HER ANEMIA AND STRESS THAT SHE SHOULD CONTINUE TO FOLLOW-UP WITH HEMATOLOGY ARE HER PRIMARY CARE PHYSICIAN. Plan * ORDER IS SENT TO [employer] FOR OVERNIGHT OXIMETRY RECORDING. IF SHE HAS SIGNIFICANT NOCTURNAL HYPOXEMIA THEN SHE WILL BE ADVISED TO CONTINUE USING THE OXYGEN 2 L/MINUTE. IF NO EVIDENCE OF NOCTURNAL HYPOXEMIA THEN I WILL SEND ORDER TO THE DME TO REMOVE HER O2 CONCENTRATOR FROM THE HOUSE. Coding Level of Care Code New Pt Level 4 (16498) Diagnoses Morbid obesity E66.01 Sleep apnea G47.30 Nocturnal hypoxemia G47.34 Anemia D64.9
--- OUTSIDE RECORDS SUMMARY | 2024-09-22 16:32 | XMS_ITS | Continuity of Care Document ---
Author Organization [facility] MEDICARE COMPLIANCE AUDITOR Oncolog y Address [address] [place] [id number] Care Team Providers Care Retail Branch Manager Name Role Phone José Miguel SUE, Johanna Primary Care Physician [phone] [id number] Date(s): 07/01/24 - 09/11/24 [facility] MEDICARE COMPLIANCE AUDITOR Oncology [address] [place] [id number] Attending Physician: Lani LEA, Janee Arrieta Admitting Physician: Lani LEA, Janee Arrieta Referring Physician: Johanna Valdez MD Encounter Type: [...] 1:20:00 PM EST, Route to Pharmacy Electronically, [facility] - [place], [place], Partial fill upon patient request if the [...] Date: 04/09/24 Status: Ordered Repeat number: 1 Multaq 400 mg oral [...] Date: 04/09/24 Status: Ordered Repeat number: 1 sucralfate 1 gm/10 ml oral suspension Take 10 mL (1 g) by mouth every 6 (six) hours. Start Date: 04/09/24 Status: Ordered Repeat number: 1 Tresiba FlexTouch 100 units/mL subcutaneous solution = 40 units, Inject 80 Units under the skin nightly at bedtime. Start Date: 04/09/24 Status: Ordered Repeat number: 1 Zetia 10 mg oral [...] Use: Pt denies entered on: 05/03/23 Sex Female Sex Representation Female (finding) Patient Care team information Care Team Personnel Name: Johanna Valdez MD Position: [facility] Physician - Pediatrics Member Role: PCP Address: [address] [place] [address] Telecom: Name: Kimber Jackman RN Position: [facility] RN Member Role: Primary Care Nurse Name: Jessica Neville RN Position: [facility] RN Member Role: Primary Care Nurse Name: Chad Armando LPN Position: [facility] RN Member Role: Primary Care Nurse Name: Leonela Woods RN Position: [facility] RN Member Role: Primary Care Nurse Name: Alli Donahue RN Position: [facility] RN Supv Member Role: Primary Care Nurse Name: Latisha Smith MA Position: [facility] THANH Office Staff Member Role: Lifetime Consulting Physician Name: Michi Lewis RN Position: [facility] RN Member Role: Primary Care Nurse Name: Hawa Hammer RN Position: [facility] RN Member Role: Primary Care Nurse Name: Darius Rogers RN Position: [facility] RN Member Role: Primary Care Nurse Care Team Related Persons Name: ANA ROSA [place] Name: JANESSA BERRY Insurance Providers Guarantor name: ABEL BERRY Health Plan Information #: 1 Payer: [facility] Member Number: [id number] Policy Number: NA Group Number: [id number] Health Plan Information #: 2 Payer: [facility] Member Number: [id number] Policy Number: NA Group Number: NA
== END 2024-09-22 16:00 | disposition home or self-care (01) ==
PROVIDERS: PCP Internal Medicine; Visit Provider Internal Medicine
DX: E66.01 Morbid (severe) obesity due to excess calories (principal); G47.30 Sleep apnea, unspecified; G47.34 Idiopathic sleep related nonobstructive alveolar hypoventilation; D64.9 Anemia, unspecified
CPT/HCPCS: 99204

== ENCOUNTER → 2024-09-22 13:55 | Outpatient (BNVA) | payer OTHER, SELFPAY | PROVIDERS: PCP Internal Medicine; Visit Provider Internal Medicine | DX: G47.30 Sleep apnea, unspecified (principal); G47.34 Idiopathic sleep related nonobstructive alveolar hypoventilation; D64.9 Anemia, unspecified; E66.01 Morbid (severe) obesity due to excess calories; Z68.42 Body mass index [BMI] 45.0-49.9, adult | CPT/HCPCS: 99202 ==

== ENCOUNTER 2024-12-20 10:56 | Outpatient (AMB) | payer OTHER, SELFPAY ==
--- NOTE | 2024-12-20 11:03 | MHC.OFFVIS ---
Vital Signs 12/20/24 11:06 Height 5 ft 4 in Weight 264 lb 6 oz BMI 45.4 BP 116/72 Blood Pressure Location Rt brachial Position Sitting Pulse 72 Pulse Source Pulse Oximeter Pulse Oximetry (%) 93 Oxygen Delivery Method Room Air Intake Visit Reasons: 1 yr f/u appt Intake Note: Patient presents follow up for hypoxemia. Pulmonary note in chart. Patient states still not able to sleep. wakes up coughing and multiple sinus infections. Allergies codeine Allergy (Severe, Verified 12/20/24 11:08) nausea gabapentin Allergy (Severe, Verified 12/20/24 11:08) nausea and vomiting glyburide Allergy (Severe, Verified 12/20/24 11:08) headache ibuprofen Allergy (Severe, Verified 12/20/24 11:08) headache metformin Allergy (Severe, Verified 12/20/24 11:08) Anaphylaxis tramadol Allergy (Severe, Verified 12/20/24 11:08) nausea and vomiting metoprolol [From Toprol XL] Adverse Reaction (Severe, Verified 12/20/24 11:08) Drop in blood pressure lactose Adverse Reaction (Intermediate, Uncoded 09/22/24 16:01) Diarrhea HPI Comments Details: 64 y/o female patient presents for follow up of hypoxemia. Past medical history significant for: Proximal AFib, CAD, HTN, HLD, Aortic Stenosis with LAD stent Jul 2023, chronic anticoagulation with Eliquis- f/b Dr Hong, [facility] cradiology. Iron deficiency anemia, s/p hysterectomy [facility], BSO w/ benign pathology on 06/[address] Mensah at [facility]- f/b Dr Rodarte (heme/onc at [place]) Angiodysplasia, s/p gastrectomy- f/b [facility] bariatric clinic. Diabetes- Since last visit, patient underwent iron infusion per [facility] hematology- states she feels her anemia has improved, feels less exhausted during the day. She also underwent 09/30/2024 overnight pulse oximetry on room air, which showed Spo2 < 88% for 22 minutes, several events of O2 desaturation, which pulmonology felt was secondary to untreated NEAL, and advise patient to continue supplemental O2 via nasal cannula at 2 L/min while sleeping at night. Unfortunately, patient states she is unable to use her O2 concentrator, as it creates a lot of noise and vibrations in her room. Offered her to try using ear plugs, however patient states her skin sensitivity precludes her from using any type of ear plug. She states she has O2 M-tank at home as well, however she can not use this, as they do not fit in her room. She believes these are empty. She also believes that maintaining these is difficult. And she verbalizes being generally nervous about having home O2. She also states that she needs her nasal cannula changed showed every 2 weeks to avoid dry nose and sinus infections. She would like to use a smaller on demand O2 tank, which she believes would be quieter in better tolerated. [employer] is her home care company. Patient had a follow-up appointment with [facility] pulmonology later this week, however it was canceled, as she was scheduled for this appointment today. Patient reports that in the past she was able to sleep through the night without difficulty. However now she is prone to wake up every couple of hours. Sometimes she will sleep later into the morning. She is using melatonin and sleep gummies, which can be helpful- but still wakes up at night. Interval lab workup at [facility]: Lab Results Component Value Date ? WBC 11.8 (H) 11/07/2024 ? HGB 11.0 (L) 11/07/2024 ? HCT 36.6 11/07/2024 ? MCV 76.6 (L) 11/07/2024 ? PLT 534 (H) 11/07/2024 ? Lab Results Component Value Date ? NA 138 11/07/2024 ? K 4.7 11/07/2024 ? CL 103 11/07/2024 ? CO2 28 11/07/2024 ? GLUCOSE 131 (H) 11/07/2024 ? BUN 25 11/07/2024 ? CREATININE 1.18 (H) 11/07/2024 ? CALCIUM 9.6 11/07/2024 ? PROT 7.7 11/07/2024 ? ALBUMIN 3.5 11/07/2024 ? BILITOT 0.4 11/07/2024 ? AST 24 11/07/2024 ? ALT 37 11/07/2024 ? ALKPHOS 104 11/07/2024 ? EGFR 52 (L) 11/07/20242022 in-lab PSG result did not meet the criteria for sleep apnea. The AHI was 1/hr, REM AHI was 6/hr, and oxygen quan was 87%. The oxygen saturation was below 88% for more than 5 min and patient was started on supplement oxygen at 2LPM. [facility] Medical History Nocturnal hypoxemia Anemia PUD (peptic ulcer disease) Abnormal findings on cardiac catheterization Paroxysmal atrial fibrillation A-fib Liver fibrosis Steatosis, liver Hepatomegaly Aortic stenosis Diastolic dysfunction COVID-19 vaccine series completed Hx of difficult intubation Peripheral neuropathy Iron deficiency anemia Elevated cholesterol On beta maranda at home Liver disease Seasonal allergies CAD (coronary artery disease) Carotid artery disease GERD (gastroesophageal reflux disease) Hypertension Back pain Hypothyroidism Stroke Insulin dependent diabetes mellitus Sleep apnea Morbid obesity Surgical History History of endoscopy S/P cardiac cath S/P cardiac cath Stented coronary artery S/P laparoscopic sleeve gastrectomy History of eye surgery History of appendectomy Hx of endarterectomy History of tonsillectomy and adenoidectomy Family History Mother No problems noted. Father No problems noted. Social History Are you a primary primary care sales representative to a significant other at home: No Do you presently have visiting nurse or other home services: Yes (Home Health Aid) Alcohol intake: former Patient Tobacco Use Status: Never used Tobacco service: No Current occupational status: disabled Physical Exam Vital Signs: Last Vital Signs Pulse 72 12/20/24 11:06 BP 116/72 12/20/24 11:06 Pulse Ox 93 12/20/24 11:06 Oxygen Delivery Method Room Air 12/20/24 11:06 BMI result Body Mass Index 45.4 Const General: cooperative, comfortable and no acute distress Orientation/consciousness: patient oriented x3 Resp Effort & Inspection: normal respiratory effort and able to speak in complete sentences Neuro General: patient oriented x3 Cranial nerves: Yes CN's II-XII intact bilaterally Psych Appearance: well kempt Affect: normal affect Attitude: cooperative Thought process: Normal thought process present Thought content: Normal thought content present Insight: Good insight present (Psych) Judgement: Good judgement present (Psych) Assessment & Plan Assessment & Plan (1) Hypoxemia associated with sleep: Code(s): G47.36 - Sleep related hypoventilation in conditions classified elsewhere Category: Medical (2) Shortness of breath: Code(s): R06.02 - Shortness of breath Category: Medical (3) Morbid obesity: Comment: THIS PATIENT IS MORBIDLY OBESE WITH BMI OF 46.0. SURPRISINGLY SHE HAS HAD BARIATRIC SURGERY WITHOUT ANY IMPROVEMENT. Code(s): E66.01 - Morbid (severe) obesity due to excess calories Category: Medical Plan Hypoxemia Patient has stopped her home supplemental O2. Interval labs show notable improvement in anemia status post last IV iron infusion. However, overnight pulse oximetry study showed SpO2 under 88% for 22 minutes. Thus, I did advise patient to resume O2 2lpm via Nasal Canula while sleeping at night. Will reach out to pulmonology, to determine if patient would be a candidate for an alternate type of home O2 device. Or if we should request a follow-up in-lab sleep study- noting that patient has previously not tolerated PAP therapy in the past. Reviewed strategies to optimize sleep quality, including increasing regular physical activity, and maintaining a set wake-up time. Advised that waking up 1-2 times per night is not necessarily worrisome. Though, again patient would benefit from treating her nocturnal hypoxemia. Will follow-up upon review of above and patient to follow-up in clinic in 6 months or sooner prn. Coding Level of Care Code Est Pt Level 3 (91593) Diagnoses Hypoxemia associated with sleep G47.36 Shortness of breath R06.02 Morbid obesity E66.01
[2024-12-20 11:06] VITALS: BP 116/72; PULSE 72; O2SAT 93; BMI 45.4
--- OUTSIDE RECORDS SUMMARY | 2024-12-20 13:01 | XMS_ITS | Clinical Summary ---
Author Organization [facility] Address [address] [place] [address] Phone Care Team Providers Care Roofer V[employer] Coating Name Role Phone Johanna Valdez MD Primary Care Provider [phone] Allergies Active Allergy Reactions Criticality Noted Date Comments Codeine 02/26/2021 Gabapentin 02/26/2021 Glyburide 01/11/2018 Ibuprofen 02/26/2021 Metformin 01/11/2018 Tramadol 02/26/2021 Medications apixaban (ELIQUIS) 5 mg tablet Take 1 tablet (5 mg total) by mouth every 12 (twelve) hours. Active dronedarone (MULTAQ) 400 mg tablet Take 1 tablet (400 mg total) by mouth 2 (two) times a day with meals. Active ezetimibe (ZETIA) 10 mg tablet Take 1 tablet (10 mg total) by mouth daily. Active ferrous sulfate 325 mg (65 mg elemental iron) tablet Take 1 tablet (325 mg total) by mouth every morning with breakfast. Active levothyroxine (SYNTHROID, LEVOTHROID) 175 mcg tablet TAKE 1 TABLET EVERY MORNING ON EMPTY STOMACH AND TAKE AN EXTRA 1/2 TABLET ONCE ON THURSDAY AND Thursday01/11/2018 Active lidocaine (LIDODERM) 5 % patch apply 3 patches TO intact SKIN LEAVE ON FOR 12 hours, REMOVE FOR 12 hours 12/20/2020 Active loratadine (CLARITIN) 10 mg tablet Take 1 tablet (10 mg total) by mouth daily. 01/11/2018 Active LORazepam (ATIVAN) 1 mg tablet TAKE 1/2 TO 1 tablet BY MOUTH THREE TIMES DAILY NEEDED for 28 days 01/11/2018 Active morphine 10 mg/5 mL solution Take by mouth every 2 (two) hours as needed for pain. Active rosuvastatin (CRESTOR) 20 mg tablet Take 1 tablet (20 mg total) by mouth daily. 02/22/2021 Active coenzyme [id number] 100-5 mg-unit capsule Take by mouth daily. 02/18/2021 Active multivit-min/fe rrous fumarate (MULTI VITAMIN ORAL) 1 tablet. 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 02/07/2019 Carotid stenosis 01/14/2018 Overview (05/16/2024): S/p left CEA 10/06/2016: Duplex bilateral carotid US: Bilat hemodynamically significant stenosis consistent w/ 50-79% diameter reduction involving both the paroximal L and R internal carotid arteries Depression 01/14/2018 Paroxysmal A-fib ([facility] V24, [facility] V28) 12/29 Overview (05/16/2024): Plavix Encounters Date Type Department Care Team Description 11/07/2024 10:15 AM EDT Office Visit [facility] Hematology Oncology [address] [place] [phone] Chapito Aguayo MD Microcytic anemia (Primary Dx); Iron deficiency anemia due to chronic blood loss 11/07/2024 Telephone [facility] Hematology Oncology [address] [place] [phone] Julia Jones MA 10/18/2024 1:00 PM EST Office Visit Gastroenterology - [address] [facility] [address] [phone] Harsh Valles MD Iron deficiency anemia due to chronic blood loss (Primary Dx) from Last 3 Months Immunizations Name Administration Dates Next Due Moderna SARS-CoV-2 COVID-19, mRNA, LNP-S, preservative free 03/15/2024,01/20/2022,07/12/2021,2020,11/09/2020 Social History Tobacco Use Types Packs/Day Years Used Date Smoking Tobacco: Never Smokeless Tobacco: Never Alcohol Use Standard Drinks/Week Comments Never 0 (1 standard drink = 0.6 oz pur e alcohol) 1 to 2 a year Comments Unknown Sex and Gender Information Value Date Recorded Sex Assigned at Not on file Legal Sex Female 6:48 AM EST Gender Identity Not on file Sexual Orientation Not on file Obstetrics History Last Filed Vital Signs Vital Sign Reading Time Taken Comments Blood Pressure 137/56 11/07/2024 10:35 AM EDT Pulse 76 11/07/2024 10:35 AM EDT Temperature 36.3 ??C (97.4 ??F) 11/07/2024 10:35 AM E DT Respiratory Rate - - Oxygen Saturation 97% 11/07/2024 10:35 AM EDT Inhaled Oxygen Concentration - - Weight 124 kg (274 lb) 11/07/2024 10:35 AM EDT Height 162.6 cm (5' 4 ) 11/07/2024 10:35 AM EDT Body Mass Index 47.03 11/07/2024 10:35 AM EDT Plan of Treatment Upcoming Encounters Date Type Department Care Team (Late st Contact Info) Description 11/13/2025 10:00 AM EDT Office Visit [facility] Hematology Oncology [address] [place] [phone] Chapito Aguayo MD [address] [place] [address] Health Maintenance Due Date Last Done Comments Breast Cancer Screening 1961 Diabetes: Annual Foot Exam 1971 Cervical Cancer Screening: Pap Smear 1982 Zoster Vaccines (1 of 2) 08/31/2001 07/06/2001, 1011/2000 Colorectal Cancer Screening: Colonoscopy 08/10/2022 Depression Screening 08/10/2022 HIV Screening 08/10/2022 Hepatitis C Screening 08/10/2022 Social Influencers of Health Screening 08/10/2022 Diabetes: Annual Urine Albumin-Creatinine Ratio (uACR) 10/05/2024 10/05/2023, 10/05/2023, 09/24/2022 COVID-19 Vaccine (9 - Moderna risk season) 2025 09/22/2024, 03/15/2024, 06/12/2023, Additional history exists Diabetes: Blood Sugar Control Test (HGBA1C) 03/22/2025 09/22/2024, 09/12/2024, 01/04/2024, Additional history exists Diabetes: Annual Retina Eye Exam 05/27/2025 05/27/2024 Diabetes: Annual GFR (Glomerular Filtration Rate) 11/07/2025 11/07/2024, 06/02/2024, 04/13/2023, Additional history exists Hypertension/CHF/CAD Annual BMP Blood Test 11/07/2025 11/07/2024, 06/02/2024, 04/13/2023, Additional history exists Cholesterol Screening (Lipid Panel) 09/22/2029 09/22/2024, 01/04/2024, 01/04/2024 DTaP,Tdap,and Td Vaccines (5 - Td or Tdap) 05/15/2031 05/15/2021, 12/20/2018, 06/26/2011, Additional history exists Varicella Vaccines Aged Out 07/06/2001, 06/03/2001 No longer eligible based on patient's age to complete this topic Hepatitis B Vaccines Completed 11/05/2006, 06/03/2006, 04/29/2006 RSV Immunization Adult Patients Completed 06/29/2023 Influenza Vaccine Completed 09/22/2024, , 07/22/2022, Additional history exists Pneumococcal Vaccine: 50+ Years Completed 09/22/2024, 02/23/2007 Pneumococcal Vaccine: Pediatrics (0 to 5 Years) and At-Risk Patients (6 to 64 Years) Completed 09/22/2024, 02/23/2007 HIB Vaccines Aged Out No longer eligi ble based on patient's age to complete this topic HPV Vaccines Aged Out No longer eligi ble based on patient's age to complete this topic Hepatitis A Vaccines Aged Out No long er eligible based on patient's age to complete this topic IPV Vaccines Aged Out No longer eligi ble based on patient's age to complete this topic MMR Vaccines Aged Out No longer eligi ble based on patient's age to complete this topic Meningococcal ACWY Vaccine Aged Out N o longer eligible based on patient's age to complete this topic Meningococcal B Vaccine Aged Out No l onger eligible based on patient's age to complete this topic RSV Immunization Patients Under 20 months Aged Out No longer eligible based on patient's age to complete this topic Procedures Procedure Name Priority Date/Time Associated Diagnosis Comments CBC WITH AUTO DIFFERENTIAL Routine 11/07/2024 11:00 AM EDT Microcytic anemia HEMOGLOBIN ELECTROPHORESIS Routine 11/07/2024 11:00 AM EDT Microcytic anemia IRON AND TIBC Routine 11/07/2024 11:00 AM EDT Iron deficiency anemia due to chronic blood loss FERRITIN Routine 11/07/2024 11:00 AM EDT Iron deficiency anemia due to chronic blood loss CBC AND DIFFERENTIAL Routine 11/07/2024 11:00 AM EDT Microcytic anemia COMPREHENSIVE METABOLIC PANEL Routine 11/07/2024 11:00 AM EDT Iron deficiency anemia due to chronic blood loss ..MISCELLANEOUS REFERENCE LAB TEST 11/07/2024 HEMOGLOBIN A1C Routine 01/04/2024 LIPID PANEL Routine 01/04/2024 HM URINE ALBUMIN CREATININE RATIO Routine 10/05/2023 from Last 3 Months or Most Recently Relevant to Health Maintenance Results * (ABNORMAL) CBC auto differential (11/07/2024 11:00 AM EDT) WBC 11.8(H) 4.8 - 10.8 K/mcL LAB HEMETOLOGY METHOD 11/07/2024 12:39 PM [facility] RBC 4.80 3.80 - 4.80 M/mcL LAB HEMETOLOGY METHOD 11/07/2024 12:39 PM [facility] Hemoglobin 11.0(L) 11.5 - 16.0 g/dL LAB HEMETOLOGY METHOD 11/07/2024 12:39 PM [facility] Hematocrit 36.6 35.0 - 47.0 % LAB HEMETOLOGY METHOD 11/07/2024 12:39 PM [facility] MCV 76.6(L) 79.0 - 98.0 FL LAB HEMETOLOGY METHOD 11/07/2024 12:39 PM [facility] MCH 23.0(L) 27.0 - 32.0 pcg LAB HEMETOLOGY METHOD 11/07/2024 12:39 PM [facility] MCHC 30.1(L) 32.0 - 37.0 g/dL LAB HEMETOLOGY METHOD 11/07/2024 12:39 PM [facility] RDW 17.7(H) 11.0 - 15.0 % LAB HEMETOLOGY METHOD 11/07/2024 12:39 PM [facility] Platelets 534(H) 130 - 400 K/mcL LAB HEMETOLOGY METHOD 11/07/2024 12:39 PM [facility] MPV 9.7 7.0 - 11.0 FL LAB HEMETOLOGY METHOD 11/07/2024 12:39 PM [facility] NRBC 0.0 <1.0 % LAB HEMETOLOGY METHOD 11/07/2024 12:39 PM [facility] NRBC Absolute 0.00 <0.10 K/mcL LAB HEMETOLOGY METHOD 11/07/2024 12:39 PM [facility] Neutrophils Relative 69.8 % LAB HEMETOLOGY METHOD 11/07/2024 12:39 PM [facility] Lymphocytes Relative 17.1 % LAB HEMETOLOGY METHOD 11/07/2024 12:39 PM [facility] Monocytes Relative 8.2 % LAB HEMETOLOGY METHOD 11/07/2024 12:39 PM [facility] Eosinophils Relative 4.1 % LAB HEMETOLOGY METHOD 11/07/2024 12:39 PM [facility] Basophils Relative 0.4 % LAB HEMETOLOGY METHOD 11/07/2024 12:39 PM [facility] Immature Granulocytes Relative 0.4 % LAB HEMETOLOGY METHOD 11/07/2024 12:39 PM [facility] Neutrophils Absolute 8.25(H) 1.50 - 7.00 K/mcL LAB HEMETOLOGY METHOD 11/07/2024 12:39 PM [facility] Lymphocytes Absolute 2.02 1.00 - 5.00 K/mcL LAB HEMETOLOGY METHOD 11/07/2024 12:39 PM [facility] Monocytes Absolute 0.97 0.20 - 1.00 K/mcL LAB HEMETOLOGY METHOD 11/07/2024 12:39 PM [facility] Eosinophils Absolute 0.49 0.00 - 0.50 K/mcL LAB HEMETOLOGY METHOD 11/07/2024 12:39 PM [facility] Basophils Absolute 0.05 0.00 - 0.20 K/mcL LAB HEMETOLOGY METHOD 11/07/2024 12:39 PM [facility] Immature Granulocytes Absolute 0.05(H) 0.00 - 0.03 K/mcL LAB HEMETOLOGY METHOD 11/07/2024 12:39 PM [facility] Blood Venous blood specimen / Unknown Venipuncture / Unknown 11/07/2024 11:00 AM EDT 11/07/2024 11:39 AM EDT us Chapito Aguayo MD LAB BLOOD ORDERABLE S Final Result [facility] [address] [place] [address], * (ABNORMAL) Hemoglobin electrophoresis (11/07/2024 11:00 AM EDT) [facility] Hemoglobin A1 98.0(H) 96.5 - 97.8 % 11/09/2024 9:03 AM EDT [facility] Hemoglobin A2 2.0(L) 2.2 - 3.2 % 11/09/2024 9:03 AM EDT [facility] Hemoglobin F 0.0 <2.0 % 11/09/2024 9:03 AM EDT [facility] Hemoglobin S 0.0 0.0 % 11/09/2024 9:03 AM EDT [facility] Hemoglobin C 0.0 0.0 % 11/09/2024 9:03 AM EDT [facility] Interpretation See Below 11/09/2024 9:03 AM EDT [facility] Comment: No abnormal hemoglobin variants seen on hemoglobin electrophoresis. Hemoglobin A2 is decreased. ??Common causes include, but are not limited to, iron deficiency, alpha thalassemia, and delta thalassemia. Test performed at [facility], [address] [place], [place] ??[address] ? [phone] Nusrat Silva MD, PhD - Rug Receiving Clerk Blood Venous blood specimen / Unknown Venipuncture / Unknown 11/07/2024 11:00 AM EDT 11/07/2024 11:38 AM EDT Chapito Aguayo MD LAB BLOOD ORDERABLE S Final Result [facility] [address] [place] [address] * (ABNORMAL) Iron and TIBC (11/07/2024 11:00 AM EDT) Iron 30(L) 40 - 150 mcg/dL LAB CHEMISTRY METHOD 11/07/2024 1:58 PM EDT [facility] TIBC 420 250 - 450 mcg/dL LAB CHEMISTRY METHOD 11/07/2024 1:58 PM EDT [facility] Iron Saturation 7(L) 15 - 50 % LAB CHEMISTRY METHOD 11/07/2024 1:58 PM EDT [facility] Blood Venous blood specimen / Unknown Venipuncture / Unknown 11/07/2024 11:00 AM EDT 11/07/2024 11:39 AM EDT us Chapito Aguayo MD LAB BLOOD ORDERABLE S Final Result Performing Organization Address [facility]/ZIP Co de Phone Number [facility] [address] [place] [address], [place] [phone] * Ferritin (11/07/2024 11:00 AM EDT) Ferritin 41 8 - 252 ng/mL LAB CHEMISTRY METHOD 11/07/2024 1:58 PM EDT [facility] Blood Venous blood specimen / Unknown Venipuncture / Unknown 11/07/2024 11:00 AM EDT 11/07/2024 11:39 AM EDT us Chapito Aguayo MD LAB BLOOD ORDERABLE S Final Result [facility] [address] [place] [address], [place] [phone] * (ABNORMAL) Comprehensive metabolic panel (11/07/2024 11:00 AM EDT) Sodium 138 133 - 145 mmol/L LAB CHEMISTRY METHOD 11/07/2024 1:58 PM EDT [facility] Potassium 4.7 3.5 - 5.5 mmol/L LAB CHEMISTRY METHOD 11/07/2024 1:58 PM [facility] Chloride 103 96 - 110 mmol/L LAB CHEMISTRY METHOD 11/07/2024 1:58 PM [facility] CO2 28 21 - 32 mmol/L LAB CHEMISTRY METHOD 11/07/2024 1:58 PM [facility] Anion Gap 7 3 - 11 LAB CHEMISTRY METHOD 11/07/2024 1:58 PM [facility] Glucose 131(H) 70 - 100 mg/dL LAB CHEMISTRY METHOD 11/07/2024 1:58 PM [facility] BUN 25 5 - 25 mg/dL LAB CHEMISTRY METHOD 11/07/2024 1:58 PM [facility] Creatinine 1.18(H) 0.50 - 1.10 mg/dL LAB CHEMISTRY METHOD 11/07/2024 1:58 PM [facility] eGFR 52(L) >=60 mL/min/1. 73m2 LAB CHEMISTRY METHOD 11/07/2024 1:58 PM [facility] Comment:Calculation based on the??Chronic Kidney Disease Epidemiology Collaboration (CKD-EPI) equation refit??without adjustment for race. BUN/Creatinine Ratio 21.2 LAB CHEMISTRY METHOD 11/07/2024 1:58 PM [facility] Calcium 9.6 8.5 - 10.5 mg/dL LAB CHEMISTRY METHOD 11/07/2024 1:58 PM [facility] AST (SGOT) 24 10 - 42 unit/L LAB CHEMISTRY METHOD 11/07/2024 1:58 PM [facility] ALT (SGPT) 37 10 - 60 unit/L LAB CHEMISTRY METHOD 11/07/2024 1:58 PM [facility] Alkaline Phosphatase 104 42 - 121 unit/L LAB CHEMISTRY METHOD 11/07/2024 1:58 PM [facility] Total Protein 7.7 6.0 - 8.0 g/dL LAB CHEMISTRY METHOD 11/07/2024 1:58 PM EDT [facility] Albumin 3.5 3.2 - 5.0 g/dL LAB CHEMISTRY METHOD 11/07/2024 1:58 PM EDT [facility] Total Bilirubin 0.4 0.0 - 1.4 mg/dL LAB CHEMISTRY METHOD 11/07/2024 1:58 PM EDT [facility] Blood Venous blood specimen / Unknown Venipuncture / Unknown 11/07/2024 11:00 AM EDT 11/07/2024 11:39 AM EDT Result [facility] Chapito Aguayo MD LAB BLOOD ORDERABLE S Final Result [facility] [address] [place] [address], * Miscellaneous reference lab test (11/07/2024) Result [facility] Provider Onbase LAB BLOOD ORDERABLES Final Re sult * Hemoglobin A1c (01/04/2024) Pathologist [facility] Hemoglobin A1C 0.0 % Blood Venous blood specimen / Unknown Result [facility] Historical Provider LAB BLOOD ORDERABLES Debora l Result * Lipid panel (01/04/2024) LDL/HDL Ratio 0 Triglycerides 0 mg/dL Cholesterol 0 mg/dL HDL 0 mg/dL LDL Cholesterol 0 mg/dL Blood Venous blood specimen / Unknown Result [facility] Historical Provider LAB BLOOD ORDERABLES Debora l Result * Urine Albumin Creatinine Ratio (10/05/2023) Pathologist [facility] Urine Albumin Creatinine Ratio Abstracted Result [facility] Historical Provider HEALTH MAINTENANCE Final Result from Last 3 Months or Most Recently Relevant to Health Maintenance Insurance [facility] [place] [id number] Care Teams Roofer V[employer] Coating Relationship Specialty Start Date End Date [facility]dez [facility] [address] [facility] [address] PCP - General Internal Medicine 12/10/17
--- OUTSIDE RECORDS SUMMARY | 2024-12-20 13:01 | XMS_ITS | Patient Health Record ---
Author Organization [facility] Address [address] [facility] [place] [address] Care Team Providers Care Change Management Lead Name Role Phone José Miguel SUE, Johanna Primary Care Provider UnavailRosalba Tai Unavailable [phone] Allergies Allergen (clinical drug ingredient) Drug/Non Drug [...] Performing Lab: Notes/Report: TOTAL HEMOGLOBIN (HGBA1C) 7.8 HEMOGLOBIN A1C (GLYCOHEMOGLO BIN) Reviewed date:11/10/2024 11:35:36 AM Interpretation: Performing Lab: Notes/Report: HEMOGLOBIN A1C % (HH) 10.4 Reason For Referral No Information Medications Medication SIG (Take, Route, Frequency, Duration) Notes Start Date End Date Status LORazepam Active Morphine Active Ferrous Gluconate Ac tive Multivitamin Active Crestor Active Zetia Active NovoLOG Active Plavix Not-Taking Tresiba Active Ciclopirox Olamine 0.77 % 1 application Externally Twice a day to feet including between the toes for 30 days Active Eliquis Active Levothyroxine Sodium Active Lidoderm Active Social History Tobacco Use: Social History [...] Problem Acquired hammer toe of right foot (8863590420516067 ) Other hammer toe(s) (acquired), right foot (M20.41) Active confirmed Problem Acquired hammer toe of left foot (4747805212908833 ) Other hammer toe(s) (acquired), left foot (M20.42) Active confirmed Problem Polyneuropathy due to diabetes mellitus type I (151399335) Type 1 diabetes mellitus with diabetic polyneuropathy (E10.42) Active confirmed Vital Signs Blood pressure diastolic 43 mm Hg 11/10/2024 Height 5ft4in in 11/10/2024 Blood pressure systolic 120 mm Hg 11/10/2024 Weight 265 lbs 11/10/2024 BMI 45.48 kg/m2 11/10/2024 Procedures Procedure Date Ordered Date Performed Result Body Sit e 15140-XZAVIYY NAIL, 6 OR MORE 05/23/2024 N/A 73785-WXAS SKIN LESIONS, 2 TO 4 05/23/2024 N/A 75784-DHRCRQV NAIL, 6 OR MORE 08/08/2024 N/A 82972-ZPGO SKIN LESIONS, 2 TO 4 08/08/2024 N/A 80125-RJEDUTH NAIL, 6 OR MORE 11/10/2024 N/A 95863-CGQI SKIN LESIONS, 2 TO 4 11/10/2024 N/A Encounters Encounter Location Date Provider Diagnosis [facility] [address] [place] [address] 05/23/2024 Rosalba Black Type 1 diabetes mellitus with diabetic polyneuropathy E10.42 ; Tinea unguium B35.1 ; Tinea pedis of both feet B35.3 ; Other hammer toe(s) (acquired), right foot M20.41 and Other hammer toe(s) (acquired), left foot M20.[address] [address] 08/08/2024 Rosalba Hernández Type 1 diabetes mellitus with diabetic polyneuropathy E10.42 ; Tinea unguium B35.1 and Tinea pedis of both feet B35.[address] [phone] 11/10/2024 Rosalba Hernández Type 1 diabetes mellitus with diabetic polyneuropathy E10.42 ; Tinea unguium B35.1 ; Other hammer toe(s) (acquired), right foot M20.41 and Other hammer toe(s) (acquired), left foot M20.[address] [address] 03/10/2024 Rosalba Hernández [address] [address] 04/06/2024 Rosalba Hernández Assessments Encounter Date Diagnosis (ICD Code) Assessment Notes Treatment Notes Treatment Clinical Notes Section Notes 05/23/2024 Type 1 diabetes mellitus with diabetic polyneuropathy (ICD-10 - E10.42) 11/10/2024 Type 1 diabetes mellitus with diabetic polyneuropathy (ICD-10 - E10.42) 11/10/2024 Tinea unguium (ICD-10 - B35.1) 08/08/2024 Type 1 diabetes mellitus with diabetic polyneuropathy (ICD-10 - E10.42) 08/08/2024 Tinea unguium (ICD-10 - B35.1) 08/08/2024 Tinea pedis of both feet (ICD-10 - B35.3) 05/23/2024 Tinea unguium (ICD-10 - B35.1) 11/10/2024 Other hammer toe(s) (acquired), right foot (ICD-10 - M20.41) Patient Educated with: DIABETIC FOOT CARE INSTRUCTIONS. pdf (DIABETIC FOOT CARE INSTRUCTIONS. pdf) 11/10/2024 Other hammer toe(s) (acquired), left foot (ICD-10 - M20.42) 05/23/2024 Tinea pedis of both feet (ICD-10 - B35.3) 05/23/2024 Other hammer toe(s) (acquired), right foot (ICD-10 - M20.41) Patient Educated with: DIABETIC FOOT CARE INSTRUCTIONS. pdf (DIABETIC FOOT CARE INSTRUCTIONS. pdf) 05/23/2024 Other hammer toe(s) (acquired), left foot (ICD-10 - M20.42) 08/08/2024 Other Plan Of Treatment Pending Test Test Name Order Date 81081-TUYRFWG NAIL, 6 OR MORE 05/23/2024 27231-JIBFBEH NAIL, 6 OR MORE 08/08/2024 19173-JUAIDZJ NAIL, 6 OR MORE 11/10/2024 60622-QIUQ SKIN LESIONS, 2 TO 4 05/23/20 22612-QDEB SKIN LESIONS, 2 TO 4 11/11/19 35511-DOJS SKIN LESIONS, 2 TO 4 08/08/20 Next Appt Details Provider Name:Rosalba Hernández , 02/23/2025 11:30:00 AM, [address] [place], [address], Insurance Providers Payer Name Payer Address Payer Phone Subscriber Number Group Number Insured Name Patient Relationship to Insured Coverage Start Date Coverage End Date [facility] Adv [address] [place] [address] [phone] [id number] Helen Wheatley Self - patient is the insured Medical (General) History Medical History History ICD Code Anemia Arthritis Back,Hip,and Knee pain Broken bones Depression Diabetic Fibromyalgia Heart disease Liver disease Numbness Reflux ( GERD) Sciatica sinusitis Stomach ulcer Stroke thyroid Mumps Vascular grafts Surgical History Surgery Date(Month/Year) gastrectomy carotid endarterectomy Stent 07/2024 cardio hysterectomy surgery 07/2024 Hospitalization History Reason Date(Month/Year) [facility]- blood transfusions, iron trans fusions 05/10/24
--- OUTSIDE RECORDS SUMMARY | 2024-12-20 13:01 | XMS_ITS | Encounter Summary ---
Author Organization [employer] Address [address] [facility] [address] [place] [address] Care Team Providers Care Cup Trimming Machine Operator Name Role Phone Johanna Valdez MD Primary Care Provider [phone] Paulina Kitchen OD Unavailable Julieta Peoples RD Unavailable [phone] Encounter Details Date Type Department Care Team (Late st Contact Info) Description 05/30/2023 Orders Only [facility] MEDICAL [address] [place] [address] Provider, MD Dwayne Social History Tobacco Use Types Packs/Day Years Used Date Smoking Tobacco: Never Smokeless Tobacco: Never Alcohol Use Standard Drinks/Week Comments Not Currently 0 (1 standard drink = 0.6 oz pur e alcohol) PHQ-2 Answer Date Recorded Patient Health Questionnaire-2 Score 0 03/17/2023 Depression Answer Date Recorded Patient Health Questionnaire-2 Score 0 03/17/2023 Comments Unknown Sex and Gender Information Value Date Recorded Sex Assigned at Female 08/14/2022 9:34 AM EST Legal Sex Female 5:36 PM EDT Gender Identity Female 08/14/2022 9:34 AM EST Sexual Orientation Straight 10/07/2022 11 :06 AM EST documented as of this encounter Plan of Treatment Upcoming Encounters Date Type Department Care Team (Late st Contact Info) Description 12/20/2024 2:15 PM EDT Clinical Support [facility] NUTRITION [address] [place] [address] [place] [address] 12/29/2024 2:30 PM EDT Office Visit [facility] MEDICAL [address] [place] [address] Johanna Valdez MD [address] [place] [address] 03/09/2025 2:00 PM EDT Office Visit [facility] DENTAL [address] [place] [address] Lizy Block documented as of this encounter Procedures Procedure Name Priority Date/Time Associated Diagnosis Comments MAMMOGRAPHY Routine 03/13/2023 documented in this encounter Results * Hm Mammography (03/13/2023) Anatomical Region Laterality Modality Other Historical Provider HEALTH MAINTENANCE Final Result documented in this encounter Visit Diagnoses Not on filedocumented in this encounter Care Teams Cup Trimming Machine Operator Relationship Specialty Start Date End Date Johanna Valdez MD [address] [place] [address] PCP - General Internal Medicine 10/27/22 Paulina Kitchen OD [address] [place] [address] Optometry 10/27/[address] [place] [address] [place] [address] Dietitian Dietitian 10/27/22 documented as of this encounter
--- OUTSIDE RECORDS SUMMARY | 2024-12-20 13:01 | XMS_ITS | Encounter Summary ---
Author Organization [employer] Address [address] [place] [address] Care Team Providers Care Supervisor Inspection Name Role Phone Johanna Valdez MD Primary Care Provider [phone] Paulina Kitchen OD Unavailable Julieta Peoples RD Unavailable [phone] Reason for Visit * Reason Comments Med Refill Encounter Details Date Type Department Care Team (Late st Contact Info) Description 03/17/2023 Refill [facility] MEDICAL [address] [place], [place] [id number] Johanna Valdez MD [address] [place] [address] Other specified anxiety disorders Social History Tobacco Use Types Packs/Day Years [...] Orientation Straight 10/07/2022 11 :06 AM EST COVID-19 Exposure Response Date Recorded In the last 10 days, have yo u been in contact with someone who was confirmed or suspected to have Coronavirus/COVID-19? No / Unsure 02/26/2023 9:27 AM EDT documented as of this encounter Plan of Treatment Upcoming Encounters Date Type Department Care Team (Late st Contact Info) Description 12/20/2024 2:15 PM EDT Clinical Support [facility] NUTRITION [address] [place] [address] [facility] [place] [address] 12/29/2024 2:30 PM EDT Office Visit [facility] MEDICAL [address] [place] [address] Johanna Valdez MD [address] [place] [address] 03/09/2025 2:00 PM EDT Office Visit [facility] DENTAL [address] [place] [address] Lizy Block documented as of this encounter Visit Diagnoses Diagnosis Other specified anxiety disorders documented in this encounter Care Teams Supervisor Inspection Relationship Specialty Start Date End Date Johanna Valdez MD [address] [place] [address] PCP - General Internal Medicine 10/27/22 Paulina Kitchen OD [address] [place] [address] Optometry 10/27/[address] [facility] [place] [address] Dietitian Dietitian 10/27/22 documented as of this encounter
--- OUTSIDE RECORDS SUMMARY | 2024-12-20 13:02 | XMS_ITS | Encounter Summary ---
Author Organization [employer] Address [address] [place] [address] Care Team Providers Care Superintendent Electric Power Name Role Phone Johanna Valdez MD Primary Care Provider [phone] Paulina Kitchen OD Unavailable Julieta Peoples RD Unavailable [phone] Encounter Details Date Type Department Care Team (Late st Contact Info) Description 05/18/2024 Orders Only [place] [facility] [address] [place] [address] Johanna Valdez MD [address] [place] [address] Social History Tobacco Use Types Packs/Day Years Used Date Smoking Tobacco: Never Passive Smoke Exposure: Never Smokeless Tobacco: Never Alcohol Use Standard Drinks/Week Comments Yes 0 (1 standard drink = 0.6 oz pur e alcohol) [id number] PHQ-2 Answer Date Recorded Patient Health Questionnaire-2 Score 0 03/17/2023 Alcohol Answer Date Recorded How often do you have a drink containing alcohol ? 0 07/27/2023 How many drinks containing a lcohol do you have on a typical day when you are drinking? 0 07/27/2023 How often do you have six or more drinks on one occasion? 0 07/27/2023 Housing Stability Answer Date Recorded What is your housing situation today? I have teresa sheth 03/24/[address] you li ve. Do you have problems with any of the following? None of the above 03/24/2024 Food Insecurity Answer Date Recorded Within the past 12 months, y ou worried that your food would run out before you got money to buy more: Never True 03/24/2024 Within the past 12 months,th e food you bought just didn't last and you didn't have enough money to get more: Never True Transportation Answer Date Recorded In the past 12 months, has l ack of transportation kept you from medical appts, meetings, work or from getting things needed for daily living? No 03/24/2024 Intimate Partner Violence Answer Date R ecorded Within the last year, have y ou been afraid of your partner or ex-partner? 2 07/27/2023 Within the last year, have y ou been humiliated or emotionally abused in other ways by your partner or ex-partner? 2 Within the last year, have y ou been kicked, hit, slapped, or otherwise physically hurt by your partner or ex-partner? 2 07/27/2023 Within the last year, have y ou been raped or forced to have any kind of sexual activity by your partner or ex-partner? 2 07/27/2023 Utilities Answer Date Recorded In the past 12 months, has t he electric, gas, oil or water company threatened to shut off services in your home? No 03/24/2024 Depression Answer Date Recorded Patient Health Questionnaire-2 Score 0 03/24/2024 Internet Access Answer Date Recorded Internet Access Q1 Yes 05/02/2024 Internet Access Q2 Not on file 05/02/2024 Comments Unknown Sex and Gender Information Value [...] Description 12/20/2024 2:15 PM EDT Clinical Support [facility] NUTRITION [address] [place] [address] Julieta Peoples, INEZ [address] [place] [address] 12/29/2024 2:30 PM EDT Office Visit [facility] MEDICAL [address] [place] [address] Johanna Valdez MD [address] [place] [address] 03/09/2025 2:00 PM EDT Office Visit [facility] DENTAL [address] [place] [address] Lizy Block documented as of this encounter Procedures Procedure Name Priority Date/Time Associated Diagnosis Comments BI MAMMOGRAM SCREENING TOMOSYNTHESIS BILATERAL Routine 06/16/2024 12:09 PM EDT MRI PELVIS W WO CONTRAST Routine 04/20/2024 11:57 AM EDT documented in this encounter Results * BI Mammogram Screening Tomosynthesis Bilateral (06/16/2024 12:09 PM EDT) Anatomical Region Laterality Modality Breast Bilateral Mammography 06/16/2024 12:0 9 PM EDT Narrative 06/17/2024 8:33 AM EDT PROCEDURE: MM Digital Mammo Screening INDICATION: ??Screening for breast cancer. ??No known palpable abnormalities. COMPARISON: Back to 07/16/2015. TECHNIQUE:Full-field digital CC and MLO 3D tomosynthesis images of both breasts were acquired. Computer-aided detection (CAD) was utilized in the interpretation of this study. DENSITY: There are scattered areas of fibroglandular density. FINDINGS: No suspicious masses, microcalcifications, areas of architectural distortion, or skin thickening to suggest malignancy. IMPRESSION: No mammographic evidence of malignancy. RECOMMENDATION: Annual mammographic screening. BI-RADS: 1 (Negative) Lay letter mailed to patient WSN: [id number] Ordering Physician: Johanna Valdez Dictated By: ?Andrea Charles MD Dictated Date/Time: ?06/17/24 8:30 am Reviewed By: ?Andrea Charles MD Signed By: ? Andrea Charles MD Signed Date/Time: ? 06/17/24 8:30 am Transcribed By: ? BENJAMIN Leather Heel Breaster Date/Time: ? 06/17/24 8:29 am Birads: Procedure Note Donotuseinterpreter, Image - 06/17/2024 PROCEDURE: MM Digital Mammo Screening INDICATION: Screening for breast cancer. No known palpableabnormalities. COMPARISON: Back to 07/16/2015. TECHNIQUE:Full-field digital CC and MLO 3D tomosynthesis images of bothbreasts were acquired. Computer-aided detection (CAD) was utilized in theinterpretation of this study. DENSITY: There are scattered areas of fibroglandular density. FINDINGS: No suspicious masses, microcalcifications, areas ofarchitectural distortion, or skin thickening to suggest malignancy. IMPRESSION: No mammographic evidence of malignancy. RECOMMENDATION: Annual mammographic screening. BI-RADS: 1 (Negative) Lay letter mailed to patient WSN: [id number] Ordering Physician: Johanna Valdez Dictated By: Andrea Charles MD Dictated Date/Time: 06/17/24 8:30 am Reviewed By: Andrea Charles MD Signed By: Andrea Charles MD Signed Date/Time: 06/17/24 8:30 am Transcribed By: BENJAMIN Leather Heel Breaster Date/Time: 06/17/24 8:29 am Birads: us Johanna Valdez MD IMG BI PROCEDURES Final Result * MRI PELVIS W WO CONTRAST (04/20/2024 11:57 AM EDT) Anatomical Region Laterality Modality Magnetic Resonan ce us Johanna Valdez MD IMG MRI PROCEDURES Final Result documented in this encounter Visit Diagnoses Not on filedocumented in this encounter Care Teams Superintendent Electric Power Relationship Specialty Start Date End Date Johanna Valdez MD [address] [place] [address] PCP - General Internal Medicine 10/27/22 Paulina Kitchen OD [address] [place] [address] Optometry 10/27/[address] [place] [address] Dietitian Dietitian 10/27/22 documented as of this encounter
--- OUTSIDE RECORDS SUMMARY | 2024-12-20 13:02 | XMS_ITS | Encounter Summary ---
Author Organization [employer] Address [address] [place] [address] Care Team Providers Care Division Traffic Superintendent Name Role Phone Johanna Valdez MD Primary Care Provider [phone] Paulina Kitchen OD Unavailable Julieta Peoples RD Unavailable [phone] Encounter Details Date Type Department Care Team (Late st Contact Info) Description 05/09/2024 Orders Only [place] [facility] [address] [place] [address] Johanna Valdez MD [address] [place] [address] Social History Tobacco Use Types Packs/Day Years [...] 12/20/2024 2:15 PM EDT Clinical Support [facility] NUTRITION [address] [place] [address] Julieta Peoples, INEZ [address] [place] [address] 12/29/2024 2:30 PM EDT Office Visit [facility] MEDICAL [address] [place] [address] Johanna Valdez MD [address] [place] [address] 03/09/2025 2:00 PM EDT Office Visit [facility] DENTAL [address] [place] [address] Lizy Block documented as of this encounter Procedures Procedure Name Priority Date/Time Associated Diagnosis Comments CBC WITH AUTO DIFFERENTIAL Routine 04/29/2024 12:10 PM EDT EGD Routine 04/22/2024 12:09 PM EDT HM COLONOSCOPY Routine 04/22/2024 12:08 PM EDT documented in this encounter Results * CBC auto differential (04/29/2024 12:10 PM EDT) Blood Venous blood specimen / Unknown us Johanna Valdez MD LAB BLOOD ORDERABLES Final Resul t * EGD (04/22/2024 12:09 PM EDT) Anatomical Region Laterality Modality Endoscopy Result Naun Valdez MD ENDOSCOPY PROCEDURE ORDERABLES F inal Result * Hm Colonoscopy (04/22/2024 12:08 PM EDT) Result Naun Valdez MD HEALTH MAINTENANCE Final Result documented in this encounter Visit Diagnoses Not on filedocumented in this encounter Care Teams Division Traffic Superintendent Relationship Specialty Start Date End Date Johanna Valdez MD [address] [place] [address] PCP - General Internal Medicine 10/27/22 Paulina Kitchen OD [address] [place] [address] Optometry 10/27/[address] [place] [id number] Dietitian Dietitian 10/27/22 documented as of this encounter
--- OUTSIDE RECORDS SUMMARY | 2024-12-20 13:02 | XMS_ITS | Clinical Summary ---
Author Organization [employer] Address [address] [place] [address] Care Team Providers Care Derrick Boat Captain Name Role Phone Johanna Valdez MD Primary Care Provider [phone] Paulina Kitchen OD Unavailable Julieta Peoples RD Unavailable [phone] Allergies Active Allergy Reactions Criticality Noted Date Comments Codeine Nausea And Vomiting Low 02/26/2021 Other reaction(s): stomach upset Gabapentin Low 02/26/2021 Glyburide Unknown Low 01/11/2018 Hydrocodone-Acetaminop hen Low 08/14/2022 Other reaction(s): vomiting Ibuprofen Other Low 08/11/2011 Other reaction(s): disorientation, Mental Status Change Insulin Glargine Low 01/11/2018 Metformin Low 01/11/2018 Other reaction(s): vision loss Metformin Hcl Low 01/11/2018 Other reaction(s): diarrhea Pollen Extract Low 09/02/2022 Other reaction(s): Unknown Tramadol Low 02/26/2021 Other reaction(s): Unknown Medications Litetouch Lancets misc 5 (five) times a day. 021 Active Insulin Pen Needle (pen needle 01/13 ) 30G x 8 mm misc Pen [place] 01/13 Active dronedarone (Multaq) 400 MG tablet Take 400 mg by mouth in the morning and at bedtime. 022 Active ezetimibe (Zetia) 10 MG tablet Take 10 mg by mouth in the morning. Active insulin NPH, Isophane, (NovoLIN N) 100 UNIT/ML injection twice a day. Sliding scale Active Multiple Vitamin (Multi Vitamin) tablet 1 tablet in the morning. Active rosuvastatin (Crestor) 40 MG tablet Take 40 mg by mouth in the morning. Active B-D UF III MINI PEN NEEDLES 31G X 5 MM misc USE 1 neededle 5 TIMES A DAY Active coenzyme Q-10 100 MG capsule Take 1 capsule by mouth in the morning. Active Blood Glucose Monitoring Suppl (FreeStyle Lite) w/Device kit Use as instructed Active apixaban (Eliquis) 5 MG tablet Take 5 mg by mouth every 12 (twelve) hours. Active sodium chloride ([place]) 0.65 % nasal spray Administer 1 spray into each nostril if needed for congestion. Active FREESTYLE LITE test strip USE TO TEST BLOOD SUGAR FOUR TO SIX TIMES A DAY 500 strip 4 Active NovoLOG FLEXPEN 100 UNIT/ML penIndications:D M (diabetes mellitus), type 2 with neurological complications (CMS/HCC) Inject 30 Units under the skin 3 times daily. On a sliding scale 27 mL 11 024 2024 Active ciclopirox (Loprox) 0.77 % cream 1 Application. Activ e sucralfate (Carafate) 1 GM/10ML suspension Take 10 mL (1 g) by mouth every 6 (six) hours. Active loratadine (Claritin) 10 MG tablet Take 1 tablet (10 mg) by mouth Once per day. NEEDED 30 tablet 3 024 2024 Active morphine 10 MG/5ML solutionIndicati ons:Lumbago with sciatica, unspecified side Take 7.5 mL (15 mg) by mouth if needed in the morning, at noon, and at bedtime for severe pain for up to 7 days. 150 mL Active Nutritional Supplements (Ensure Max Protein) liquidIndication s:Intestinal malabsorption, unspecified type,Iron deficiency anemia due to sideropenic dysphagia Take 30 g by mouth Once daily. 30 mL 3 01/16/2 025 Active Tylenol 325 MG tablet Take 650 mg by mouth. Active simethicone (Mylicon) 80 MG chewable tablet Chew 80 mg. Active Tresiba FlexTouch 200 UNIT/ML injectionIndicat ions:Type 2 Diabetes Mellitus Inject 140 Units under the skin at bedtime. Active Semaglutide-Weig ht Management (Wegovy) 0.25 MG/0.5ML solution auto-injectorInd ications:BMI 45.0-49.9, adult ([facility]) Inject 0.5 mL (0.25 mg) under the skin 1 (one) time per week. 3 mL 3 Active Additional Information Patient not taking.Reported on 11/22/2024 ferrous gluconate (Fergon) 324 (38 Fe) MG tabletIndication s:Iron deficiency anemia, unspecified iron deficiency anemia type Take 1 tablet (324 mg) by mouth with breakfast, with lunch, and with evening meal. 90 tablet 3 025 2024 Active lidocaine (Lidoderm) 5 % patchIndications :Chronic low back pain with sciatica, sciatica laterality unspecified, unspecified back pain laterality apply 3 patches TO intact SKIN LEAVE ON FOR 12 hours, REMOVE FOR 12 hours Once a day Externally 270 patch 3 025 Active LORazepam (Ativan) 0.5 MG tabletIndication s:Anxiety Take 1 tablet (0.5 mg) by mouth if needed for anxiety. 30 tablet 025 2024 Active levothyroxine (Synthroid, Levoxyl) 150 MCG tabletIndication s:Hypothyroidism , unspecified TAKE 1 TABLET Orally EVERY MORNING ON EMPTY STOMACH AND TAKE AN EXTRA 1/2 TABLET ONCE ON THURSDAY AND THURSDAY 30 tablet 11 025 Active lidocaine (Lidoderm) 5 % patchIndications :Chronic low back pain with sciatica, sciatica laterality unspecified, unspecified back pain laterality apply 3 patches TO intact SKIN LEAVE ON FOR 12 hours, REMOVE FOR 12 hours Once a day Externally for 90 days 270 patch 3 024 2024 Discontinued levothyroxine (Synthroid, Levoxyl) 150 MCG tabletIndication s:Hypothyroidism , unspecified TAKE 1 TABLET Orally EVERY MORNING ON EMPTY STOMACH AND TAKE AN EXTRA 1/2 TABLET ONCE ON THURSDAY AND THURSDAY 30 tablet 11 024 2024 Discontinued ferrous gluconate (Fergon) 324 (38 Fe) MG tabletIndication s:Iron deficiency anemia, unspecified iron deficiency anemia type Take 1 tablet (324 mg) by mouth with breakfast. 30 tablet 11 024 2024 Discontinued(R eorder (will not trigger notification to Pharmacy)) LORazepam (Ativan) 0.5 MG tabletIndication s:Anxiety Take 1 tablet (0.5 mg) by mouth if needed for anxiety. 30 tablet 025 2024 Discontinued Active Problems Problem Noted Date Diagnosed Date Status post bariatric surgery 06/28/2024 Malabsorption 06/28/2024 Pelvic pain 05/14/2023 Overview (05/14/2023): Consulted with INSURANCE SALES PROFESSIONAL in patient. Told she has fibroids that will require management. No notes to review. Upcoming appointment w/ Dr. Bernal (05/15/23) Vitamin D deficiency 09/02/2022 Sciatica 09/02/2022 Moderate aortic stenosis 09/02/2022 Hypothyroidism (acquired) 09/02/2022 Hereditary and idiopathic neuropathy, unspecifie d 09/02/2022 Elevated erythrocyte sedimentation rate 09/02/19 Diabetic polyneuropathy asso ciated with type 2 diabetes mellitus 09/02/2022 Coronary artery disease invo lving viejas coronary artery of viejas heart without angina pectoris 09/02/2022 Bursitis of hip 09/02/2022 Allergic rhinitis due to pollen 09/02/2022 Bilateral carotid artery stenosis 02/09/2020 Essential thrombocytosis 02/07/2019 Overview (05/14/2023): Followed by Heme/onc Reactive to KEN Graves disease 01/30/2018 Type 2 diabetes mellitus wit h hyperglycemia, with long-term current use of insulin 01/15/2018 Carpal tunnel syndrome 01/15/2018 Overview (05/14/2023): S/p Bilateral release Squamous metaplasia of cervix 01/14/2018 Overview (09/02/2022): Endocervix curettage 02/20/2015: Endocervical microglandular hyperplasia w/ immature squamous metaplasia. New onset atrial fibrillation 01/14/2018 Overview (05/14/2023): Managed with Multaq + Eliquis. Followed by Dr Bud Hong Advised to STOP plavix and ASA - to limit bleeding risk awaiting capsule study. Chronic low back pain 01/14/2018 Osteoarthritis 01/14/2018 Iron deficiency anemia 01/14/2018 Overview (04/15/2024): Followed by heme/onc (Dr Dorman) at [facility] Will recheck CBC Assessment & Plan (04/15/2024 2:52 PM EDT): Any worsening sx go to Emergency Department Hyperlipidemia 01/14/2018 HTN (hypertension) 01/14/2018 Gastroesophageal reflux disease without esophagi tis 01/14/2018 Overview (05/28/2023): Upper and lower GI series from 05/23 without evidence of active GI bleed. Awaiting results for Upper and lower GI study from 05/20 capsule study from 05/21 Hospitalized 01/2017 w/ gastritis, confusion, hypomagnesemia and stress-induced leukocytosis. Depression with anxiety 01/14/2018 Carotid stenosis 01/14/2018 Overview (05/14/2023): S/p left CEA 10/06/2016: Duplex bilateral carotid US: Bilat hemodynamically significant stenosis consistent w/ 50-79% diameter reduction involving both the paroximal L and R internal carotid arteries Anxiety 01/14/2018 Resolved Problems Problem Noted Date Diagnosed Date Resolved Date Drug-induced hyperglycemia 07/27/2023 1 09/26/2022 Anemia 09/02/2022 05/14/2023 Encounters Date Type Department Care Team Description 12/09/2024 Refill [facility] MEDICAL [address] [place] [address] Johanna Valdez MD Hypothyroidism, unspecified 11/28/2024 Telephone [facility] [address] [place] [address] Johanna Valdez MD Prior Auth Prescription 11/28/[address] [address] Johanna Valdez MD Anxiety 11/25/2024 9:00 AM EDT Office Visit [facility] DENTAL [address] [place] [phone] Hiren Paul Jr., DMD 11/25/2024 Refill [facility] [address] [place] [address] Johanna Valdez MD Chronic low back pain with sciatica, sciatica laterality unspecified, unspecified back pain laterality 11/22/2024 12:15 PM EDT Clinical Support [facility] NUTRITION [address] [place] [phone] Type 2 diabetes mellitus with diabetic polyneuropathy, with long-term current use of insulin ([facility]) (Primary Dx); Class 3 severe obesity due to excess calories with serious comorbidity and body mass index (BMI) of 45.0 to 49.9 in adult (CMS/[facility]); Dietary counseling; Exercise counseling 11/22/[address] [address] Johanna Valdez MD Iron deficiency anemia, unspecified iron deficiency anemia type 11/10/2024 Orders Only [facility] Information Management [address] [place] [address] Johanna Valdez MD 10/21/[address] [address] Johanna Valdez MD APPEAL SUBMITTED 10/26/24 10/18/[address] [address] Johanna Valdez MD Prior Authorization (lidocaine) 10/16/[address] [address] Johanna Valdez MD Anxiety 10/05/2024 2:00 PM EST Office Visit [facility] DENTAL [address] [place] [address] Hiren Paul Jr., DMD 09/30/2024 10:30 AM EST Office Visit [facility] DENTAL [address] [place] [phone] Hiren Paul Jr., DMD 09/30/[address] [address] Johanna Valdez MD Medication Problem 09/28/[address] [address] Evangelista Traore CMA Prior Authorization 09/23/2024 2:00 PM EST Office Visit [facility] DENTAL [address] [place] [phone] Hiren Paul Jr., DMD 09/22/2024 11:00 AM EST Office Visit [address] [address] Johanna Valdez MD DM (diabetes mellitus), type 2 with neurological complications (CMS/HCC) (Primary Dx); BMI 45.0-49.9, adult (CMS/HCC); assisted (current) use of opiate analgesic; Health care maintenance; Iron deficiency anemia due to chronic blood loss 09/22/2024 Orders Only [address] [address] Johanna Valdez MD 09/22/2024 Travel from Last 3 Months Immunizations Name Administration Dates Next Due Hep B, adult 11/05/2006,06/03/2006,04/29/2006 Influenza Injectable Quadriv alant Preservative Free IIV4 MDCK 06/12/2023 Influenza injectable quadriv alent preservative free 06/06/2022,06/14/2019 Influenza, IIV3, injectable 07/22/2022,0 05/15/2021,05/29/2020,06/18,06/22/2017,06/16/2016,09/08/2014 Influenza, Injectable, MDCK, w/preservative 09/22/2024 Influenza, Split (incl. gatito fied surface antigen) 06/21/2012,06/26/2011,06/04/2010,06/25 Moderna Covid-19 Vaccine 12+ 09/22/2024, 03/15/2024,01/20/2022,07/12,12/07/2020,11/09/2020 Novel [id number], all formulations 07/18/2009 Pfizer Covid-19 Vaccine 12+ Bivalent 06/06/2022 Pneumococcal Conjugate PCV 20 09/22/2024 Pneumococcal Polysaccharide PPSV23 02/23/2007 RSV Adjuvant 06/29/2023 TD (adult), 2 Lf tetanus tox oid, preservative free, adsorbed 05/15/2021,04/11/1999 Tdap 12/20/2018,06/26/2011 Varicella 07/06/2001,06/03/2001 Family History Medical History Relation Name Comments Cataracts Mother Glaucoma Mother Relation Name Status Comments Mother Social History Tobacco Use Types Packs/Day Years Used Date Smoking Tobacco: Never Passive Smoke Exposure: Never Smokeless Tobacco: Never Tobacco Cessation:Counseling Given: Not Answered Alcohol Use Standard Drinks/Week Comments Not Currently [...] Orientation Straight 10/07/2022 11 :06 AM EST Last Filed Vital Signs Vital Sign Reading Time Taken Comments Blood Pressure 121/76 09/22/2024 11:20 AM EST Pulse 70 09/22/2024 11:20 AM EST Temperature 35.6 ??C (96 ??F) 09/22/2024 11:20 AM EST Respiratory Rate 16 09/22/2024 11:20 AM EST Oxygen Saturation 97% 09/22/2024 11:20 AM EST Inhaled Oxygen Concentration - - Weight 122 kg (268 lb) 11/22/2024 12:44 PM EDT Height 162.6 cm (5' 4 ) 11/22/2024 12:44 PM EDT Body Mass Index 46 11/22/2024 12:44 PM EDT Plan of Treatment Upcoming Encounters Date Type Department Care Team (Late st Contact Info) Description 12/20/2024 2:15 PM EDT Clinical Support [facility] NUTRITION [address] [facility] [address] Julieta Peoples, INEZ [address] [place] [address] 12/29/2024 2:30 PM EDT Office Visit [facility] MEDICAL [address] [place] [address] Johanna Valdez MD [address] [place] [address] 03/09/2025 2:00 PM EDT Office Visit [facility] DENTAL [address] [place] [address] Lizy Block Health Maintenance Due Date Last Done Comments CT Colonography 1961 FIT DNA/Cologuard 1961 FIT 1961 FOBT 1961 HIV Screening 1961 Sigmoidoscopy 1961 Diabetes: Foot Exam 1971 Alcohol/Substance Use Screening 1973 Hepatitis C Screening 1979 Pap Smear 1982 Cervical Cancer Screening 1991 HPV/Cotest 1991 Zoster Vaccines (1 of 2) 2011 Dental X-Ray: Full Mouth 09/11/2021 09/10/2018, 12/30 Influenza Vaccine (#1) 2024 , 06/12/2023, 07/22/2022, Additional history exists Dental X-Ray: Bitewings 09/29/2024 09/28/19 24, 06/03/2022, 05/13/2021, Additional history exists Diabetes: Urine Protein Screening 10/05/2024 10/05/2023, 09/24/2022, 09/24/2022, Additional history exists Dental Oral Exam 03/03/2025 09/02/2024, 01/2023, 12/04/2022, Additional history exists Dental Prophylaxis 03/03/2025 09/02/2024, 1 , 12/04/2022, Additional history exists Diabetes: Hemoglobin A1C 03/16/2025 025, 09/22/2024, 01/04/2024, Additional history exists Depression Screening 03/24/2025 03/24/2024, 03/24/20 24 SDOH Screening 03/24/2025 03/24/2024 Eye Exam 05/27/2025 05/27/2024, 05/02, 05/27/2024, Additional history exists Tobacco Screening 09/02/2025 09/02/2024 Lipid Panel 09/22/2025 09/22/2024, 05/0 01/2024, 09/24/2022, Additional history exists Mammogram 06/16/2026 06/16/2024, 02/28, 03/13/2023 DTaP/Tdap/Td Vaccines (4 - Td or Tdap) 05/15/2031 05/15/2021, 12/20/2018, 06/26/2011, Additional history exists Colonoscopy 04/22/2034 04/22/2024, 01/05/2017 Colorectal Cancer Screening 04/22/2034 Hepatitis B Vaccines Completed 11/05/2006, 06/03/2006, 04/29/2006 RSV Patients and Patients Aged 60 years or older Completed 06/29/2023 COVID-19 Vaccine Completed 09/22/2024, , 06/12/2023, Additional history exists Pneumococcal Vaccine: 50+ Years Completed 09/22/2024, 02/23/2007 HIB Vaccines Aged Out [...] patient's age to complete this topic Meningococcal Vaccine Aged Out No kay franklin eligible based on patient's age to complete this topic RSV under 20 months Aged Out No longe r eligible based on patient's age to complete this topic Rotavirus Vaccines Aged Out No longer eligible based on patient's age to complete this topic Procedures Procedure Name Priority Date/Time Associated Diagnosis Comments CASE PRESENTATION, DETAILED AND EXTENSIVE TREATMENT PLANNING Routine 11/25/2024 9:00 AM EDT 4,5 INTRAORAL - PERIAPICAL EACH ADDITIONAL RADIOGRAPHIC IMAGE Routine 11/25/2024 9:00 AM EDT 2 INTRAORAL - PERIAPICAL FIRST RADIOGRAPHIC IMAGE Routine 11/25/2024 9:00 AM EDT HEMOGLOBIN ELECTROPHORESIS Routine 11/07/2024 10:21 AM EDT NO CHARGE EXAM AND CONSULTATION Routine 10/05/2024 2:00 PM EST Max OCCLUSAL GUARD - SOFT APPLIANCE, FULL ARCH Routine 09/30/2024 10:30 AM EST CASE PRESENTATION, DETAILED AND EXTENSIVE TREATMENT PLANNING Routine 09/23/2024 2:00 PM EST 2 Max PALLIATIVE (EMERGENCY) TREATMENT OF DENTAL PAIN - MINOR PROCEDURE Routine 09/23/2024 2:00 PM EST VITAMIN B1 Routine 09/22/2024 12:09 PM EST DM (diabetes mellitus), type 2 with neurological complications (CMS/HCC) HEMOGLOBIN A1C Routine 09/22/2024 12:09 PM EST DM (diabetes mellitus), type 2 with neurological complications (CMS/HCC) LIPID PANEL, STANDARD Routine 09/22/2024 12:09 PM EST DM (diabetes mellitus), type 2 with neurological complications (CMS/HCC) CARBOXY-THC CONFIRM, ORAL FLUID (NON ORDERABLE) Routine 09/22/2024 12:00 AM EST DRUG SCREEN 14 W/CONFIRMATION, ORAL FLUID Routine 09/22/2024 12:00 AM EST Full PROPHYLAXIS - ADULT Routine 09/02/2024 2:00 PM EST PERIODIC ORAL EVALUATION - ESTABLISHED PATIENT Routine 09/02/2024 2:00 PM EST BI MAMMOGRAM SCREENING TOMOSYNTHESIS BILATERAL Routine 06/16/2024 12:09 PM EDT HM COLONOSCOPY Routine 04/22/2024 12:08 PM EDT MICROALBUMIN, RANDOM (W CREAT) Routine 10/05/2023 BITEWINGS - 4 RADIOGRAPHIC IMAGES Routine 09/28/2023 9:00 AM EST INTRAORAL - COMPLETE SERIES OF RADIOGRAPHIC IMAGES Routine 09/10/2018 12:00 AM EST from Last 3 Months or Most Recently Relevant to Health Maintenance Results * Hemoglobin Electrophoresis (11/07/2024 10:21 AM EDT) Blood Venous blood specimen / Unknown Johanna Valdez MD LAB BLOOD ORDERABLES Final Resul t * (ABNORMAL) Vitamin B1 355543 (09/22/2024 12:09 PM EST) Vitamin B1 (Thiamine), Blood 200.8(H) 66.5 - 200.0 nmol/L [facility] Blood Venous blood specimen / Unknown 09/22/2024 12:09 PM EST 09/22/2024 Narrative [facility] 1 - 09/28/2024 2:05 PM EST Test(s) 339451-[id number]. B1, Whole Blood was developed and its performance characteristics determined by [facility]. It has not been cleared or approved by the Food and Drug Administration. Performed at: ??01 - [facility] [address] ??[id number] Gastroenterology Teacher: Megan Patel MD, Phone: ??[phone] Specimen Comment: A courtesy copy of this report has been sent to the patient Johanna Valdez MD LAB BLOOD ORDERABLES Final Resul t [facility] * (ABNORMAL) Hemoglobin A1c (09/22/2024 12:09 PM EST) Hemoglobin A1c 10.4(H) 4.8 - 5.6 % [facility] Comment: ? Prediabetes: 5.7 - 6.4 ? Diabetes: >6.4 ? Glycemic control for adults with diabetes: <7.0 Blood Venous blood specimen / Unknown 09/22/2024 12:09 PM EST 09/22/2024 Narrative [facility] 1 - 09/23/2024 6:05 AM EST Performed at: ??01 - [facility] [address] ??[id number] Gastroenterology Teacher: Angela Edmond MD, Phone: ??[phone] Johanna Valdez MD LAB BLOOD ORDERABLES Final Resul t [facility] * Lipid Panel, Standard (09/22/2024 12:09 PM EST) [facility] Cholesterol, Total 139 100 - 199 mg/dL [facility] Triglycerides 108 0 - 149 mg/dL [facility] 1 HDL Cholesterol 57 >39 mg/dL [facility] 1 VLDL Cholesterol Ruben 20 5 - 40 mg/dL [facility] 1 LDL Chol Calc ([facility]) 62 0 - 99 mg/dL [facility] 1 Blood Venous blood specimen / Unknown 09/22/2024 12:09 PM EST 09/22/2024 Narrative [facility] 1 - 09/23/2024 6:05 AM EST Performed at: ??01 - [facility] [address] ??[id number] Gastroenterology Teacher: Angela Edmond MD, Phone: ??[phone] Johanna Valdez MD LAB BLOOD ORDERABLES Final Resul t Performing Organization Address City/[facility]/ZIP Co de Phone Number [facility] * Carboxy-THC Confirm, Oral Fluid (09/22/2024 12:00 AM EST) [facility] THC (Marijuana) Confirm, Oral Fluid 12.9 Cutoff=4.0 ng/ml [facility] 1 09/22/2024 09/22/2024 Narrative [facility] 1 - 10/06/2024 12:05 PM EST Performed at: ??01 - [facility] [address] [place] [address] ??[id number] Gastroenterology Teacher: Anahy Rose [facility], Phone: ??[phone] Johanna Valdez MD HISTORICAL/NON ORDERABLE LABS Fi nal Result [facility] * Drug Screen 14 w/Confirmation, Oral Fluid (09/22/2024 12:00 AM EST) Alcohol, Ethyl, Oral Fluid Negative Cutoff=0. 020 g/dl [facility] 1 Amphetamines Negative Cutoff=50 ng/ml [facility] 1 Benzodiazepines Negative Cutoff=20 ng/ml [facility] 1 Cocaine, oral fluid Negative Cutoff=20 ng/ml [facility] 1 Opiates, oral fluid Negative Cutoff=40 ng/ml [facility] 1 Phencyclidine, oral fluid Negative Cutoff=10 ng/ml [facility] 1 Marijuana, oral fluid +POSITIVE+ Cutoff=4 ng/ml [facility] 1 Oxycodone, oral fluid Negative Cutoff=40 ng/ml [facility] 1 Barbiturates, Oral Fluid Negative Cutoff=50 ng/ml [facility] 1 Methadone, Oral Fluid Negative Cutoff=50 ng/ml [facility] 1 Propoxyphene, Oral Fluid Negative Cutoff=40 ng/ml [facility] 1 Buprenorphine, Oral Fluid Negative Cutoff=5 ng/ml [facility] 1 Tramadol, Oral Fluid Negative Cutoff=50 ng/ml [facility] 1 Fentanyl, Oral Fluid Negative Cutoff=1 ng/ml [facility] Comment: This test was developed and its performance characteristics determined by [facility]. ??It has not been cleared or approved by the Food and Drug Administration. 09/22/2024 09/22/2024 Narrative [facility] 1 - 09/29/2024 1:29 AM EST Performed at: ??01 - [facility] [address] [place] [address] ??[id number] Gastroenterology Teacher: Anahy Rose [facility], Phone: ??[phone] us Johanna Valdez MD LAB BODY FLUIDS AND STOOLS ORDER ROHAN Final Result [facility] * BI Mammogram Screening Tomosynthesis Bilateral (06/16/2024 [...] (Negative) Lay letter mailed to patient WSN: [id number] Ordering Physician: Johanna Valdez Dictated By: ?Andrea Charles MD Dictated Date/Time: ?06/17/24 8:30 am Reviewed By: ?Andrea Charles MD Signed By: ? Andrea Charles MD Signed Date/Time: ? 06/17/24 8:30 am Transcribed By: ? CSB Outsole Splicer Date/Time: ? 06/17/24 8:29 am Birads: Procedure [...] (Negative) Lay letter mailed to patient WSN: [id number] Ordering Physician: Johanna Valdez Dictated By: Andrea Charles MD Dictated Date/Time: 06/17/24 8:30 am Reviewed By: Andrea Charles MD Signed By: Andrea Charles MD Signed Date/Time: 06/17/24 8:30 am Transcribed By: BENJAMIN Outsole Splicer Date/Time: 06/17/24 8:29 am Birads: Johanna Valdez MD IMG BI PROCEDURES Final Result * Hm Colonoscopy (04/22/2024 12:08 PM EDT) Johanna Valdez MD HEALTH MAINTENANCE Final Result * Microalbumin, Random Urine w/Creatinine (10/05/2023) Urine (Urine, Random) Result [facility] Johanna Valdez MD LAB URINE ORDERABLES Edited Resu lt - Final from Last 3 Months or Most Recently Relevant to Health Maintenance Insurance [facility] CARE < 65 DENTAL-[facility] MEDICAID STAND ADULT Care Teams Derrick Boat Captain Relationship Specialty Start Date End Date Johanna Valdez MD [address] [place] [address] PCP - General Internal Medicine 10/27/22 Paulina Kitchen OD [address] [place] [address] Optometry 10/27/[address] [place] [address] Dietitian Dietitian 10/27/22
--- OUTSIDE RECORDS SUMMARY | 2024-12-20 13:02 | XMS_ITS | Encounter Summary ---
Author Organization [employer] Address [address] [place] [address] Care Team Providers Care Senior Warehouse Clerk Name Role Phone Johanna Valdez MD Primary Care Provider [phone] Paulina Kitchen OD Unavailable Julieta Peoples RD Unavailable [phone] Reason for Visit * Reason Onset Date Comments nutrition supplies 08/18/2024 Encounter Details Date Type Department Care Team (Late st Contact Info) Description 08/18/2024 Telephone [facility] MEDICAL [address] [place] [address] Johanna Valdez MD [address] [place] [address] nutrition supplies Social History Tobacco Use Types Packs/Day Years [...] AM EST documented as of this encounter Miscellaneous Notes * Telephone Encounter - Bhavna Purcell, DORIS - 08/19/2024 8:33 AM EST Spoke with pt. She spoke with [facility] yesterday. She reports she will be looking elsewherefor the type of Ensure she needs as [facility] doesn't carry it but she is all set for now. * Telephone Encounter - Bhavna Purcell LPN - 08/18/2024 11:57 AM EST LMOM to CB. * Telephone Encounter - Lizzeth Del Valle - 08/18/2024 11:42 AM EST [facility] called They have been unsuccessfully trying to reach pt about Ensure protein, so they are putting her account on hold for the time being documented in this encounter Plan of Treatment Upcoming Encounters Date Type Department Care Team (Late st Contact Info) Description 12/20/2024 2:15 PM EDT Clinical Support [facility] NUTRITION [address] [place] [address] Julieta Peoples, RD 73 [place] [address] 12/29/2024 2:30 PM EDT Office Visit [facility] MEDICAL [address] [place] [address] Johanna Valdez MD [address] [place] [address] 03/09/2025 2:00 PM EDT Office Visit [facility] DENTAL [address] [place] [address] Lizy Block documented as of this encounter Visit Diagnoses Not on filedocumented in this encounter Care Teams Senior Warehouse Clerk Relationship Specialty Start Date End Date Johanna Valdez MD [address] [place] [address] PCP - General Internal Medicine 10/27/22 Paulina Kitchen OD [address] [place] [address] Optometry 10/27/[address] [place] [address] Dietitian Dietitian 10/27/22 documented as of this encounter
--- OUTSIDE RECORDS SUMMARY | 2024-12-20 13:02 | XMS_ITS | Encounter Summary ---
Author Organization [employer] Address [address] 7[address] [place] [address] Care Team Providers Care Break And Load Operator Name Role Phone Johanna Valdez MD Primary Care Provider [phone] Paulina Kitchen OD Unavailable Julieta Peoples RD Unavailable [phone] Encounter Details Date Type Department Care Team (Late st Contact Info) Description 06/27/2024 Orders Only [facility] [address] [place] [address] Johanna Valdez MD [address] [place] [address] Social History Tobacco Use Types Packs/Day Years [...] 12/20/2024 2:15 PM EDT Clinical Support [facility] NUTRITION 73 [place] [address] Julieta Peoples, INEZ 73 [place] [address] 12/29/2024 2:30 PM EDT Office Visit [facility] MEDICAL [address] [place] [address] Johanna Valdez MD [address] [place] [address] 03/09/2025 2:00 PM EDT Office Visit [facility] DENTAL [address] [place] [address] Lizy Block documented as of this encounter Procedures Procedure Name Priority Date/Time Associated Diagnosis Comments PATHOLOGY REPORT (HISTOPATHOLOGY) Routine 06/20/2024 1:40 PM EDT documented in this encounter Results * Pathology Report (Histopathology) (06/20/2024 1:40 PM EDT) Tissue Johanna Valdez MD LAB PATHOLOGY ORDERABLES Final R esult documented in this encounter Visit Diagnoses Not on filedocumented in this encounter Care Teams Break And Load Operator Relationship Specialty Start Date End Date Johanna Valdez MD [address] [place] [address] PCP - General Internal Medicine 10/27/22 Paulina Kitchen OD [address] [place] [address] Optometry 10/27/[address] 73 [place] [address] Dietitian Dietitian 10/27/22 documented as of this encounter
--- OUTSIDE RECORDS SUMMARY | 2024-12-20 13:02 | XMS_ITS | Encounter Summary ---
Author Organization [employer] Address [address] 7[address] [place] [address] Care Team Providers Care Director Of Construction Name Role Phone Johanna Valdez MD Primary Care Provider [phone] Paulina Kitchen OD Unavailable Julieta Peoples RD Unavailable [phone] Encounter Details Date Type Department Care Team (Late st Contact Info) Description 03/21/2024 Orders Only [facility] [address] [place] [address] Johanna Valdez MD [address] [place] [address] Social History Tobacco Use Types Packs/Day Years [...] Recorded Patient Health Questionnaire-2 Score 0 03/24/2024 Comments Unknown Sex and Gender Information Value [...] Description 12/20/2024 2:15 PM EDT [facility] 73 [place] [address] Julieta Peoples, INEZ 73 [place] [address] 12/29/2024 2:30 PM EDT [facility] [address] [place] [address] Johanna Valdez MD [address] [place] [address] 03/09/2025 2:00 PM EDT [facility] [address] [place] [address] Lizy Block documented as of this encounter Procedures Procedure Name Priority Date/Time Associated Diagnosis Comments XR CHEST 2 VIEWS Routine 03/17/2024 9:29 AM EDT ECG 12-LEAD Routine 03/17/2024 9:28 AM EDT ECG 12-LEAD Routine 03/14/2024 9:27 AM EDT documented in this encounter Results * XR Chest 2 Views (03/17/2024 9:29 AM EDT) Anatomical Region Laterality Modality Chest Radiographic Melanie ging Johanna Valdez MD IMG XR PROCEDURES Final Result * ECG 12 lead (03/17/2024 9:28 AM EDT) us Johanna Valdez MD ECG ORDERABLES Final Result * ECG 12 lead (03/14/2024 9:27 AM EDT) us Johanna Valdez MD ECG ORDERABLES Final Result documented in this encounter Visit Diagnoses Not on filedocumented in this encounter Care Teams Director Of Construction Relationship Specialty Start Date End Date Johanna Valdez MD [address] [place] [address] PCP - General Internal Medicine 10/27/22 Paulina Kitchen OD [address] [place] [address] Optometry 10/27/[address] 73 [place] [address] Dietitian Dietitian 10/27/22 documented as of this encounter
--- OUTSIDE RECORDS SUMMARY | 2024-12-20 13:02 | XMS_ITS ---
Author Organization [facility] Address [address] [facility] [place] [address] Care Team Providers Care Cd Mixer Helper Name Role Phone Johanna Valdez MD Primary Care Provider Unavailab Rosalba Alexis Unavailable [phone] Allergies Allergen (clinical drug ingredient) Drug/Non Drug Allergy documented on EMR Reaction Allergy Type Onset Date Status ibuprofen Advil Unknown Drug Allergy Active aspirin Aspirin Unknown Drug Allergy Active sulfamethoxazole / trimethoprim Bactrim Unknown Drug Allergy Active REASON FOR VISIT At Risk Footcare, Toe Irritation Medications Medication SIG (Take, Route, Frequency, Duration) Notes Start Date End Date Status Plavix Not-Taking Ciclopirox Olamine 0.77 % 1 application Externally Twice a day to feet including between the toes for 30 days Active Lidoderm Active LORazepam Active Morphine Active Eliquis Active Ferrous Gluconate Ac tive Multivitamin Active Crestor Active Zetia Active NovoLOG Active Tresiba Active Levothyroxine Sodium Active Social History Tobacco Use: Social History Observation Description Date Details (start date - stop date) Never Smoker NA - NA Tobacco Use/Smoking Question Answer Notes Are you a: nonsmoker Additional Findings: Tobacco Non-User Current no n-smoker Tobacco use other than smoking: Question Answer Notes Are you an other tobacco user? No Vital Signs Height 5ft4in in 11/10/2024 Weight 265 lbs 11/10/2024 BMI 45.48 kg/m2 11/10/2024 Blood pressure systolic 120 mm Hg 11/11/19 25 Blood pressure diastolic 43 mm Hg 025 Procedures Procedure Date Ordered Date Performed Result Body Sit e 75760-SOGJKDI NAIL, 6 OR MORE 11/10/2024 N/A 19502-IKPH SKIN LESIONS, 2 TO 4 11/10/2024 N/A Encounters Encounter Location Date Provider Diagnosis [facility] [address] [address] 11/10/2024 Rosalba Hernández Type 1 diabetes mellitus with diabetic polyneuropathy E10.42 ; Tinea unguium B35.1 ; Other hammer toe(s) (acquired), right foot M20.41 and Other hammer toe(s) (acquired), left foot M20.42 Assessments Encounter Date Diagnosis (ICD Code) Assessment Notes Treatment Notes Treatment Clinical Notes Section Notes 11/10/2024 Type 1 diabetes mellitus with diabetic polyneuropathy (ICD-10 - E10.42) 11/10/2024 Tinea unguium (ICD-10 - B35.1) 11/10/2024 Other hammer toe(s) (acquired), right foot (ICD-10 - M20.41) Patient Educated with: DIABETIC FOOT CARE INSTRUCTIONS. pdf (DIABETIC FOOT CARE INSTRUCTIONS. pdf) 11/10/2024 Other hammer toe(s) (acquired), left foot (ICD-10 - M20.42) Plan Of Treatment Treatment Notes Assessment Notes Other hammer toe(s) (acquired), right fo ot Patient Educated with: DIABETIC FOOT CARE INSTRUCTIONS.pdf (DIABETIC FOOT CARE INSTRUCTIONS.pdf) Pending Test Test Name Order Date 73244-XROKBTI NAIL, 6 OR MORE 11/10/2024 40940-FZOK SKIN LESIONS, 2 TO 4 11/11/19 25 Next Appt Details Follow Up: prn, Reason: Provider Name:Rosalba Hernández , 02/23/2025 11:30:00 AM, [address] [place] [address], [id number], Procedure Notes * Category Sub-Category Detail Notes Debride Nail 6-10 Nail debridement Due to the cl inical pathology outlined in the exam findings, performance of this nail treatment is medically necessary as its management by an unskilled/untrained nonprofessional would put this patients foot and overall health at risk. Therefore, debridement to affected nail(s), as described in exam ( TA, T1, T2, T3, T4, T5, T6, T7, T8, T9, ), was performed exclusively by the physician of record to reduce/remove overall nail length, girth, thickness, subungual debris, and necrotic tissue, by manual and/or electrical means through the use of a nail nipper and/or dremel-type flute grinder, to a more viable healthy nail [...] to maintain effectiveness in symptomatic relief - 51458 Keratoma Treatment Parring or Cutting o f [...] locations as stated and described in the exam ( Plantar Heel(s), , B/L, ), were pared, and/or cut utilizing a sterile 15 blade, tissue nippers, and/or power dremel instrumentation by the physician of record - 65528 Progress Notes * Dominique WHEATLEYOB:[birth year] (64 yo F)Acc No.[id number]:11/10/2024 Progress Note Patient:?Helen WHEATLEY Provider:?Rosalba Hernández DPM :1960???Age:64 Y???Sex:Female D ate:11/10/2024 Address: [address], [place], [phone] Pcp:Johanna Valdez MD Subjective: * Chief Complaints: * ???At Risk FootcareToe Irrit ation * HPI: ???At Risk footcare:?Pt States Last PCP Visit:?Date?08/26/2024 ???Toe pain:?Location:?B/L feet.?Duration:?several years.?Course:?worse.?Aggravated by:?shoes, any pressure.?Treatments:?change in [...] than smoking?Are you an other tobacco user??No ???Miscellaneous:?Caffeine: yes, frequency:, 2-3 cups per day. ?Children: no. ?Exercise: yes, walking. ?Marital status: single. ?Occupation: Retired. * Medications:?TakingTresiba N ovoLOG Levothyroxine Sodium Eliquis [...] reviewed and reconciled with the patient * Allergies:?TrerimAspiriYanelis cohn[Allergies Verified] Objective: * Vitals:?Ht: 5ft4in, Wt:265, BMI:45.48, Shoe size: 9-11, BP:120/43mm Hg, BS: 128, Ht-cm: 162.56 cm, Wt-k.2 kg. * ???Past Orders: ???Lab:HEMOGLOBIN A1C (GLYCO HEMOGLOBIN) (Order Date - 08/31/2024) (Collection Date & Time - 08/31/2024 11:34 AM) ? Value Reference Range ?HEMOGLOBIN A1C % (HH) 10.4 * Examination: ???Ophthalmology Referral: ?DIABETES EYE EXAM?Procedure Performed:?Yes ?Date of Exam Performed?10/29/2024 ?Findings of Diabetic Eye Exam:?retinopathy?General Examination: ?GENERAL APPEARANCE:?Reveals a pleasant, alert, well nourished, well- developed, well hydrated individual, who demonstrates proper attention to hygiene/body habitus, and is in no acute distress, Pt serves as own historian for office visit today.?ORIENTED:?person, place, and time.?FOOT EXAM:?Lower Extremity Neurological Exam performed:?Yes ?Visual exam of foot performed:?Yes ?Date?11/10/2024 ?Sensory testing performed:?sensations diminished ?Sensory and motor testing performed:?sensations diminished ?Pedal pulse taking performed:?2+ ?Footwear Evaluation?Footwear Evaluation performed:?Yes?Neurological: ?SENSORY:?Neurological exam demonstrates reduced sharp/dull pin prick [...] pain on palpation due to neuropathy , TA, T1, T2, T3, T4, T5, T6, T7, T8, T9.?Dermatologic: ?SKIN FINDINGS:?Skin exam reveals Keratotic lesion(s) located at?Plantar Heel(s), , B/L, ,?.?Vascular: ?DP PULSES (B):?2/4, B/L.?PT PULSES (B):?2/4, B/L.?CAPILLARY FILL TIME:?immediate, all digits, B/L.?TROPHIC CONDITION-TEXTURE/ELASTICITY/TURGOR/HAIR GROWTH (B):?normal, B/L.?TEMPERTURE GRADIENT (C):?normal, warm to cool, proximal to distal, B/L, B/L.?PIGMENTATION:?normal, B/L.?EDEMA (C):?absent, B/L.?Orthopedic: ?DIGITAL DEFORMITIES:?Digital contracture, PIPJ, 2-5 B/L, incompl-reducible to push-up test, no over, nor underlapping,?there is?evidence of shoe producing skin irritation.?FOOTWEAR:?worn, non-supportive, shoe gear properties exacerbate patient's foot/toe deformity.? Assessment: * Assessment: 1.?Type 1 diabetes mellitus with diabetic polyneuropathy - E10.42 (Primary)???2.?Tinea unguium - B35.1???3.?Other hammer toe(s) (acquired), right foot - M20.41???Specify :Chronic problem, Worse???4.?Other hammer toe(s) (acquired), left foot - M20.42???Specify :Chronic problem, Worse??? Plan: * Treatment: 2.?Tinea unguium?Procedure: 32044-DSMUXEN NAIL, 6 OR MORE 3.?Other hammer toe(s) (acqu ired), right foot? Notes: Patient Educated with: DIABETIC FOOT CARE INSTRUCTIONS.pdf (DIABETIC FOOT CARE INSTRUCTIONS.pdf)?? * Procedures:?Debride Nail 6-10:?Nail debridement?Due to the clinical pathology outlined in the exam findings, performance of this nail treatment is medically necessary as its management by an unskilled/untrained nonprofessional would put this patients foot and overall health at risk. Therefore, debridement to affected nail(s), as described in exam ( TA, T1, T2, T3, T4, T5, T6, T7, T8, T9, ), was performed exclusively by the physician of record to reduce/remove overall nail length, girth, thickness, subungual debris, and necrotic tissue, by manual and/or electrical means through the use of a nail nipper and/or dremel-type flute grinder, to a more viable healthy nail plate or bed tissue 6- 10 nails in total. Silver nitrate was used for any petechial bleeding as necessary. Definitive antifungal treatment options, both pharmaceutical and surgical, have been reviewed and discussed with the patient. The patient solely prefers the use of intermittent/as needed professional debridement services for their nail condition and understands the need for additional periodic treatments to maintain effectiveness in symptomatic relief - 57317.?Keratoma Treatment:?Parring or Cutting of Benign Hyperkeratotic Lesion(s)?(-56) [...] locations as stated and described in the exam ( Plantar Heel(s), , B/L, ), were pared, and/or cut utilizing a sterile 15 blade, tissue nippers, and/or power dremel instrumentation by the physician of record - 53491.? * Procedure Codes:?25436 DEBRI DE NAIL, 6 OR MORE, Modifiers: XS 83749 TRIM SKIN LESIONS, 2 TO 4, Modifiers: XS * Preventive Medicine:? ??Counseling:?Discussion:?-13: Office or other outpatient visit for the evaluation and management of an established patient, which required a medically appropriate history and/or examination and LOW level of DECISION MAKING for: 1 STABLE ACUTE UNCOMPLICATED PROBLEM, 2 OR MORE MINOR PROBLEMS, OR 1 STABLE CHRONIC PROBLEM, THAT POSE(S) A LOW RISK FOR MORBIDITY/MORTALITY. The visit on the day of the [...] No treatment at all, Rest, Ice, New/supportive/wider/deeper Shoe gear, Digital Padding/Strapping/Taping/Bracing/Gel protective sleeves, Foot/Ankle AFO Bracing, [...] were discussed and the patients questions re: shoe gear, padding, custom vs prefabricated inserts, activity level, and consistency in home treatment regimens for optimal success were answered to their verbally confirmed satisfaction, Recomm, rest, ice, proper shoegear, padding, orthotics, anti-inflammatories or tylenol as tolerated, topical analgesics, cortisone injections.?Shoe Gear Counseling:?SHOE Rx - The patient was counseled in great detail on their muscoloskeletal foot and toe deformities which coincided with the dermatological presentations visualized on exam. We discussed how their deformities put the integrity of their feet at risk for potential pedal complications which makes the accomidative diabetic shoes and cutomizable inserts medically necessary. We discussed the different shoe and insert treatment types and options, as well as the important advantages for adhering to regularly wearing these accomidative devices daily. The patient was made aware of the fact that a failure to abide by these recommedations may be deleterious to their foot health as they are able to prevent many pedal complications such as skin irritation, skin ulceration, infection, and even loss of toe/foot/leg/or life. Time was also spent with the patient dispensing and discussing proper diabetic footcare techniques including daily skin moisturization, daily foot inspection for any interruption in skin integrity including open lesions, or sign of infection such as redness/malodor/drainage/swelling. Also discussed and recommended were procedures regarding daily shoe inspection for the presence of internal foreign bodies as well as any visualized irregular shoe or insert wear. Patient questions re: shoes, inserts, and self foot inspections were answered to their satisfaction as the patient verbally confirmed a full understanding of the above information, Patient DEFERS recommended Extra Depth Orthopedic pressure-accommodative shoes against medical advice.? ??Screening/Special Tests:?Fall Risk?Screening:?No falls in the past year ?FALLS: Screening for Future Fall Risk?Have you had any falls with injury in the past year??No * Follow Up:?prn * Images: * Sign off status: Completed true * Provider:?Rosalba Hernández DPM Date:?2024 Generated for Amelie garzon/Quentin/Dieter on:?12/20/2024 08:01 AM EDT History and Physical Notes * HPI (History of Present Illness) Category Sub-Category Detail Notes Category Not es Toe pain Location: B/L feet Duration: several years Course: worse Aggravated by: shoes, any pressure Treatments: change in shoes At Risk footcare Pt States Last PCP [...] exam reveal s Keratotic lesion(s) located at Plantar Heel(s), , B/L, , Orthopedic FOOTWEAR EVALUATION: worn, non-s upportive, shoe gear properties exacerbate patient's foot/toe deformity DIGITAL DEFORMITIES: Digital contracture , PIPJ, 2-5 B/L, incompl-reducible to push-up test, no over, nor underlapping, there is evidence of shoe producing skin irritation General Examination GENERAL APPEARANCE: Reveals a pleasant, alert, well nourished, well-developed, well hydrated individual, who demonstrates proper attention to hygiene/body habitus, and is in no acute distress, Pt serves as own historian for office visit today FOOT EXAM: Lower Extremity Neurological Exa m performed:: Yes Visual exam of foot performed:: Yes Date: 11/10/2024 Sensory testing performed:: sensations d iminished Sensory and motor testing performed:: se nsations diminished Pedal pulse taking performed:: 2+ ORIENTED: person, place, and t maureen Footwear Evaluation Footwear Evaluation performe d:: Yes Ophthalmology Referral DIABETES EYE EXAM Procedure Perform ed:: Yes ?Date of Exam Performed: 10/29/2024 Findings of Diabetic Eye Exam:: retinopa thy [...] pain on palpation due to neuropathy , TA, T1, T2, T3, T4, T5, T6, T7, T8, T9
--- OUTSIDE RECORDS SUMMARY | 2024-12-20 13:02 | XMS_ITS | Encounter Summary ---
Author Organization [employer] Address [address] [facility] 7 [place] [address] Care Team Providers Care Marksmanship Instructor Name Role Phone Johanna Valdez MD Primary Care Provider [phone] Johanna Valdez MD Primary Care Provider [phone] Paulina Kitchen OD Unavailable Julieta Peoples RD Unavailable [phone] Encounter Details Date Type Department Care Team (Latest Contact Info) Description 04/22/2019 Abstract [facility] CONVERSIONS Dental, Provider, DDS Social History Tobacco Use Types Packs/Day Years Used Date Smoking Tobacco: Never Assessed Comments Unknown Sex and Gender Information Value [...] 2:15 PM EDT Clinical Support [facility] NUTRITION [address] [place] [address] [place] [address] 12/29/2024 2:30 PM EDT Office Visit [facility] MEDICAL [address] [place] [address] Johanna Vadlez MD [address] [place] [address] 03/09/2025 2:00 PM EDT Office Visit [facility] [address] [facility] [place] [address] Lizy Block documented as of this encounter Visit Diagnoses Not on filedocumented in this encounter Care Teams Marksmanship Instructor Relationship Specialty Start Date End Date Johanna Valdez MD [address] [facility] [place] [address] PCP - General Internal Medicine 08/07/22 10/26/22 Johanna Valdez MD [address] [place] [address] PCP - General Internal Medicine 10/27/22 Paulina Kitchen OD [address] [facility] [place] [address] Optometry 10/27/[address] [place] [address] Dietitian Dietitian 10/27/22 documented as of this encounter
--- OUTSIDE RECORDS SUMMARY | 2024-12-20 13:02 | XMS_ITS ---
Author Organization [facility] Address [address] [place] [phone] Care Team Providers Care Software Integration Developer Name Role Phone Johanna Valdez Primary Care Provider Alli White [phone] Encounters Encounter Location Date Provider Diagnosis [facility] [address] [place] [phone] 06/23/2023 Alli Vee Plan Of Treatment No Information Progress Notes * ABEL BERRY DDOB:1960 (62 yo F)Acc No.[id number]:06/23/2023 Patient:?ABEL EBRRY :1960???Age:62 Y???Sex:Female Address:[address] [place] [address] , [place], [address] * true * Date:? Generated for Noyi ryann/Quentin/eTransmitting on:?12/20/2024 01:01 PM EDT
--- OUTSIDE RECORDS SUMMARY | 2024-12-20 13:02 | XMS_ITS | Encounter Summary ---
Author Organization [employer] Address [address] 7[address] [place] [address] Care Team Providers Care Terrazzo Worker Apprentice Name Role Phone Johanna Valdez MD Primary Care Provider [phone] Johanna Valdez MD Primary Care Provider [phone] Paulina Kitchen OD Unavailable Julieta Peoples RD Unavailable [phone] Encounter Details Date Type Department Care Team (Late st Contact Info) Description 09/26/2022 Orders Only [facility] MEDICAL [address] [place] [address] Provider, MD Dwayne Social History Tobacco Use Types Packs/Day Years Used Date Smoking Tobacco: Never Smokeless Tobacco: Never Alcohol Use Standard Drinks/Week Comments Not Currently 0 (1 standard drink = 0.6 oz pur e alcohol) Comments Unknown Sex and Gender Information Value [...] suspected to have Coronavirus/COVID-19? No / Unsure 09/29/2022 10:47 AM EST documented as of this encounter Plan of Treatment Upcoming Encounters Date Type Department Care Team (Late st Contact Info) Description 12/20/2024 2:15 PM EDT Clinical Support [facility] NUTRITION [address] [place] [address] Julieta Peoples, INEZ [address] [place] [address] 12/29/2024 2:30 PM EDT Office Visit [facility] MEDICAL [address] [place] [address] Johanna Valdez MD 73 [place] [address] 03/09/2025 2:00 PM EDT Office Visit [facility] DENTAL [address] [place] [address] Lizy Block documented as of this encounter Procedures Procedure Name Priority Date/Time Associated Diagnosis Comments ALBUMIN/CREATININE RATIO, TI MED URINE Routine 09/24/2022 HEMOGLOBIN A1C Routine 09/24/2022 LIPID PANEL, STANDARD Routine 09/24/2022 documented in this encounter Results * Hemoglobin A1c (09/24/2022) Blood Venous blood specimen / Unknown [facility] Provider LAB BLOOD ORDERABLES Edit ed Result - Final * Albumin/Creatinine Ration, Timed Urine (09/24/2022) Urine Urine specimen obtained by clean catch procedure / Unknown [facility] Provider LAB URINE ORDERABLES Edit ed Result - Final * Lipid Panel, Standard (09/24/2022) Blood Venous blood specimen / Unknown Historical Provider LAB BLOOD ORDERABLES Edit ed Result - Final documented in this encounter Visit Diagnoses Not on filedocumented in this encounter Care Teams Terrazzo Worker Apprentice Relationship Specialty Start Date End Date Johanna Valdez MD [address] [place] [address] PCP - General Internal Medicine 08/07/22 10/26/22 Johanna Valdez MD 73 [place] [address] PCP - General Internal Medicine 10/27/22 Paulina Kitchen OD 73 [facility] [place] [address] Optometry 10/27/[address] 73 [place] [address] Dietitian Dietitian 10/27/22 documented as of this encounter
--- OUTSIDE RECORDS SUMMARY | 2024-12-20 13:02 | XMS_ITS | Encounter Summary ---
Author Organization [employer] Address [address] [facility] 7 [place] [address] Care Team Providers Care Cash Management Clerk Name Role Phone Johanna Valdez MD Primary Care Provider [phone] Johanna Valdez MD Primary Care Provider [phone] Paulina Kitchen OD Unavailable Julieta Peoples RD Unavailable [phone] Encounter Details Date Type Department Care Team (Latest Contact Info) Description 09/10/2018 Abstract [facility], Provider, DDS Social [...] 12/20/2024 2:15 PM EDT Clinical Support [facility] NUTRITION [address] [place] [address] 73 [place] [address] 12/29/2024 2:30 PM EDT Office Visit [facility] MEDICAL [address] [place] [address] Johanna Valdez MD 73 [place] [address] 03/09/2025 2:00 PM EDT Office Visit [place] [facility] DENTAL 73 [place] [address] Lizy Block documented as of this encounter Visit Diagnoses Not on filedocumented in this encounter Care Teams Cash Management Clerk Relationship Specialty Start Date End Date Johanna Valdez MD 73 [place] [address] PCP - General Internal Medicine 08/07/22 10/26/22 Johanna Valdez MD 73 [place] [address] PCP - General Internal Medicine 10/27/22 Paulina Kitchen OD 73 [place] [address] Optometry 10/27/[address] 73 [place] [address] Dietitian Dietitian 10/27/22 documented as of this encounter
--- OUTSIDE RECORDS SUMMARY | 2024-12-20 13:02 | XMS_ITS | Encounter Summary ---
Author Organization [employer] Address 75 [facility] 7 [place] [address] Care Team Providers Care Oracle Forms Developer Name Role Phone Johanna Valdez MD Primary Care Provider [phone] Johanna Valdez MD Primary Care Provider [phone] Paulina Kitchen OD Unavailable Julieta Peoples RD Unavailable [phone] Encounter Details Date Type Department Care Team (Latest Contact Info) Description 11/09/2019 Abstract [facility] Dental, Provider, DDS Social [...] Support [facility] NUTRITION [address] [place] [address] 73 [facility] [place] [address] 12/29/2024 2:30 PM EDT Office Visit [facility] MEDICAL [address] [place] [address] Johanna Valdez MD 73 [place] [address] 03/09/2025 2:00 PM EDT Office Visit [place] [facility] DENTAL 73 [facility] [place] [address] Lizy Block documented as of this encounter Visit Diagnoses Not on filedocumented in this encounter Care Teams Oracle Forms Developer Relationship Specialty Start Date End Date Johanna Valdez MD 73 [facility] [place] [address] PCP - General Internal Medicine 08/07/22 10/26/22 Johanna Valdez MD 73 [place] [address] PCP - General Internal Medicine 10/27/22 Paulina Kitchen OD 73 [facility] [place] [address] Optometry 10/27/[address] 73 [place] [address] Dietitian Dietitian 10/27/22 documented as of this encounter
--- OUTSIDE RECORDS SUMMARY | 2024-12-20 13:02 | XMS_ITS | Encounter Summary ---
Author Organization [employer] Address [address] [facility] 7t [place] [address] Care Team Providers Care Tip Length Checker Name Role Phone Johanna Valdez MD Primary Care Provider [phone] Johanna Valdez MD Primary Care Provider [phone] Paulina Kitchen OD Unavailable Julieta Peoples RD Unavailable [phone] Encounter Details Date Type Department Care Team (Late st Contact Info) Description 09/02/2022 Orders Only Evangel[facility] MEDICAL [address] [place], [place] [id number] Johanna Valdez MD 73 [place] [address] Social History Tobacco Use Types Packs/Day Years [...] suspected to have Coronavirus/COVID-19? No / Unsure 08/26/2022 10:21 AM EST documented as of this encounter Plan of Treatment Upcoming Encounters Date Type Department Care Team (Late st Contact Info) Description 12/20/2024 2:15 PM EDT Clinical Support [facility] NUTRITION [address] [place] [address] [place] [address] 12/29/2024 2:30 PM EDT Office Visit [facility] MEDICAL [address] [place] [address] Johanna Valdez MD 73 [place] [address] 03/09/2025 2:00 PM EDT Office Visit [facility] DENTAL [address] [place] [address] Lizy Block documented as of this encounter Visit Diagnoses Not on filedocumented in this encounter Care Teams Tip Length Checker Relationship Specialty Start Date End Date Johanna Valdez MD [address] [place] [address] PCP - General Internal Medicine 08/07/22 10/26/22 Johanna Valdez MD [address] [place] [address] [place] [address] PCP - General Internal Medicine 10/27/22 [place] [address] Optometry 10/27/[address] [place] [address] [place] [address] Dietitian Dietitian 10/27/22 documented as of this encounter
--- OUTSIDE RECORDS SUMMARY | 2024-12-20 13:02 | XMS_ITS | Encounter Summary ---
Author Organization [employer] Address [address] [facility] 7 [place] [address] Care Team Providers Care Compounder Name Role Phone Johanna Valdez MD Primary Care Provider [phone] Johanna Valdez MD Primary Care Provider [phone] Paulina Kitchen OD Unavailable Julieta Peoples RD Unavailable [phone] Encounter Details Date Type Department Care Team (Latest Contact Info) Description 05/13/2021 Abstract [facility] Dental, Provider, DDS Social [...] 2:15 PM EDT Clinical Support [facility] NUTRITION [address] [place] [address] 73 [place] [address] 12/29/2024 2:30 PM EDT Office Visit [facility] MEDICAL [address] [place] [address] Johanna Valdez MD [address] [place] [address] 03/09/2025 2:00 PM EDT Office Visit [facility] DENTAL 73 [place] [address] Lizy Block documented as of this encounter Visit Diagnoses Not on filedocumented in this encounter Care Teams Compounder Relationship Specialty Start Date End Date Johanna Valdze MD [address] [place] [address] PCP - General Internal Medicine 08/07/22 10/26/22 Johanna Valdez MD 73 [place] [address] PCP - General Internal Medicine 10/27/22 Paulina Kitchen OD [address] [place] [address] Optometry 10/27/[address] 73 [facility] [place] [address] Dietitian Dietitian 10/27/22 documented as of this encounter
--- OUTSIDE RECORDS SUMMARY | 2024-12-20 13:03 | XMS_ITS | Encounter Summary ---
Author Organization [employer] Address [address] 7[address] [place] [address] Care Team Providers Care In Flight Refueling System Repairer Name Role Phone Johanna Valdez MD Primary Care Provider [phone] Paulina Kitchen OD Unavailable Julieta Peoples RD Unavailable [phone] Encounter Details Date Type Department Care Team (Late st Contact Info) Description 09/22/2023 Orders Only [facility] [address] [place] [address] Johanna Valdez MD 73 [place] [address] Social History Tobacco Use Types Packs/Day Years [...] housing situation today? I have teresa sheth 06/15/[address] you li ve. Do you have problems with any of the following? None of the above 06/15/2023 Food Insecurity Answer Date Recorded Within the past 12 months, y ou worried that your food would run out before you got money to buy more: Never True 06/15/2023 Within the past 12 months,th e food you bought just didn't last and you didn't have enough money to get more: Never True Transportation Answer Date Recorded In the past 12 months, has l ack of transportation kept you from medical appts, meetings, work or from getting things needed for daily living? No 06/15/2023 Intimate Partner Violence Answer Date R ecorded [...] shut off services in your home? No 06/15/2023 Depression Answer Date Recorded Patient Health Questionnaire-2 [...] Support [facility] NUTRITION [address] [place] [address] Julieta Peoples, INEZ 73 [facility] [address] 12/29/2024 2:30 PM EDT Office Visit [facility] MEDICAL [address] [place] [address] Johanna Valdez MD 73 [place] [address] 03/09/2025 2:00 PM EDT Office Visit [facility] DENTAL [address] [place] [address] Lizy Block documented as of this encounter Procedures Procedure Name Priority Date/Time Associated Diagnosis Comments US PELVIS TRANSVAGINAL Routine 05/29/2023 documented in this encounter Results * US Pelvis Transvaginal (05/29/2023) Anatomical Region Laterality Modality Pelvis Ultrasound us Johanna Valdez MD IMG US PROCEDURES Edited Result - Final documented in this encounter Visit Diagnoses Not on filedocumented in this encounter Care Teams In Flight Refueling System Repairer Relationship Specialty Start Date End Date Johanna Valdez MD 73 [place] [address] PCP - General Internal Medicine 10/27/22 Paulina Kitchen OD 73 [place] [address] Optometry 10/27/[address] 73 [place] [address] Dietitian Dietitian 10/27/22 documented as of this encounter
--- OUTSIDE RECORDS SUMMARY | 2024-12-20 13:03 | XMS_ITS | Encounter Summary ---
Author Organization [employer] Address [address] 7[address] [place] [address] Care Team Providers Care Metal Tank Erector Name Role Phone Johanna Valdez MD Primary Care Provider [phone] Paulina Kitchen OD Unavailable Julieta Peoples RD Unavailable [phone] Encounter Details Date Type Department Care Team (Late st Contact Info) Description 01/05/2024 Orders Only [facility] [address] [place] [address] Johanna Valdez MD 73 [place] [address] Social History Tobacco Use Types Packs/Day Years [...] Description 12/20/2024 2:15 PM EDT Clinical Support [facility] NUTRITION 73 [place] [address] Julieta Peoples, INEZ 73 [place] [address] 12/29/2024 2:30 PM EDT Office Visit [facility] MEDICAL 73 [place] [address] Johanna Valdez MD 73 [place] [address] 03/09/2025 2:00 PM EDT Office Visit [facility] DENTAL [address] [place] [address] Lizy Block documented as of this encounter Procedures Procedure Name Priority Date/Time Associated Diagnosis Comments HEMOGLOBIN A1C Routine 01/04/2024 10:38 AM EDT LIPID PANEL, STANDARD Routine 01/04/2024 9:57 AM EDT CBC Routine 01/04/2024 9:42 AM EDT documented in this encounter Results * Hemoglobin A1c (01/04/2024 10:38 AM EDT) Blood Venous blood specimen / Unknown Johanna Valdez MD LAB BLOOD ORDERABLES Final Resul t * Lipid Panel, Standard (01/04/2024 9:57 AM EDT) Blood Venous blood specimen / Unknown us Johanna Valdez MD LAB BLOOD ORDERABLES Final Resul t * CBC (01/04/2024 9:42 AM EDT) Blood Venous blood specimen / Unknown us Johanna Valdez MD LAB BLOOD ORDERABLES Final Resul t documented in this encounter Visit Diagnoses Not on filedocumented in this encounter Care Teams Metal Tank Erector Relationship Specialty Start Date End Date Johanna Valdez MD [address] [place] [address] PCP - General Internal Medicine 10/27/22 Paulina Kitchen OD [address] [place] [address] Optometry 10/27/[address] [place] [address] Dietitian Dietitian 10/27/22 documented as of this encounter
--- OUTSIDE RECORDS SUMMARY | 2024-12-20 13:03 | XMS_ITS | Encounter Summary ---
Author Organization [facility] Address [address] [place] [address] Care Team Providers Care Cad Draftsman Name Role Phone Johanna Valdez MD Primary Care Provider Unavailab le Encounter Details Date Type Department Care Team Description 02/16/2017 Hospital Medical Records [address] [place] [address] Alexx Barrett MD Social History Tobacco Use Types Packs/Day Years Used Date Smoking Tobacco: Never Smokeless Tobacco: Current Alcohol Use Standard Drinks/Week Comments Yes 0 (1 standard drink = 0.6 oz pur e alcohol) Sex Assigned at Date Recorded Not on file documented as of this encounter Plan of Treatment Not on file documented as of this encounter Visit Diagnoses Not on filedocumented in this encounter Care Teams Cad Draftsman Relationship Specialty Start Date End Date Johanna Valdez MD PCP - General Internal Medicine 12/10/17 documented as of this encounter
--- OUTSIDE RECORDS SUMMARY | 2024-12-20 13:03 | XMS_ITS | Clinical Summary ---
Author Organization [facility] Address [address] [place] [address] Care Team Providers Care Hydraulic Tester Name Role Phone Johanna Valdez MD Primary Care Provider [phone] Allergies Active Allergy Reactions Criticality Noted Date Comments Codeine 02/26/2021 Gabapentin 02/26/2021 Glyburide 02/26/2021 Ibuprofen 02/26/2021 Metformin 02/26/2021 Tramadol 02/26/2021 Medications Medication Sig Dispensed Refills Start Date End Date Status Coenzyme Q10 100 MG capsule Take by mouth daily. 0 02/18/2021 Active levothyroxine (SYNTHROID) tablet 175 mcg TAKE 1 TABLET EVERY MORNING ON EMPTY STOMACH AND TAKE AN EXTRA 1/2 TABLET ONCE ON THURSDAY AND THURSDAY 0 02/13/2021 Active lidocaine (LIDODERM) 5 % apply 3 patches TO intact SKIN LEAVE ON FOR 12 hours, REMOVE FOR 12 hours 0 12/20/2020 Active rosuvastatin (CRESTOR) tablet 20 mg Take 1 tablet (20 mg total) by mouth daily. 0 02/22/2021 Active apixaban (ELIQUIS) 5 MG TABS tablet Take 1 tablet (5 mg total) by mouth every 12 (twelve) hours. 0 Active ferrous sulfate 325 (65 FE) MG tablet Take 1 tablet (325 mg total) by mouth every morning with breakfast. 0 Active ezetimibe (ZETIA) tablet 10 mg Take 1 tablet (10 mg total) by mouth daily. 0 Active morphine 10 MG/5ML solution Take by mouth every 2 (two) hours as needed for pain. 0 Active Dronedarone HCl (MULTAQ) 400 MG tablet Take 1 tablet (400 mg total) by mouth 2 (two) times a day with meals. 0 Active clopidogrel (PLAVIX) 75 MG tablet Take 1 tablet (75 mg total) by mouth daily. 0 Active Multiple Vitamin (Multi Vitamin) TABS 1 tablet. 0 Acti ve LORazepam (ATIVAN) 1 MG tablet TAKE 1/2 TO 1 tablet BY MOUTH THREE TIMES DAILY NEEDED for 28 days 0 11/26/2023 Active loratadine (CLARITIN) 10 MG tablet Take 1 tablet (10 mg total) by mouth daily. 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 02/07/2019 Thrombocytosis 02/07/2019 Paroxysmal A-fib 01/14/2018 Overview: Overview: Plavix Carotid stenosis 01/14/2018 Overview: Overview: S/p left CEA 10/06/2016: Duplex bilateral carotid US: Bilat hemodynamically significant stenosis consistent w/ 50-79% diameter reduction involving both the paroximal L and R internal carotid arteries Depression 01/14/2018 Chronic bilateral low back pain without sciatica 01/14/2018 Social History Tobacco Use Types Packs/Day Years Used Date Smoking Tobacco: Never Assessed Sex and Gender Information Value Date Recorded Sex Assigned at Female 08/17/2023 4:14 PM EST Gender Identity Not on file Sexual Orientation Not on file Job Start Date Occupation Industry Not on file Not on file Not on file Last Filed Vital Signs Vital Sign Reading Time Taken Comments Blood Pressure 120/52 05/23/2024 10:57 AM EDT Pulse 83 05/23/2024 10:57 AM EDT Temperature 37.2 ??C (98.9 ??F) 05/23/2024 10:57 AM E DT Respiratory Rate 18 04/07/2024 1:19 PM EDT Oxygen Saturation 97% 05/23/2024 10:57 AM EDT Inhaled Oxygen Concentration - - Weight 121.6 kg (268 lb) 05/16/2024 10:08 AM EDT Height 162.6 cm (5' 4 ) 05/16/2024 10:08 AM EDT Body Mass Index 46 05/16/2024 10:08 AM EDT Plan of Treatment Health Maintenance Due Date Last Done Comments Hepatitis C Screening 1961 Depression Screening 1973 BMI Counseling 1979 Preventative Health Evaluation 1979 Cervical Cancer Screening (Pap Smear) 1982 Colon Cancer Screening (Colonoscopy) 2006 Pneumococcal Vaccine (2 of 2 - PCV) 02/24/2008 02/23/2007 Breast Cancer Screening (Mammogram) 2011 Shingrix-Zoster Vaccine (1 of 2) 2011 Influenza Vaccine (#1) 2024 , 06/06/2022, 05/15/2021, Additional history exists COVID-19 Vaccine ( season) 2024 03/15/2024, 06/06/2022, 01/20/2022, Additional history exists DTap / Tdap / Td (3 - Td or Tdap) 12/20/2028 12/20/2018, 06/26/2011 Hepatitis B Vaccines Completed 11/05/2006, 06/03/2006, 04/29/2006 RSV Adult > 60+ Yrs or Completed 06/29/2023 RSV Ped < 20 months Aged Out No longe r eligible based on patient's age to complete this topic Care Teams Hydraulic Tester Relationship Specialty Start Date End Date Johanna Valdez MD [address] [place] [address] PCP - General Internal Medicine 02/26/21
--- OUTSIDE RECORDS SUMMARY | 2024-12-20 13:03 | XMS_ITS | Patient Health Record ---
Author Organization [facility] Address [address] [place] [id number] Care Team Providers Care Inclined Railway Operator Name Role Phone Johanna Valdez Primary Care Provider Alli White [phone] Allergies Allergen (clinical drug ingredient) Drug/Non Drug Allergy documented on EMR Reaction Allergy Type Onset Date Status Substance with sulfonamide structure and antibacterial mechanism of action (substance) Sulfa Antibiotics Unknown Drug Allergy Active gabapentin Neurontin Unknown Drug Allergy Active Glucophage Unknown Drug Allergy Active glyburide gliberide (uncoded) Unknown Allergy Active oral diabetic meds (uncoded) Unknown Allergy Active Reason For Referral No Information Medications Medication [...] CoQ10 100 MG TAKE 1 CAPSULE BY [facility] DAILY Oral for 30 Active Ezetimibe 10 [...] Twice a day for 30 day(s) Active Immunizations Vaccine Route Administration Date Status Comme nts Influenza Unknown 07/22/2022 Administered Social History Tobacco Use: Social History Observation Description Date Details (start date - stop date) Never Smoker NA - NA Tobacco Use/Smoking Question Answer Notes Patient is a nonsmoker Alcohol Screen Question Answer Notes Did you have a drink containing alcohol in the p ast year? No Points 0 Interpretation Negative Problems Problem Type SNOMED Code ICD Code Onset Dates Problem Status W/U Status Risk Notes Problem 369455915 Colon cancer screening (Z12.11) Active confirmed Problem 057247084 History of colon polyps (Z86.010) Active confirmed Problem 536068769 Anticoagulant long-term use (Z79.01) Active confirmed Problem 454188847 Gastroesophageal reflux disease, unspecified whether esophagitis present (K21.9) Active confirmed Plan Of Treatment Future Test Test Name Order Date UPPER GI ENDOSCOPY 02/19/2023 COLONOSCOPY 02/19/2023 Insurance Providers Payer Name Payer Address Payer Phone Subscriber Number Group Number Insured Name Patient Relationship to Insured Coverage Start Date Coverage End Date Care [place] [address] Attn Claims DAN[place] [id number] ABEL BERRY Self - patient is the insured MEDICAID OF [facility] [address] [place] [phone] [id number] ABEL BERRY Self - patient is the insured Medical (General) History Medical History History ICD Code CVA > 5 years ago IDDM NAFLD Hyperlipidemia Afib Hyperthyroidism, s/p treatment Previous colonoscopies with removal of polyps with Dr. Meier at [facility], most recently in approx 2016 GERD History of PUD Anemia from uterine fibroid bleeding Denies NM,Lung disease,renal disease Surgical History Surgery Date(Month/Year) Appy 1972 Left carotid 2009 Sleeve Gastrectomy 2018
--- OUTSIDE RECORDS SUMMARY | 2024-12-20 13:03 | XMS_ITS | Encounter Summary ---
Author Organization [employer] Address [address] [facility] [address] [place] [address] Care Team Providers Care Consumer Marketing Specialist Name Role Phone Johanna Valdez MD Primary Care Provider [phone] Paulina Kitchen OD Unavailable Julieta Peoples RD Unavailable [phone] Encounter Details Date Type Department Care Team (Late st Contact Info) Description 11/10/2024 Orders Only [facility] [address] [place] [address] Johanna Valdez MD [address] [place] [address] Social History Tobacco Use Types Packs/Day Years [...] 12/20/2024 2:15 PM EDT Clinical Support [facility] NUTRITION [address] [place] [address] Julieta Peoples, INEZ [address] [facility] [place] [address] 12/29/2024 2:30 PM EDT Office Visit [facility] MEDICAL [address] [place] [address] Johanna Valdez MD [address] [place] [address] 03/09/2025 2:00 PM EDT Office Visit [facility] DENTAL [address] [place] [address] Lizy Block documented as of this encounter Procedures Procedure Name Priority Date/Time Associated Diagnosis Comments HEMOGLOBIN ELECTROPHORESIS Routine 11/07 10:21 AM EDT documented in this encounter Results * Hemoglobin Electrophoresis (11/07/2024 10:21 AM EDT) Blood Venous blood specimen / Unknown Johanna Valdez MD LAB BLOOD ORDERABLES Final Resul t documented in this encounter Visit Diagnoses Not on filedocumented in this encounter Care Teams Consumer Marketing Specialist Relationship Specialty Start Date End Date Johanna Valdez MD [address] [place] [address] PCP - General Internal Medicine 10/27/22 Paulina Kitchen OD [address] [place] [address] Optometry 10/27/[address] [place] [address] Dietitian Dietitian 10/27/22 documented as of this encounter
--- OUTSIDE RECORDS SUMMARY | 2024-12-20 13:03 | XMS_ITS ---
Author Organization [facility] Address [address] [facility] [place] [address] Care Team Providers Care Kelly Machine Operator Name Role Phone José Miguel SUE, Johanna Primary Care Provider Unavailab Rosalba Alexis Unavailable [phone] Allergies Allergen (clinical drug ingredient) Drug/Non Drug [...] Polyneuropathy due to diabetes mellitus type I (717951727) Type 1 diabetes mellitus with diabetic polyneuropathy (E10.42) Active confirmed Problem Acquired hammer toe of right foot (4293708451499967 ) Other hammer toe(s) (acquired), right foot (M20.41) Active confirmed Problem Acquired hammer toe of left foot (3470917827868316 ) Other hammer toe(s) (acquired), left foot (M20.42) Active confirmed Vital Signs Height 5 ft 4 in in 05/23/2024 Weight 265 lbs 05/23/2024 BMI 45.48 kg/m2 05/23/2024 Blood pressure systolic 120 mm Hg 05/23/20 24 Blood pressure diastolic 40 mm Hg 024 Procedures Procedure Date Ordered Date Performed Result Body Sit e 68872-MJWRURM NAIL, 6 OR MORE 05/23/2024 N/A 78245-XXOP SKIN LESIONS, 2 TO 4 05/23/2024 N/A Encounters Encounter Location Date Provider Diagnosis [facility] [place] [address] [place] [address] 05/23/2024 Rosalba Black Type 1 diabetes mellitus [...] INSTRUCTIONS.pdf) Pending Test Test Name Order Date 86248-JFNKYOI NAIL, 6 OR MORE 05/23/2024 53029-AUBQ SKIN LESIONS, 2 TO 4 05/23/20 Next Appt Details Follow Up: prn, Reason: Provider Name:Rosalba Hernández , 02/23/2025 11:30:00 AM, [address] [place] [address], [phone], Procedure Notes * Category Sub-Category Detail Notes Debride Nail 6-10 Nail debridement Performance o f this nail treatment by a nonprofessional would put this patients foot and overall health at risk. Therefore, nail debridement was performed extensively to reduce/remove overall nail length, girth, thickness, subungual debris, and necrotic tissue, by manual and/or electrical means through the use of a nail nipper and/or dremel-type precision grinder, to a more viable healthy nail plate or bed tissue 6-10. Silver nitrate used for any petechial bleeding as necessary. Definitive antifungal treatment options have been reviewed and discussed with the patient. The patient chooses, no pharmaceutical tx - 49584 Keratoma Treatment Parring or Cutting o f Benign Hyperkeratotic Lesion(s) (-56) 2-4 Lesions - The Benign hyperkeratotic lesions, as described above were pared, and/or cut utilizing a sterile 15 blade, tissue nippers, and/or dremel - 96568, Progress Notes * Julienne WHEAT[birth year]raDOB:[birth year] (63 yo F)Acc No.[id number]:05/23/2024 Progress Notes Patient:?Heeln Wheatley Provider:?Rosalba Hernández DPM :1960???Age:63 Y???Sex:Female D ate:05/23/2024 Address: [address], [id number] Pcp:Johanna Valdez MD Subjective: * Chief Complaints: [...] Surgical History:?gastrectom y carotid endarterectomy Stent ardio * Hospitalization/Major Diagno stic Procedure:?[facility] ER- blood [...] * Allergies:?BactrimAspirinAdv ilyes[Allergies Verified] Objective: * Vitals:?Ht: 5 ft 4 in, Wt:26 5, BMI:45.48, Shoe size: 9- 11, BP:120/40 mm Hg, BS: 92, Ht-cm: 162.56 cm, Wt-k.2 kg. * ???Past Orders: ???Lab:HEMOGLOBIN A1C (GLYCO HEMOGLOBIN) (Order Date - 05/02/2024) (Collection Date - 05/02/2024) ? Value Reference Range ?TOTAL HEMOGLOBIN (HGBA1C) 9.1 * Examination: ???Ophthalmology Referral: ?DIABETES EYE EXAM?Diabetic Retinopathy Screening:?Yes ?Findings of Diabetic Eye Exam:?retinopathy?General Examination: ?GENERAL APPEARANCE:?Reveals a pleasant, alert, well nourished, well- developed, well hydrated individual, who demonstrates proper attention to hygiene/body habitus, and is in no acute distress, Pt serves as own historian for office visit today.?ORIENTED:?person, place, and time.?FOOT EXAM:?Lower Extremity Neurological Exam performed:?Yes ?Footwear Evaluation?Footwear Evaluation performed:?Yes?Neurological: ?SENSORY:?Neurological exam demonstrates [...] 2.?Type 1 diabetes mellitus with diabetic polyneuropathy?Procedure: 96780-ZIAV SKIN LESIONS, 2 TO 4 3.?Tinea unguium?Procedure: 10856-SNEJXNF NAIL, 6 OR MORE 4.?Tinea pedis of [...] use of a nail nipper and/or dremel-type precision grinder, to a more viable healthy nail plate or bed tissue 6-10. Silver nitrate used for any petechial bleeding as necessary. Definitive antifungal treatment options have been reviewed and discussed with the patient. The patient chooses, no pharmaceutical tx - 56683.?Keratoma Treatment:?Parring or Cutting of Benign Hyperkeratotic Lesion(s)?(-56) 2-4 Lesions - The Benign hyperkeratotic lesions, as described above were pared, and/or cut utilizing a sterile 15 blade, tissue nippers, and/or dremel - 43584, ?.? * Procedure Codes:?67571 DEBRI DE NAIL, 6 OR MORE, Modifiers: XS 92259 TRIM SKIN LESIONS, 2 TO 4, Modifiers: [...] Hernández DPM Date:?2023 Generated for Amelie garzon/Quentin/Dieter on:?12/20/2024 08:01 AM [...] moccasin fashion, no fissure(s) present, B/L Orthopedic FOOTWEAR EVALUATION: worn, non-s upportive, shoe [...]
--- OUTSIDE RECORDS SUMMARY | 2024-12-20 13:03 | XMS_ITS | Encounter Summary ---
Author Organization [facility] Address [address] [place] [address] Care Team Providers Care Group Home Paraprofessional Name Role Phone Johanna Valdez MD Primary Care Provider Unavail le Encounter Details Date Type Department Care Team Description 01/12/2018 Release of Information Medical Records [address] [place] [address] Abstract, Provider Social History Tobacco Use Types Packs/Day Years Used Date Smoking Tobacco: Never Assessed Smokeless Tobacco: Current Alcohol Use Standard Drinks/Week Comments Yes 0 (1 standard drink = 0.6 oz pur e alcohol) Sex Assigned at Date Recorded Not on file documented as of this encounter Plan of Treatment Not on file documented as of this encounter Visit Diagnoses Not on filedocumented in this encounter Care Teams Group Home Paraprofessional Relationship Specialty Start Date End Date Johanna Valdez MD PCP - General Internal Medicine 12/10/17 documented as of this encounter
--- OUTSIDE RECORDS SUMMARY | 2024-12-20 13:03 | XMS_ITS | Encounter Summary ---
Author Organization [employer] Address [address] [facility] [address] 7[address] [place] [address] Care Team Providers Care Antitank Assault Gunner Name Role Phone Johanna Valdez MD Primary Care Provider [phone] Paulina Kitchen OD Unavailable Julieta Peoples RD Unavailable [phone] Encounter Details Date Type Department Care Team (Late st Contact Info) Description 10/06/2023 Orders Only [facility] [address] [place] [address] Johanna Valdez MD [address] [place] [address] Social History Tobacco Use Types Packs/Day Years [...] Description 12/20/2024 2:15 PM EDT Clinical Support [facility] NUTRITION [address] [place] [address] Julieta Peoples, INEZ [address] [place] [address] 12/29/2024 2:30 PM EDT Office Visit [facility] MEDICAL [address] [place] [address] Johanna Valdez MD [address] [place] [address] 03/09/2025 2:00 PM EDT Office Visit [facility] DENTAL [address] [place] [address] Lizy Block documented as of this encounter Procedures Procedure Name Priority Date/Time Associated Diagnosis Comments MICROALBUMIN, RANDOM (W CREAT) Routine 10/05/2023 HEMOGLOBIN A1C Routine 10/05/2023 documented in this encounter Results * Microalbumin, Random Urine w/Creatinine (10/05/2023) Urine (Urine, Random) Johanna Valdez MD LAB URINE ORDERABLES Edited Resu lt - Final * Hemoglobin A1c (10/05/2023) Blood Venous blood specimen / Unknown Johanna Valdez MD LAB BLOOD ORDERABLES Edited Resu lt - Final documented in this encounter Visit Diagnoses Not on filedocumented in this encounter Care Teams Antitank Assault Gunner Relationship Specialty Start Date End Date Johanna Valdez MD [address] [place] [address] PCP - General Internal Medicine 10/27/22 Paulina Kitchen OD [address] [place] [address] Optometry 10/27/[address] [place] [address] Dietitian Dietitian 10/27/22 documented as of this encounter
--- OUTSIDE RECORDS SUMMARY | 2024-12-20 13:03 | XMS_ITS | Encounter Summary ---
Author Organization [employer] Address [address] [facility] [address] [place] [address] Care Team Providers Care Hat Finisher Name Role Phone Johanna Valdez MD Primary Care Provider [phone] Paulina Kitchen OD Unavailable Julieta Peoples RD Unavailable [phone] Reason for Visit * Reason Onset Date Comments Prior Auth Prescription 11/28/2024 Encounter Details Date Type Department Care Team (Late st Contact Info) Description 11/28/2024 Telephone [facility] MEDICAL [address] [place], [place] [phone] Johanna Valdez MD [address] [place] [address] Prior Auth Prescription Social History Tobacco Use Types Packs/Day Years [...] encounter Miscellaneous Notes * Telephone Encounter - Isabella Goodson LPN - 12/20/2024 8:01 AM EDT Lidocaine was denied and pt calling to speak with Dr Valdez about them. * Telephone Encounter - Brittany Ahn - 11/28/2024 2:18 PM EDT Please submit a pa for the following medication lidocaine (Lidoderm) 5 % patch Please include more details as to why the patient needs this medication documented in this encounter Plan of Treatment Upcoming Encounters Date Type Department Care Team (Late st Contact Info) Description 12/20/2024 2:15 PM EDT Clinical Support [facility] NUTRITION [address] [place] [address] [place] [address] 12/29/2024 2:30 PM EDT Office Visit [facility] MEDICAL [address] [place] [address] Johanna Valdez MD [address] [place] [address] 03/09/2025 2:00 PM EDT Office Visit [facility] DENTAL [address] [place] [address] iLzy Block documented as of this encounter Visit Diagnoses Not on filedocumented in this encounter Care Teams Hat Finisher Relationship Specialty Start Date End Date Johanna Valdez MD [address] [place] [address] PCP - General Internal Medicine 10/27/22 Paulina Kitchen OD [address] [place] [address] [place] [address] Optometry 10/27/[address] [place] [address] [place] [address] Dietitian Dietitian 10/27/22 documented as of this encounter
--- OUTSIDE RECORDS SUMMARY | 2024-12-20 13:03 | XMS_ITS | Encounter Summary ---
Author Organization [employer] Address [address] [facility] [address] [place] [address] Care Team Providers Care Tanning Drum Operator Name Role Phone Johanna Valdez MD Primary Care Provider [phone] Paulina Kitchen OD Unavailable Julieta Peoples RD Unavailable [phone] Reason for Visit * Reason Onset Date Comments Prior Authorization 09/28/2024 Encounter Details Date Type Department Care Team (Late st Contact Info) Description 09/28/2024 Telephone [facility] MEDICAL [address] [place], [place] [phone] Evangelista Traore CMA Prior Authorization Social History Tobacco Use Types Packs/Day Years [...] Telephone Encounter - Isabella Goodson LPN - 10/03/2024 8:48 AM EST Wegovy was denied see media, medicare doesn't cover. * Telephone Encounter - Isabella Goodson LPN - 09/28/2024 12:00 PM EST Pa done for Wegovy via cmm * Telephone Encounter - Evangelista Traore CMA - 09/28/2024 11:15 AM EST Wegovy 0.25mg/0.5ml Peng: [id number] Last name: Dioni : documented in this encounter Plan of Treatment Upcoming Encounters Date Type Department Care Team (Late st Contact Info) Description 12/20/2024 2:15 PM EDT Clinical Support [facility] NUTRITION [address] [place] [address] [place] [address] 12/29/2024 2:30 PM EDT Office Visit [facility] MEDICAL [address] [place] [address] Johanna Valdez MD [address] [place] [address] 03/09/2025 2:00 PM EDT Office Visit [facility] DENTAL [address] [place] [address] Lizy Block documented as of this encounter Visit Diagnoses Not on filedocumented in this encounter Care Teams Tanning Drum Operator Relationship Specialty Start Date End Date Johanna Valdez MD [address] [place] [address] PCP - General Internal Medicine 10/27/22 Paulina Kitchen OD [address] [place] [address] Optometry 10/27/[address] [place] [address] Dietitian Dietitian 10/27/22 documented as of this encounter
--- OUTSIDE RECORDS SUMMARY | 2024-12-20 13:03 | XMS_ITS | Encounter Summary ---
Author Organization [employer] Address [address] [facility] 7 [place] [address] Care Team Providers Care Airplane Tube Builder Name Role Phone Johanna Valdez MD Primary Care Provider [phone] Johanna Valdez MD Primary Care Provider [phone] Paulina Kitchen OD Unavailable Julieta Peoples RD Unavailable [phone] Encounter Details Date Type Department Care Team (Latest Contact Info) Description 11/11/2021 Abstract [facility] CONVERSIONS Dental, Provider, DDS Social [...] Clinical Support [facility] NUTRITION [address] [place] [address] [place] [address] 12/29/2024 2:30 PM EDT Office Visit [facility] MEDICAL [address] [place] [address] Johanna Valdez MD 73 [place] [address] 03/09/2025 2:00 PM EDT Office Visit [facility] DENTAL [address] [place] [address] Lizy Block documented as of this encounter Visit Diagnoses Not on filedocumented in this encounter Care Teams Airplane Tube Builder Relationship Specialty Start Date End Date Johanna Valdez MD [address] [place] [address] PCP - General Internal Medicine 08/07/22 10/26/22 Johanna Valdez MD [address] [place] [address] PCP - General Internal Medicine 10/27/22 Paulina Kitchen OD [address] [place] [address] Optometry 10/27/[address] 73 [place] [address] Dietitian Dietitian 10/27/22 documented as of this encounter
--- OUTSIDE RECORDS SUMMARY | 2024-12-20 13:03 | XMS_ITS ---
Author Organization [facility] Address [address] [facility] [place] [address] Care Team Providers Care Window Machine Operator Name Role Phone José Miguel SUE, Johanna Primary Care Provider Unavailab Rosalba Alexis Unavailable [phone] Allergies Allergen (clinical drug ingredient) Drug/Non Drug [...] Ordered Date Performed Result Body Sit e 79664-NFHIXWM NAIL, 6 OR MORE 08/08/2024 N/A 45267-JDFN SKIN LESIONS, 2 TO 4 08/08/2024 N/A Encounters Encounter Location Date Provider Diagnosis [facility] [place] [address] [place] [address] 08/08/2024 Rosalba Hernández Type 1 diabetes mellitus [...] Treatment Pending Test Test Name Order Date 08037-KPTTBRM NAIL, 6 OR MORE 08/08/2024 13915-DRAV SKIN LESIONS, 2 TO 4 08/08/20 24 Next Appt Details Follow Up: prn, Reason: Provider Name:Rosalba Hernández , 02/23/2025 11:30:00 AM, [address] [place] [address], [phone], Procedure Notes * Category Sub-Category Detail Notes [...] use of a nail nipper and/or dremel-type grinder carbon plant, to a more viable healthy nail plate [...] to maintain effectiveness in symptomatic relief - 11359 Keratoma Treatment Parring or Cutting o f [...] sterile 15 blade, tissue nippers, and/or power MYOMO instrumentation - 26843 Progress Notes * Dominique WHEATLEYOB:[birth year] (63 yo F)Acc No.[id number]:08/08/2024 Progress Note Patient:?Helen WHEATLEY Provider:?Rosalba Hernández DPM :1960???Age:63 Y???Sex:Female D ate:08/08/2024 Address:[address] [place] [address], [facility], [id number] Pcp:Johanna Valdez MD Subjective: * Chief Complaints: [...] 9.1 * Examination: ???Ophthalmology Referral: ?DIABETES EYE EXAM?Procedure Performed:?Yes ?Date of Exam Performed?03/23/2024 ?Findings of Diabetic Eye Exam:?retinopathy both?General Examination: ?GENERAL APPEARANCE:?Reveals a pleasant, alert, well [...] - Improvement??? Plan: * Treatment: 2.?Tinea unguium?Procedure: 60460-FQYZQSI NAIL, 6 OR MORE * Procedures:?Debride Nail [...] use of a nail nipper and/or dremel-type grinder carbon plant, to a more viable healthy nail plate [...] to maintain effectiveness in symptomatic relief - 50577.?Keratoma Treatment:?Parring or Cutting of Benign Hyperkeratotic Lesion(s)?(-56) [...] tissue nippers, and/or power dremel instrumentation - 12387.? * Procedure Codes:?34387 DEBRI DE NAIL, 6 OR MORE, Modifiers: XS 67633 TRIM SKIN LESIONS, 2 TO 4, Modifiers: [...]
--- OUTSIDE RECORDS SUMMARY | 2024-12-20 13:03 | XMS_ITS | Data Portability ---
Author Organization [place] [facility] Address [address] [place] [address] Care Team Providers Care Linecasting Machine Keyboard Operator Name Role Phone ZHOU CURTIS Primary Care [...] Organization Details Recorded Time Bleeding from nose 161875586 Active 019 Epista xis; Note: Date Diagno sed: 019 12:42 PM (R04.0 ) Not Available [facility] 4 03:31:16 Anterior epistaxis 375161833 Active 024 JADEN BUNDY MD [address] [address], [place], [address] , [place] - [facility] 4 09:50:13 Problem Notes None recorded. Procedures Surgical History Date Name Laterality Status Provider Name and Address Organization Details Recorded Time endoscopic sleeve gastroplasty completed Marcello Keller [place] - [facility] 05/12/2024 09:30:40 Imaging Results None recorded. Procedure Notes None recorded. Medical Equipment None Reported. Allergies Allergen ID Allergen Name Allergen Category Reaction Reaction Severity Criticality Documentation Date Start Date Code Code System Note Provider Name and Address Organization Details Recorded Time 467633 ibuprofen medicatio n other Not available Not available 01/12/2024 5640 RxNorm React ion: unkno wn, unspe cifie d;; Not Available [facility] 4 01:23:58 177273 Motrin medicatio n other Not available Not available 01/12/202473141 8 RxNorm React ion: belinda reyes, ophelia leger d;; Not Available [facility] 4 01:23:59 Medications Name Sig Start Date Stop Date Status Note LastModified by Organization Details LastModified Time amoxicilli n 500 mg capsule Take 1 capsule (500 mg) by mouth every 8 (eight) hours for 5 days. active Not Available Not Available No t Available levothyrox ine 175 mcg tablet active Medicatio n ID: [id number] Du ration Value: 30 Brand Name: levothyro [...] 10 mg tablet active Medicatio n ID: [id number] Du ration Value: 30 Brand Name: pravastat [...] 5 mg tablet active Medicatio n ID: 063302 Du ration Value: 30 Brand Name: lisinopri l Send Method: E-Prescri bed Subs Allowed: subs [place] [facility] icName: lisinopri l Not Available Not Available [...] Available No t Available amoxicilli n 875 mg-[facility] clavulanat e 125 mg tablet Take 1 [...] t Available aspirin active Medicatio n ID: [id number] Br and Name: aspirin S end Method: E-Prescri bed Subs Allowed: subs [facility] Not Available Not Available Not [...] Available No t Available FreeStyle Iris 3 [place] USE 1 Device continuou sly. active Not Available Not Available No t Available Vitals Date Recorded Body height Body mass index (BMI) Body weight Provider Name and Address Organization Details Last Updated DateTime 05/12/2024 162.56 cm 45.5 kg/m2 424432.98 g Marcello Keller [place] - [facility] 05/12/2024 09:48:20 Social History None recorded. Functional Status None recorded. Mental Status None recorded. Family History Nothing Reported. Medical History No medical history recorded. Gynecological HistoryNo gynecological history recorded. Obstetrics History GPAL:G 0 P 0 0 0 0 Past Encounters Encounter ID Performer Location Encounter Start Date Encounter Closed Date Diagnosis/Indication Diagnosis SNOMED-CT Code Diagnosis ICD10 Code Diagnosis Note [id number] JADEN BUNDY MD [facility] on [address] [place] [phone] 05/12/2024 09:01:16 05/12/2024 10:10:32 Anterior epistaxis 944509499 R04.0 No active bleeding was seen on exam. Nasal cautery was deferred. We discussed the importance of nasal moisture preventing nosebleeds . Specifical ly we discussed using a saline spray daily, humidifier , and using Vaseline with a finger at night applied to the septum. If there is an active bleed, I recommende d using Afrin and demonstrat ed applying pressure to the soft part of the nose. The patient understand s to not use Afrin if he does not have an active bleed. If there is continued bleeding I asked the patient to call and we will consider nasal cautery at follow up. History of cerebrovascular accident 175754113 Z86.73 continue blood thinners per prescriber History of placement of stent for coronary artery disease 269225638 Z95.5 continue blood thinners per prescriber Health Concerns Section Related Observation LastModified by Organization Detai ls LastModified Time None Recorded Concern Status LastModified by Organization Details LastModified Time None Recorded Advance Directives Directive None Recorded Payers Encounter Date Sequence Insurance Name Policy Number Policy Esposito Covered Member ID Esposito Member ID Guarantor Name 05/12/2024 1 [place]: [employer] Helen Wheatley [id number] Helen Wheatley 05/12/2024 1 [facility] - DOS ON OR AFTER 2022 - MEDICARE ADVANTAGE [place] (MEDICARE REPLACEMENT/AD VANTAGE - PPO) Helen Wheatley [id number] Helen Wheatley Notes Date Note Type Note Provider Name and Address Organization Details Recorded Time 05/12/2024 text/html Hx of epistaxis mostly on the right about 2 times per week. She uses saline and ointment in her nose. She is on plavix and eliquis. Hx of a CVA and cardiac stents. JADEN BUNDY MD [address] [place] [address], [place], [address], [facility] - [facility] 05/12/2024 09:57:38 OBGyn Episode No OBEpisode recorded.
--- OUTSIDE RECORDS SUMMARY | 2024-12-20 13:03 | XMS_ITS | Encounter Summary ---
Author Organization [employer] Address [address] [place] [address] Care Team Providers Care Fire Fighter Name Role Phone Johanna Valdez MD Primary Care Provider [phone] Paulina Kitchen OD Unavailable Julieta Peoples RD Unavailable [phone] Encounter Details Date Type Department Care Team (Late st Contact Info) Description 03/09/2024 Orders Only [facility] Management [address] [place] [address] Johanna Valdez MD [address] [place] [address] Social History Tobacco Use Types Packs/Day Years [...] PM EDT Clinical Support [facility] NUTRITION [address] [place] [address] Julieta Peoples, INEZ [address] [facility] [address] 12/29/2024 2:30 PM EDT Office Visit [facility] MEDICAL [address] [place] [address] Johanna Valdez MD [address] [place] [address] 03/09/2025 2:00 PM EDT Office Visit [facility] DENTAL [address] [place] [address] Lizy Block documented as of this encounter Procedures Procedure Name Priority Date/Time Associated Diagnosis Comments MRI PELVIS W WO CONTRAST Routine 03/08/2024 2:20 PM EDT documented in this encounter Results * MRI PELVIS W WO CONTRAST (03/08/2024 2:20 PM EDT) Anatomical Region Laterality Modality Magnetic Resonan ce Johanna Valdez MD IMG MRI PROCEDURES Final Result documented in this encounter Visit Diagnoses Not on filedocumented in this encounter Care Teams Fire Fighter Relationship Specialty Start Date End Date Johanna Valdez MD [address] [place] [address] PCP - General Internal Medicine 10/27/22 Paulina Kitchen OD [address] [place] [address] Optometry 10/27/[address] [place] [address] Dietitian Dietitian 10/27/22 documented as of this encounter
== END 2024-12-20 12:01 | disposition home or self-care (01) ==
LOC: HO.HSMS 10:57
PROVIDERS: PCP Internal Medicine; Visit Provider Nurse Practitioner Family
DX: R06.02 Shortness of breath (principal); G47.36 Sleep related hypoventilation in conditions classified elsewhere; E66.01 Morbid (severe) obesity due to excess calories
CPT/HCPCS: 99213

== ENCOUNTER → 2024-12-20 10:56 | Outpatient (BNVA) | payer OTHER, SELFPAY | PROVIDERS: PCP Internal Medicine; Visit Provider Nurse Practitioner Family | DX: E66.01 Morbid (severe) obesity due to excess calories (principal); G47.36 Sleep related hypoventilation in conditions classified elsewhere; R06.02 Shortness of breath; Z68.42 Body mass index [BMI] 45.0-49.9, adult | CPT/HCPCS: 99212 ==

== ENCOUNTER 2025-01-26 15:29 | Outpatient (AMB) | payer OTHER, SELFPAY ==
[2025-01-26 15:32] VITALS: BP 126/78; PULSE 78; BMI 46.9
--- NOTE | 2025-01-26 15:32 | A.OFFVIS_ITS ---
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 Call Required: No Allergies codeine Allergy (Severe, Verified 12/20/24 11:08) nausea gabapentin Allergy (Severe, Verified 12/20/24 11:08) nausea and vomiting glyburide Allergy (Severe, Verified 12/20/24 11:08) headache ibuprofen Allergy (Severe, Verified 12/20/24 11:08) headache metformin Allergy (Severe, Verified 12/20/24 11:08) Anaphylaxis tramadol Allergy (Severe, Verified 12/20/24 11:08) nausea and vomiting metoprolol [From Toprol XL] Adverse Reaction (Severe, Verified 12/20/24 11:08) Drop in blood pressure lactose Adverse Reaction (Intermediate, Uncoded 09/22/24 16:01) Diarrhea Medication List - Last Reconciled 01/26/25 by Bud Hong MD apixaban (Eliquis) 5 mg PO BID ciclopirox 0.77% appl topical coenzyme Q10 100 mg PO DAILY dronedarone (Multaq) 400 mg PO Q12H ezetimibe (Zetia) 10 mg PO DAILY 90 days ferrous gluconate 324 mg PO DAILY insulin degludec (Tresiba U-100 Insulin) 80 units subcut BEDTIME insulin regular human 1 sliding scale dose subcut USEASDIRECTD levothyroxine 150 mcg PO DAILY lidocaine 5% 0 patches topical loratadine 10 mg PO DAILY lorazepam 0.5 mg PO TID PRN morphine mg PO hadlgfghbktq-dnf-btnr-FA-vit K 45 mg iron- 800 mcg-120 mcg (Bariatric Multivitamins) caps PO Oxygen Home Use As directed, 2 L at betime via nasal cannual rosuvastatin 40 mg PO DAILY semaglutide (weight loss) (Wegovy) mg subcut sucralfate 10 mL PO Q6H HPI Comments Details: Helen comes for follow-up. Overall she has been doing very well. He is currently on GLP 1 antagonist to reduce weight, having lot of GI side effects but going through with it. She has lost some weight. She denies any symptoms of prolonged palpitation irregular heartbeat. No lightheadedness, syncope. No orthopnea, PND. She says she has been using oxygen for sleep but not CPAP. She has had no major bleeding issues or neurologic events. No exertional chest pain, shortness of breath, lightheadedness. [facility] Medical History Nocturnal hypoxemia Anemia PUD (peptic ulcer disease) Abnormal findings on cardiac catheterization Paroxysmal atrial fibrillation A-fib Liver fibrosis Steatosis, liver Hepatomegaly Aortic stenosis Diastolic dysfunction COVID-19 vaccine series completed Hx of difficult intubation Peripheral neuropathy Iron deficiency anemia Elevated cholesterol On beta maranda at home Liver disease Seasonal allergies CAD (coronary artery disease) Carotid artery disease GERD (gastroesophageal reflux disease) Hypertension Back pain Hypothyroidism Stroke Insulin dependent diabetes mellitus Sleep apnea Morbid obesity Surgical History History of endoscopy S/P cardiac cath S/P cardiac cath Stented coronary artery S/P laparoscopic sleeve gastrectomy History of eye surgery History of appendectomy Hx of endarterectomy History of tonsillectomy and adenoidectomy Family History Mother No problems noted. Father No problems noted. Social History Are you a primary transitional care nurse to a significant other at home: No Do you presently have visiting nurse or other home services: Yes (Home Health Aid) Alcohol intake: former Patient Tobacco Use Status: Never used Tobacco service: No Current occupational status: disabled Review of Systems Const Denies chills, Denies fatigue, Denies fever(s), Denies frequent falls, Denies weakness, Denies weight gain and Denies weight loss ENT Denies dizziness Card Denies chest pain, Denies leg edema, Denies lightheadedness, Denies palpitations, Denies dyspnea, Denies dyspnea on exertion, Denies orthopnea and Denies other (loss of consciousness) Resp Denies cough, Denies dyspnea and Denies dyspnea on exertion GI Denies hematochezia and Denies change in stool character Musc Denies abnormal gait, Denies muscle weakness, Denies numbness, Denies radiating pain into limb and Denies tingling Neuro Denies abnormal gait, Denies dizziness, Denies frequent falls, Denies numbness, Denies tingling and Denies weakness Endo Denies fatigue and Denies palpitations Physical Exam Vital Signs: Last Vital Signs Pulse 78 01/26/25 15:32 BP 126/78 01/26/25 15:32 BMI result Body Mass Index 46.9 Const General: cooperative, healthy appearing, comfortable and no acute distress Orientation/consciousness: patient oriented x3 Neck Neck: Yes normal visual inspection Resp Other: dry cough during visit Effort & Inspection: normal respiratory effort Auscultation: clear to auscultation bilaterally, no crackles, no rales, no rhonchi and no wheezes Cardio Jugular venous distension: no JVD Rate: regular rate Rhythm: regular rhythm Heart sounds: S1 normal heart sound present, S2 normal heart sound present, Murmur heart sound present systolic mid, decrescendo and crescendo and no rubs Neuro General: patient oriented x3 Extrem General: Yes normal to inspection Psych Appearance: grossly normal Mental Status: mental status grossly normal Speech and movement: Normal speech and movement present Office Procedures EKG Details: EKG shows normal sinus rhythm with normal EKG 48609-Jvmrbvnzrfemvnfet, Complete Assessment & Plan Assessment & Plan (1) Paroxysmal atrial fibrillation: Code(s): I48.0 - Paroxysmal atrial fibrillation Category: Medical Plan: paroxysmal atrial fibrillation has done well with rhythm control approach will continue pursue rhythm control approach. She will benefit from weight control and weight loss for management of atrial fibrillation. This was discussed with her. continue full oral anticoagulation with Eliquis 5 mg b.i.d.. Semi annual renal function test as well as CBC should be pursued. Given her history of anemia. Continue current antiarrhythmic drug therapy with Multaq which she is tolerating well. Quarterly EKGs should be performed. (2) Aortic stenosis: Code(s): I35.0 - Nonrheumatic aortic (valve) stenosis Category: Medical Plan: Aortic stenosis which appears to be clinically moderate to moderately severe. No clinical progression. No clinical symptoms related to it. She also was diffuse atherosclerosis. Continue aggressive vascular risk factor modification. Currently on Eliquis therapy and will therefore avoid aspirin therapy. Blood pressure is currently well optimized. Continue aggressive diabetes management goal hemoglobin A1c less than 7%. Goal LDL less than 70 mg/dL. Follow annual lipid check. Will follow up in the clinic in 3 months for EKG in 6 months with me. Thank you for allowing me to partake in her care Orders: Orders CA echo transthoracic complete 5 Months I35.0 - Nonrheumatic aortic (valve) stenosis Coding Level of Care Code Est Pt Level 4 (26938) Complex EM visit Add On G2211 Diagnoses Paroxysmal atrial fibrillation I48.0 Aortic stenosis I35.0 CPT Codes EKG - CPT: 05265-Kwtshjcopvcjktrqc, Complete ([id number])
--- OUTSIDE RECORDS SUMMARY | 2025-01-26 15:33 | XMS_ITS | Patient Health Record ---
Author Organization [facility] Address [address] [facility] [place] [address] Care Team Providers Care Smog Technician Name Role Phone José Miguel SUE, Johanna Primary Care Provider UnavailRosalba Tai Unavailable [phone] Allergies Allergen (clinical drug ingredient) Drug/Non Drug [...] Problem Acquired hammer toe of right foot (2920855806251880 ) Other hammer toe(s) (acquired), right foot (M20.41) Active confirmed Problem Acquired hammer toe of left foot (4622871214170982 ) Other hammer toe(s) (acquired), left foot (M20.42) Active confirmed Problem Polyneuropathy due to diabetes mellitus type I (348615748) Type 1 diabetes mellitus with diabetic polyneuropathy (E10.42) Active confirmed Vital Signs Blood pressure diastolic 43 mm Hg 11/10/2024 Height 5ft4in in 11/10/2024 Blood pressure systolic 120 mm Hg 11/10/2024 Weight 265 lbs 11/10/2024 BMI 45.48 kg/m2 11/10/2024 Procedures Procedure Date Ordered Date Performed Result Body Sit e 21803-ZYOHPOU NAIL, 6 OR MORE 05/23/2024 N/A 07811-RNUW SKIN LESIONS, 2 TO 4 05/23/2024 N/A 95354-JDCQHEN NAIL, 6 OR MORE 08/08/2024 N/A 11530-OPZZ SKIN LESIONS, 2 TO 4 08/08/2024 N/A 92962-SETFGNW NAIL, 6 OR MORE 11/10/2024 N/A 22232-PVFH SKIN LESIONS, 2 TO 4 11/10/2024 N/A Encounters Encounter Location Date Provider Diagnosis [facility] [address] [place] [address] 05/23/2024 Rosalba Black Type 1 diabetes mellitus with diabetic polyneuropathy E10.42 ; Tinea unguium B35.1 ; Tinea pedis of both feet B35.3 ; Other hammer toe(s) (acquired), right foot M20.41 and Other hammer toe(s) (acquired), left foot M20.[address] [address] 08/08/2024 Rosalba Hernández Type 1 diabetes mellitus with diabetic polyneuropathy E10.42 ; Tinea unguium B35.1 and Tinea pedis of both feet B35.[address] [address] 11/10/2024 Rosalba Hernández Type 1 diabetes mellitus with diabetic polyneuropathy E10.42 ; Tinea unguium B35.1 ; Other hammer toe(s) (acquired), right foot M20.41 and Other hammer toe(s) (acquired), left foot M20.[address] [address] 03/10/2024 Rosalba Hernández [address] [address] 04/06/2024 Rosalba Hernández Assessments Encounter Date Diagnosis (ICD Code) Assessment Notes Treatment Notes Treatment Clinical Notes Section Notes 05/23/2024 Type 1 diabetes mellitus with diabetic polyneuropathy (ICD-10 - E10.42) 08/08/2024 Type 1 diabetes mellitus with diabetic polyneuropathy (ICD-10 - E10.42) 08/08/2024 Tinea unguium (ICD-10 - B35.1) 11/10/2024 Type 1 diabetes mellitus with diabetic polyneuropathy (ICD-10 - E10.42) 11/10/2024 Tinea unguium (ICD-10 - B35.1) 08/08/2024 Tinea pedis of both feet (ICD-10 - B35.3) 11/10/2024 Other hammer toe(s) (acquired), right foot (ICD-10 - M20.41) Patient Educated with: DIABETIC FOOT CARE INSTRUCTIONS. pdf (DIABETIC FOOT CARE INSTRUCTIONS. pdf) 05/23/2024 Tinea unguium (ICD-10 - B35.1) 05/23/2024 Tinea pedis of both feet (ICD-10 - B35.3) 11/10/2024 Other hammer toe(s) (acquired), left foot (ICD-10 - M20.42) 05/23/2024 Other hammer toe(s) (acquired), right foot (ICD-10 - M20.41) Patient Educated with: DIABETIC FOOT CARE INSTRUCTIONS. pdf (DIABETIC FOOT CARE INSTRUCTIONS. pdf) 05/23/2024 Other hammer toe(s) (acquired), left foot (ICD-10 - M20.42) 08/08/2024 Other Plan Of Treatment Pending Test Test Name Order Date 81340-ZXRVHFN NAIL, 6 OR MORE 05/23/2024 48003-EGIDYKN NAIL, 6 OR MORE 08/08/2024 75175-XSQXOVP NAIL, 6 OR MORE 11/10/2024 35384-QDUI SKIN LESIONS, 2 TO 4 05/23/20 56423-FMQX SKIN LESIONS, 2 TO 4 11/11/19 50985-QYNV SKIN LESIONS, 2 TO 4 08/08/20 Next Appt Details Provider Name:Rosalba Hernández , 02/23/2025 11:30:00 AM, [address] [place], [address], Insurance Providers Payer Name Payer Address Payer Phone Subscriber Number Group Number Insured Name Patient Relationship to Insured Coverage Start Date Coverage End Date [facility] Adv [address] [place] [address] [phone] [id number] Helen Wheatley Self - patient is the [...]
== END 2025-01-26 15:59 | disposition home or self-care (01) ==
LOC: HO.HCS 15:30
PROVIDERS: PCP Internal Medicine; Visit Provider Internal Medicine Cardiovascular Disease
DX: I48.0 Paroxysmal atrial fibrillation (principal); I35.0 Nonrheumatic aortic (valve) stenosis
CPT/HCPCS: 93010; 99214; G2211

== ENCOUNTER → 2025-01-26 15:29 | Outpatient (BNVA) | payer OTHER, SELFPAY | PROVIDERS: PCP Internal Medicine; Visit Provider Internal Medicine Cardiovascular Disease | DX: I48.0 Paroxysmal atrial fibrillation (principal); I35.0 Nonrheumatic aortic (valve) stenosis; Z99.81 Dependence on supplemental oxygen | CPT/HCPCS: 93005; 99212 ==

== ENCOUNTER 2025-06-20 10:26 | Outpatient (AMB) | payer OTHER, SELFPAY ==
[2025-06-20 10:32] VITALS: BP 110/60; PULSE 77; O2SAT 96; BMI 47.4
--- NOTE | 2025-06-20 10:32 | A.OFFVIS_ITS ---
Vital Signs 06/20/25 10:32 Height 5 ft 4 in Weight 276 lb BMI 47.4 BP 110/60 Blood Pressure Location Rt brachial Position Sitting Pulse 77 Pulse Source Pulse Oximeter Pulse Oximetry (%) 96 Oxygen Delivery Method Room Air Intake Visit Reasons: 6 month f/u appt Intake Note: Patient presents follow up for hypoxemia. Pulmonary note in chart. Patient states still not able to sleep. wakes up coughing and multiple sinus infections. Heart Coordinator Required: No Allergies codeine Allergy (Severe, Verified 12/20/24 11:08) nausea gabapentin Allergy (Severe, Verified 12/20/24 11:08) nausea and vomiting glyburide Allergy (Severe, Verified 12/20/24 11:08) headache ibuprofen Allergy (Severe, Verified 12/20/24 11:08) headache metformin Allergy (Severe, Verified 12/20/24 11:08) Anaphylaxis tramadol Allergy (Severe, Verified 12/20/24 11:08) nausea and vomiting metoprolol (From Toprol XL) Adverse Reaction (Severe, Verified 12/20/24 11:08) Drop in blood pressure lactose Adverse Reaction (Intermediate, Uncoded 09/22/24 16:01) Diarrhea HPI Comments Details: 64 y/o female patient presents for follow up of hypoxemia. Past medical history significant for: Proximal AFib, CAD, HTN, HLD, Aortic Stenosis with LAD stent Jul 2023, chronic anticoagulation with Eliquis- f/b Dr Hong, [facility] cardiology. Iron deficiency anemia, s/p hysterectomy [facility], BSO w/ benign pathology on 06/[address] Mensah at [facility]- f/b Dr Rodarte (heme/onc at [place]). Angiodysplasia, s/p gastrectomy- f/b [facility] bariatric clinic. Diabetes She denies any significant interval medical changes. However, she states that since undergoing iron therapy, her chronic anemia has been improving. With this she feels more daytime energy and less dyspnea on exertion. At times, she may have insomnia symptoms where she does not sleep well for couple of days, and then we will start having symptoms of daytime sleepiness and then can sleep for 8 hours straight. She is also working on strategies to optimize weight loss. She continues to have difficulty tolerating home supplemental nocturnal O2. Of note, she did not realize that the O2 concentrator supplies O2, but rather thought that it created pressurized room air. She states the O2 concentrator is too loud, vibrates to strongly, increase too much heat. Additionally, the nasal cannulas have caused intranasal mucosa irritation. She again states that she is not able to tolerate noise reducing ear plugs, as she has skin sensitivities. She states she would not be able to manage O2 tanks, as she would not be able to be home to allow for O2 refills. 12/20/2024, HPI: Since last visit, patient underwent iron infusion per [place] hematology- states she feels her anemia has improved, feels less exhausted during the day. She also underwent 09/30/2024 overnight pulse oximetry on room air, which showed Spo2 < 88% for 22 minutes, several events of O2 desaturation, which pulmonology felt was secondary to untreated NEAL, and advise patient to continue supplemental O2 via nasal cannula at 2 L/min while sleeping at night. Unfortunately, patient states she is unable to use her O2 concentrator, as it creates a lot of noise and vibrations in her room. Offered her to try using ear plugs, however patient states her skin sensitivity precludes her from using any type of ear plug. She states she has O2 M-tank at home as well, however she can not use this, as they do not fit in her room. She believes these are empty. She also believes that maintaining these is difficult. And she verbalizes being generally nervous about having home O2. She also states that she needs her nasal cannula changed showed every 2 weeks to avoid dry nose and sinus infections. She would like to use a smaller on demand O2 tank, which she believes would be quieter in better tolerated. [employer] is her home care company. Patient had a follow-up appointment with [facility] pulmonology later this week, however it was canceled, as she was scheduled for this appointment today. Patient reports that in the past she was able to sleep through the night without difficulty. However now she is prone to wake up every couple of hours. Sometimes she will sleep later into the morning. She is using melatonin and sleep gummies, which can be helpful- but still wakes up at night. Interval lab workup at [facility] [place]: Lab Results Component Value Date ? WBC 11.8 (H) 11/07/2024 ? HGB 11.0 (L) 11/07/2024 ? HCT 36.6 11/07/2024 ? MCV 76.6 (L) 11/07/2024 ? PLT 534 (H) 11/07/2024 ? Lab Results Component Value Date ? NA 138 11/07/2024 ? K 4.7 11/07/2024 ? CL 103 11/07/2024 ? CO2 28 11/07/2024 ? GLUCOSE 131 (H) 11/07/2024 ? BUN 25 11/07/2024 ? CREATININE 1.18 (H) 11/07/2024 ? CALCIUM 9.6 11/07/2024 ? PROT 7.7 11/07/2024 ? ALBUMIN 3.5 11/07/2024 ? BILITOT 0.4 11/07/2024 ? AST 24 11/07/2024 ? ALT 37 11/07/2024 ? ALKPHOS 104 11/07/2024 ? EGFR 52 (L) 11/07/20242022 in-lab PSG result did not meet the criteria for sleep apnea. The AHI was 1/hr, REM AHI was 6/hr, and oxygen quan was 87%. The oxygen saturation was below 88% for more than 5 min and patient was started on supplement oxygen at 2LPM. [facility] Medical History Nocturnal hypoxemia Anemia PUD (peptic ulcer disease) Abnormal findings on cardiac catheterization Paroxysmal atrial fibrillation A-fib Liver fibrosis Steatosis, liver Hepatomegaly Aortic stenosis Diastolic dysfunction COVID-19 vaccine series completed Hx of difficult intubation Peripheral neuropathy Iron deficiency anemia Elevated cholesterol On beta maranda at home Liver disease Seasonal allergies CAD (coronary artery disease) Carotid artery disease GERD (gastroesophageal reflux disease) Hypertension Back pain Hypothyroidism Stroke Insulin dependent diabetes mellitus Sleep apnea Morbid obesity Surgical History (Updated 06/20/25 @ 10:35 by Chasity Rand CMA) Hx of hysterectomy History of endoscopy S/P cardiac cath S/P cardiac cath Stented coronary artery S/P laparoscopic sleeve gastrectomy History of eye surgery History of appendectomy Hx of endarterectomy History of tonsillectomy and adenoidectomy Family History Mother No problems noted. Father No problems noted. Social History Are you a primary care connector to a significant other at home: No Do you presently have visiting nurse or other home services: Yes (Home Health Aid) Alcohol intake: former Patient Tobacco Use Status: Never used Tobacco service: No Current occupational status: disabled Physical Exam Vital Signs: Last Vital Signs Pulse 77 06/20/25 10:32 BP 110/60 06/20/25 10:32 Pulse Ox 96 06/20/25 10:32 Oxygen Delivery Method Room Air 06/20/25 10:32 BMI result Body Mass Index 47.4 Const General: cooperative, comfortable and no acute distress Orientation/consciousness: patient oriented x3 Resp Effort & Inspection: normal respiratory effort and able to speak in complete sentences Neuro General: patient oriented x3 Cranial nerves: Yes CN's II-XII intact bilaterally Psych Appearance: well kempt Affect: normal affect Attitude: cooperative Thought process: Normal thought process present Thought content: Normal thought content present Insight: Good insight present (Psych) Judgement: Good judgement present (Psych) Assessment & Plan Assessment & Plan (1) Nocturnal hypoxemia: Comment: THE DEGREE OF NOCTURNAL HYPOXEMIA WAS MINIMAL. NOTED TO HAVE O2 SAT BELOW 88% FOR ONLY 5 MINUTES. THIS WAS DEFINITELY DUE TO SLEEP-RELATED HYPOVENTILATION . SHE HAS NOT USED O2 FOR THE LAST 2 MONTHS, AND WANTS TO GET RID OF HER O2 CONCENTRATOR. Code(s): G47.34 - Idiopathic sleep related nonobstructive alveolar hypoventilation Category: Medical (2) Hypoxemia associated with sleep: Code(s): G47.36 - Sleep related hypoventilation in conditions classified elsewhere Category: Medical Plan Hypoxemia Patient has stopped her home supplemental O2. Interval labs show notable improvement in anemia status post last IV iron infusion. Patient is advised to undergo follow-up overnight pulse oximetry study x1 night to reassess status of nocturnal hypoxemia. Previously reviewed strategies to optimize sleep quality, including increasing regular physical activity, and maintaining a set wake-up time. Waking up 1-2 times per night is not necessarily worrisome. Will follow-up upon review of above and patient to follow-up in clinic in 6 months or sooner prn. Orders: Orders Overnight Pulse Oximetry Today G47.34 - Idiopathic sleep related nonobstructive alveolar hypoventilation, G47.36 - Sleep related hypoventilation in conditions classified elsewhere Coding Level of Care Code Est Pt Level 3 (81879) Diagnoses Nocturnal hypoxemia G47.34 Hypoxemia associated with sleep G47.36
--- OUTSIDE RECORDS SUMMARY | 2025-06-20 12:26 | XMS_ITS | Encounter Summary ---
Author Organization [employer] Address [address] [place] [address] 7 [place] [address] Care Team Providers Care Bingo Checker Name Role Phone Johanna Valdez MD Primary Care Provider [phone] Paulina Kitchen OD Unavailable Julieta Peoples RD Unavailable [phone] Reason for Visit * Reason Comments Med Refill Encounter Details Date Type Department Care Team (Late st Contact Info) Description 04/03/2025 Refill [facility] MEDICAL [address] [place] [address] Johanna Valdez MD [address] [place], [place] [id number] Anxiety Social History Tobacco Use Types Packs/Day Years [...] encounter Miscellaneous Notes * Telephone Encounter - Garima Schofield MD - 04/03/2025 4:26 PM EDT Approving, but needs appt for additional refills. * Telephone Encounter - Ad Chung - 04/03/2025 12:54 PM EDT Refill Lorazepam 0.5 mg tab Masspat Last fill Date:03/02/25 Masspat sold Date:03/06/25 #30/30 d Last OV:03/31/25 Next OV:07/04/25 Last UTOX:09/22/24 CSA Date:12/15/23 DNF Date:04/05/25 documented in this encounter Plan of Treatment Upcoming Encounters Date Type Department Care Team (Late st Contact Info) Description 06/22/2025 12:00 PM EDT Office Visit [facility] DENTAL [address] [place] [address] Kristina Rodriguez LLD [address] [place] [address] 07/04/2025 2:30 PM EST Office Visit [facility] MEDICAL [address] [place] [address] Johanna Valdez MD [address] [place] [address] 07/11/2025 10:00 AM EST Clinical Support [facility] NUTRITION [address] [place] [address] Julieta Peoples, RD [address] [place] [address] 09/27/2025 4:00 PM EST Office Visit [facility] DENTAL [address] [place] [address] Lizy Block documented as of this encounter Visit Diagnoses Diagnosis Anxiety Anxiety state, unspecified documented in this encounter Care Teams Bingo Checker Relationship Specialty Start Date End Date Johanna Valdez MD [address] [place] [address] PCP - General Internal Medicine 10/27/22 Paulina Kitchen OD [address] [place] [id number] Optometry 10/27/[address] [place] [address] Dietitian Dietitian 10/27/22 documented as of this encounter
--- OUTSIDE RECORDS SUMMARY | 2025-06-20 12:26 | XMS_ITS | Encounter Summary ---
Author Organization [employer] Address [address] [place] [address] [facility] [place] [address] Care Team Providers Care Service Provider Name Role Phone Johanna Valdez MD Primary Care Provider [phone] Johanna Valdez MD Primary Care Provider [phone] Paulina Kitchen OD Unavailable Julieta Peoples RD Unavailable [phone] Encounter Details Date Type Department Care [...] Description 06/22/2025 12:00 PM EDT Office Visit [facility] DENTAL [address] [place] [address] Kristina Rodriguez LLD 9 [place] [address] 07/04/2025 2:30 PM EST Office Visit [facility] MEDICAL [address] [place], [place] [phone] Johanna Valdez MD [address] [place] [address] 07/11/2025 10:00 AM EST Clinical Support [facility] NUTRITION [address] [place] [address] [place] [address] 09/27/2025 4:00 PM EST Office Visit [facility] DENTAL [address] [place] [address] Lizy Block documented as of this encounter Visit Diagnoses Not on filedocumented in this encounter Care Teams Service Provider Relationship Specialty Start Date End Date Johanna Valdez MD [address] [place] [address] PCP - General Internal Medicine 08/07/22 10/26/22 Johanna Valdez MD [address] [place] [address] PCP - General Internal Medicine 10/27/22 Paulina Kitchen OD [address] [place] [address] Optometry 10/27/[address] 73 [facility] [place] [address] Dietitian Dietitian 10/27/22 documented as of this encounter
--- OUTSIDE RECORDS SUMMARY | 2025-06-20 12:26 | XMS_ITS | Encounter Summary ---
Author Organization [employer] Address 75 [facility] 7 [place] [address] Care Team Providers Care Pharmacy Student Name Role Phone Johanna Valdez MD Primary Care Provider [phone] Paulina Kitchen OD Unavailable Julieta Peoples RD Unavailable [phone] Encounter Details Date Type Department Care Team (Late st Contact Info) Description 10/06/2023 Orders Only [facility] [address] [place] [address] Johanna Valdez MD [address] [place] [address] Social History Tobacco Use Types Packs/Day Years [...] Description 06/22/2025 12:00 PM EDT Office Visit [facility] DENTAL [address] [place] [address] Kristina Rodriguez LLD 9 [place] [address] 07/04/2025 2:30 PM EST Office Visit [facility] MEDICAL [address] [place] [address] Johanna Valdez MD [address] [place] [address] 07/11/2025 10:00 AM EST Clinical Support [facility] NUTRITION [address] [place] [address] [place] [address] 09/27/2025 4:00 PM EST Office Visit [facility] DENTAL [address] [place] [address] Lizy Block documented as of this encounter [...] on filedocumented in this encounter Care Teams Pharmacy Student Relationship Specialty Start Date End Date Johanna Valdez MD [address] [place] [address] PCP - General Internal Medicine 10/27/22 Paulina Kitchen [place] [address] Optometry 10/27/[address] [place] [address] [place] [address] Dietitian Dietitian 10/27/22 documented as of this encounter
--- OUTSIDE RECORDS SUMMARY | 2025-06-20 12:26 | XMS_ITS | Encounter Summary ---
Author Organization [employer] Address 75 [facility] 7 [place] [address] Care Team Providers Care Process Project Engineer Name Role Phone Johanna Valdez MD Primary Care Provider [phone] Paulina Kitchen OD Unavailable Julieta Peoples RD Unavailable [phone] Encounter Details Date Type Department Care Team (Late st Contact Info) Description 03/09/2024 Orders Only [facility] [address] [place] [address] Johanna Valdez MD [address] [place] [address] Social History Tobacco Use Types Packs/Day Years [...] Description 06/22/2025 12:00 PM EDT Office Visit [facility] DENTAL [address] [place] [address] Kristina Rodriguez LLD 9 [place] [address] 07/04/2025 2:30 PM EST Office Visit [facility] MEDICAL [address] [place] [address] Johanna Valdez MD [address] [place] [address] 07/11/2025 10:00 AM EST Clinical Support [facility] NUTRITION [address] [place] [address] [place] [address] 09/27/2025 4:00 PM EST Office Visit [facility] DENTAL [address] [place] [address] Lizy Block documented as of this encounter [...] on filedocumented in this encounter Care Teams Process Project Engineer Relationship Specialty Start Date End Date Johanna Valedz MD [address] [place] [address] PCP - General Internal Medicine 10/27/22 Paulina Kitchen OD [address] [place] [address] Optometry 10/27/[address] [place] [address] Dietitian Dietitian 10/27/22 documented as of this encounter
--- OUTSIDE RECORDS SUMMARY | 2025-06-20 12:26 | XMS_ITS | Encounter Summary ---
Author Organization [employer] Address 75 [facility] 7 [place] [address] Care Team Providers Care Perfumer Name Role Phone Johanna Valdez MD Primary Care Provider [phone] Paulina Kitchen OD Unavailable Julieta Peoples RD Unavailable [phone] Encounter Details Date Type Department Care Team (Late st Contact Info) Description 06/27/2024 Orders Only [facility] [address] [place] [address] Johanna Valdez MD [address] [place] [address] Social History Tobacco Use Types Packs/Day Years [...] Description 06/22/2025 12:00 PM EDT Office Visit [facility] DENTAL [address] [place] [address] Kristina Rodriguez LLD 9 [place] [address] 07/04/2025 2:30 PM EST Office Visit [facility] MEDICAL [address] [place] [address] Johanna Valdez MD [address] [place] [address] 07/11/2025 10:00 AM EST Clinical Support [facility] NUTRITION [address] [place] [address] [place] [address] 09/27/2025 4:00 PM EST Office Visit [facility] DENTAL [address] [place] [address] Lizy Block documented as of this encounter Procedures Procedure Name Priority Date/Time Associated Diagnosis Comments PATHOLOGY REPORT (HISTOPATHOLOGY) Routine 06/20/2024 1:40 PM EDT documented in this encounter Results * Pathology Report (Histopathology) (06/20/2024 1:40 PM EDT) Tissue us Johanna Valdez MD LAB PATHOLOGY ORDERABLES Final R esult documented in this encounter Visit Diagnoses Not on filedocumented in this encounter Care Teams Perfumer Relationship Specialty Start Date End Date Johanna Valdez MD [address] [place] [address] PCP - General Internal Medicine 10/27/22 Paulina Kitchen OD [address] [place] [address] Optometry 10/27/[address] [place] [address] Dietitian Dietitian 10/27/22 documented as of this encounter
--- OUTSIDE RECORDS SUMMARY | 2025-06-20 12:26 | XMS_ITS | Encounter Summary ---
Author Organization [employer] Address [address] [place] [address] 7 [place] [address] Care Team Providers Care Rubber Moulding Machine Operator Name Role Phone Johanna Valdez MD Primary Care Provider [phone] Johanna Valdez MD Primary Care Provider [phone] Paulina Kitchen OD Unavailable Julieta Peoples RD Unavailable [phone] Encounter Details Date Type Department Care Team (Late st Contact Info) Description 09/26/[address] [facility] MEDICAL [address] [place], [place] [phone] Provider, MD Dwayne Social History Tobacco Use [...] 06/22/2025 12:00 PM EDT Office Visit [facility] DENTAL [address] [place] [address] Kristina Rodriguez LLD 9 [place] [address] 07/04/2025 2:30 PM EST Office Visit [facility] MEDICAL [address] [place] [address] Johanna Valdez MD [address] [place] [address] 07/11/2025 10:00 AM EST Clinical Support [facility] NUTRITION [address] [place] [address] Julieta Peolpes, INEZ 73 [place] [address] 09/27/2025 4:00 PM EST Office Visit [facility] DENTAL [address] [place] [address] Lizy Block documented as of this encounter [...] obtained by clean catch procedure / Unknown Historical Provider LAB URINE ORDERABLES Edit ed Result - Final * Lipid Panel, Standard (09/24/2022) Blood Venous blood specimen / Unknown Historical Provider LAB BLOOD ORDERABLES Edit ed Result - Final documented in this encounter Visit Diagnoses Not on filedocumented in this encounter Care Teams Rubber Moulding Machine Operator Relationship Specialty Start Date End Date Johanna Valdez MD [address] [place] [address] PCP - General Internal Medicine 08/07/22 10/26/22 Johanna Valdez MD 73 [place] [address] PCP - General Internal Medicine 10/27/22 Paulina Kitchen OD 73 [place] [address] Optometry 10/27/[address] [place] [address] Dietitian Dietitian 10/27/22 documented as of this encounter
--- OUTSIDE RECORDS SUMMARY | 2025-06-20 12:26 | XMS_ITS | Encounter Summary ---
Author Organization [employer] Address [address] [place] [address] 7 [place] [address] Care Team Providers Care Hand Former Helper Name Role Phone Johanna Valdez MD Primary Care Provider Paulina Kitchen OD Unavailable Julieta Peoples RD Unavailable [phone] Reason for Visit * Reason Onset Date Comments protine drink 05/23/2025 Encounter Details Date Type Department Care Team (Late st Contact Info) Description 05/23/2025 Telephone [facility] MEDICAL [address] [place] [address] Johanna Valdez MD [address] [place], [place] [phone] protine drink Social History Tobacco Use Types Packs/Day Years Used Date Smoking Tobacco: Never Passive Smoke Exposure: Never Smokeless Tobacco: Never Alcohol Use Standard Drinks/Week Comments Not Currently 0 (1 standard drink = 0.6 oz pur e alcohol) PHQ-2 Answer Date Recorded Patient Health Questionnaire-2 Score 0 03/17/2023 Alcohol Answer Date Recorded How often do you have a drink containing alcohol ? 0 06/07/2025 Average Number of Drinks Not on file 025 How often do you have six or more drinks on one occasion? 0 06/07/2025 Housing Stability Answer Date Recorded What is your housing situation today? I have teresa sheth 06/07/[address] you li ve. Do you have problems with any of the following? None of the above 06/07/2025 Food Insecurity Answer Date Recorded Within the past 12 months, y ou worried that your food would run out before you got money to buy more: Never True 06/07/2025 Within the past 12 months,th e food you bought just didn't last and you didn't have enough money to get more: Never True 03/2025 Transportation Answer Date Recorded In the past 12 months, has l ack of transportation kept you from medical appts, meetings, work or from getting things needed for daily living? Yes, it has kept me from medical appointments or getting medications. 06/07/2025 Intimate Partner Violence Answer Date R ecorded [...] shut off services in your home? No 06/07/2025 Depression Answer Date Recorded Patient Health Questionnaire-2 Score 0 03/24/2024 Internet Access Answer Date Recorded Internet Access Q1 Yes 06/07/2025 Internet Access Q2 Not on file 06/07/2025 Comments Unknown Sex and Gender Information Value Date Recorded Sex Assigned at Female 08/14/2022 9:34 AM EST Legal Sex Female 5:36 PM EDT Gender Identity Female 08/14/2022 9:34 AM EST Sexual Orientation Straight 10/07/2022 11 :06 AM EST documented as of this encounter Miscellaneous Notes * Telephone Encounter - DEBORAH Gilmore - 06/15/2025 4:04 PM EDT Rx has been faxed to the fax # requested by the patient with no substitutions on the script. * Telephone Encounter - Verenice Hernández - 06/12/2025 12:45 PM EDT Patient called stating [facility] requires her to send a new prescription for the Ensure Max Protein Shakes (chocolate and coffee flavor) since she gets the shakes every 30 days. Patient states she would like the refill request sent to fax number: [phone]. * Telephone Encounter - DEBORAH Gilmore - 05/23/2025 4:32 PM EDT Paperwork has been faxed to [facility] Encounter addressed * Telephone Encounter - DEBORAH Gilmore - 05/23/2025 10:52 AM EDT Rx printed on paper for faxing to [facility] Please review and sign * Telephone Encounter - Maria Teresa Torres - 05/23/2025 9:36 AM EDT Patient came to office today requesting a refill of the following with NO Substitutions. Patient needs Ensure Max Protine 30 gm with no substitutions flavor either Chocolate or coffee/mocha Thank you documented in this encounter Plan of Treatment Upcoming Encounters Date Type Department Care Team (Late st Contact Info) Description 06/22/2025 12:00 PM EDT Office Visit [facility] DENTAL [address] [place] [address] Kristina Rodriguez LLD 9 [place] [address] 07/04/2025 2:30 PM EST Office Visit [facility] MEDICAL [address] [place] [address] Johanna Valdez MD [address] [place] [address] 07/11/2025 10:00 AM EST Clinical Support [facility] NUTRITION [address] [place] [address] 73 [facility] [place] [address] 09/27/2025 4:00 PM EST Office Visit [facility] DENTAL [address] [place] [address] Lizy Block documented as of this encounter Visit Diagnoses Not on filedocumented in this encounter Care Teams Hand Former Helper Relationship Specialty Start Date End Date Johanna Valdez MD [address] [place] [address] PCP - General Internal Medicine 10/27/22 Paulina iKtchen OD [address] [place] [address] Optometry 10/27/[address] [place] [address] Dietitian Dietitian 10/27/22 documented as of this encounter
--- OUTSIDE RECORDS SUMMARY | 2025-06-20 12:26 | XMS_ITS | Encounter Summary ---
Author Organization [employer] Address 75 [facility] 7 [place] [address] Care Team Providers Care Hot Head Machine Operator Name Role Phone Johanna Valdez MD Primary Care Provider [phone] Paulina Kitchen OD Unavailable Julieta Peoples RD Unavailable Encounter Details Date Type Department Care Team (Late st Contact Info) Description 01/05/2024 Orders Only [facility] [address] [place] [address] Johanna Valdez MD [address] [place] [address] Social History Tobacco Use Types Packs/Day Years [...] Description 06/22/2025 12:00 PM EDT Office Visit [facility] DENTAL [address] [place] [address] Kristina Rodriguez LLD 9 [place] [address] 07/04/2025 2:30 PM EST Office Visit [facility] MEDICAL [address] [place] [address] Johanna Valdez MD [address] [place] [address] 07/11/2025 10:00 AM EST Clinical Support [facility] NUTRITION [address] [place] [address] Julieta Peoples, RD 73 [place] [address] 09/27/2025 4:00 PM EST Office Visit [facility] DENTAL [address] [place] [address] Lizy Block documented as of this encounter [...] on filedocumented in this encounter Care Teams Hot Head Machine Operator Relationship Specialty Start Date End Date Johanna Valdez MD [address] [place] [address] PCP - General Internal Medicine 10/27/22 Paulina Kitchen OD [address] [place] [address] Optometry 10/27/[address] 73 [place] [address] Dietitian Dietitian 10/27/22 documented as of this encounter
--- OUTSIDE RECORDS SUMMARY | 2025-06-20 12:26 | XMS_ITS | Clinical Summary ---
Author Organization [employer] Address [address] [place] [address] 7 [place] [address] Care Team Providers Care Warping Mill Operator Name Role Phone Johanna Valdez MD Primary Care Provider [phone] Paulina Kitchen OD Unavailable Julieta Peoples RD Unavailable [phone] Allergies Active Allergy Reactions Criticality Noted Date Comments Aspirin Other 06/07/2025 Codeine Nausea And Vomiting Low 02/26/2021 Other [...] Lancets misc 5 (five) times a day. 09/19/19 21 Active Insulin Pen Needle (pen needle 01/13 ) 30G x 8 mm misc Acti ve dronedarone (Multaq) 400 MG tablet Take 400 mg by mouth in the morning and 400 mg in the evening. 06/01/20 22 Active ezetimibe (Zetia) 10 MG tablet Take 10 mg by mouth in the morning. 02/11/20 22 Active insulin NPH, Isophane, (NovoLIN N) 100 UNIT/ML injection in the morning and in the evening. Sliding scale . 01/26/20 21 Active Multiple Vitamin (Multi Vitamin) tablet 1 tablet in the morning. Active rosuvastatin (Crestor) 40 MG tablet Take 40 mg by mouth Once per day. 08/21/20 22 Active B-D UF III MINI PEN NEEDLES 31G X 5 MM misc 03/08/20 22 Active coenzyme Q-10 100 MG capsule Take 1 capsule by mouth Once per day. 08/09/20 22 Active Blood Glucose Monitoring Suppl (FreeStyle Lite) w/Device kit 01/06/20 23 Active apixaban (Eliquis) 5 MG tablet Take 5 mg by mouth every 12 (twelve) hours. Active sodium chloride (Mcdonald) 0.65 % nasal spray Administer 1 spray into each nostril if needed for congestion. Active NovoLOG FLEXPEN 100 UNIT/ML penIndications:D M (diabetes mellitus), type 2 with neurological complications (HCC) Inject 30 Units under the skin 3 times daily. On a sliding scale 27 mL 11 02/04/20 24 Active ciclopirox (Loprox) 0.77 % cream 1 Application. Active loratadine (Claritin) 10 MG tablet Take 1 tablet (10 mg) by mouth Once per day. NEEDED 30 tablet 3 08/04/20 24 2024 Active Tylenol 325 MG tablet Take 650 mg by mouth. 06/24/20 24 Active Tresiba FlexTouch 200 UNIT/ML injectionIndicat ions:Type 2 Diabetes Mellitus Inject 130 Units under the skin at bedtime. 09/14/19 25 Active lidocaine (Lidoderm) 5 % patchIndications :Chronic low back pain with sciatica, sciatica laterality unspecified, unspecified back pain laterality apply 3 patches TO intact SKIN LEAVE ON FOR 12 hours, REMOVE FOR 12 hours Once a day Externally 270 patch 3 11/26/19 25 Active glucose blood (FREESTYLE LITE) test stripIndications :Type 2 diabetes mellitus with hyperglycemia, with long-term current use of insulin (HCC) USE TO TEST BLOOD SUGAR FOUR TO SIX TIMES A DAY 500 strip 4 02/12/20 25 Active sucralfate (Carafate) 1 GM/10ML suspensionIndica tions:Nausea Take 10 mL (1 g) by mouth every 6 (six) hours. 473 mL 2 03/31/20 25 Active Semaglutide-Weig ht Management (Wegovy) 1 MG/0.5ML solution auto-injectorInd ications:BMI 45.0-49.9, adult (CMS/HCC) (HCC) Inject 0.5 mL (1 mg) under the skin 1 (one) time per week. 2 mL 3 03/31/20 25 Active metoclopramide (Reglan) 5 MG tabletIndication s:Nausea Take 1 tablet (5 mg) by mouth if needed in the morning, at noon, in the evening, and at bedtime (nausea). 120 tablet 2 03/31/20 25 Active ferrous gluconate (Fergon) 324 (38 Fe) MG tabletIndication s:Iron deficiency anemia, unspecified iron deficiency anemia type Take 1 tablet (324 mg) by mouth with breakfast, with lunch, and with evening meal. 90 tablet 3 04/17/20 25 2024 Active levothyroxine (Synthroid, Levoxyl) 150 MCG tabletIndication s:Hypothyroidism (acquired) Take 1 tablet (150 mcg) by mouth Once per day. 90 tablet 04/17/20 25 Active LORazepam (Ativan) 0.5 MG tabletIndication s:Anxiety Take 1 tablet (0.5 mg) by mouth if needed for anxiety. 30 tablet 1 04/24/20 25 Active cyclobenzaprine (Flexeril) 5 MG tabletIndication s:Chronic low back pain, unspecified back pain laterality, unspecified whether sciatica present,Muscle spasm Take 1 tablet (5 mg) by mouth if needed at bedtime for muscle spasms for up to 10 days. 10 tablet 06/08/20 25 Active morphine 10 MG/5ML solutionIndicati ons:Lumbago with sciatica, unspecified side Take 7.5 mL (15 mg) by mouth every 4 (four) hours if needed for severe pain. 150 mL 06/08/20 25 Active cyclobenzaprine (Flexeril) 10 MG tabletIndication s:Acute pain of right shoulder,Muscle spasm Take 1/2 tab am and 1/2 tab at bedtime as needed for muscle spasms, may take an additional whole tab at bedtime if needed. 21 days 42 tablet 02/01/20 25 2024 Discontinued morphine 10 MG/5ML solutionIndicati ons:Lumbago with sciatica, unspecified side Take 7.5 mL (15 mg) by mouth if needed in the morning, at noon, and at bedtime for severe pain for up to 7 days. 150 mL 03/13/20 25 2024 Discontinued(R eorder (will not trigger notification to Pharmacy)) Active Problems Problem Noted Date Diagnosed Date Acute pain of right shoulder 01/30/2025 Overview (01/30/2025): Atraumatic right shoulder pain with R arm numbness. PE as above, unremarkable. Discussed options - will start muscle relaxant. Reviewed medication, administration, and potential side effects. Advised not to drive while taking medication. Will send to PT for evaluation. Advised gentle ROM multiple times per day, adequate hydration. RTC if fails to improve or worsens in any way. Muscle spasm 01/30/2025 Acquired hammer toe of left foot 12/29/2024 Acquired hammer toe of right foot 12/29/2024 Status post bariatric surgery 06/28/2024 Malabsorption 06/28/2024 Pelvic pain 05/14/2023 Overview (05/14/2023): Consulted with GRADUATE STUDENT INSTRUCTOR in patient. Told she has fibroids that will require management. No notes to review. Upcoming appointment w/ Dr. Bernal (05/15/23) Vitamin D deficiency 09/02/2022 Sciatica 09/02/2022 Moderate aortic stenosis 09/02/2022 Hypothyroidism (acquired) 09/02/2022 Overview (01/30/2025): Lab Results Component Value Date TSH 0.592 12/29/2024 Ms. Wheatley would like to decrease Levothyroxine - has been taking 150mcg daily and 1.5tabs on weekends. Will decrease to 150mcg daily, without added increase on the weekends. Will repeat TSH in 6 weeks. Has follow up with Dr. Valdez in March. Hereditary and idiopathic neuropathy, unspecifie d 09/02/2022 Elevated erythrocyte sedimentation rate 09/02/19 Diabetic polyneuropathy asso ciated with type 2 diabetes mellitus 09/02/2022 Coronary artery disease invo lving buckland coronary artery of buckland heart without angina pectoris 09/02/2022 Bursitis of [...] (04/15/2024): Followed by heme/onc (Dr Dorman) at [facility] Will recheck CBC Assessment & Plan (04/15/2024 [...] Encounters Date Type Department Care Team Description 06/14/2025 Results Follow-Up [address] [address] Garima Schofield MD Albumin/Creatinine Ratio, Random Urine, CBC auto differential, Comprehensive Metabolic Panel [[id number]] 06/07/2025 2:30 PM EDT Office Visit [address] [address] Garima Schofield MD Right flank pain (Primary Dx); Chronic low back pain, unspecified back pain laterality, unspecified whether sciatica present; DM (diabetes mellitus), type 2 with neurological complications (HCC); Muscle spasm 06/07/[address] [address] Johanna Valdez MD Lumbago with sciatica, unspecified side 06/05/2025 10:30 AM EDT Clinical Support [facility] NUTRITION [address] [place] [id number] Type 2 diabetes mellitus with diabetic polyneuropathy, with long-term current use of insulin (HCC) (Primary Dx); Class 3 severe obesity due to excess calories with serious comorbidity and body mass index (BMI) of 45.0 to 49.9 in adult (HCC) 05/23/2025 9:30 AM EDT Office Visit [facility] DENTAL [address] [place] [address] Kristina Rodriguez LLD 05/23/[address] [address] Johanna Valdez MD protine drink 05/02/2025 9:30 AM EDT Office Visit [facility] DENTAL [address] [place] [phone] Kristina Rodriguez LLD 04/25/2025 10:45 AM EDT Clinical Support [facility] NUTRITION [address] [place] [address] Type 2 diabetes mellitus with diabetic polyneuropathy, with long-term current use of insulin ([facility]) (Primary Dx); Class 3 severe obesity due to excess calories with serious comorbidity and body mass index (BMI) of 45.0 to 49.9 in adult 04/24/[address] [address] Garima Schofield MD Anxiety 04/15/[address] [address] Jayde Michael FNP Hypothyroidism (acquired) 04/15/[address] [address] Johanna Valdez MD Iron deficiency anemia, unspecified iron deficiency anemia type 04/03/[address] [address] Johanna Valdez MD Anxiety 03/31/2025 10:30 AM EDT Office Visit [address] [address] Johanna Valdez MD BMI 45.0-49.9, adult ([facility]) (Primary Dx); Nausea; DM (diabetes mellitus), type 2 with neurological complications ([facility]) 03/31/[address] [address] Johanna Valdez MD BMI 45.0-49.9, adult ([facility]); Coronary artery disease involving buckland coronary artery of buckland heart without angina pectoris 03/30/2025 Results Follow-Up [address] [address] Johanna Valdez MD Hemoglobin A1c 03/28/2025 10:00 AM EDT Clinical Support [facility] NUTRITION [address] [place] [address] Class 3 severe obesity due to excess calories with serious comorbidity and body mass index (BMI) of 40.0 to 44.9 in adult (Primary Dx); Type 2 diabetes mellitus with diabetic polyneuropathy, with long-term current use of insulin ([facility]) 03/28/2025 Orders Only [facility] MEDICAL [address] [place] [address] Johanna Valdez MD 03/27/2025 Telephone [facility] [address] [place] [address] Johanna Valdez MD ER Follow-up from Last 3 Months Immunizations Immunization Administration Dates Next Due Hep B, adult 11/05/2006,06/03/2006,04/29/2006 Influenza Injectable Quadriv alant Preservative Free IIV4 MDCK 06/12/2023 Influenza injectable quadriv alent preservative free 06/06/2022,06/14/2019 Influenza, IIV3, injectable 07/22/2022,0 05/15/2021,05/29/2020,06/18,06/22/2017,06/16/2016,09/08/2014 Influenza, Injectable, MDCK, w/preservative 09/22/2024 Influenza, Split (incl. gatito fied surface antigen) 06/21/2012,06/26/2011,06/04/2010,06/25 Moderna Covid-19 Vaccine 12+ 09/22/2024, 03/15/2024,01/20/2022,07/12,12/07/2020,11/09/2020 Novel [id number], all formulations 07/18/2009 Pfizer Covid-19 Vaccine 12+ [...] Sign Reading Time Taken Comments Blood Pressure 130/75 06/07/2025 2:44 PM EDT Pulse 75 06/07/2025 2:44 PM EDT Temperature 35.8 C (96.5 F) 06/07/2025 2:44 PM EDT Respiratory Rate 16 03/31/2025 10:40 AM EDT Oxygen Saturation 99% 06/07/2025 2:44 PM EDT Inhaled Oxygen Concentration - - Weight 123 kg (272 lb) 06/07/2025 2:44 PM EDT Height 162.6 cm (5' 4 ) 06/07/2025 2:44 PM EDT Body Mass Index 46.69 06/07/2025 2:44 PM EDT Plan of Treatment Upcoming Encounters Date Type Department Care Team (Late st Contact Info) Description 06/22/2025 12:00 PM EDT Office Visit [facility] DENTAL [address] [place] [address] Kristina Rodriguez LLD [address] [place] [address] 07/04/2025 2:30 PM EST Office Visit [facility] MEDICAL [address] [place] [address] Johanna Valdez MD [address] [place] [address] 07/11/2025 10:00 AM EST Clinical Support [facility] NUTRITION [address] [place] [address] Julieta Peoples, RD [address] [facility] [place] [address] 09/27/2025 4:00 PM EST Office Visit [facility] D[facility] [address] [facility] [place] [address] Lizy Block Health Maintenance Due Date Last Done Comments CT Colonography 1961 FIT DNA/Cologuard 1961 FIT 1961 FOBT 1961 HIV Screening 1961 Sigmoidoscopy 1961 Diabetes: Foot Exam 1971 Hepatitis C Screening 1979 Pap Smear 1982 Cervical Cancer Screening 1991 HPV/Cotest 1991 Zoster Vaccines (1 of 2) 2011 Depression Screening 03/24/2025 03/24/2024, 03/24/20 Influenza Vaccine (#1) 2025 , 06/12/2023, 07/22/2022, Additional history exists Eye Exam 05/27/2025 05/27/2024, 05/02, 05/27/2024, Additional history exists Diabetes: Hemoglobin A1C 06/28/2025 025, 12/15/2024, 09/22/2024, Additional history exists Dental Oral Exam 09/18/2025 03/17/2025, 10/2024, 06/05/2023, Additional history exists Dental Prophylaxis 09/18/2025 03/17/2025, 0 09/02/2024, 06/05/2023, Additional history exists Lipid Panel 09/22/2025 09/22/2024, 05/0 01/2024, 09/24/2022, Additional history exists Tobacco Screening 03/17/2026 03/17/2025 Dental X-Ray: Bitewings 03/18/2026 03/17/20 25, 09/28/2023, 06/03/2022, Additional history exists Alcohol/Substance Use Screening 06/07/2026 06/07/2025 Diabetes: Urine Protein Screening 06/07/2026 06/07/2025, 10/05/2023, 09/24/2022, Additional history exists Disability Screening 06/07/2026 06/07/2025 SDOH Screening 06/07/2026 06/07/2025 Mammogram 06/16/2026 06/16/2024, 02/28, 03/13/2023 Dental X-Ray: Full Mouth 03/18/2028 025, 09/10/2018, 01/22/2010 DTaP/Tdap/Td Vaccines (4 - Td or Tdap) [...] Procedure Name Priority Date/Time Associated Diagnosis Comments COMPREHENSIVE METABOLIC PANEL Routine 06/07/2025 3:56 PM EDT DM (diabetes mellitus), type 2 with neurological complications (HCC) CBC WITH AUTO DIFFERENTIAL Routine 06/07/2025 3:56 PM EDT DM (diabetes mellitus), type 2 with neurological complications (HCC) ALBUMIN/CREATININE RATIO, RANDOM URINE Routine 06/07/2025 3:00 PM EDT DM (diabetes mellitus), type 2 with neurological complications (HCC) WAX TRY IN Routine 05/23/2025 9:30 AM EDT DIGITAL SCAN FOR DENTURES Routine 05/02/2025 9:30 AM EDT HEMOGLOBIN A1C Routine 03/28/2025 11:07 AM EDT TSH W/REFLEX TO FT4 Routine 03/28/2025 1 0:58 AM EDT Hypothyroidism (acquired) Full PROPHYLAXIS - ADULT Routine 03/17/2025 10:00 AM EDT INTRAORAL - COMPLETE SERIES OF RADIOGRAPHIC IMAGES Routine 03/17/2025 10:00 AM EDT PERIODIC ORAL EVALUATION - ESTABLISHED PATIENT Routine 03/17/2025 10:00 AM EDT LIPID PANEL, STANDARD Routine 09/22/2024 12:09 PM EST DM (diabetes mellitus), type 2 with neurological complications (CMS/HCC) BI MAMMOGRAM SCREENING TOMOSYNTHESIS BILATERAL Routine 06/16/2024 12:09 PM EDT HM COLONOSCOPY Routine 04/22/2024 12:08 PM EDT from Last 3 Months or Most Recently Relevant to Health Maintenance Results * (ABNORMAL) CBC auto differential (06/07/2025 3:56 PM EDT) White Blood Cell Count 10.7 3.4 - 10.8 x10E3/uL [facility] Red Blood Cell Count 4.08 3.77 - 5.28 x10E6/uL [facility] Hemoglobin 11.3 11.1 - 15.9 g/dL [facility] Hematocrit 34.9 34.0 - 46.6 % [facility] MCV 86 79 - 97 fL [facility] MCH 27.7 26.6 - 33.0 pg [facility] MCHC 32.4 31.5 - 35.7 g/dL [facility] RDW 13.7 11.7 - 15.4 % [facility] Platelet Count 494(H) 150 - 450 x10E3/uL [facility] Neutrophils 66 Not Estab. % [facility] Lymphocytes 22 Not Estab. % [facility] Monocytes 9 Not Estab. % [facility] Eosinophils 3 Not Estab. % [facility] Basophils 0 Not Estab. % [facility] Absolute Neutrophils 7.0 1.4 - 7.0 x10E3/uL [facility] Absolute Lymphocytes 2.3 0.7 - 3.1 x10E3/uL [facility] Absolute Monocytes 1.0(H) 0.1 - 0.9 x10E3/uL [facility] Absolute Eosinophils 0.3 0.0 - 0.4 x10E3/uL [facility] Absolute Basophils 0.0 0.0 - 0.2 x10E3/uL [facility] Immature Granulocytes 0 Not Estab. % [facility] Immature Grans (Abs) 0.0 0.0 - 0.1 x10E3/uL [facility] Blood Venous blood specimen / Unknown 06/07/2025 3:56 PM EDT 06/07/2025 Narrative Resulting Agency Comment Performed at: - [facility] [address] [place], [place] [id number] Drop Wire Stringer: Angela Edmond MD, Phone: [phone] us Garima Schofield MD LAB BLOOD ORDERABLES Final Resul t [facility] [address] [place] [address] * (ABNORMAL) Comprehensive Metabolic Panel [[id number]] (06/07/2025 3:56 PM EDT) Glucose 194(H) 70 - 99 mg/dL [facility] Urea Nitrogen (BUN) 32(H) 8 - 27 mg/dL [facility] Creatinine, Serum 1.09(H) 0.57 - 1.00 mg/dL [facility] eGFR 57(L) >59 mL/min/1.7 3 [facility] BUN/Creatinine Ratio 29(H) 12 - 28 [facility] Sodium 138 134 - 144 mmol/L [facility] Potassium 4.9 3.5 - 5.2 mmol/L [facility] Chloride 101 96 - 106 mmol/L [facility] Anion Gap 17.0 10.0 - 18.0 mmol/L [facility] Carbon Dioxide 20 20 - 29 mmol/L [facility] Calcium 9.4 8.7 - 10.3 mg/dL [facility] Protein, Total 7.0 6.0 - 8.5 g/dL [facility] Albumin 4.2 3.9 - 4.9 g/dL [facility] Globulin 2.8 1.5 - 4.5 g/dL [facility] Bilirubin, Total 0.3 0.0 - 1.2 mg/dL [facility] Alkaline Phosphatase 105 49 - 135 IU/L [facility] AST 43(H) 0 - 40 IU/L [facility] ALT 70(H) 0 - 32 IU/L [facility] Blood Venous blood specimen / Unknown 06/07/2025 3:56 PM EDT 06/07/2025 Narrative Resulting Agency Comment Performed at: - [facility] [address] [place], [place] [id number] Drop Wire Stringer: Angela Edmond MD, Phone: [phone] us Garima Schofield MD LAB BLOOD ORDERABLES Final Resul t [facility] [address] [place] [address] * Albumin/Creatinine Ratio, Random Urine (06/07/2025 3:00 PM EDT) Creatinine, Random Urine 127.0 Not Estab. mg/dL [facility] Albumin, Urine 32.6 Not Estab. ug/mL [facility] Albumin/Creatin ine Ratio 26 0 - 29 mg/g creat [facility] Comment: Normal: 0 - 29 Moderately increased: 30 - 300 Severely increased: >300 Urine (Urine, Random) 06/07/2025 3:00 PM EDT 06/07/2025 Narrative Resulting Agency Comment Performed at: [address] [id number] Drop Wire Stringer: Angela Edmond MD, Phone: [phone] Garima Schofield MD LAB URINE ORDERABLES Final Resul t Performing Organization Address [facility] Co de Phone Number [id number] [address] [address] * (ABNORMAL) Hemoglobin A1c (03/28/2025 11:07 AM EDT) Pathologist [facility] Hemoglobin A1c 9.6(H) 4.8 - 5.6 % [facility] Comment: Prediabetes: 5.7 - 6.4 Diabetes: >6.4 Glycemic control for adults with diabetes: <7.0 03/28/2025 11:0 7 AM EDT 03/28/2025 Narrative Resulting Agency Comment Performed at: [address] [id number] Drop Wire Stringer: Angela Edmond MD, Phone: [phone] Johanna Valdez MD LAB BLOOD ORDERABLES Final Resul t Performing Organization Address [facility] Co de Phone Number [facility] 1 * TSH with Reflex to Free T4 [[id number]] (03/28/2025 10:58 AM EDT) [facility] TSH 0.644 0.450 - 4.500 uIU/mL [facility] 1 Blood Venous blood specimen / Unknown 03/28/2025 10:58 AM EDT 03/28/2025 Narrative Resulting Agency Comment Performed at: [address] [id number] Drop Wire Stringer: Angela Edmond MD, Phone: [phone] Jayde ROSENBERG LAB BLOOD ORDERABLES Final Resul t Performing Organization Address [facility] Co de Phone Number [facility] 1 * Lipid Panel, Standard (09/22/2024 12:09 PM EST) [facility] Cholesterol, Total 139 100 - 199 mg/dL [facility] 1 Triglycerides 108 0 - 149 mg/dL [facility] 1 HDL Cholesterol 57 >39 mg/dL [facility] 1 VLDL Cholesterol Ruben 20 5 - 40 mg/dL [facility] 1 LDL Chol Calc (NIH) 62 0 - 99 mg/dL [facility] 1 Blood Venous blood specimen / Unknown 09/22/2024 12:09 PM EST 09/22/2024 Narrative [facility] 1 - 09/23/2024 6:05 AM EST Performed at: 01 - [facility] [address] [id number] Drop Wire Stringer: Angela Edmond MD, Phone: [phone] us Johanna Valdez MD LAB BLOOD ORDERABLES Final Resul t [facility] * BI Mammogram Screening Tomosynthesis Bilateral (06/16/2024 12:09 PM EDT) Anatomical Region Laterality Modality Breast Bilateral Mammography 06/16/2024 12:0 9 PM EDT Narrative 06/17/2024 8:33 AM EDT PROCEDURE: MM Digital Mammo Screening INDICATION: Screening for breast cancer. No known palpable abnormalities. COMPARISON: Back to 07/16/2015. [...] (Negative) Lay letter mailed to patient WSN: [id number] Ordering Physician: Johanna Valdez Dictated By: Andrea Charles MD Dictated Date/Time: 06/17/24 8:30 am Reviewed By: Andrea Charles MD Signed By: Andrea Charles MD Signed Date/Time: 06/17/24 8:30 am Transcribed By: BENJAMIN Mold Yard Worker Date/Time: 06/17/24 8:29 am Birads: Procedure Note Donotuseinterpreter, [...] (Negative) Lay letter mailed to patient WSN: [id number] Ordering Physician: Johanna Valdez Dictated By: Andrea Charles MD Dictated Date/Time: 06/17/24 8:30 am Reviewed By: Andrea Charles MD Signed By: Andrea Charles MD Signed Date/Time: 06/17/24 8:30 am Transcribed By: BENJAMIN Mold Yard Worker Date/Time: 06/17/24 8:29 am Birads: us Johanna Valdez MD IMG BI PROCEDURES Final Result * Hm Colonoscopy (04/22/2024 12:08 PM EDT) us Johanna Valdez MD HEALTH MAINTENANCE Final Result from Last 3 Months or Most Recently Relevant to Health Maintenance Insurance [facility] ONE CARE < [address] [place] [id number] DENTAL - [facility] D[facility] - HSN FULL (MEDICAID) Care Teams Warping Mill Operator Relationship Specialty Start Date End Date Johanna Valdez MD [address] [place] [address] PCP - General Internal Medicine 10/27/22 Paulina Kitchen OD [address] [place] [address] Optometry 10/27/[address] [place] [address] Dietitian Dietitian 10/27/22
--- OUTSIDE RECORDS SUMMARY | 2025-06-20 12:26 | XMS_ITS | Encounter Summary ---
Author Organization [employer] Address [address] [place] [address] [address] [place] [address] Care Team Providers Care Pediatric Allergist Name Role Phone Johanna Valdez MD Primary Care Provider [phone] Johanna Valdez MD Primary Care Provider [phone] Paulina Kitchen OD Unavailable Julieta Peoples RD Unavailable [phone] Encounter Details Date Type Department Care [...] Description 06/22/2025 12:00 PM EDT Office Visit [facility] DENTAL [address] [place] [address] Kristina Rodriguez LLD [address] [place], [place] [phone] 07/04/2025 2:30 PM EST Office Visit [facility] MEDICAL [address] [place], [place] [phone] Johanna Valdez MD [address] [place], [place] [phone] 07/11/2025 10:00 AM EST Clinical Support [facility] NUTRITION [address] [place] [address] [place] [address] 09/27/2025 4:00 PM EST Office Visit [facility] DENTAL [address] [place] [address] Lizy Block documented as of this encounter Visit Diagnoses Not on filedocumented in this encounter Care Teams Pediatric Allergist Relationship Specialty Start Date End Date Johanna Valdez MD [address] [place] [address] PCP - General Internal Medicine 08/07/22 10/26/22 Johanna Valdez MD [address] [place] [address] PCP - General Internal Medicine 10/27/22 Paulina Kitchen OD [address] [place] [address] Optometry 10/27/[address] [place] [address] Dietitian Dietitian 10/27/22 documented as of this encounter
--- OUTSIDE RECORDS SUMMARY | 2025-06-20 12:26 | XMS_ITS | Encounter Summary ---
Author Organization [employer] Address [address] [place] [address] 7 [place] [address] Care Team Providers Care Flexographic Press Helper Name Role Phone Johanna Valdez MD Primary Care Provider [phone] Paulina Kitchen OD Unavailable Julieta Peoples RD Unavailable [phone] Reason for Visit * Reason Comments Med Refill Encounter Details Date Type Department Care Team (Late st Contact Info) Description 03/17/2023 Refill [facility] MEDICAL [address] [place] [address] Johanna Valdez MD 73 [place] [address] Other specified anxiety disorders Social History Tobacco [...] AM EDT documented as of this encounter Functional Status * Over the past 2 weeks, how often have you been bothered by any of the following problems? Question Answer Date of Assessment Author Little interest or pleasure in doing things Not at all 03/17/2023 9:45 AM EDT Sandy Murcia RMA Feeling down, depressed, or hopeless Not at all 03/17/2023 9:45 AM EDT Sandy Murcia RMA Patient Health Questionnaire -2 Score 0 03/17/2023 9:45 AM EDT Sandy Murcia RMA documented as of this encounter Plan of Treatment Upcoming Encounters Date Type Department Care Team (Late st Contact Info) Description 06/22/2025 12:00 PM EDT Office Visit [facility] DENTAL [address] [place] [address] Kristina Rodriguez LLD 9 [place] [address] 07/04/2025 2:30 PM EST Office Visit [facility] MEDICAL [address] [place] [address] Johanna Valdez MD 73 [place] [address] 07/11/2025 10:00 AM EST Clinical Support [facility] NUTRITION 73 [place] [address] Julieta Peoples, RD 73 [place] [address] 09/27/2025 4:00 PM EST Office Visit [facility] DENTAL 73 [place] [address] Lizy Block documented as of this encounter Visit Diagnoses Diagnosis Other specified anxiety disorders documented in this encounter Care Teams Flexographic Press Helper Relationship Specialty Start Date End Date Johanna Valdez MD 73 [place] [address] PCP - General Internal Medicine 10/27/22 Paulina Kitchen OD 73 [place] [address] Optometry 10/27/[address] 73 [place] [address] Dietitian Dietitian 10/27/22 documented as of this encounter
--- OUTSIDE RECORDS SUMMARY | 2025-06-20 12:26 | XMS_ITS | Clinical Summary ---
Author Organization [facility] Address [address] [place] [address] Care Team Providers Care Project Planner Name Role Phone Johanna Valdez MD Primary Care Provider [phone] Allergies Active Allergy Reactions Criticality Noted Date [...] artery disease of n ative artery of [place] heart with stable angina pectoris 05/13/2023 Bilateral [...] 83 05/23/2024 10:57 AM EDT Temperature 37.2 C (98.9 F) 05/23/2024 10:57 AM EDT Respiratory Rate 18 04/07/2024 1:19 PM EDT [...] 2011 Shingrix-Zoster Vaccine (1 of 2) 2011 COVID-19 Vaccine ( season) 2025 03/15/2024, 06/06/2022, 01/20/2022, Additional history exists Influenza Vaccine (#1) 2025 , 06/06/2022, 05/15/2021, Additional history exists DTap / Tdap / Td (3 - Td or Tdap) 12/20/2028 12/20/2018, 06/26/2011 Hepatitis B Vaccines Completed 11/05/2006, 06/03/2006, 04/29/2006 RSV Adult > 60+ Yrs or Completed 06/29/2023 RSV Ped < 20 months Aged Out No longe r eligible based on patient's age to complete this topic Care Teams Project Planner Relationship Specialty Start Date End Date Johanna Valdez MD [address] [place] [address] PCP - General Internal Medicine 6/29/21
--- OUTSIDE RECORDS SUMMARY | 2025-06-20 12:26 | XMS_ITS | Encounter Summary ---
Author Organization [employer] Address [address] [place] [address] 7 [place] [address] Care Team Providers Care Emergency Operator Name Role Phone Johanna Valdez MD Primary Care Provider [phone] Paulina Kitchen OD Unavailable Julieta Peoples RD Unavailable [phone] Encounter Details Date Type Department Care Team (Late st Contact Info) Description 05/30/[address] [facility] MEDICAL [address] [place] [address] Provider, MD Dwayne Social History Tobacco Use [...] Description 06/22/2025 12:00 PM EDT Office Visit [facility] DENTAL 73 [place], [place] [phone] Kristina Rodriguez LLD 9 [place], [place] [phone] 07/04/2025 2:30 PM EST Office Visit [facility] MEDICAL [address] [place] [address] Johanna Valdez MD [address] [place] [address] 07/11/2025 10:00 AM EST Clinical Support [facility] NUTRITION [address] [place] [address] 73 [facility] [place] [address] 09/27/2025 4:00 PM EST Office Visit [facility] DENTAL [address] [place] [address] Lizy Block documented as of this encounter Procedures Procedure Name Priority Date/Time Associated Diagnosis Comments MAMMOGRAPHY Routine 03/13/2023 documented in this encounter Results * Mammography (03/13/2023) Anatomical Region Laterality Modality Other us Historical Provider HEALTH MAINTENANCE Final Result documented in this encounter Visit Diagnoses Not on filedocumented in this encounter Care Teams Emergency Operator Relationship Specialty Start Date End Date Johanna Valdez MD [address] [place] [address] PCP - General Internal Medicine 10/27/22 Paulina Kitchen OD [address] [place] [address] Optometry 10/27/[address] 73 [facility] [place] [address] Dietitian Dietitian 10/27/22 documented as of this encounter
--- OUTSIDE RECORDS SUMMARY | 2025-06-20 12:26 | XMS_ITS | Encounter Summary ---
Author Organization [employer] Address [address] [place] [address] [address] [place] [address] Care Team Providers Care Film Sound Coordinator Name Role Phone Johanna Valdez MD Primary Care Provider [phone] Johanna Valdez MD Primary Care Provider [phone] Paulina Kitchen OD Unavailable Julieta Peoples RD Unavailable [phone] Encounter Details Date Type Department Care [...] Description 06/22/2025 12:00 PM EDT Office Visit [facility] DENTAL [address] [place] [address] Kristina Rodriguez LLD 9 [place], [place] [phone] 07/04/2025 2:30 PM EST Office Visit [facility] MEDICAL [address] [place], [place] [phone] Johanna Valdez MD 73 [place], [place] [phone] 07/11/2025 10:00 AM EST Clinical Support [facility] NUTRITION [address] [place] [address] 73 [facility] [place] [address] 09/27/2025 4:00 PM EST Office Visit [facility] DENTAL [address] [place] [address] Lizy Block documented as of this encounter Visit Diagnoses Not on filedocumented in this encounter Care Teams Film Sound Coordinator Relationship Specialty Start Date End Date Johanna Valdez MD [address] [place] [address] PCP - General Internal Medicine 08/07/22 10/26/22 Johanna Valdez MD [address] [place] [address] PCP - General Internal Medicine 10/27/22 Paulina Kitchen OD [address] [place] [address] Optometry 10/27/[address] 73 [facility] [place] [address] Dietitian Dietitian 10/27/22 documented as of this encounter
--- OUTSIDE RECORDS SUMMARY | 2025-06-20 12:26 | XMS_ITS | Encounter Summary ---
Author Organization [employer] Address 75 [facility] 7 [place] [address] Care Team Providers Care Regional Medical Director Name Role Phone Johanna Valdez MD Primary Care Provider [phone] Paulina Kitchen OD Unavailable Juileta Peoples RD Unavailable [phone] Encounter Details Date Type Department Care Team (Late st Contact Info) Description 11/10/2024 Orders Only [facility] [address] [place] [address] Johanna Valdez MD 73 [place] [address] Social History Tobacco Use Types Packs/Day Years [...] 06/22/2025 12:00 PM EDT Office Visit [facility] DENTAL 73 [place] [address] Kristina Rodriguez LLD 9 [place] [address] 07/04/2025 2:30 PM EST Office Visit [facility] MEDICAL [address] [place] [address] Johanna Valdez MD [address] [place] [address] 07/11/2025 10:00 AM EST Clinical Support [facility] NUTRITION [address] [place] [address] 73 [place] [address] 09/27/2025 4:00 PM EST Office Visit [facility] DENTAL [address] [place] [address] Lizy Block documented as of this encounter [...] on filedocumented in this encounter Care Teams Regional Medical Director Relationship Specialty Start Date End Date Johanna Valdez MD [address] [place] [address] PCP - General Internal Medicine 10/27/22 Paulina Kitchen OD [address] [place] [address] Optometry 10/27/[address] [place] [address] [place] [address] Dietitian Dietitian 10/27/22 documented as of this encounter
--- OUTSIDE RECORDS SUMMARY | 2025-06-20 12:26 | XMS_ITS | Encounter Summary ---
Author Organization [employer] Address [address] [place] [address] [facility] [place] [address] Care Team Providers Care Boathouse Keeper Name Role Phone Johanna Valdez MD Primary Care Provider [phone] Johanna Valdez MD Primary Care Provider [phone] Paulina Kitchen OD Unavailable Julieta Peoples RD Unavailable [phone] Encounter Details Date Type Department Care [...] Description 06/22/2025 12:00 PM EDT Office Visit [facility] DENTAL 73 [place] [address] Kristina Rodriguez LLD 9 [place] [address] 07/04/2025 2:30 PM EST Office Visit [facility] MEDICAL 73 [place], [place] [phone] Johanna Valdez MD 73 [place] [address] 07/11/2025 10:00 AM EST Clinical Support [facility] NUTRITION [address] [place] [address] [place] [address] 09/27/2025 4:00 PM EST Office Visit [facility] DENTAL [address] [place] [address] Lizy Block documented as of this encounter Visit Diagnoses Not on filedocumented in this encounter Care Teams Boathouse Keeper Relationship Specialty Start Date End Date Johanna Valdez MD [address] [place] [address] PCP - General Internal Medicine 08/07/22 10/26/22 Johanna Valdez MD [address] [place] [address] PCP - General Internal Medicine 10/27/22 Paulina Kitchen OD [address] [place] [address] Optometry 10/27/[address] 73 [facility] [place] [address] Dietitian Dietitian 10/27/22 documented as of this encounter
--- OUTSIDE RECORDS SUMMARY | 2025-06-20 12:26 | XMS_ITS | Encounter Summary ---
Author Organization [employer] Address 75 [facility] 7 [place] [address] Care Team Providers Care Lay Out Inspector Name Role Phone Johanna Valdez MD Primary Care Provider [phone] Paulina Kitchen OD Unavailable Julieta Peoples RD Unavailable [phone] Encounter Details Date Type Department Care Team (Late st Contact Info) Description 05/18/2024 Orders Only [facility] [address] [place] [address] Johanna Valdez MD 73 [place] [address] Social History Tobacco Use Types Packs/Day Years [...] 06/22/2025 12:00 PM EDT Office Visit [facility] DENTAL 73 [place] [address] Kristina Rodriguez LLD 9 [place] [address] 07/04/2025 2:30 PM EST Office Visit [facility] MEDICAL 73 [place] [address] Johanna Valdez MD 73 [place] [address] 07/11/2025 10:00 AM EST Clinical Support [facility] NUTRITION 73 [place] [address] Julieta Peoples, INEZ 73 [place] [address] 09/27/2025 4:00 PM EST Office Visit [facility] DENTAL [address] [place] [address] Lizy Block documented as of this encounter [...] (Negative) Lay letter mailed to patient WSN: [id number] Ordering Physician: Johanna Valdez Dictated By: Andrea Charles MD Dictated Date/Time: 06/17/24 8:30 am Reviewed By: Andrea Charles MD Signed By: Andrea Charles MD Signed Date/Time: 06/17/24 8:30 am Transcribed By: BENJAMIN Boring Machine Operator Date/Time: 06/17/24 8:29 am Birads: Procedure Note Donotnormainterpreter, Image - 06/17/2024 PROCEDURE: MM Digital Mammo [...] (Negative) Lay letter mailed to patient WSN: [id number] Ordering Physician: Johanna Valdez Dictated By: Andrea Charles MD Dictated Date/Time: 06/17/24 8:30 am Reviewed By: Andrea Charles MD Signed By: Andrea Charles MD Signed Date/Time: 06/17/24 8:30 am Transcribed By: BENJAMIN Boring Machine Operator Date/Time: 06/17/24 8:29 am Birads: us Johanna Valdez MD IMG BI PROCEDURES Final Result * MRI PELVIS W WO CONTRAST (04/20/2024 11:57 AM EDT) Anatomical Region Laterality Modality Magnetic Resonan ce us Johanna Valdez MD IMG MRI PROCEDURES Final Result documented in this encounter Visit Diagnoses Not on filedocumented in this encounter Care Teams Lay Out Inspector Relationship Specialty Start Date End Date Johanna Valdez MD [address] [place] [address] PCP - General Internal Medicine 10/27/22 Paulina Kitchen OD [address] [place] [address] Optometry 10/27/[address] [place] [address] Dietitian Dietitian 10/27/22 documented as of this encounter
--- OUTSIDE RECORDS SUMMARY | 2025-06-20 12:26 | XMS_ITS | Encounter Summary ---
Author Organization [employer] Address 75 [facility] 7 [place] [address] Care Team Providers Care Chick Sexer Name Role Phone Johanna Valdez MD Primary Care Provider [phone] Paulina Kitchen OD Unavailable Julieta Peoples RD Unavailable [phone] Encounter Details Date Type Department Care Team (Late st Contact Info) Description 09/22/2023 Orders Only [facility] [address] [place] [address] Johanna Valdez MD [address] [place] [address] Social History Tobacco Use Types Packs/Day Years [...] Description 06/22/2025 12:00 PM EDT Office Visit [facility] DENTAL 73 [place] [address] Kristina Rodriguez LLD 9 [place] [address] 07/04/2025 2:30 PM EST Office Visit [facility] MEDICAL 73 [place] [address] Johanna Valdez MD [address] [place] [address] 07/11/2025 10:00 AM EST Clinical Support [facility] NUTRITION [address] [place] [address] 73 [facility] [address] 09/27/2025 4:00 PM EST Office Visit [facility] DENTAL [address] [place] [address] Lizy Block documented as of this encounter Procedures Procedure Name Priority Date/Time Associated Diagnosis Comments US PELVIS TRANSVAGINAL Routine 05/29/2023 documented in this encounter Results * US Pelvis Transvaginal (05/29/2023) Anatomical Region Laterality Modality Pelvis Ultrasound us Johanna Valdez MD IMG US PROCEDURES Edited Result - Final documented in this encounter Visit Diagnoses Not on filedocumented in this encounter Care Teams Chick Sexer Relationship Specialty Start Date End Date Johanna Valdez MD [address] [place] [address] PCP - General Internal Medicine 10/27/22 Paulina Kitchen OD [address] [place] [address] Optometry 10/27/[address] 73 [facility] [address] Dietitian Dietitian 10/27/22 documented as of this encounter
--- OUTSIDE RECORDS SUMMARY | 2025-06-20 12:26 | XMS_ITS | Encounter Summary ---
Author Organization [employer] Address 75 [facility] 7 [place] [address] Care Team Providers Care Slitter And Rewinder Name Role Phone Johanna Valdez MD Primary Care Provider [phone] Paulina Kitchen OD Unavailable Julieta Peoples RD Unavailable [phone] Encounter Details Date Type Department Care Team (Late st Contact Info) Description 05/09/2024 Orders Only [facility] [address] [place] [address] Johanna Valdez MD 73 [place] [address] Social History Tobacco Use Types Packs/Day Years [...] 06/22/2025 12:00 PM EDT Office Visit [facility] DENTAL 73 [place] [address] Kristina Rodriguez LLD 9 [place] [address] 07/04/2025 2:30 PM EST Office Visit [facility] MEDICAL 73 [place] [address] Johanna Valdez MD 73 [place] [address] 07/11/2025 10:00 AM EST Clinical Support [facility] NUTRITION [address] [place] [address] Julieta Peoples, INEZ 73 [place] [address] 09/27/2025 4:00 PM EST Office Visit [facility] DENTAL 73 [place] [address] Lizy Block documented as of this encounter [...] PM EDT) Anatomical Region Laterality Modality Endoscopy us Johanna Valdez MD ENDOSCOPY PROCEDURE ORDERABLES F inal Result * Hm Colonoscopy (04/22/2024 12:08 PM EDT) us Johanna Valdez MD HEALTH MAINTENANCE Final Result documented in this encounter Visit Diagnoses Not on filedocumented in this encounter Care Teams Slitter And Rewinder Relationship Specialty Start Date End Date Johanna Valdez MD [address] [place] [address] PCP - General Internal Medicine 10/27/22 Paulina Kitchen OD 73 [facility] [place] [address] Optometry 10/27/[address] 73 [place] [address] Dietitian Dietitian 10/27/22 documented as of this encounter
--- OUTSIDE RECORDS SUMMARY | 2025-06-20 12:26 | XMS_ITS | Encounter Summary ---
Author Organization [employer] Address [address] [place] [address] [facility] [place] [address] Care Team Providers Care Planting Material Carrier Name Role Phone Johanna Valdez MD Primary Care Provider [phone] Johanna Valdez MD Primary Care Provider [phone] Paulina Kitchen OD Unavailable Julieta Peoples RD Unavailable [phone] Encounter Details Date Type Department Care [...] Description 06/22/2025 12:00 PM EDT Office Visit [facility] DENTAL [address] [place] [address] Kristina Rodriguez LLD 9 [place], [place] [address] 07/04/2025 2:30 PM EST Office Visit [facility] MEDICAL 73 [place], [place] [phone] Johanna Valdez MD 73 [place], [place] [address] 07/11/2025 10:00 AM EST Clinical Support [facility] NUTRITION [address] [place] [address] 73 [place] [address] 09/27/2025 4:00 PM EST Office Visit [facility] DENTAL [address] [place] [address] Lizy Block documented as of this encounter Visit Diagnoses Not on filedocumented in this encounter Care Teams Planting Material Carrier Relationship Specialty Start Date End Date Johanna Valdez MD [address] [place] [address] PCP - General Internal Medicine 08/07/22 10/26/22 Johanna Valdez MD [address] [place] [address] PCP - General Internal Medicine 10/27/22 Paulina Kitchen OD [address] [place] [address] Optometry 10/27/[address] 73 [facility] [place] [address] Dietitian Dietitian 10/27/22 documented as of this encounter
--- OUTSIDE RECORDS SUMMARY | 2025-06-20 12:26 | XMS_ITS | Encounter Summary ---
Author Organization [employer] Address 75 [facility] 7 [place] [address] Care Team Providers Care Intertype Operator Name Role Phone Johanna Valdez MD Primary Care Provider [phone] Paulina Kitchen OD Unavailable Julieta Peoples RD Unavailable [phone] Encounter Details Date Type Department Care Team (Late st Contact Info) Description 03/21/2024 Orders Only [facility] [address] [place] [address] Johanna Valdez MD [address] [place] [address] Social History Tobacco Use Types Packs/Day Years [...] AM EST documented as of this encounter Functional Status * Over the past 2 weeks, how often have you been bothered by any of the following problems? Question Answer Date of Assessment Author Little interest or pleasure in doing things Not at all 03/24/2024 4:12 PM EDT Ad Chung Feeling down, depressed, or hopeless Not at all 03/01 4:12 PM EDT Ad Chung Patient Health Questionnaire-2 Score 0 03/01 4:12 PM EDT Ad Chung documented as of this encounter Plan of Treatment Upcoming Encounters Date Type Department Care Team (Late st Contact Info) Description 06/22/2025 12:00 PM EDT Office Visit [facility] DENTAL [address] [place] [address] Kristina Rodriguez LLD 9 [place] [address] 07/04/2025 2:30 PM EST Office Visit [facility] MEDICAL [address] [place] [address] Johanna Valdez MD 73 [place] [address] 07/11/2025 10:00 AM EST Clinical Support [facility] NUTRITION [address] [place] [address] [place] [address] 09/27/2025 4:00 PM EST Office Visit [facility] DENTAL [address] [place] [address] Lizy Block documented as of this encounter Procedures Procedure Name Priority Date/Time Associated Diagnosis Comments XR CHEST 2 VIEWS Routine 03/17/2024 9:29 AM EDT ECG 12-LEAD Routine 03/17/2024 9:28 AM EDT ECG 12-LEAD Routine 03/14/2024 9:27 AM EDT documented in this encounter Results * XR Chest 2 Views (03/17/2024 9:29 AM EDT) Anatomical Region Laterality Modality Chest Radiographic Melanie ging us Johanna Valdez MD IMG XR PROCEDURES Final Result * ECG 12 lead (03/17/2024 9:28 AM EDT) us Johanna Valdez MD ECG ORDERABLES Final Result * ECG 12 lead (03/14/2024 9:27 AM EDT) us Johanna Valdez MD ECG ORDERABLES Final Result documented in this encounter Visit Diagnoses Not on filedocumented in this encounter Care Teams Intertype Operator Relationship Specialty Start Date End Date Johanna Valdez MD [address] [place] [address] PCP - General Internal Medicine 10/27/22 Paulina Kitchen OD [address] [place] [address] Optometry 10/27/[address] [place] [address] Dietitian Dietitian 10/27/22 documented as of this encounter
--- OUTSIDE RECORDS SUMMARY | 2025-06-20 12:26 | XMS_ITS | Encounter Summary ---
Author Organization [employer] Address [address] [place] [address] 7 [place] [address] Care Team Providers Care Kennel Technician Name Role Phone Johanna Valdez MD Primary Care Provider [phone] Johanna Valdez MD Primary Care Provider [phone] Paulina Kitchen OD Unavailable Julitea Peoples RD Unavailable [phone] Encounter Details Date Type Department Care Team (Late st Contact Info) Description 09/02/2022 Orders Only [facility] MEDICAL 73 [place], [place] [phone] Johanna Valdez MD 73 [place], [place] [phone] Social History Tobacco Use Types Packs/Day Years [...] Description 06/22/2025 12:00 PM EDT Office Visit [facility] DENTAL [address] [place] [address] Kristina Rodriguez LLD 9 [place] [address] 07/04/2025 2:30 PM EST Office Visit [facility] MEDICAL [address] [place] [address] Johanna Valdez MD 73 [place] [address] 07/11/2025 10:00 AM EST Clinical Support [facility] NUTRITION [address] [place] [address] [place] [address] 09/27/2025 4:00 PM EST Office Visit [facility] DENTAL [address] [place] [address] Lizy Block documented as of this encounter Visit Diagnoses Not on filedocumented in this encounter Care Teams Kennel Technician Relationship Specialty Start Date End Date Johanna Valdez MD 73 [place] [address] PCP - General Internal Medicine 08/07/22 10/26/22 Johanna Valdez MD [address] [place] [address] PCP - General Internal Medicine 10/27/22 Paulina Kitchen OD 73 [place] [address] Optometry 10/27/[address] [place] [address] Dietitian Dietitian 10/27/22 documented as of this encounter
--- OUTSIDE RECORDS SUMMARY | 2025-06-20 12:27 | XMS_ITS | Clinical Summary ---
Author Organization [facility] Address [address] [place] [id number] Phone Care Team Providers Care Charter Coordinator Name Role Phone Johanna Valdez MD Primary Care Provider [phone] Allergies Active Allergy Reactions Criticality Noted Date Comments Codeine Nausea and/or Vomiting 02/26/2021 Gabapentin 02/26/2021 Gluten 10/09/2023 Glyburide 01/11/2018 Hydrocodone-Acetaminop hen Low 08/14/2022 Other reaction(s): vomiting Ibuprofen Other (See Comments),Mental Status Change 08/11/2011 Insulin Glargine Low 01/11/2018 Lactose Low 05/21/2023 Metformin 01/11/2018 Tramadol 02/26/2021 Medications levothyroxine (SYNTHROID, LEVOTHROID) 150 MCG tablet TAKE 1 TABLET Orally EVERY MORNING ON EMPTY STOMACH AND TAKE AN EXTRA 1/2 TABLET ONCE ON THURSDAY AND Thursday 2 Active coenzyme Q10 100 mg capsule Take 100 mg by mouth daily. 2 Active FREESTYLE LITE Strp strips USE TO TEST BLOOD SUGAR FOUR TO SIX TIMES A DAY 1 Active morphine 2 mg/mL solution Take by mouth daily as needed. 0 Active LORazepam (ATIVAN) 1 MG tablet TAKE 1/2 TO 1 tablet BY MOUTH THREE TIMES DAILY NEEDED 2 Active ferrous sulfate 325 mg (65 mg rosebud iron) tablet Take 1 tablet by mouth daily. 2 Active loratadine (CLARITIN) 10 mg tablet Take 10 mg by mouth daily as needed. 2 Active ezetimibe (ZETIA) 10 mg tablet Take 10 mg by mouth daily. 2 Active ELIQUIS 5 mg tablet Take 5 mg by mouth 2 (two) times a day. 2 Active MULTAQ 400 mg tablet TAKE 1 TABLET BY MOUTH every 12 hours WITH food/meals 2 Active ZINC CITRATE ORAL Take by mouth. Activ e therapeutic multivitamin tablet Take 1 tablet by mouth daily. Active FREESTYLE LITE METER meter kitIndications:T ype 2 diabetes mellitus with diabetic polyneuropathy, with long-term current use of insulin Use as instructed 1 kit 3 Active rosuvastatin (CRESTOR) 40 MG tablet Take 40 mg by mouth daily. 4 Active furosemide (LASIX) 20 MG tablet Take 1 tablet by mouth every morning. 3 Active ferrous gluconate 324 mg (38 mg elemental) tablet Take 324 mg by mouth daily with breakfast. 4 Active blood-glucose sensor (FREESTYLE JASKARAN 3 PLUS SENSOR) DeviIndications: Type 2 diabetes mellitus with diabetic polyneuropathy, with long-term current use of insulin Every 15 days 2 each 11 5 Active Additional Information Patient not taking.Reported on 04/06/2025 BD ULTRA-FINE MINI PEN NEEDLE 31 gauge x 11/13 NdleIndications: Type 2 diabetes mellitus with diabetic polyneuropathy, with long-term current use of insulin USE 1 needle 5 TIMES A DAY 450 each 3 5 Active lidocaine (LIDODERM) 5 % Place 1 patch onto the skin daily. 4 Active metoclopramide HCl (REGLAN) 5 MG tablet Take 5 mg by mouth 4 (four) times a day as needed. 5 Active NOVOLOG FLEXPEN U-100 INSULIN 100 unit/mL (3 mL) flexpenIndicatio ns:Type 2 diabetes mellitus with diabetic polyneuropathy, with long-term current use of insulin inject UNDER THE SKIN according TO sliding scale 3 TIMES A DAY WITH MEALS. max OF 102 UNITS PER DAY 70-100 =20 unit 101-150 =22 units 151-200 = 24 units 201-250 =26 units 251-300 =28 units 301-350 =30 units 351-400 =32 units greater than 400 =34 units 5 Active TRESIBA FLEXTOUCH U-200 200 unit/mL (3 mL) InPn injection penIndications:T ype 2 diabetes mellitus with diabetic polyneuropathy, with long-term current use of insulin Inject 130 Units under the skin nightly at bedtime. 75 mL 1 5 Active Active Problems Problem Noted Date Diagnosed Date Hyperlipidemia LDL goal <100 10/02/2022 Assessment & Plan (04/06/2025 5:40 PM EDT): Unfortunately I do not have a lipid panel and I asked her to obtain this fasting. Presently she is using rosuvastatin. Her last LDL was 41 so that is good and meets the guidelines. Assessment & Plan (12/27/2024 12:21 PM EDT): Controlled. LDL 41 mg/dL continue rosuvastatin 40 mg. Assessment & Plan (09/12/2024 12:42 PM EST): Controlled LDL 41 mg/dL continue rosuvastatin 40 and Zetia 10 mg Assessment & Plan (05/30/2024 12:42 PM EDT): Controlled. LDL 41 mg/dL continue ezetimibe and rosuvastatin. No changes required. Assessment & Plan (01/08/2024 10:19 AM EDT): Controlled. LDL 41 mg/dL on rosuvastatin 40 mg no changes required. Assessment & Plan (10/09/2023 10:03 AM EST): Controlled based on last LDL 58 mg/dL continue rosuvastatin and ezetimibe. I repeated lipid panel prior to the follow-up visit in 3 months. Assessment & Plan (07/09/2023 2:06 PM EST): Based on lab work done on 09/24/2022 LDL was 58 mg/dL she is on Zetia 10 mg and rosuvastatin 20 mg. She informs me that she is going to get cardiac cath next week. Assessment & Plan (01/05/2023 2:10 PM EDT): Controlled based on lab work done on 09/24/2022 LDL was 58 mg/dL. Continue rosuvastatin 20 mg no changes required. Assessment & Plan (10/02/2022 12:31 PM EST): Controlled. LDL 58 mg/dL on rosuvastatin 20 mg no changes required. Type 2 diabetes mellitus wit h diabetic polyneuropathy, with long-term current use of insulin 09/18/2021 Assessment & Plan (04/06/2025 5:39 PM EDT): Uncontrolled. But improved hemoglobin A1c down to 9.6%. She should continue Tresiba 130 units. I have to increase the NovoLog by 4 units so the new correction scale is 70-100 = 20 increasing by 2 units every 50 mg/dL. She is also using Wegovy that hopefully will decrease her glucose levels as well. Assessment & Plan (12/27/2024 12:35 PM EDT): Uncontrolled. Hemoglobin A1c 10.4%. Her fasting glucose levels are very borderline low in the 70s. So I am decreasing the Tresiba to 130 units but I need to increased her Humalog correction scale by 4 units so the new correction scale will be 70- 100 equals 16 units increasing by 2 units every 50 mg/dL. It is obvious that she is having postprandial hyperglycemia. She states that she is not eating a lot of carbs but I do not understand why her glucose levels are so elevated if she is not eating carbs the only thing I can think of is very high insulin resistance. She states that she is gaining weight with her insulin but does not think that I can do because she cannot use a GLP-1 agonist or SGLT2 inhibitor which will help her lose weight. She should return for follow-up in 3 months and repeat her hemoglobin A1c and other lab work. Assessment & Plan (09/12/2024 12:41 PM EST): Uncontrolled. Hemoglobin A1c 10.0%. Unfortunately there is been a lot of miscommunication. The patient has been using bolus insulin at bedtime this is why her morning glucose are good. So I have not in the past wanted to increase the Tresiba because I felt that she was getting enough Tresiba and that she needed more bolus insulin with meals. She has been administering bolus insulin 7 times a day. Before the meal and 2 hours after the meals and furthermore she is using bolus insulin at bedtime up to 35 units. So this is a lot of insulin. At this point I am not going to change her correction scale she is going to continue using 70-100 = 12 units increasing by 2 units every 50 mg/dL but she can only do this for breakfast lunch and dinner before the meal. I do not want her to do a bolus injection at that time. Because I need to see if the Tresiba is going to work. I asked her to increase the Tresiba to 140 units from 86 units that she is using now. Furthermore I prescribed Tresiba U200 which is more concentrated but she can still use the Tresiba U100 as long as she uses 140 units. I told her that if her fasting glucose do not drop below 130 mg/dL after using the higher dose of Tresiba for at least 3 days that she needs to contact me through the patient portal and I will tell her to increase the Tresiba further. She states that she does not have access to Internet so she is going to call in instead. Of course this is going to take longer for me to respond because she has to leave a message this needs to be transcribed and sent to me. Assessment & Plan (05/30/2024 12:47 PM EDT): Improved control based on the GMI of 7.5% recall hemoglobin A1c was previously 9.1%. 59% of the glucose is in range but she still having elevations in the evening. She needs to work on making sure that she is bolusing before the meal for meals. If it still showing elevations in glucose then what needs to happen is an increase in the bolus dose for her dinner because it seems that her glucose levels are fine at other times during the day. I will give her a follow-up appointment in 3 months. I will request hemoglobin A1c. Assessment & Plan (01/08/2024 10:22 AM EDT): Uncontrolled. Her hemoglobin A1c юлия to 9.1%. Furthermore she is anemic so this is falsely low hemoglobin A1c is unsure much higher. Her average glucose is 244 mg/dL this is without her checking at lunchtime frequently. With glucose of 244 her hemoglobin A1c is closer to 10.1%. She informs me that she is getting the freestyle jaskaran and I think that that would be better for evaluation of her glucose levels. I informed the patient that I really do not know how to adjust her insulin regimen. In the past when I increased her Tresiba she developed hypoglycemia overnight or track fitter. Presently she has elevated glucose levels at nighttime. But her dinner glucose are just fine and she is bolusing in the evening. So I do not know why her glucose levels are going up since she states she is not eating a snack at bedtime other than an apple. But even in output will cause her glucose levels to go up so she may need to bolus for that just not necessarily so much insulin that will result in hypoglycemia. In any case I feel that I do not have to change her regimen to control her glucose levels. I suggested to her that maybe an insulin pump will be good because with an insulin pump we can titrate her insulin administration to increase it overnight decrease it during the day when she needs Lasix. Furthermore it pump can help for instance if she has the tandem control IQ it can recalculate glucose levels and insulin administration decreasing the insulin if she is developing hypoglycemia increasing the insulin if she has hyperglycemia. The patient states she knows how to carbohydrate count. She will need to bolus with an insulin pump. My suggestion is that she try the insulin pump but is very expensive is over $5000 so I will want the patient to be certain that she wants to use this device. I think I may want to set her up with the physician family and divorce legal assistant to review use of the pump. My preference will be a tandem IQ because she will require a lot of insulin and I do not think the OmniPod is going to be enough insulin. The patient states that she would like to try the freestyle jaskaran CGM to see if this can help with control of glycemic levels before we proceed with ordering an insulin pump. In the meantime I am not going to change the regimen. Assessment & Plan (10/09/2023 10:02 AM EST): Improved controlled. Having good fasting glucose for the most part occasional lows in the morning. Will decrease Tresiba to 80 units. She is having postprandial hyperglycemia needs a higher dose of NovoLog the new correction scale is 70-100 = 10 units increasing by 2 units every 50 mg/dL. Discussed possibility of using pioglitazone but I do not know her ejection fraction. Furthermore I noticed that she told me that she had an adverse effect with this medication. Also could not tolerate Jardiance which is an SGLT2 inhibitor. Possibly she could not tolerate it due to glucosuria or genital mycotic infections because her glucose levels were too high. She also informs me that she cannot take metformin states she lost eyesight. Assessment & Plan (07/09/2023 2:01 PM EST): Uncontrolled. Based on average glucose of 237 mg/dL hemoglobin A1c is likely is 9.9%. I did not do an actual hemoglobin A1c because she has had a transfusion. At this point I am going to asked the patient to increase the Tresiba up to 85 units she is doing quite poorly. She states that she is administering her NovoLog 3 times a day with meals. She did not have any hypoglycemic levels. I do not understand why she decreased her Tresiba to such a low amount when she was previously getting 80 units. Assessment & Plan (01/05/2023 2:42 PM EDT): Uncontrolled. Hemoglobin A1c 10.4% she has not had any improvement despite me increasing the NovoLog correction scales from the last visit. Today I discussed using pioglitazone again but she states that she had atrial fibrillation. This should not be an issue unless she has congestive heart failure. But I do know what her ejection fraction is and I think she goes to a different institution so I have no idea where to get this information. SGLT2 inhibitor for now would not be a good idea because will cause genital mycotic infections. She cannot tolerate GLP-1 agonist and apparently did not do well with metformin. So at this point I have no choice but to increase the Tresiba back up to 100 units. Recall that she was having hypoglycemia with this dose in the past. She is going to continue her correction scale 70-100 = 14 units increasing by 2 units every 50 mg/dL. She will follow in 3 months time. Assessment & Plan (10/02/2022 12:41 PM EST): Uncontrolled. Hemoglobin A1c increased to 10.2%. She is using 35% bolus insulin and 65% basal insulin which is actually not that bad for type II diabetic. I decided to go up on the Humalog correction scale by 4 units and a new correction scale 70- 100 = 14 units increasing by 2 units every 50 mg/dL. She should continue Tresiba 80 units because in the past when she did her 100 units she developed hypoglycemia overnight but right now she seems particularly glucose toxic based on her glucose levels. So I will suggest to her that if the Humalog correction scale does not work maybe she should try increasing the Tresiba by 10 units. Assessment & Plan (06/19/2022 12:57 PM EDT): Uncontrolled. She states that she looked over pioglitazone and Jardiance and did not like the adverse effects he is current look into it again. She cannot use GLP-1 agonist. So the only thing we can do is use insulin. She cannot tolerate a higher dose of Tresiba greater than 80 units because she was having hypoglycemia overnight. But she does have postprandial hyperglycemia. She has 2 correction scales and neither one of them seem to be working so I asked her to just use 1 correction scale starting at 70-100 = 10 units increasing by 2 units every 50 mg/dL. This is the same scale that she is using but then but she is going to use that as well for breakfast and lunch. Assessment & Plan (03/04/2022 10:57 AM EDT): Uncontrolled hemoglobin A1c increased to 8.8% despite following a diet she is having postprandial hyperglycemia not using enough basal insulin will increase Tresiba from 65 to 100 units and she will continue the current NovoLog correction scale as indicated in the HPI. Today we discussed the use of SGLT2 inhibitors and pioglitazone. She is going to look those up. Assessment & Plan (12/02/2021 12:00 PM EDT): Her hemoglobin A1c is reported at 7.9%. She just dated in October so I am not going to repeat it. But I will request a hemoglobin A1c for the follow-up visit. In the meantime her fasting glucose levels are good so Tresiba 65 units is appropriate. The current NovoLog correction scale is fine for breakfast but not for lunch and dinner. So she should continue using NovoLog 70-100 =6 units increasing by 2 units every 50 mg/dL for breakfast but for lunch and dinner the correction scale was going to be 70-100 =10 units increasing by 2 units every 50 mg/dL. She will return for follow-up in 3 months. Assessment & Plan (09/18/2021 1:11 PM EST): Controlled. Hemoglobin A1c is 8.0%. The patient is using NPH twice a day. Which is fine there are newer insulin such as Tresiba which could potentially work but she wants to continue using NPH. With the Tresiba it could be just 1 injection a day. In any case I do not like to make too many changes. She has been having postprandial hyperglycemia especially after dinner because she has been administering regular insulin after the meal not half an hour before. She states that she is willing to try analog insulin such as Humalog or NovoLog. In the past apparently Humalog was not covered by her insurance. But either 1 of these insulins will do. She should still administer this medication 50 minutes before the meal but is a much fast acting insulin and it probably will work better for her. The question is how much she uses. She is using 5% of her glucose levels and it seems to work sometimes I really do not know because her other glucose levels after administering insulin have been in the reference range but she has an elevated fasting glucose most of the time. I suggest she increase her NPH to 35 units because she is not really using 35 units in the evening she is using 30 units. So she should continue 30 units in the morning of NPH 35 units in the evening and I will switch her regular insulin to either Humalog or NovoLog what ever is covered. She is doing 5% of her glucose level I have never used this regiment before I could use correction scale and I think that this is what we should use. So we will start at a generic correction scale starting at 70-100 = 6 units increasing by 2 units every 50 mg/dL. I started this generic correction scale trying to emulate her pattern of what she is using 5% of her glucose levels and this is what I came up with. The patient was instructed to use analog insulin. I gave her a sample of Humalog because I did not have any NovoLog. But she can use these interchangeably. Once she uses up the sample that I gave her she can get the NovoLog. The only reason I prescribed NovoLog was because she told me that her insurance did not cover Humalog. She was instructed on using the insulin pens because she is never used them in the past. Encounters Date Type Department Care Team Description 05/05/2025 Refill [facility] [address] [place] [address] Kristopher Cruz, DO Medication Refill 04/06/2025 4:20 PM EDT Office Visit [facility] [address] [place] [address] Kristopher Cruz, DO Type 2 diabetes mellitus with diabetic polyneuropathy, with long-term current use of insulin (Primary Dx); Hyperlipidemia LDL goal <70 03/23/2025 Refill [facility] [address] [place] [address] Kristopher Cruz, DO Medication Refill from Last 3 Months Immunizations Immunization Administration Dates Next Due Tdap 12/20/2018 Family History Medical History Relation Comments Cancer Father Diabetes Mother Relation Status Comments Father Mother Social History Tobacco Use Types Packs/Day Years Used Date Smoking Tobacco: Never Smokeless Tobacco: Never Tobacco Cessation:Counseling Given: Not Answered Alcohol Use Standard Drinks/Week Comments Not Currently 0 (1 standard drink = 0.6 oz pur e alcohol) Education Answer Date Recorded Are you interested in more education? Not on jovita e 12/26/2022 Are you concerned about learning? Not on file 12/26/2022 No 12/26/2022 No 12/26/2022 Digital Access Answer Date Recorded No 01/26/2023 No 01/26/2023 Reliable internet access at home? Not on file 01/26/2023 Device with a working camera? Not on file Comments Unknown Sex and Gender Information Value Date Recorded Sex Assigned at Not on file Legal Sex Female 9:46 PM EDT Gender Identity Not on file Sexual Orientation Not on file Last Filed Vital Signs Vital Sign Reading Time Taken Comments Blood Pressure 116/62 04/06/2025 5:15 PM EDT Pulse 72 04/06/2025 5:15 PM EDT Temperature 36.4 C (97.6 F) 10/09/2023 9:29 AM EST Respiratory Rate 18 03/04/2022 10:2 3 AM EDT Oxygen Saturation 98% 04/06/2025 5:15 PM EDT Inhaled Oxygen Concentration - - Weight 126.4 kg (278 lb 9.6 oz) 04/06/2025 5:15 PM EDT Height 161.5 cm (5' 3.58 ) 12/27/2024 1 2:21 PM EDT Body Mass Index 48.45 12/27/2024 12:21 PM EDT Plan of Treatment Upcoming Encounters Date Type Department Care Team (Late st Contact Info) Description 08/04/2025 8:50 AM EST Office Visit [facility] [address] [place] [id number] Kristopher Cruz DO [address] [place] [phone] Health Maintenance Due Date Last Done Comments TSH LEVEL 1961 DEPRESSION SCREENING 1973 HEPATITIS C SCREENING 1979 HIV ONE-TIME SCREENING (18-65 YEARS) 1979 PAP SMEAR 1982 COLOGUARD 2006 COLONOSCOPY 2006 COLORECTAL CANCER SCREENING 2006 FIT TEST 2006 FOBT 2006 SIGMOIDOSCOPY 2006 VIRTUAL COLONOSCOPY 2006 PNEUMOCOCCAL VACCINES (50+ years) (2 of 2 - PCV) 02/24/2008 02/23/2007 RSV VACCINE (1 - Risk 50-74 years 1-dose series) 2011 ZOSTER VACCINES (1 of 2) 2011 CREATININE LEVEL 04/13/2024 04/13/2023 URINE MICROALBUMIN/CREATININE RATIO 10/05/2024 10/05/2023, 09/24/2022 INFLUENZA VACCINE (#1) 2025 , 05/29/2020, 06/14/2019 COVID-19 VACCINE ( - season) 2025 07/12/2021, 12/07/2020, 11/09/2020 DIABETIC EYE EXAM 05/27/2025 05/27/2024, , 05/25/2023, Additional history exists HEMOGLOBIN A1C 06/28/2025 03/28/2025, 0402/2025, 09/22/2024, Additional history exists BLOOD PRESSURE 10/07/2025 04/06/2025 MAMMOGRAM 06/16/2026 06/16/2024 Adult Td,Tdap Booster 05/15/2031 05/15/2021 , 12/20/2018, 06/26/2011 SMOKING STATUS SCREENING (Once After 26 Yrs) Completed 09/12/2024 HEPATITIS A VACCINES Aged Out No long er eligible based on patient's age to complete this topic HIB VACCINES Aged Out No longer eligi ble based on patient's age to complete this topic MENINGOCOCCAL VACCINES (ACWY) Aged Out No longer eligible based on patient's age to complete this topic MENINGOCOCCAL VACCINES (B) Aged Out N o longer eligible based on patient's age to complete this topic Medical Devices Not on file Procedures Procedure Name Priority Date/Time Associated Diagnosis Comments HEMOGLOBIN A1C Routine 12/15/2024 10:45 AM EDT Type 2 diabetes mellitus with diabetic polyneuropathy, with long-term current use of insulin MICROALBUMIN/CREATININ E RATIO, RANDOM URINE Routine 10/05/2023 1:38 PM EST Type 2 diabetes mellitus with diabetic polyneuropathy, with long-term current use of insulin COMPREHENSIVE METABOLIC PANEL Routine 04/13/2023 9:05 AM EDT Type 2 diabetes mellitus with diabetic polyneuropathy, with long-term current use of insulin from Last 3 Months or Most Recently Relevant to Health Maintenance Results * (ABNORMAL) Hemoglobin A1c (12/15/2024 10:45 AM EDT) HEMOGLOBIN A1C 10.4(H) 4.3 - 5.8 % [facility] Blood 12/15/2024 10:4 5 AM EDT 12/15/2024 10:47 AM EDT Kristopher Cruz DO LAB BLOOD ORDERABLES Final Resul t [address] [address] * Microalbumin/creatinine ratio, random urine (10/05/2023 1:38 PM EST) URINE MICROALBUMIN <1.2 0 - 2.3 mg/dL [facility] URINE CREATININE 57 mg/dL [employer] [facility] MICROALB/CRE RATIO NOT CALCULATED 0 - 20 mg/g Cre [facility] Comment:due to Microalbumin <1.2 Urine (Urine) 10/05/2023 1:3 8 PM EST 10/05/2023 1:44 PM EST Kristopher Cruz DO URINE ORDERABLES Final Result Performing Organization Address [facility] Co de Phone Number [address] [address] * (ABNORMAL) Comprehensive metabolic panel (04/13/2023 9:05 AM EDT) SODIUM 142 133 - 146 mmol/L [facility] POTASSIUM 4.6 3.3 - 5.1 mmol/L [facility] CHLORIDE 102 96 - 108 mmol/L [facility] CO2 29 21 - 35 mmol/L [facility] BUN 24(H) 6 - 19 mg/dL [facility] CREATININE 0.90 0.5 - 1.5 mg/dL [facility] GLUCOSE 84 70 - 99 mg/dL [facility] ALBUMIN 4.0 3.9 - 4.8 g/dL [facility] TOTAL PROTEIN 7.8 6.5 - 8.0 g/dL [facility] CALCIUM 10.1 8.4 - 10.3 mg/dL [facility] ALKALINE PHOSPHATASE 83 39 - 117 U/L [facility] TOTAL BILIRUBIN <0.2 0.0 - 1.2 mg/dL [facility] AST 31 0 - 37 U/L [facility] ALT 39 0 - 40 U/L [facility] GLOBULIN 3.8 1 - 4.8 g/dL [facility] EGFR 73 >59 mL/min/1.7 3m2 [facility] Comment:Estimated glomerular filtration rate calculated using the CKD-EPI refit equation. ANION GAP 16 10 - 20 mmol/L [facility] Blood 04/13/2023 9:05 AM EDT 04/13/2023 9:09 AM EDT us Kristopher Too DO LAB BLOOD ORDERABLES Final Resul t [facility] 30 [place] [address] from Last 3 Months or Most Recently Relevant to Health Maintenance Insurance [facility] MEDICARE REPLACEMENT [place] [address] [facility] MEDICARE REPLACEMENT [facility] MEDICARE REPLACEMENT [facility] MEDICARE REPLACEMENT [facility] MEDICARE REPLACEMENT [facility] MEDICARE REPLACEMENT [facility] MEDICARE REPLACEMENT [facility] MEDICARE REPLACEMENT [facility] MEDICARE REPLACEMENT Care Teams Charter Coordinator Relationship Specialty Start Date End Date Johanna Valdez MD [address] [place] [address] PCP - General Internal Medicine 09/09/21 Additional Source Comments The information contained in this document represents components of the legal health record. It is not the complete legal health record.[facility]
== END 2025-06-20 11:25 | disposition home or self-care (01) ==
LOC: HO.HSMS 10:27
PROVIDERS: PCP Internal Medicine; Visit Provider Nurse Practitioner Family
DX: G47.34 Idiopathic sleep related nonobstructive alveolar hypoventilation (principal); G47.36 Sleep related hypoventilation in conditions classified elsewhere
CPT/HCPCS: 99213

== ENCOUNTER → 2025-06-20 10:26 | Outpatient (BNVA) | payer OTHER, SELFPAY | PROVIDERS: PCP Internal Medicine; Visit Provider Nurse Practitioner Family | DX: G47.34 Idiopathic sleep related nonobstructive alveolar hypoventilation (principal); G47.36 Sleep related hypoventilation in conditions classified elsewhere | CPT/HCPCS: 99212 ==

== ENCOUNTER → 2025-06-29 09:54 | Outpatient (REF) | payer OTHER, SELFPAY ==
--- OUTSIDE RECORDS SUMMARY | 2025-06-26 10:30 | XMS_ITS | Encounter Summary ---
Author Organization [employer] Address [address] [facility] 7 [place] [address] Care Team Providers Care Interior Wall Assembler Name Role Phone Johanna Valdez MD Primary Care Provider [phone] Paulina Kitchen OD Unavailable Julieta Peoples RD Unavailable [phone] Reason for Visit * Reason Comments Dentures Encounter Details Date Type Department Care Team (Late st Contact Info) Description 06/26/2025 10:30 AM EDT Office Visit [facility] DENTAL [address] [place] [address] Kristina Rodriguez LLD [address] [place] [address] Social History Tobacco Use Types Packs/Day Years [...] AM EST documented as of this encounter Last Filed Vital Signs Vital Sign Reading Time Taken Comments Blood Pressure 104/60 06/26/2025 10:29 AM EDT Pulse 77 06/26/2025 10:29 AM EDT Temperature - - Respiratory Rate - - Oxygen Saturation - - Inhaled Oxygen Concentration - - Weight - - Height - - Body Mass Index - - documented in this encounter Progress Notes * ALICIA Man - 06/26/2025 10:30 AM EDT Delivery of the max resin RPD done. Pt is satisfied with esthetics and fit and was asked to call if the denture needs adjustments. Advised to leave dentures out at night, cleaning instructions given. NV: 6 month recall/Adjust RPD documented in this encounter Plan of Treatment Upcoming Encounters Date Type Department Care Team (Late st Contact Info) Description 07/04/2025 2:30 PM EST Office Visit [facility] MEDICAL [address] [place] [address] Johanna Valdez MD [address] [place] [address] 07/11/2025 10:00 AM EST Clinical Support [facility] NUTRITION [address] [place] [address] [place] [address] 09/27/2025 4:00 PM EST Office Visit [facility] DENTAL [address] [place] [address] Lizy Block documented as of this encounter Procedures Procedure Name Priority Date/Time Associated Diagnosis Comments 12,13,14,3 MAXILLARY PARTIAL DENTURE - RESIN BASE (INCLUDING, RETENTIVE/CLASPING MATERIALS, RESTS, AND TEETH) Routine 06/26/2025 10:30 AM EDT documented in this encounter Visit Diagnoses Not on filedocumented in this encounter Care Teams Interior Wall Assembler Relationship Specialty Start Date End Date Johanna Valdez MD [address] [place] [address] PCP - General Internal Medicine 10/27/22 Paulina Kitchen OD [address] [place] [address] Optometry 10/27/[address] [place] [address] Dietitian Dietitian 10/27/22 documented as of this encounter
--- NOTE | 2025-06-29 10:05 | CA_ITS ---
Transthoracic Echocardiogram Patient (Last, First, Middle): Helen Wheatley, Gender: F Date of : 1960 Age: 64 Procedure Date: 06/29/2025 Procedure Type: Transthoracic Echocardiogram Location: OP Height: 162.56 cm Weight: 125.19 kg BSA: 2.24 m2 Heart Rate: 84 bpm BP: 120 / 64 mmHg Scenic Arts Supervisor: JOAO Referring MD: Bud Hong MD Symptoms: I35.0 - Nonrheumatic aortic (valve) stenosis Study Quality: Fair/unable to tolerate due to back pain ECG Rhythm: Sinus Conclusions: - The left ventricular systolic function is normal. The calculated ejection fraction is 62% by biplane method. - Evidence suggests grade II (moderate) diastolic dysfunction. - There is mild aortic valve stenosis. - There is severe mitral annular calcification. Findings Procedure Information The quality of the study was technically difficult. The study quality is limited by the patients inability to tolerate the test, patients body habitus, and lung artifact. Left Ventricle Normal left ventricular cavity size. There is moderately increased left ventricular wall thickness. The left ventricular systolic function is normal. The calculated ejection fraction is 62% by biplane method. There is no evidence of regional wall motion abnormalities. Evidence suggests grade II (moderate) diastolic dysfunction. Right Ventricle There is low normal right ventricular systolic function. Atria Both atria are normal in size. Aortic Valve The aortic valve was not well visualized. There is mild aortic valve stenosis. The mean gradient is 18 mmHg. The aortic valve area is 1.50 cm2. There is no aortic valve regurgitation. Mitral Valve There is severe mitral annular calcification. There is mild mitral valve regurgitation. There is no mitral valve stenosis. Pulmonic Valve The pulmonic valve is likely normal. Tricuspid Valve There is no tricuspid valve regurgitation. Tricuspid regurgitation envelope is inadequate for calculation of right ventricular systolic pressure. Great Vessels The asc aorta and aortic arch are normal in size. Venous The inferior vena cava was not well visualized. Pericardium/Pleural There is no evidence of pericardial effusion. Prior Study Comparison No significant change compared to prior study dated: 03/04/2024. Measurements 2D Linear Measurements IVSd: 1.54 0.6-0.9/0.6-1.0 cm LVIDd: 4.39 3.9-5.3/4.2-5.9 cm LVIDd Index: 1.96 2.4-3.2/2.2-3.1 cm/m2 LVIDs: 2.82 2.0-3.6 cm LVPWd: 1.30 0.7-1.1 cm LA Diam: 4.30 2.7-3.8/3.0-4.0 cm LAIDs Index: 1.92 1.5-2.3 cm/m2 LV Mass: 305.06 67-162/88-224 g LV Mass Index: 136.19 43-95/49-115 g/m2 LVOT Diam: 2.10 3.0+(-)1.3 cm 2D Systolic Function EF 4C: 65.90 >55% EF 2C: 57.40 >55% EF BiP: 61.90 >55% Mitral Valve MV VTI: 0.44 MV Pk Raghu: 1.42 MV Mn Raghu: 1.03 MV Pk Grad: 8.00 MV Mn Grad: 5.00 MV Pk E: 1.22 MV PK A: 1.20 MV Decel Time: 225.00 E/A: 1.00 E'Lateral: 5.00 E'Medial: 4.90 E/E' Med: 24.90 E/E' Lat: 24.40 PHT: 66.00 MVA PHT: 3.33 MVA Continuity: 1.96 Decel [place]: 5.41 Aortic Valve AoV Pk Raghu: 2.70 AoV Mn Raghu: 2.01 AoV VTI: 0.58 AoV Pk Grad: 29.00 Aov Mn Grad: 18.00 RYLAN Cont.VTI: 1.50 LVOT LVOT Pk Raghu: 1.17 LVOT Mn Raghu: 0.84 LVOT VTI: 0.25 LVOT Pk Grad: 5.00 LVOT Mn Grad: 3.00 LVOT Diam: 2.10 LVOT Area: 3.46 Diastolic Function MV Pk E: 1.22 MV Pk A: 1.20 E/A: 1.00 E'Medial: 4.90 E/E' Med: 24.90 E' Laterial: 5.00 E/E' Lat: 24.40 Right Ventricle TAPSE (mm): 16.90 TVS' Raghu: 10.80 Tricuspid Valve RA Press: 3.00 Great Vessels Aorta Sinus of Valsalva: 2.80 2.0-3.5 cm Ao Asc: 3.10 2.1-3.4 cm Ao Arch: 2.90 Pulmonary Veins Pulm Vein S/D 0.90 Updated in Other Vendor System with Status of Final Jerod Covarrubias MD electronically signed on 07/01/2025 11:03:14 AM with status of Final
--- OUTSIDE RECORDS SUMMARY | 2025-06-29 11:43 | XMS_ITS | Encounter Summary ---
Author Organization [employer] Address [address] [place] [address] 7 [place] [address] Care Team Providers Care Industrial Technician Name Role Phone Johanna Valdez MD Primary Care Provider [phone] Johanna Valdez MD Primary Care Provider [phone] Paulina Kitchen OD Unavailable Julieta Peoples RD Unavailable [phone] Encounter Details Date Type Department Care [...] Description 07/04/2025 2:30 PM EST Office Visit [facility] MEDICAL [address] [place] [address] Johanna Valdez MD [address] [place] [address] 07/11/2025 10:00 AM EST Clinical Support [facility] NUTRITION [address] [place] [address] [place] [address] 09/27/2025 4:00 PM EST Office Visit [facility] DENTAL [address] [place] [address] Lizy Block documented as of this encounter Visit Diagnoses Not on filedocumented in this encounter Care Teams Industrial Technician Relationship Specialty Start Date End Date Johanna Valdez MD [address] [place] [address] PCP - General Internal Medicine 08/07/22 10/26/22 Johanna Valdez MD [address] [place] [address] PCP - General Internal Medicine 10/27/22 Paulina Kitchen OD [address] [place] [address] Optometry 10/27/[address] [place] [address] Dietitian Dietitian 10/27/22 documented as of this encounter
--- OUTSIDE RECORDS SUMMARY | 2025-06-29 11:43 | XMS_ITS | Encounter Summary ---
Author Organization [employer] Address [address] [facility] 7 [place] [address] Care Team Providers Care Electric System Operator Name Role Phone Johanna Valdez MD Primary Care Provider [phone] Paulina Kitchen OD Unavailable Julieta Peoples RD Unavailable [phone] Encounter Details Date Type Department Care Team (Late st Contact Info) Description 11/10/2024 Orders Only [facility] [address] [place] [address] Johanna Valdez MD [address] [place] [address] Social History Tobacco Use Types Packs/Day Years [...] Description 07/04/2025 2:30 PM EST Office Visit [facility] MEDICAL [address] [place] [address] Johanna Valdez MD [address] [place] [address] 07/11/2025 10:00 AM EST Clinical Support [facility] NUTRITION [address] [place] [address] 73 [facility] [place] [address] 09/27/2025 4:00 PM EST Office Visit [facility] DENTAL [address] [place] [address] Lizy Block documented as of this encounter Procedures Procedure Name Priority Date/Time Associated Diagnosis Comments HEMOGLOBIN ELECTROPHORESIS Routine 11/07 10:21 AM EDT documented in this encounter Results * Hemoglobin Electrophoresis (11/07/2024 10:21 AM EDT) Blood Venous blood specimen / Unknown Johanna Valdez MD LAB BLOOD ORDERABLES Final Resul t documented in this encounter Visit Diagnoses Not on filedocumented in this encounter Care Teams Electric System Operator Relationship Specialty Start Date End Date Johanna Valdez MD [address] [place] [address] PCP - General Internal Medicine 10/27/22 Paulina Kitchen OD [address] [facility] [place] [address] Optometry 10/27/[address] 73 [facility] [place] [address] Dietitian Dietitian 10/27/22 documented as of this encounter
--- OUTSIDE RECORDS SUMMARY | 2025-06-29 11:43 | XMS_ITS | Encounter Summary ---
Author Organization [employer] Address [address] [facility] 7 [place] [address] Care Team Providers Care Retail Zone Specialist Name Role Phone Johanna Valdez MD Primary Care Provider [phone] Paulina Kitchen OD Unavailable Julieta Peoples RD Unavailable [phone] Encounter Details Date Type Department Care Team (Late st Contact Info) Description 03/21/2024 Orders Only [facility] [address] [place] [address] Johanna Valdez MD [address] [place] [address] Social History Tobacco Use Types Packs/Day Years [...] Description 07/04/2025 2:30 PM EST Office Visit [facility] MEDICAL [address] [place] [address] Johanna Valdez MD [address] [place] [address] 07/11/2025 10:00 AM EST Clinical Support [facility] NUTRITION [address] [place] [address] Julieta Peoples, RD 73 [place] [address] 09/27/2025 4:00 PM EST Office Visit [facility] DENTAL [address] [place] [address] Lizy Blokc documented as of this encounter Procedures Procedure [...] on filedocumented in this encounter Care Teams Retail Zone Specialist Relationship Specialty Start Date End Date Johanna Valdez MD [address] [place] [address] PCP - General Internal Medicine 10/27/22 Paulina Kitchen OD [address] [place] [address], [place] [address] Optometry 10/27/[address] [place] [address] Dietitian Dietitian 10/27/22 documented as of this encounter
--- OUTSIDE RECORDS SUMMARY | 2025-06-29 11:43 | XMS_ITS | Encounter Summary ---
Author Organization [employer] Address 75 [facility] 7 [place] [address] Care Team Providers Care Turn Down Man Name Role Phone Johanna Valdez MD Primary Care Provider Paulina Kitchen OD Unavailable Julieta Peoples RD Unavailable [phone] Encounter Details Date Type Department Care Team (Late st Contact Info) Description 05/18/2024 Orders Only [facility] [address] [place] [address] Johanna Valdez MD [address] [place] [address] Social History Tobacco Use Types Packs/Day Years [...] 07/04/2025 2:30 PM EST Office Visit [facility] MEDICAL [address] [place] [address] Johanna Valdez MD [address] [place] [address] 07/11/2025 10:00 AM EST Clinical Support [facility] NUTRITION [address] [place] [address] Juileta Peoples, RD [address] [address] 09/27/2025 4:00 PM EST Office Visit [facility] DENTAL [address] [place] [address] Lizy Block documented as of this encounter [...] (Negative) Lay letter mailed to patient WSN: [id number] Ordering Physician: Johanna Valdez Dictated By: Andrea Charles MD Dictated Date/Time: 06/17/24 8:30 am Reviewed By: Andrea Charles MD Signed By: Andrea Charles MD Signed Date/Time: 06/17/24 8:30 am Transcribed By: BENJAMIN Business And Services Instructor Date/Time: 06/17/24 8:29 am Birads: Procedure Note [...] (Negative) Lay letter mailed to patient WSN: [id number] Ordering Physician: Johanna Valdez Dictated By: Andrea Charles MD Dictated Date/Time: 06/17/24 8:30 am Reviewed By: Andrea Charles MD Signed By: Andrea Charles MD Signed Date/Time: 06/17/24 8:30 am Transcribed By: BENJAMIN Business And Services Instructor Date/Time: 06/17/24 8:29 am Birads: Johanna Valdez MD IMG BI PROCEDURES Final Result * MRI PELVIS W WO CONTRAST (04/20/2024 11:57 AM EDT) Anatomical Region Laterality Modality Magnetic Resonan ce Johanna Valdez MD IMG MRI PROCEDURES Final Result documented in this encounter Visit Diagnoses Not on filedocumented in this encounter Care Teams Turn Down Man Relationship Specialty Start Date End Date Johanna Valdez MD [address] [place] [address] PCP - General Internal Medicine 10/27/22 Paulina Kitchen OD [address] [place] [address] Optometry 10/27/[address] 73 [place] [address] Dietitian Dietitian 10/27/22 documented as of this encounter
--- OUTSIDE RECORDS SUMMARY | 2025-06-29 11:43 | XMS_ITS | Encounter Summary ---
Author Organization [employer] Address [address] [place] [address] 7 [place] [address] Care Team Providers Care Gift Shop Clerk Name Role Phone Johanna Valdez MD Primary Care Provider [phone] Paulina Kitchen OD Unavailable Julieta Peoples RD Unavailable [phone] Reason for Visit * Reason Comments Med Refill Encounter Details Date Type Department Care Team (Late st Contact Info) Description 04/03/2025 Refill [facility] MEDICAL [address] [place] [address] Johanna Valdez MD [address] [place] [address] Anxiety Social History Tobacco Use Types Packs/Day [...] Description 07/04/2025 2:30 PM EST Office Visit [facility] MEDICAL [address] [place] [address] Johanna Valdez MD [address] [place] [address] 07/11/2025 10:00 AM EST Clinical Support [facility] NUTRITION [address] [place] [address] [place] [address] 09/27/2025 4:00 PM EST Office Visit [facility] DENTAL [address] [place] [address] Lizy Block documented as of this encounter Visit Diagnoses Diagnosis Anxiety Anxiety state, unspecified documented in this encounter Care Teams Gift Shop Clerk Relationship Specialty Start Date End Date Johanna Valdez MD [address] [place] [address] PCP - General Internal Medicine 10/27/22 Paulina Kitchen OD [address] [place] [address] Optometry 10/27/[address] [place] [address] Dietitian Dietitian 10/27/22 documented as of this encounter
--- OUTSIDE RECORDS SUMMARY | 2025-06-29 11:43 | XMS_ITS | Encounter Summary ---
Author Organization [employer] Address 75 [facility] 7 [place] [address] Care Team Providers Care Game Author Name Role Phone Johanna Valdez MD Primary Care Provider [phone] Paulina Kitchen OD Unavailable Julieta Peoples RD Unavailable [phone] Encounter Details Date Type Department Care Team (Late st Contact Info) Description 05/09/2024 Orders Only [facility] [address] [place] [address] Johanna Valdez MD [address] [place] [address] Social History Tobacco Use Types Packs/Day Years [...] 07/04/2025 2:30 PM EST Office Visit [facility] MEDICAL [address] [place] [address] Johanna Valdez MD [address] [place] [address] 07/11/2025 10:00 AM EST Clinical Support [facility] NUTRITION [address] [place] [address] 73 [place] [address] 09/27/2025 4:00 PM EST Office Visit [facility] DENTAL [address] [place] [address] Lizy Block documented as of this encounter [...] on filedocumented in this encounter Care Teams Game Author Relationship Specialty Start Date End Date Johanna Valdez MD [address] [place] [address] PCP - General Internal Medicine 10/27/22 Paulina Kitchen OD [address] [place] [address] Optometry 10/27/[address] 73 [place] [address] Dietitian Dietitian 10/27/22 documented as of this encounter
--- OUTSIDE RECORDS SUMMARY | 2025-06-29 11:43 | XMS_ITS | Encounter Summary ---
Author Organization [employer] Address [address] [place] [address] 7 [place] [address] Care Team Providers Care Park Worker Name Role Phone Johanna Valdez MD Primary Care Provider [phone] Paulina Kitchen OD Unavailable Julieta Peoples RD Unavailable [phone] Encounter Details Date Type Department Care Team (Late st Contact Info) Description 05/30/2023 Orders Only [facility] MEDICAL [address] [place] [address] Provider, MD Dwayne Social History Tobacco Use [...] Description 07/04/2025 2:30 PM EST Office Visit [facility] MEDICAL 73 [place] [address] Johanna Valdez MD 73 [place], [place] [address] 07/11/2025 10:00 AM EST Clinical Support [facility] NUTRITION [address] [place] [address] [place] [address] 09/27/2025 4:00 PM EST Office Visit [facility] DENTAL [address] [place] [address] Lizy Block documented as of this encounter Procedures Procedure Name Priority Date/Time Associated Diagnosis Comments HM MAMMOGRAPHY Routine 03/13/2023 documented in this encounter Results * Hm Mammography (03/13/2023) Anatomical Region Laterality Modality Other Historical Provider HEALTH MAINTENANCE Final Result documented in this encounter Visit Diagnoses Not on filedocumented in this encounter Care Teams Park Worker Relationship Specialty Start Date End Date Johanna Valdez MD [address] [place] [address] PCP - General Internal Medicine 10/27/22 Paulina Kitchen OD [address] [place] [address] Optometry 10/27/[address] 73 [facility] [place] [address] Dietitian Dietitian 10/27/22 documented as of this encounter
--- OUTSIDE RECORDS SUMMARY | 2025-06-29 11:43 | XMS_ITS | Encounter Summary ---
Author Organization [employer] Address [address] [place] [address] 7 [place] [address] Care Team Providers Care Associate Professor Of Literacy Name Role Phone Johanna Valdez MD Primary Care Provider [phone] Johanna Valdez MD Primary Care Provider [phone] Paulina Kitchen OD Unavailable Julieta Peoples RD Unavailable [phone] Encounter Details Date Type Department Care [...] Description 07/04/2025 2:30 PM EST Office Visit [facility] MEDICAL [address] [place] [address] Johanna Valdez MD [address] [place] [address] 07/11/2025 10:00 AM EST Clinical Support [facility] NUTRITION [address] [place] [address] [place] [address] 09/27/2025 4:00 PM EST Office Visit [facility] DENTAL [address] [place] [address] Lizy Block documented as of this encounter Visit Diagnoses Not on filedocumented in this encounter Care Teams Associate Professor Of Literacy Relationship Specialty Start Date End Date Johanna Valdez MD [address] [place] [address] PCP - General Internal Medicine 08/07/22 10/26/22 Johanna Valdez MD [address] [place] [address] PCP - General Internal Medicine 10/27/22 Paulina Kitchen OD [address] [place] [address] Optometry 10/27/[address] [place] [address] Dietitian Dietitian 10/27/22 documented as of this encounter
--- OUTSIDE RECORDS SUMMARY | 2025-06-29 11:43 | XMS_ITS | Encounter Summary ---
Author Organization [employer] Address [address] [place] [address] 7 [place] [address] Care Team Providers Care Meat Seafood Associate Name Role Phone Johanna Valdez MD Primary Care Provider [phone] Johanna Valdez MD Primary Care Provider [phone] Paulina Kitchen OD Unavailable Julieta Peoples RD Unavailable [phone] Encounter Details Date Type Department Care [...] Description 07/04/2025 2:30 PM EST Office Visit [facility] MEDICAL [address] [place] [address] Johanna Valdez MD [address] [place] [address] 07/11/2025 10:00 AM EST Clinical Support [facility] NUTRITION [address] [place] [address] [place] [address] 09/27/2025 4:00 PM EST Office Visit [facility] DENTAL [address] [place] [address] Lizy Block documented as of this encounter Visit Diagnoses Not on filedocumented in this encounter Care Teams Meat Seafood Associate Relationship Specialty Start Date End Date Johanna Valdez MD [address] [place] [address] PCP - General Internal Medicine 08/07/22 10/26/22 Johanna Valdez MD [address] [place] [address] PCP - General Internal Medicine 10/27/22 Paulina Kitchen OD 73 [place] [address] Optometry 10/27/[address] [place] [address] Dietitian Dietitian 10/27/22 documented as of this encounter
--- OUTSIDE RECORDS SUMMARY | 2025-06-29 11:43 | XMS_ITS | Encounter Summary ---
Author Organization [employer] Address [address] [place] [address] 7 [place] [address] Care Team Providers Care Business Operations Analyst Name Role Phone Johanna Valdez MD Primary Care Provider [phone] Johanna Valdez MD Primary Care Provider [phone] Paulina Kitchen OD Unavailable Julieta Peoples RD Unavailable [phone] Encounter Details Date Type Department Care [...] Description 07/04/2025 2:30 PM EST Office Visit [facility] MEDICAL [address] [place] [address] Johanna Valdez MD [address] [place] [address] 07/11/2025 10:00 AM EST Clinical Support [facility] NUTRITION [address] [place] [address] [place] [address] 09/27/2025 4:00 PM EST Office Visit [facility] DENTAL [address] [place] [address] Lizy Block documented as of this encounter Visit Diagnoses Not on filedocumented in this encounter Care Teams Business Operations Analyst Relationship Specialty Start Date End Date Johanna Valdez MD [address] [place] [address] PCP - General Internal Medicine 08/07/22 10/26/22 Johanna Valdez MD [address] [place] [address] PCP - General Internal Medicine 10/27/22 Paulina Kitchen OD [address] [place] [address] Optometry 10/27/[address] [place] [address] Dietitian Dietitian 10/27/22 documented as of this encounter
--- OUTSIDE RECORDS SUMMARY | 2025-06-29 11:43 | XMS_ITS | Encounter Summary ---
Author Organization [employer] Address 75 [facility] 7t [place] [address] Care Team Providers Care Sergeant Of Corrections Name Role Phone Johanna Valdez MD Primary Care Provider [phone] Paulina Kitchen OD Unavailable Julieta Peoples RD Unavailable Encounter Details Date Type Department Care Team (Late st Contact Info) Description 10/06/2023 Orders Only [facility] [address] [place] [address] Johanna Valdez MD [address] [place] [address] Social History Tobacco Use Types Packs/Day Years [...] Description 07/04/2025 2:30 PM EST Office Visit [place] [facility] MEDICAL [address] [place] [address] Johanna Valdez MD [address] [place] [address] 07/11/2025 10:00 AM EST Clinical Support [facility] NUTRITION [address] [place] [address] 73 [facility] [place] [address] 09/27/2025 4:00 PM EST Office Visit [place] [facility] DENTAL 73 [facility] [place] [address] Lizy Block documented as of this encounter [...] on filedocumented in this encounter Care Teams Sergeant Of Corrections Relationship Specialty Start Date End Date Johanna Valdez MD [address] [facility] [place] [address] PCP - General Internal Medicine 10/27/22 Paulina Kitchen OD [address] [place] [address] Optometry 10/27/[address] [facility] [place] [address] Dietitian Dietitian 10/27/22 documented as of this encounter
--- OUTSIDE RECORDS SUMMARY | 2025-06-29 11:43 | XMS_ITS | Encounter Summary ---
Author Organization [email or web address] Address 75 [facility] 7 [place] [address] Care Team Providers Care Director Of Instructional Technology Name Role Phone Johanna Valdez MD Primary Care Provider [phone] Paulina Kitchen OD Unavailable Julieta Peoples RD Unavailable [phone] Reason for Visit * Reason Comments Med Refill Encounter Details Date Type Department Care Team (Late st Contact Info) Description 03/17/2023 Refill [facility] MEDICAL [address] [place] [address] Johanna Valdez MD [address] [place] [address] Other specified anxiety disorders Social History Tobacco [...] Description 07/04/2025 2:30 PM EST Office Visit [facility] MEDICAL [address] [place] [address] Johanna Valdez MD [address] [place] [address] 07/11/2025 10:00 AM EST Clinical Support [facility] NUTRITION [address] [place] [address] [place] [address] 09/27/2025 4:00 PM EST Office Visit [facility] DENTAL [address] [place] [address] Lizy Block documented as of this encounter Visit Diagnoses Diagnosis Other specified anxiety disorders documented in this encounter Care Teams Director Of Instructional Technology Relationship Specialty Start Date End Date Johanna Valdez MD [address] [place] [address] PCP - General Internal Medicine 10/27/22 Paulina Kitchen OD [address] [place] [address] Optometry 10/27/[address] [place] [address] Dietitian Dietitian 10/27/22 documented as of this encounter
--- OUTSIDE RECORDS SUMMARY | 2025-06-29 11:43 | XMS_ITS | Encounter Summary ---
Author Organization [email or web address] Address [address] [place] [address] 7 [place] [address] Care Team Providers Care Shoveler Name Role Phone Johanna Valdez MD Primary Care Provider [phone] Johanna Valdez MD Primary Care Provider [phone] Paulina Kitchen OD Unavailable Julieta Peoples RD Unavailable [phone] Encounter Details Date Type Department Care Team (Late st Contact Info) Description 09/02/2022 Orders Only [facility] MEDICAL [address] [place], [place] [id number] Johanna Valdez MD 73 [place], [place] [id number] Social History Tobacco Use Types Packs/Day Years [...] PM EST Office Visit [facility] MEDICAL [address] [place] [address] Johanna Valdez MD [address] [place] [address] 07/11/2025 10:00 AM EST Clinical Support [facility] NUTRITION [address] [place] [address] 73 [facility] [place] [address] 09/27/2025 4:00 PM EST Office Visit [facility] DENTAL [address] [place] [address] Lizy Block documented as of this encounter Visit Diagnoses Not on filedocumented in this encounter Care Teams Shoveler Relationship Specialty Start Date End Date Johanna Valdez MD [address] [place] [address] PCP - General Internal Medicine 08/07/22 10/26/22 Johanna Valdez MD [address] [place] [address] PCP - General Internal Medicine 10/27/22 Paulina Kitchen OD [address] [place] [address] Optometry 10/27/[address] [place] [address] Dietitian Dietitian 10/27/22 documented as of this encounter
--- OUTSIDE RECORDS SUMMARY | 2025-06-29 11:43 | XMS_ITS | Clinical Summary ---
Author Organization [facility] Address [address] [place] [address] Phone Care Team Providers Care Head Pastry Chef Name Role Phone Johanna Valdez MD Primary Care Provider [phone] Allergies Active Allergy Reactions Criticality Noted Date [...] total) by mouth daily. 02/22/2021 Active coenzyme [id number] E 100-5 mg-unit capsule Take by mouth daily. 02/18/2021 Active multivit-min/fe rrous fumarate (MULTI VITAMIN ORAL) 1 tablet. 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 02/07/2019 Carotid stenosis 01/14/2018 Overview (05/16/2024): S/p left CEA 10/06/2016: Duplex bilateral carotid US: Bilat hemodynamically significant stenosis consistent w/ 50-79% diameter reduction involving both the paroximal L and R internal carotid arteries Depression 01/14/2018 Paroxysmal A-fib ([facility] V24, [facility] V28) 12/29 Overview (05/16/2024): Plavix Immunizations Immunization Administration Dates Next Due Moderna SARS-CoV-2 COVID-19, [...] 76 11/07/2024 10:35 AM EDT Temperature 36.3 C (97.4 F) 11/07/2024 10:35 AM EDT Respiratory Rate - - Oxygen Saturation 97% [...] Description 11/13/2025 10:00 AM EDT Office Visit [facility] Hematology Oncology [address] [place] [address] Chapito Aguayo MD [address] [place] [address] Health Maintenance Due Date Last Done Comments Breast Cancer Screening 1961 Colorectal Cancer Screening: Colonoscopy 1961 Diabetes: Annual Foot Exam 1971 Cervical Cancer Screening: Pap Smear 1982 Zoster Vaccines (1 of 2) 2011 07/06/2001, 11/2000 HIV Screening 08/10/2022 Hepatitis C Screening 08/10/2022 Medicare Annual Wellness Visit 08/10/2022 Social Influencers of Health Screening 08/10/2022 Depression Screening 08/31/2024 Diabetes: Annual Urine Albumin-Creatinine Ratio (uACR) 10/05/2024 10/05/2023, 10/05/2023, 09/24/2022 Diabetes: Blood Sugar Control Test (HGBA1C) 03/22/2025 09/22/2024, 09/12/2024, 01/04/2024, Additional history exists Influenza Vaccine (#1) 2025 , 06/12/2023, 07/22/2022, Additional history exists Diabetes: Annual Retina Eye [...] 04/29/2006 RSV Immunization Adult Patients Completed 06/29/2023 COVID-19 Vaccine Completed 09/22/2024, , [...] Associated Diagnosis Comments COMPREHENSIVE METABOLIC PANEL Routine 11/07/2024 11:00 AM EDT Iron deficiency anemia due to chronic blood loss HEMOGLOBIN A1C Routine 01/04/2024 LIPID PANEL Routine 01/04/2024 URINE ALBUMIN CREATININE RATIO Routine 10/05/2023 from Last 3 Months or Most Recently Relevant to Health Maintenance Results * (ABNORMAL) Comprehensive metabolic panel (11/07/2024 11:00 AM EDT) Sodium 138 133 - 145 mmol/L LAB CHEMISTRY METHOD 11/07/2024 1:58 PM [facility] Potassium 4.7 3.5 - 5.5 mmol/L LAB CHEMISTRY METHOD 11/07/2024 1:58 PM [facility] Chloride 103 96 - 110 mmol/L LAB CHEMISTRY METHOD 11/07/2024 1:58 PM [facility] CO2 28 21 - 32 mmol/L LAB CHEMISTRY METHOD 11/07/2024 1:58 PM [facility] Anion Gap 7 3 - 11 LAB CHEMISTRY METHOD 11/07/2024 1:58 PM [facility] Glucose 131(H) 70 - 100 mg/dL LAB CHEMISTRY METHOD 11/07/2024 1:58 PM [facility] BUN 25 5 - 25 mg/dL LAB CHEMISTRY METHOD 11/07/2024 1:58 PM [facility] Creatinine 1.18(H) 0.50 - 1.10 mg/dL LAB CHEMISTRY METHOD 11/07/2024 1:58 PM [facility] eGFR 52(L) >=60 mL/min/1. 73m2 LAB CHEMISTRY METHOD 11/07/2024 1:58 PM [facility] Comment:Calculation based on the Chronic Kidney Disease Epidemiology Collaboration (CKD-EPI) equation refit without adjustment for race. BUN/Creatinine Ratio 21.2 LAB CHEMISTRY METHOD 11/07/2024 1:58 PM [facility] Calcium 9.6 8.5 - 10.5 mg/dL LAB CHEMISTRY METHOD 11/07/2024 1:58 PM [facility] AST (SGOT) 24 10 - 42 unit/L LAB CHEMISTRY METHOD 11/07/2024 1:58 PM EDT [facility] ALT (SGPT) 37 10 - 60 unit/L LAB CHEMISTRY METHOD 11/07/2024 1:58 PM EDT [facility] Alkaline Phosphatase 104 42 - 121 unit/L LAB CHEMISTRY METHOD 11/07/2024 1:58 PM EDT [facility] Total Protein 7.7 6.0 - 8.0 g/dL LAB CHEMISTRY METHOD 11/07/2024 1:58 PM EDT [facility] Albumin 3.5 3.2 - 5.0 g/dL LAB CHEMISTRY METHOD 11/07/2024 1:58 PM EDT [facility] Total Bilirubin 0.4 0.0 - 1.4 mg/dL LAB CHEMISTRY METHOD 11/07/2024 1:58 PM EDT [facility] Blood Venous blood specimen / Unknown Venipuncture / Unknown 11/07/2024 11:00 AM EDT 11/07/2024 11:39 AM EDT Chapito Aguayo MD LAB BLOOD ORDERABLE S Final Result [facility] [address] [place] [address], * Hemoglobin A1c (01/04/2024) Hemoglobin A1C 0.0 % Blood Venous blood specimen / Unknown Historical Provider LAB BLOOD ORDERABLES Debora l Result * Lipid panel (01/04/2024) LDL/HDL Ratio 0 Triglycerides 0 mg/dL Cholesterol 0 mg/dL HDL 0 mg/dL LDL Cholesterol 0 mg/dL Blood Venous blood specimen / Unknown Historical Provider LAB BLOOD ORDERABLES Debora l Result * Urine Albumin Creatinine Ratio (10/05/2023) Urine Albumin Creatinine Ratio Abstracted Historical Provider HEALTH MAINTENANCE Final Result from Last 3 Months or Most Recently Relevant to Health Maintenance Insurance [facility] MEDICAID [facility] MEDICARE Member Subscriber Plan / Payer (Ef fective 2020-Present) Name:JAMAL ABEL Relation to Subscriber:Self Name:Abel Wheatley Payer ID:[id number] Group ID:[id number] Type:Not on file Address: [address] [place] [address] Care Teams Head Pastry Chef Relationship Specialty Start Date End Date Johanna Valdez MD [address] [place] [address] PCP - General Internal Medicine 12/10/17
--- OUTSIDE RECORDS SUMMARY | 2025-06-29 11:43 | XMS_ITS | Encounter Summary ---
Author Organization [employer] Address 75 [facility] 7 [place] [address] Care Team Providers Care Lime Supervisor Name Role Phone Johanna Valdez MD Primary Care Provider [phone] Johanna Valdez MD Primary Care Provider [phone] Paulina Kitchen OD Unavailable Julieta Peoples RD Unavailable [phone] Encounter Details Date Type Department Care Team (Late st Contact Info) Description 09/26/2022 Orders Only [facility] [address] [place], [place] [phone] Provider, MD Dwayne Social History Tobacco Use [...] Description 07/04/2025 2:30 PM EST Office Visit [address] [address] Johanna Valdez MD [address] [place] [address] 07/11/2025 10:00 AM EST Clinical Support [facility] NUTRITION [address] [place] [address] Julieta Peoples, RD [address] [place] [address] 09/27/2025 4:00 PM EST Office Visit [facility] DENTAL [address] [place] [address] Lizy Block documented as of this encounter Procedures Procedure Name Priority Date/Time Associated Diagnosis Comments ALBUMIN/CREATININE RATIO, TI MED URINE Routine 09/24/2022 HEMOGLOBIN A1C Routine 09/24/2022 LIPID PANEL, STANDARD Routine 09/24/2022 documented in this encounter Results * Hemoglobin A1c (09/24/2022) Blood Venous blood specimen / Unknown [facility] Provider LAB BLOOD ORDERABLES Edit ed Result - Final * Albumin/Creatinine Ration, Timed Urine (09/24/2022) Urine Urine specimen obtained by clean catch procedure / Unknown [facility] Provider LAB URINE ORDERABLES Edit ed Result - Final * Lipid Panel, Standard (09/24/2022) Blood Venous blood specimen / Unknown Historical Provider LAB BLOOD ORDERABLES Edit ed Result - Final documented in this encounter Visit Diagnoses Not on filedocumented in this encounter Care Teams Lime Supervisor Relationship Specialty Start Date End Date Johanna Valdez MD [address] [place] [address] PCP - General Internal Medicine 08/07/22 10/26/22 Johanna Valdez MD [address] [place] [address] PCP - General Internal Medicine 10/27/22 Paulina Kitchen OD [address] [place] [address] Optometry 10/27/[address] [place] [address] Dietitian Dietitian 10/27/22 documented as of this encounter
--- OUTSIDE RECORDS SUMMARY | 2025-06-29 11:43 | XMS_ITS | Encounter Summary ---
Author Organization [employer] Address 75 [facility] 7t [place] [address] Care Team Providers Care Machinist Outside Name Role Phone Johanna Valdez MD Primary Care Provider [phone] Paulina Kitchen OD Unavailable Julieta Peoples RD Unavailable [phone] Encounter Details Date Type Department Care Team (Late st Contact Info) Description 06/27/2024 Orders Only [facility] [address] [place] [address] Johanna Valdez MD [address] [place] [address] Social History Tobacco Use Types Packs/Day Years [...] 07/04/2025 2:30 PM EST Office Visit [facility] MEDICAL [address] [place] [address] Johanna Valdez MD [address] [place] [address] 07/11/2025 10:00 AM EST Clinical Support [facility] NUTRITION [address] [place] [address] [place] [address] 09/27/2025 4:00 PM EST Office Visit [facility] DENTAL [address] [place] [address] Lizy Block documented as of this encounter Procedures Procedure Name Priority Date/Time Associated Diagnosis Comments PATHOLOGY REPORT (HISTOPATHOLOGY) Routine 06/20/2024 1:40 PM EDT documented in this encounter Results * Pathology Report (Histopathology) (06/20/2024 1:40 PM EDT) Tissue us Johanna Valdez MD LAB PATHOLOGY ORDERABLES Final R esult documented in this encounter Visit Diagnoses Not on filedocumented in this encounter Care Teams Machinist Outside Relationship Specialty Start Date End Date Johanna Valdez MD [address] [place] [address] PCP - General Internal Medicine 10/27/22 Paulina Kitchen OD [address] [place] [address] Optometry 10/27/[address] [place] [address] Dietitian Dietitian 10/27/22 documented as of this encounter
--- OUTSIDE RECORDS SUMMARY | 2025-06-29 11:43 | XMS_ITS | Data Portability ---
Author Organization [place] [facility], Allergy Address [address] [place] [address] Care Team Providers Care Sales Service Professional Name Role Phone ZHOU CURTIS Primary Care [...] Organization Details Recorded Time Bleeding from nose 421542892 Active Epista xis; Note: Date Diagno sed: 019 12:42 PM (R04.0 ) Not Available [facility] 4 03:31:16 Anterior epistaxis 142011226 Active 024 JADEN BUNDY MD [address] [address], [place], [address] , [place] [facility] 4 09:50:13 Problem Notes None recorded. Procedures Surgical History Date Name Laterality Status Provider Name and Address Organization Details Recorded Time endoscopic sleeve gastroplasty completed Marcello Keller [place] [facility] 05/12/2024 09:30:40 Imaging Results None recorded. Procedure Notes None recorded. Medical Equipment None Reported. Allergies Allergen ID Allergen Name Allergen Category Reaction Reaction Severity Criticality Documentation Date Start Date Code Code System Note Provider Name and Address Organization Details Recorded Time 099699 ibuprofen medicatio n other Not available Not available 01/12/2024 5640 RxNorm React ion: unkno wn, unspe cifie d;; Not Available [facility] 4 01:23:58 927994 Motrin medicatio n other Not available Not available 01/12/202431197 8 RxNorm React ion: unkno wn, unspe cifie d;; Not Available [facility] 4 01:23:59 Medications Name Sig Start Date Stop Date Status Note LastModified by Organization Details LastModified Time amoxicilli n 500 mg capsule Take 1 capsule (500 mg) by mouth every 8 (eight) hours for 5 days. active Not Available Not Available No t Available levothyrox ine 175 mcg tablet active Medicatio n ID: [id number] Du ration Value: 30 Brand Name: levothyro [...] 10 mg tablet active Medicatio n ID: [id number] Du ration Value: 30 Brand Name: pravastat [...] 5 mg tablet active Medicatio n ID: [id number] Du ration Value: 30 Brand Name: lisinopri l Send Method: E-Prescri bed Subs Allowed: subs [place] [facility] icName: lisinopri l Not Available Not [...] Available No t Available amoxicilli n 875 mg-potassi um clavulanat e 125 mg tablet Take 1 [...] Ultra-Fine Mini Pen Needle 31 gauge x 3/16 USE 1 needle 5 TIMES A DAY active Not Available Not Available No t Available aspirin active Medicatio n ID: [id number] Br and Name: aspirin S end Method: E-Prescri bed Subs Allowed: subs [place] [facility]: [facility] Not Available Not Available Not [...] Available No t Available FreeStyle Iris 3 Miller USE 1 Device continuou sly. active Not Available Not Available No t Available Vitals Date Recorded Body height Body mass index (BMI) Body weight Provider Name and Address Organization Details Last Updated DateTime 05/12/2024 162.56 cm 45.5 kg/m2 954503.98 g Marcello Keller [place] [facility] 05/12/2024 09:48:20 Social History None recorded. Functional Status None recorded. Mental Status None recorded. Family History Nothing Reported. Medical History No medical history recorded. Gynecological HistoryNo gynecological history recorded. Obstetrics History GPAL:G 0 P 0 0 0 0 Past Encounters Encounter ID Performer Location Encounter Start Date Encounter Closed Date Diagnosis/Indication Diagnosis SNOMED-CT Code Diagnosis ICD10 Code Diagnosis IMO Codes Diagnosis Note [id number] JADEN BUNDY MD [facility] on [address] [place] [phone] 05/12/2024 09:01:16 05/12/2024 10:10:32 Anterior epistaxis 634840018 R04.0 No active bleeding was seen on [...] at follow up. History of cerebrovascular accident 682645923 Z86.73 continue blood thinners per prescriber History of placement of stent for coronary artery disease 467316214 Z95.5 continue blood thinners per prescriber Health Concerns Section Related Observation LastModified by Organization Detai ls LastModified Time None Recorded Concern Status LastModified by Organization Details LastModified Time None Recorded Advance Directives Directive None Recorded Payers Insurance Date Sequence Insurance Name Policy Number Policy Esposito Covered Member ID Esposito Member ID Guarantor Name 06/27/2024 2 [place] [facility] Helen Wheatley [id number] Helen Wheatley 05/12/2024 1 [place] B-[place] [employer] Helen Wheatley [id number] Helen Wheatley 05/12/2024 1 [facility] - DOS ON OR AFTER 2022 - MEDICARE ADVANTAGE [place] (MEDICARE REPLACEMENT/A DVANTAGE - PPO) Helen Wheatley [id number] Helen Wheatley Notes Date Note Type Note Provider Name and Address Organization Details Recorded Time 05/12/2024 text/html ROS as noted in the HPI Hx of epistaxis mostly on the right about 2 times per week. She uses saline and ointment in her nose. She is on plavix and eliquis. Hx of a CVA and cardiac stents. JADEN BUNDY MD [address] [place] [address], [place], [address], [place] [facility] 05/12/2024 09:57:38 OBGyn Episode No OBEpisode recorded.
--- OUTSIDE RECORDS SUMMARY | 2025-06-29 11:43 | XMS_ITS | Clinical Summary ---
Author Organization [facility] Address [address] [place] [address] 7 [place] [address] Care Team Providers Care Clin Asst Name Role Phone Johanna Valdez MD Primary Care Provider Paulina Kitchen OD Unavailable Julieta Peoples RD Unavailable [phone] Allergies Active Allergy Reactions Criticality Noted [...] every 12 (twelve) hours. Active sodium chloride ([place]) 0.65 % nasal spray Administer 1 spray [...] Pelvic pain 05/14/2023 Overview (05/14/2023): Consulted with BANQUET LEAD in patient. 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 09/02/2022 Bursitis of [...] Encounters Date Type Department Care Team Description 06/26/2025 10:30 AM EDT Office Visit [facility] D[facility] [address] [place] [address] Kristina Rodriguez LLD 06/14/2025 Results Follow-Up [address] [address] Garima Schofield MD Albumin/Creatinine Ratio, Random Urine, CBC auto differential, Comprehensive Metabolic Panel [[id number]] 06/07/2025 2:30 PM EDT Office Visit [address] [address] Garima Schofield MD Right flank pain (Primary Dx); Chronic low back pain, unspecified back pain laterality, unspecified whether sciatica present; DM (diabetes mellitus), type 2 with neurological complications ([facility]); Muscle spasm 06/07/[address] [address] Johanna Valdez MD Lumbago with sciatica, unspecified side 06/05/2025 10:30 AM EDT Clinical Support [facility] NUTRITION [address] [place] [address] Type 2 diabetes mellitus with diabetic polyneuropathy, with long-term current use of insulin ([facility]) (Primary Dx); Class 3 severe obesity due to excess calories with serious comorbidity and body mass index (BMI) of 45.0 to 49.9 in adult (HCC) 05/23/2025 9:30 AM EDT Office Visit [facility] DENTAL [address] [place] [address] Kristina Rodriguez LLD 05/23/[address] [address] Johanna Valdez MD protine drink 05/02/2025 9:30 AM EDT Office Visit [facility] DENT[facility] [address] [place] [address] Kristina Rodriguez LLD 04/25/2025 10:45 AM EDT Clinical Support [facility] NUTRITION [address] [place] [address] Julieta Peoples, INEZ Type 2 diabetes mellitus with diabetic polyneuropathy, with long-term current use of insulin ([facility]) (Primary Dx); Class 3 severe obesity due to excess calories with serious comorbidity and body mass index (BMI) of 45.0 to 49.9 in adult 04/24/[address] [address] Garima Schofield MD Anxiety 04/15/[address] [address] Jayde Michael FNP Hypothyroidism (acquired) 04/15/[address] [address] Johanna Valdez MD Iron deficiency anemia, unspecified iron deficiency anemia type 04/03/[address] [address] Johanna Valdez MD Anxiety 03/31/2025 10:30 AM EDT Office Visit [address] [address] Johanna Valdez MD BMI 45.0-49.9, adult (CMS/[facility]) (Primary Dx); Nausea; DM (diabetes mellitus), type 2 with neurological complications (CMS/HCC) 03/31/[address] [address] Johanna Valdez MD BMI 45.0-49.9, adult (CMS/HCC); 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 gatito fied surface antigen) 06/21/2012,06/26/2011,06/04/2010,06/25 Moderna Covid-19 Vaccine 12+ 09/22/2024, 03/15/2024,01/20/2022,07/12,12/07/2020,11/09/2020 Novel [id number], all formulations 07/18/2009 Pfizer Covid-19 Vaccine 12+ [...] Pulse 77 06/26/2025 10:29 AM EDT Temperature 35.8 C (96.5 F) 06/07/2025 [...] Description 07/04/2025 2:30 PM EST Office Visit [facility] MED[facility] [address] [place] [address] Johanna Valdez MD [address] [place] [address] 07/11/2025 10:00 AM EST Clinical Support [facility] NUTRITION [address] [place] [address] Julieta Peoples, INEZ [address] [place] [address] 09/27/2025 4:00 PM EST Office Visit [facility] DENT[facility] [address] [place] [address] Lizy Block Health Maintenance Due Date Last Done Comments CT Colonography 1961 FIT DNA/Cologuard 1961 FIT 1961 FOBT 1961 HIV Screening 1961 Sigmoidoscopy 1961 Diabetes: Foot Exam 1971 Hepatitis C Screening 1979 Pap Smear 1982 Cervical Cancer Screening 1991 HPV/Cotest 1991 Zoster Vaccines (1 of 2) 2011 Depression Screening 03/24/2025 03/24/2024, 03/24/20 24 Influenza Vaccine (#1) 2025 , 06/12/2023, 07/22/2022, [...] Screening 03/17/2026 03/17/2025 Dental X-Ray: Bitewings 03/18/2026 03/17/20, 09/28/2023, 06/03/2022, Additional history exists Alcohol/Substance Use [...] AND TEETH) Routine 06/26/2025 10:30 AM EDT COMPREHENSIVE METABOLIC PANEL Routine 06/07/2025 3:56 PM [...] HEMOGLOBIN A1C Routine 03/28/2025 11:07 AM EDT Full PROPHYLAXIS - ADULT Routine 03/17/2025 10:00 [...] Count 10.7 3.4 - 10.8 x10E3/uL [facility] Red Blood Cell Count 4.08 3.77 - 5.28 x10E6/uL [facility] Hemoglobin 11.3 11.1 - 15.9 g/dL [facility] Hematocrit 34.9 34.0 - 46.6 % [facility] MCV 86 79 - 97 fL [facility] MCH 27.7 26.6 - 33.0 pg [facility] MCHC 32.4 31.5 - 35.7 g/dL [facility] RDW 13.7 11.7 - 15.4 % [facility] Platelet Count 494(H) 150 - 450 x10E3/uL [facility] Neutrophils 66 Not Estab. % [facility] Lymphocytes 22 Not Estab. % [facility] Monocytes 9 Not Estab. % [facility] Eosinophils 3 Not Estab. % [facility] Basophils 0 Not Estab. % [facility] Absolute Neutrophils 7.0 1.4 - 7.0 x10E3/uL [facility] Absolute Lymphocytes 2.3 0.7 - 3.1 x10E3/uL [facility] Absolute Monocytes 1.0(H) 0.1 - 0.9 x10E3/uL [facility] Absolute Eosinophils 0.3 0.0 - 0.4 x10E3/uL [facility] Absolute Basophils 0.0 0.0 - 0.2 x10E3/uL [facility] Immature Granulocytes 0 Not Estab. % [facility] Immature Grans (Abs) 0.0 0.0 - 0.1 x10E3/uL [facility] Blood Venous blood specimen / Unknown 06/07/2025 3:56 PM EDT 06/07/2025 Narrative Resulting Agency Comment Performed at: 01 - [facility] [address] [place], [place] [id number] [address] [employer]: Angela dEmond MD, Phone: [phone] Garima Schofield MD LAB BLOOD ORDERABLES Final Resul t [facility] 1 [facility] [address] [place] [address] * (ABNORMAL) Comprehensive Metabolic Panel [[id number]] (06/07/2025 3:56 PM EDT) Glucose 194(H) 70 - 99 mg/dL [facility] Urea Nitrogen (BUN) 32(H) 8 - 27 mg/dL [facility] Creatinine, Serum 1.09(H) 0.57 - 1.00 mg/dL [facility] eGFR 57(L) >59 mL/min/1.7 3 [facility] BUN/Creatinine Ratio 29(H) 12 - 28 [facility] Sodium 138 134 - 144 mmol/L [facility] Potassium 4.9 3.5 - 5.2 mmol/L [facility] Chloride 101 96 - 106 mmol/L [facility] Anion Gap 17.0 10.0 - 18.0 mmol/L [facility] Carbon Dioxide 20 20 - 29 mmol/L [facility] Calcium 9.4 8.7 - 10.3 mg/dL [facility] Protein, Total 7.0 6.0 - 8.5 g/dL [facility] Albumin 4.2 3.9 - 4.9 g/dL [facility] Globulin 2.8 1.5 - 4.5 g/dL [facility] Bilirubin, Total 0.3 0.0 - 1.2 mg/dL [facility] Alkaline Phosphatase 105 49 - 135 IU/L [facility] AST 43(H) 0 - 40 IU/L [facility] ALT 70(H) 0 - 32 IU/L [facility] Blood Venous blood specimen / Unknown 06/07/2025 3:56 PM EDT 06/07/2025 Narrative Resulting Agency Comment Performed at: - [address] [id number] [employer] [address] [employer]: Angela Edmond MD, Phone: [phone] Garima Schofield MD LAB BLOOD ORDERABLES Final Resul t Performing Organization Address [facility] de Phone Number [facility] [address] [address] * Albumin/Creatinine Ratio, Random Urine (06/07/2025 3:00 PM EDT) Creatinine, Random Urine 127.0 Not Estab. mg/dL [facility] Albumin, Urine 32.6 Not Estab. ug/mL [facility] Albumin/Creatin ine Ratio 26 0 - 29 mg/g creat [facility] Comment: Normal: 0 - 29 Moderately increased: 30 - 300 Severely increased: >300 Urine (Urine, Random) 06/07/2025 3:00 PM EDT 06/07/2025 Narrative Resulting Agency Comment Performed at: [address] [id number] [employer] [address] [employer]: Angela Edmond MD, Phone: [phone] Garima Schofield MD LAB URINE ORDERABLES Final Resul t Performing Organization Address [facility] de Phone Number [facility] [address] [address] * (ABNORMAL) Hemoglobin A1c (03/28/2025 11:07 AM EDT) Hemoglobin A1c 9.6(H) 4.8 - 5.6 % [facility] 1 Comment: Prediabetes: 5.7 - 6.4 Diabetes: >6.4 Glycemic control for adults with diabetes: <7.0 03/28/2025 11:0 7 AM EDT 03/28/2025 Narrative Resulting Agency Comment Performed at: - [facility] [address] [id number] [employer] [address] [employer]: Angela Edmond MD, Phone: [phone] Johanna Valdez MD LAB BLOOD ORDERABLES Final Resul t Performing Organization Address [facility] de Phone Number [facility] 1 * Lipid Panel, Standard (09/22/2024 12:09 PM EST) [facility] Cholesterol, Total 139 100 - 199 [...] - 09/23/2024 6:05 AM EST Performed at: - [facility] [address] [id number] [employer] [address] [employer]: Angela Edmond MD, Phone: [phone] Johanna Valdez MD LAB BLOOD ORDERABLES Final Resul t Performing Organization Address [facility] Phone Number [facility] 1 * BI Mammogram Screening Tomosynthesis [...] (Negative) Lay letter mailed to patient WSN: [id number] Ordering Physician: Johanna Valdez Dictated By: Andrea Charles MD Dictated Date/Time: 06/17/24 8:30 am Reviewed By: Andrea Charles MD Signed By: Andrea Charles MD Signed Date/Time: 06/17/24 8:30 am Transcribed By: BENJAMIN Plastering Supervisor Date/Time: 06/17/24 8:29 am Birads: Procedure Note [...] (Negative) Lay letter mailed to patient WSN: [id number] Ordering Physician: Johanna Valdez Dictated By: Andrea Charles MD Dictated Date/Time: 06/17/24 8:30 am Reviewed By: Andrea Charles MD Signed By: Andrea Charles MD Signed Date/Time: 06/17/24 8:30 am Transcribed By: BENJAMIN Plastering Supervisor Date/Time: 06/17/24 8:29 am Birads: us Johanna Valdez MD IMG BI PROCEDURES Final Result * Hm Colonoscopy (04/22/2024 12:08 PM EDT) us Johanna Valdez MD HEALTH MAINTENANCE Final Result from Last 3 Months or Most Recently Relevant to Health Maintenance Insurance [facility] ONE CARE < 65 [facility] DENTAL - HSN FULL (MEDICAID) Care Teams Clin Asst Relationship Specialty Start Date End Date Johanna Valdez MD [address] [place] [address] PCP - General Internal Medicine 10/27/22 Paulina Kitchen OD [address] [place] [address] Optometry 10/27/[address] [place] [address] Dietitian Dietitian 10/27/22
--- OUTSIDE RECORDS SUMMARY | 2025-06-29 11:43 | XMS_ITS | Encounter Summary ---
Author Organization [employer] Address [address] [facility] 7t [place] [address] Care Team Providers Care Plant Physiologist Name Role Phone Johanna Valdez MD Primary Care Provider [phone] Paulina Kitchen OD Unavailable Julieta Peoples RD Unavailable [phone] Encounter Details Date Type Department Care Team (Late st Contact Info) Description 09/22/2023 Orders Only [facility] [address] [place] [address] Johanna Valdez MD [address] [place] [address] Social History Tobacco Use Types Packs/Day Years [...] Description 07/04/2025 2:30 PM EST Office Visit [facility] [address] [place] [address] Johanna Valdez MD [address] [place] [address] 07/11/2025 10:00 AM EST Clinical Support [facility] NUTRITION [address] [place] [address] [place] [address] 09/27/2025 4:00 PM EST Office Visit [facility] [address] [place] [address] Liyz Block documented as of this encounter Procedures Procedure Name Priority Date/Time Associated Diagnosis Comments US PELVIS TRANSVAGINAL Routine 05/29/2023 documented in this encounter Results * US Pelvis Transvaginal (05/29/2023) Anatomical Region Laterality Modality Pelvis Ultrasound us Johanna Valdez MD IMG US PROCEDURES Edited Result - Final documented in this encounter Visit Diagnoses Not on filedocumented in this encounter Care Teams Plant Physiologist Relationship Specialty Start Date End Date Johanna Valdez MD [address] [place] [address] PCP - General Internal Medicine 10/27/22 Paulina Kitchen OD [address] [place] [address] Optometry 10/27/[address] [place] [address] Dietitian Dietitian 10/27/22 documented as of this encounter
--- OUTSIDE RECORDS SUMMARY | 2025-06-29 11:43 | XMS_ITS | Encounter Summary ---
Author Organization [employer] [facility] Address [address] [place] [address] 7 [place] [address] Care Team Providers Care Service Station Equipment Mechanic Name Role Phone Johanna Valdez MD Primary Care Provider [phone] Johanna Valdez MD Primary Care Provider [phone] Paulina Kitchen OD Unavailable Julieta Peoples RD Unavailable [phone] Encounter Details Date Type Department Care [...] Description 07/04/2025 2:30 PM EST Office Visit [facility] MEDICAL [address] [place] [address] Johanna Valdez MD [address] [place] [address] 07/11/2025 10:00 AM EST Clinical Support [facility] NUTRITION [address] [place] [address] [place] [address] 09/27/2025 4:00 PM EST Office Visit [facility] D[facility] [address] [place] [address] Lizy Block documented as of this encounter Visit Diagnoses Not on filedocumented in this encounter Care Teams Service Station Equipment Mechanic Relationship Specialty Start Date End Date Johanna Valdez MD [address] [place] [address] PCP - General Internal Medicine 08/07/22 10/26/22 Johanna Valdez MD [address] [place] [address] PCP - General Internal Medicine 10/27/22 Paulina Kitchen OD [address] [place] [address] Optometry 10/27/[address] [place] [address] Dietitian Dietitian 10/27/22 documented as of this encounter
--- OUTSIDE RECORDS SUMMARY | 2025-06-29 11:44 | XMS_ITS | Clinical Summary ---
Author Organization [facility] Address [address] [place] [address] Care Team Providers Care School Crossing Guard Supervisor Name Role Phone Johanna Valdez MD Primary Care Provider [phone] Allergies Active Allergy Reactions Criticality Noted Date [...] artery disease of n ative artery of [place] heart with stable angina pectoris 05/13/2023 Bilateral [...] age to complete this topic Care Teams School Crossing Guard Supervisor Relationship Specialty Start Date End Date Johanna Valdez MD [address] [place] [address] PCP - General Internal Medicine 6/29/21
--- OUTSIDE RECORDS SUMMARY | 2025-06-29 11:44 | XMS_ITS | Encounter Summary ---
Author Organization [facility] Address [address] [facility] 7t [place] [address] Care Team Providers Care Hydrologist Name Role Phone Johanna Valdez MD Primary Care Provider [phone] Paulina Kitchen OD Unavailable Julieta Peoples RD Unavailable [phone] Encounter Details Date Type Department Care Team (Late st Contact Info) Description 03/09/2024 Orders Only [place] [address] [place] [address] Johanna Valdez MD [address] [place] [address] Social History Tobacco Use Types Packs/Day Years [...] Description 07/04/2025 2:30 PM EST Office Visit [facility] MED[facility] [address] [place] [address] Johanna Valdez MD [address] [place] [address] 07/11/2025 10:00 AM EST Clinical Support [facility] NUTRITION [address] [place] [address] 73 [facility] [place] [address] 09/27/2025 4:00 PM EST Office Visit [facility] DENTAL [address] [place] [address] Lizy Block documented as of this encounter [...] on filedocumented in this encounter Care Teams Hydrologist Relationship Specialty Start Date End Date Johanna Valdez MD [address] [place] [address] PCP - General Internal Medicine 10/27/22 Paulina Kitchen OD [address] [place] [address] Optometry 10/27/[address] [facility] [place] [address] Dietitian Dietitian 10/27/22 documented as of this encounter
--- OUTSIDE RECORDS SUMMARY | 2025-06-29 11:44 | XMS_ITS | Encounter Summary ---
Author Organization [employer] Address [address] [facility] 7t [place] [address] Care Team Providers Care Controller Repairer And Tester Name Role Phone Johanna Valdez MD Primary Care Provider [phone] Paulina Kitchen OD Unavailable Julieta Peoples RD Unavailable [phone] Encounter Details Date Type Department Care Team (Late st Contact Info) Description 01/05/2024 Orders Only [facility] [address] [place] [address] Johanna Valdez MD [address] [place] [address] Social History Tobacco Use Types Packs/Day Years [...] Description 07/04/2025 2:30 PM EST Office Visit [facility] [address] [place] [address] Johanna Valdez MD [address] [place] [address] 07/11/2025 10:00 AM EST Clinical Support [facility] [address] [place] [address] 73 [facility] [place] [address] 09/27/2025 4:00 PM EST Office Visit [facility] [address] [place] [address] Lizy Block documented as of this encounter [...] on filedocumented in this encounter Care Teams Controller Repairer And Tester Relationship Specialty Start Date End Date Johanna Valdez MD [address] [place] [address] PCP - General Internal Medicine 10/27/22 Paulina Kitchen OD [address] [place] [address] Optometry 10/27/[address] [facility] [address] Dietitian Dietitian 10/27/22 documented as of this encounter
== END ==
LOC: HO.CARD 09:54
PROVIDERS: PCP Internal Medicine; Visit Provider Internal Medicine Cardiovascular Disease
DX: I35.0 Nonrheumatic aortic (valve) stenosis (principal)
CPT/HCPCS: 93306

== ENCOUNTER → 2025-06-29 10:05 | Outpatient (BNV) | payer OTHER, SELFPAY | PROVIDERS: PCP Internal Medicine; Visit Provider Internal Medicine | DX: I35.0 Nonrheumatic aortic (valve) stenosis (principal); I34.81 Nonrheumatic mitral (valve) annulus calcification; I51.89 Other ill-defined heart diseases | CPT/HCPCS: 93306 ==

== ENCOUNTER 2025-08-03 13:15 | Outpatient (AMB) | payer OTHER, SELFPAY ==
--- NOTE | 2025-08-03 13:19 | MHC.OFFVIS ---
Vital Signs 08/03/25 13:20 Height 5 ft 4 in Weight 275 lb 9.245 oz BMI 47.3 BP 120/68 Blood Pressure Location Lt brachial Position Sitting Pulse 71 Intake Visit Reasons: 6m follow up Intake Note: 6 month follow-up with ekg feeling ok Validation Engineer Required: No Allergies codeine Allergy (Severe, Verified 12/20/24 11:08) nausea gabapentin Allergy (Severe, Verified 12/20/24 11:08) nausea and vomiting glyburide Allergy (Severe, Verified 12/20/24 11:08) headache ibuprofen Allergy (Severe, Verified 12/20/24 11:08) headache metformin Allergy (Severe, Verified 12/20/24 11:08) Anaphylaxis tramadol Allergy (Severe, Verified 12/20/24 11:08) nausea and vomiting metoprolol (From Toprol XL) Adverse Reaction (Severe, Verified 12/20/24 11:08) Drop in blood pressure lactose Adverse Reaction (Intermediate, Uncoded 09/22/24 16:01) Diarrhea Medication List - Last Reconciled 08/03/25 by BROOK AbdallaC apixaban (Eliquis) 5 mg PO BID ciclopirox 0.77% appl topical coenzyme Q10 100 mg PO DAILY dronedarone (Multaq) 400 mg PO Q12H ezetimibe 10 mg PO DAILY ferrous gluconate 324 mg PO DAILY insulin degludec (Tresiba U-100 Insulin) 130 units subcut BEDTIME insulin regular human 1 sliding scale dose subcut USEASDIRECTD levothyroxine 150 mcg PO DAILY lidocaine 5% 0 patches topical loratadine 10 mg PO DAILY lorazepam 0.5 mg PO TID PRN morphine mg PO [id number]-[id number]-dtxo-FA-vit K 45 mg iron- 800 mcg-120 mcg (Bariatric Multivitamins) caps PO Oxygen Home Use As directed, 2 L at betime via nasal cannual rosuvastatin 40 mg PO DAILY semaglutide (weight loss) (Wegovy) 1 mg subcut sucralfate 10 mL PO Q6H HPI HPI 6m follow up: Details: The patient is a 64-year-old female presenting for a six-month cardiovascular follow-up. Her cardiac history is significant for paroxysmal atrial fibrillation, coronary artery disease, grade 2 diastolic dysfunction, and mild aortic stenosis, with underlying obesity, hypertension, hyperlipidemia, and diabetes. A cardiac catheterization from 07/16/2023 showed 80% stenosis of the proximal LAD, which was treated with a drug-eluting stent, and 70% stenosis of the first obtuse marginal artery. An echocardiogram on 06/29/2025 demonstrated an ejection fraction of 62%, grade 2 diastolic dysfunction, mild aortic stenosis, and severe mitral annular calcification. She is managed on Multaq and Eliquis and reports good tolerance. She reports her most recent blood counts were normal, without anemia . She denies chest pain or episodes of atrial fibrillation but does note heart palpitations when her blood sugar drops. She reports severe back pain that limits her activity, for which she is scheduled to see a neurosurgeon. The pain radiates to her chest and is associated with intermittent bowel and bladder problems, as well as increased stumbling and weakness on her right side, which was previously affected by a stroke. She also has frequent urination of small amounts, which her primary care physician attributes to her back issues, as her urinalysis was normal. [facility] Medical History Nocturnal hypoxemia Anemia PUD (peptic ulcer disease) Abnormal findings on cardiac catheterization Paroxysmal atrial fibrillation A-fib Liver fibrosis Steatosis, liver Hepatomegaly Aortic stenosis Diastolic dysfunction COVID-19 vaccine series completed Hx of difficult intubation Peripheral neuropathy Iron deficiency anemia Elevated cholesterol On beta maranda at home Liver disease Seasonal allergies CAD (coronary artery disease) Carotid artery disease GERD (gastroesophageal reflux disease) Hypertension Back pain Hypothyroidism Stroke Insulin dependent diabetes mellitus Sleep apnea Morbid obesity Surgical History S/P cardiac cath Hx of hysterectomy History of endoscopy S/P cardiac cath Stented coronary artery S/P laparoscopic sleeve gastrectomy History of eye surgery History of appendectomy Hx of endarterectomy History of tonsillectomy and adenoidectomy Family History Mother No problems noted. Father No problems noted. Social History Are you a primary career services officer to a significant other at home: No Do you presently have visiting nurse or other home services: Yes (Home Health Aid) Alcohol intake: former Patient Tobacco Use Status: Never used Tobacco service: No Current occupational status: disabled Review of Systems Const All systems reviewed & are unremarkable except as noted in HPI and below Denies chills, Denies fatigue, Denies fever(s), Denies frequent falls, Denies weakness, Denies weight gain and Denies weight loss ENT Denies dizziness Card Denies chest pain, Denies leg edema, Denies lightheadedness, Denies palpitations, Denies dyspnea, Denies dyspnea on exertion, Denies orthopnea and Denies other (loss of consciousness) Resp Denies cough, Denies dyspnea and Denies dyspnea on exertion GI Denies hematochezia and Denies change in stool character Musc Details: back pain Reports abnormal gait, Reports muscle weakness, Denies numbness, Denies radiating pain into limb and Denies tingling Neuro Reports abnormal gait, Denies dizziness, Denies frequent falls, Denies numbness, Denies tingling and Denies weakness Endo Denies fatigue and Denies palpitations Physical Exam Vital Signs: BMI result Body Mass Index 47.3 Const Other: morbid obesity General: cooperative, comfortable and no acute distress Orientation/consciousness: patient oriented x3 Neck Neck: Yes normal visual inspection and Yes no JVD Resp Effort & Inspection: normal respiratory effort Auscultation: clear to auscultation bilaterally, no crackles, no rales, no rhonchi and no wheezes Cardio Rate: regular rate Rhythm: regular rhythm Heart sounds: S1 normal heart sound present, S2 normal heart sound present, no gallops, no murmurs and no rubs Neuro General: patient oriented x3 Extrem Other: chronic back pains that limit mobility. General: Yes normal to inspection and No no pedal edema Psych Appearance: grossly normal Mental Status: mental status grossly normal Speech and movement: Normal speech and movement present Office Procedures EKG Details: Today, read by me, normal sinus rhythm, low voltage QRS, rate 71, Qtc 469ms [id number], Complete Assessment & Plan Assessment & Plan (1) CAD (coronary artery disease): Comment: Cardiac Catheterization (07/16/2023): Revealed proximal LAD 80% stenosis, first OM 70% stenosis, and minimal luminal irregularities in the RCA. - ELISHA to prox LAD Code(s): I25.10 - Atherosclerotic heart disease of [place] coronary artery without angina pectoris Category: Medical Plan: History of CAD with LAD stent. EKG today nonischemic. Recent echo with normal EF and no regional wall motion abnormalities. No anginal symptoms. She is not on aspirin as she is on Eliquis. Continue rosuvastatin and Zetia with LDL goal less than 70. Signs and symptoms of angina reviewed with her. (2) Paroxysmal atrial fibrillation: Code(s): I48.0 - Paroxysmal atrial fibrillation Category: Medical Plan: History of paroxysmal atrial fibrillation that is treated with rhythm control and currently suppressed with Multaq. EKG today showing sinus rhythm with QTC 469 milliseconds, rate 71. Continue Multaq. Continue Eliquis for anticoagulation. Recommend biannual CBC, BMP. (3) Aortic stenosis: Code(s): I35.0 - Nonrheumatic aortic (valve) stenosis Category: Medical Plan: History of aortic stenosis with most recent echocardiogram showing mild . Continue statin therapy. Will follow with periodic echoes (4) Diastolic dysfunction: Code(s): I51.89 - Other ill-defined heart diseases Category: Medical Plan: History of diastolic dysfunction. No clinical signs of heart failure on examination. She is not requiring diuretic therapy at this time. (5) Hypertension: Code(s): I10 - Essential (primary) hypertension Category: Medical Plan: Blood pressure goal less than 130/80. Well controlled at this time. No med changes made (6) Elevated cholesterol: Code(s): E78.00 - Pure hypercholesterolemia, unspecified Category: Medical Plan: LDL goal less than 70. Labs followed by her PCP. Continue rosuvastatin and Zetia. Recommend biannual lipids and LFT. Will forward this note to her PCP. Plan I reviewed the patient's cardiac status and she reports feeling well, without chest pain or symptoms of atrial fibrillation. We discussed her recent EKG, which showed normal sinus rhythm, and echocardiogram, which noted stable mild aortic stenosis. I reassured her that the mild aortic stenosis is not concerning at this point and does not require intervention. In response to her questions, I briefly explained future treatment options, including catheter-based and open surgical approaches, should the valve disease progress. I confirmed her blood pressure and heart rate are good and that her current medications are appropriate, advising her to continue them without changes. We also discussed her significant back pain, and I encouraged her to maintain her planned neurosurgery consultation and to perform whatever activity she can tolerate to maintain strength. I recommended she follow up in six months with Dr. Omer, or sooner if any new concerns arise. Patient Instructions: - Continue taking all of your current medications as they are prescribed, as we are making no changes today. - Your heart condition is stable, and your recent tests, including the EKG today, look good. - The mild stiffness in your aortic valve will be followed - Please keep your appointment with the spine surgeon (neurosurgeon) to address your back pain. - Try to stay as active as you can without making your back pain worse. Gentle activities like walking or using light hand weights while sitting can help you stay strong. - Please schedule a follow-up appointment with Dr. Hong in six months. Call our office sooner if you experience any new chest pain, trouble breathing, or other heart-related symptoms. Patient was informed and verbally consented to the use of an ambient scribe for clinic note documentation during this visit. Visit time spent on chart review, interview, assessment, orders, documentation. Coding Level of Care Code Est Pt Level 4 (00206) Complex visit Add On G2211 Diagnoses CAD (coronary artery disease) I25.10 Paroxysmal atrial fibrillation I48.0 Aortic stenosis I35.0 Diastolic dysfunction I51.89 Hypertension I10 Elevated cholesterol E78.00 CPT Codes EKG - CPT: [id number], Complete ([id number]) Time Spent (min) 32
[2025-08-03 13:20] VITALS: BP 120/68; PULSE 71; BMI 47.3
== END 2025-08-03 13:45 | disposition home or self-care (01) ==
LOC: HO.HCS 13:16
PROVIDERS: PCP Internal Medicine; Visit Provider Nurse Practitioner Family
DX: I25.10 Atherosclerotic heart disease of native coronary artery without angina pectoris (principal); I48.0 Paroxysmal atrial fibrillation; I35.0 Nonrheumatic aortic (valve) stenosis; I51.89 Other ill-defined heart diseases; I10 Essential (primary) hypertension; E78.00 Pure hypercholesterolemia, unspecified
CPT/HCPCS: 93010; 99214; G2211

== ENCOUNTER → 2025-08-03 13:15 | Outpatient (BNVA) | payer OTHER, SELFPAY | PROVIDERS: PCP Internal Medicine; Visit Provider Nurse Practitioner Family | DX: I25.10 Atherosclerotic heart disease of native coronary artery without angina pectoris (principal); I48.0 Paroxysmal atrial fibrillation; I35.0 Nonrheumatic aortic (valve) stenosis; I51.89 Other ill-defined heart diseases; I10 Essential (primary) hypertension; E78.00 Pure hypercholesterolemia, unspecified; Z95.5 Presence of coronary angioplasty implant and graft | CPT/HCPCS: 93005; 99212 ==